=== PATIENT | female | born 1940 | race Caucasian/White ===

== ENCOUNTER 2022-12-21 09:15 | Outpatient (OUT) | payer MEDICARE, BC, SELFPAY | END 2022-12-21 09:16 | disposition home or self-care (01) | LOC: LAB 09:16 | PROVIDERS: PCP Family Medicine; Visit Provider Family Medicine | DX: E53.8 Deficiency of other specified B group vitamins (principal); E55.9 Vitamin D deficiency, unspecified; E78.5 Hyperlipidemia, unspecified | CPT/HCPCS: 36415; 82306; 82607 ==

== ENCOUNTER 2023-05-17 06:49 | Outpatient (OUT) | payer MEDICARE, BC, SELFPAY ==
--- NOTE | 2023-05-17 06:15 | NM_ITS ---
Patient Name: KAREN GARSIA MR#: [id number] : 1940 Exam Date: 05/17/2023 Ordering Doctor: DR Tiffanie Mcintosh M.D. RADIOLOGY REPORT PROCEDURE: NM IVETTE PERF SPECT REST STR COMPARISON: None. INDICATIONS: DYSPNEA TECHNIQUE: Exam Description: Stress/Rest one day protocol gated SPECT Rest Imagin.2 mCi Tc-99m Cardiolite IV on 05/17/2023 Stress Imaging 30.3 mCi Tc-99m Cardiolite IV on 05/17/2023 Exercise Protocol: Jayjay Heart Rate (bpm): Rest: 101 Max: 150 PMHR: 110 Blood Pressure: Rest: 184/100 Max: 184/100 Exercise Time: Minutes: 3 Seconds: 58 Stage Reached: Stage: 2 Mets 5.7 Symptoms: Rest and peak stress ECG findings were normal and the exercise portion of the study was normal per attending physician Dr. Brandon . For more details please see separate cardiac stress test report. FINDINGS: QUALITY OF STUDY: Excellent. PERFUSION DEFECT: None. LOCATION: N/A SIZE: N/A. SEVERITY: N/A. TYPE: N/A. WALL MOTION: Normal. LV SIZE: Normal. 57 mL. TID / TCD: None; 0.7 LVEF: Normal. Calculated EF 82%. SUMMARY: Myocardial perfusion imaging study is NORMAL. CONCLUSION: 1. Normal nuclear medicine myocardial perfusion scan. Dictated by: Lamberto Alejandro M.D. on 05/17/2023 at 15:54 Approved by: Lamberto Alejandro M.D. on 05/17/2023 at 15:56
--- NOTE | 2023-05-17 09:09 | P.STRESS_ITS ---
Stress Test Stress Test Requesting physician: Tiffanie Mcintosh Procedure: Exercise Cardiolite stress test General Information: Reason for Stress Test: Dyspnea Cardiac History and Risk Factors: Denies any personal or family history of cardiovascular disease. Resting 12 - Lead Electrocardiogram: Rate & rhythm: Normal sinus at a rate of 88. [place]: Left axis deviation T-waves: Flattened in III ST-segments: Normal orientation Similar appearance to EKG from 10/03/2019 for reference Stress Test: Protocol: Jayjay protocol was followed, with injection of Cardiolite once target heart rate was achieved. Exercise capacity: [] exercise capacity. Total exercise time of 3 minutes 59seconds reached Jayjay stage 2 at 2.5MPH, 12% grade, & 5.5 METs. Blood pressure: Initial and Maximum: 184/100, Recovery: 174/98 Rate & rhythm: Patient remained in sinus rhythm during the exercise and recovery portions of the study.? The maximum heart rate was 150, which was 110% of the maximum predicted heart rate 136. Rare PACs and PVCs. ST-segments & T-waves: There were no T-wave changes and no ST-segment changes when compared to the baseline EKG. Patient response/symptoms: Reported dyspnea was increased than normal complaint. Interpretation: Normal exercise test without electrocardiographical evidence of ischemia. Patient voiced increased dyspnea than her chief complaint, but no chest pain. Cardiolite imaging interpretation will be reported separately. Clinical correlation required.?
== END 2023-05-17 06:50 | disposition home or self-care (01) ==
LOC: NM 06:50
PROVIDERS: PCP Family Medicine; Visit Provider Family Medicine
DX: R06.09 Other forms of dyspnea (principal)
CPT/HCPCS: 78452; A9500

== ENCOUNTER 2023-12-10 08:28 | Emergency (ER) | payer MEDICARE, BC, SELFPAY ==
[2023-12-10] VITALS (18 sets, daily range): BP systolic 178–220; BP diastolic 84–98; PULSE 58–109; TEMP 36.7; O2SAT 95–99; BMI 27.3
--- OUTSIDE RECORDS SUMMARY | 2023-12-10 08:37 | XMS_ITS | CCD ---
Author Organization [facility] [employer] Care Team Providers Care Head Athletic Trainer Name Role Phone REQUEST, NONE LISTED Attending Unavailable DOM DALTON Consulting Unavailable REQUEST, NONE LISTED Admitting Unavailable REQUEST, NONE LISTED Attending Unavailable REQUEST, NONE LISTED Admitting Unavailable REQUEST, NONE LISTED Consulting Unavailable Tiffanie Doan Primary Care Provider [phone] MARIA ELENA, DR LAMBERTO Breaux Consulting Unavailable DOAN, DR TIFFANIE Valdivia Admitting Unavailable DOAN, DR TIFFANIE Valdivia Attending Unavailable DOAN, DR TIFFANIE Valdivia Primary Care Unavailable DOAN, DR TIFFANIE Valdivia Consulting Unavailable DOAN, DR TIFFNAIE Valdivia Primary Care Unavailable DOAN, DR TIFFANIE Valdivia Admitting Unavailable DOAN, DR TIFFANIE Valdivia Attending Unavailable DOAN, DR TIFFANIE Valdivia Consulting Unavailable HOY, DR OLIVERA Attending Unavailable HOY, DR OLIVERA Consulting Unavailable HOY, DR OLIVERA Admitting Unavailable DOAN, DR TIFFANIE Valdivia Primary Care Unavailable DOAN, DR TIFFANIE Valdivia Primary Care Unavailable REQUEST, DR GREENWOOD LISTED Attending Unavaila ble REQUEST, DR GREENWOOD LISTED Consulting Unavaila ble REQUEST, DR GREENWOOD LISTED Admitting Unavaila ble ZIEBSUBHA, DR LAMBERTO Breaux Consulting Unavailable DOAN, DR TIFFANIE Valdivia Primary Care Unavailable DOAN, DR TIFFANIE Valdivia Admitting Unavailable DOAN, DR TIFFANIE Valdivia Attending Unavailable DOAN, DR TIFFANIE Valdivia Consulting Unavailable ZIEBER, DR LAMBERTO Breaux Consulting Unavailable DOAN, DR TIFFANIE Valdivia Primary Care Unavailable DOAN, DR TIFFANIE Valdivia Admitting Unavailable DOAN, DR TIFFANIE Valdivia Attending Unavailable DOAN, DR TIFFANIE Valdivia Consulting Unavailable Doan, Tiffanie Unavailable Allergies Allergy Classification Reported Allergen(s) Allergy Type Date of Onset Reaction(s) Facility Alendronate (1 source) Alendronate Drug Allergy 10-25-19 [facility] Cephalosporins (antibiotic) (3 sources) Cephalexin Drug Allergy 11-26-19 14 Diarrhea [facility] Clavulanate (1 source) Clavulanate Drug Allergy 10-25-19 [facility] Corticosteroids (1 source) Triamcinolone Drug Allergy 10-25-19 24 [facility] Penicillins (antibiotic) (2 sources) Amoxicillin Drug Allergy 11-26-19 14 Diarrhea [facility] Serotonin Reuptake Inhibitors (SSRIs) (1 source) Citalopram Drug Allergy 10-25-19 24 Comment:not effective - felt more anxious [facility] (15 sources) Cephalexin Drug Allergy 07-27-19 21 Unknown [facility] Rep[facility] (2 sources) Amoxicillin Drug Allergy 07-27-19 21 [facility] (13 sources) Amoxicillin Drug Allergy Unknown [facility] (9 sources) Alendronate Drug Allergy Unknown [facility] (9 sources) Amoxicillin / Clavulanate Drug Allergy Unknown [facility] (10 sources) Citalopram Drug Allergy 10-23-19 Comment:not effective - felt more anxious [facility] (9 sources) Triamcinolone Drug Allergy Unknown [facility] (9 sources) Keflex *CEPHALOSPORINS* Propensity to adverse reactions Unknown [facility] Other (1 source) Allergies Reconciled Propensity to adverse reactions Unknown [facility] Other (1 source) patient allergy list reviewed by nurse or physicia Propensity to adverse reactions 10-08-19 Comment:Done [facility] Other (1 source) Alendronate Drug Allergy 05-23-20 [facility] (1 source) Cephalexin Drug Allergy 05-23-20 [facility] (1 source) Cephalosporins (Antibiotic) Allergy to substance 05-23-20 [facility] (1 source) Clavulanate Drug Allergy 05-23-20 23 [facility] (1 source) Triamcinolone Drug Allergy 05-23-20 23 [facility] Medications Current Medications Medication Drug Class(es) Dates Sig (Normalized) Sig (Original) Aspir-81 (13 sources) Aspir-81 Active aspirin 81 mg delayed release oral tablet (2 sources) Platelet Aggregation Inhibitor, Nonsteroidal Anti-inflammatory Drug Start: 10-20-2023 take 81 mg by mouth once daily Aspirin Active 81 MG PO Daily October 20, 2023 12:00am Start: 11-12-2013 take 1 tablet by anna th once daily aspirin, enteric coated (ECOTRIN LOW STRENGTH) 81 mg EC tablet Take 1 tablet by mouth once daily. 0 11/12/2013 Active Comment on above: Take 1 tablet by anna once daily. Calcium (13 sources) Phosphate Binder, Calcium Calcium Active cholecalciferol 0.025 mg oral capsule (2 sources) Vitamin D Start: 10-20-19 take 25 ug by mouth once daily Cholecalciferol (Vitamin D3) Active 25 MCG PO Daily October 20, 2023 12:00am Start: 11-12-2013 take 1 capsule by [facility] once daily cholecalciferol, vitamin D3, (VITAMIN D-3) 400 unit cap Take 1 capsule by mouth once daily. 0 11/12/2013 Active Comment on above: Take 1 capsule by [facility] once daily. clopidogrel 75 mg oral tablet (17 sources) P2Y12 Platelet Inhibitor Start: 07-27-2023 End: 07-27-2023 take 1 tablet by mouth once daily Clopidogrel Active 75 MG PO Daily July 27, 2023 10:14am [employer] tablet Orally once a day; Note: Source Status: Taking; Refills: 3; Provider: Dayna Valdivia take 1 tablet by anna every twenty-four hours Clopidogrel Bisulfate 75 MG 1 tablet Orally once a day for 90 days Active diazePAM 2 mg oral tablet (15 sources) Benzodiazepine Start: 10-20-2023 take 0.5 tablet by mouth once daily as needed Diazepam Active MG PO October 20, 2023 12:00am [employer]/2 tab Orally Once a day, prn; Note: Source Status: Refill; Refills: 0; Provider: Dayna Valdivia Start: 05-23-2023 take 0.5 tablet by m outh once daily as needed diazePAM 2 MG 1/2 tab Orally Once a day, prn for 90 days May, Active Start: 03-15-2023 take 0.5 tablet by m outh once daily as needed diazePAM 2 MG 1/2 tab Orally Once a day, prn for 30 days Mar, Active Start: 11-12-2013 take 1 tablet by anna th twice daily diazepam (VALIUM) 5 mg tablet Take 1 tablet by mouth twice daily. 0 11/12/2013 Active diazePAM 2 MG 1/ 2 tab prn Active Comment on above: Take 1 tablet by anna twice daily. fluticasone furoate 0.0275 mg/actuat metered dose nasal spray (2 sources) Corticosteroid Start: take 2 spray(s) nasal route once daily, then take 1 spray(s) nasal route once daily Fluticasone Furoate Active 2 SPRAY INTRANASAL Daily October 20, 2023 12:00am [employer] sprays (1 spray in each nostril) Nasally Once a day; Note: Source Status: Taking; Provider: Dayna Moreno ( ) Start: 11-12-2013 fluticasone (F LONASE) 50 mcg/actuation nasal spray 2 Sprays once daily as needed. 0 11/12/2013 Active Comment on above: 2 Sprays once daily as needed. Fluticasone Furoate 27.5 MCG/SPRAY (13 sources) Fluticasone Furo ate 27.5 MCG/SPRAY 2 sprays (1 spray in each nostril) Nasally Once a day Active Foltanx 3-35-2 MG (13 sources) take 1 tablet by mouth once daily Foltanx 3-35-2 MG 1 tablet Orally once a day for 90 days Active Foltanx 3-35-2 M G 1 tablet once a day for 90 days Active Magnesium (13 sources) Magnesium Active Mecobal-Levomefolat Ca-B6 Phos (Foltanx) 3-35-2 mg tablet (1 source) Start: 10-20-2023 take 1 tablet by mouth twice daily Mecobal-Levomefolat Ca-B6 Phos (Foltanx) 3-35-2 mg tablet Active 1 TAB PO Twice daily October 20, 2023 12:00am 24 hr metoprolol succinate 50 mg extended release oral tablet (7 sources) beta-Adrenergic Rashel Start: 10-20-2023 take 1 tablet by mouth once daily Metoprolol Succinate Active 1 TAB PO Daily October 20, 2023 12:00am [employer] tablet Orally Once a day; Note: Source Status: Refill; Provider: Dayna Valdivia Start: 05-23-2023 take 1 tablet by anna th every twenty-four hours Toprol XL 25 MG 1 tablet Orally Once a day for 30 day(s) May, Active take 1 tablet by anna th every twenty-four hours Metoprolol Succinate ER 50 MG 1 tablet Orally Once a day for 90 days Active olmesartan medoxomil 40 mg oral tablet (20 sources) Angiotensin 2 Receptor Rashel Start: 10-16-2023 Olmesartan Active 0 .ROUTE .COMPLEX October 16, 2023 12:38pm TAKE 1 TABLET DAILY Start: 07-26-2023 End: 10-25-2023 take 40 mg by mouth once daily Olmesartan Discontinued 40 MG PO Daily August 02, 2023 2:42pm October 16, 2023 12:39pm take 1 tablet by anna th once daily Olmesartan Medoxomil 40 MG 1 tab Orally daily for 30 days Active take 1 tablet by anna th once daily Olmesartan Medoxomil 20 MG 1 tab Orally daily Active Psyllium (6 sources) Metamucil Active rosuvastatin calcium 20 mg oral tablet (18 sources) HMG-CoA Reductase Inhibitor Start: take 40 mg by mouth once daily Rosuvastatin Active 40 MG PO Daily October 25, 2023 10:33am Start: 07-27-2023 End: 10-25-2023 take 20 mg by mouth once daily Rosuvastatin Discontinu ed 20 MG PO Daily July 27, 2023 10:14am October 25, 2023 10:33am take 1 tablet by anna th every other day Rosuvastatin Calcium 20 MG 1 tablet Orally every other day for 90 days Active tiZANidine 4 mg oral tablet (14 sources) Central alpha-2 Adrenergic Agonist Start: 10-20-2023 take 1 tablet by mouth three times daily as needed Tizanidine Active 4 MG PO Three times daily October 20, 2023 12:00am FreeTextSi tablet as needed Orally Three times a day; Note: Source Status: Taking; Provider: Dayna Moreno ( ) take 1 tablet by mouth every eig ht hours tiZANidine HCl 4 MG 1 tablet as needed Orally Three times a day Active Vitamin D3 (13 sources) Vitamin D3 Activ e Completed/Discontinued Medications Medication Drug Class(es) Dates Sig (Normalized) Sig (Original) ascorbic acid 500 mg oral tablet (14 sources) Vitamin C Start: 11-12-2013 take 0.5 tablet by mouth once daily ascorbic acid (VITAMIN C) 500 mg tablet Take 0.5 tablets by mouth once daily. 0 11/12/2013 Active Vitamin C Active Comment on above: Take 0.5 tablets by mouth once daily. calcium carbonate 1500 mg oral tablet (1 source) Start: 2013 take 0.25 tablet by mouth once daily calcium carbonate 600 mg (1,500 mg) tab Take 0.25 tablets by mouth once daily. 0 11/12/2013 Active Comment on above: Take 0.25 tablets by mouth once daily. hydroCHLOROthiazide 12.5 mg / lisinopril 10 mg oral tablet (1 source) Thiazide Diuretic, Angiotensin Converting Enzyme Inhibitor Start: 2013 take 1 tablet by mouth once daily lisinopril-hydroch lorothiazide 10-12.5 mg per tablet Take 1 tablet by mouth once daily. 0 11/12/2013 Active Comment on above: Take 1 tablet by anna th once daily. C-Oumftka-T2 Zejd-Boajxg-G53 (FOLTANX) 3-35-2 mg tab or Capsule (2 sources) Start: 2013 take 1 tablet by mouth once daily D-Awupzac-O5 Ychu-Bqrddh-B83 (FOLTANX) 3-35-2 mg tab or Capsule Take 1 tablet by mouth once daily. 30 capsule 11 11/12/2013 Active Comment on above: Take 1 tablet by anna th once daily. meclizine hydrochloride 25 mg oral tablet (1 source) Antiemetic Start: 2013 take 0.5 tablet by mouth once daily as needed for dizziness meclizine 25 mg tab Take 0.5 tablets by mouth once daily as needed (for dizziness.). 0 11/12/2013 Active Comment on above: Take 0.5 tablets by mouth once daily as needed (for dizziness.). promethazine hydrochloride 25 mg oral tablet (7 sources) Phenothiazine Start: 2013 take 0.5 tablet by mouth once daily as needed for nausea promethazine 25 mg tablet Take 0.5 tablets by mouth once daily as needed for Nausea/Vomiting. 0 11/12/2013 Active Promethazine HCl 25 MG 1 tablet as needed prn Active Comment on above: Take 0.5 tablets by mouth once daily as needed for Nausea/Vomiting. triamcinolone acetonide 40 mg/ml injectable suspension (13 sources) Corticosteroid Start: 10-19-2022 Kenalog-40 October, 40 mg Problems Active Problems Problem Classification Problem Date Documented Da te Episodic/Chronic Acute cerebrovascular disease (1 source) Cerebral infarction; Translations: [Cerebral infarction, unspecified] Chronic Anxiety disorders (7 sources) Generalized anxiety disorder; Translations: [Generalized anxiety disorder] Chronic Cardiac dysrhythmias (1 source) Cardiac arrhythmia; Translations: [Cardiac arrhythmia, unspecified] Chronic Disorders of lipid metabolism (14 sources) Hyperlipidemia; Translations: [Hyperlipidemia, unspecified] Chronic Essential hypertension (19 sources) Essential hypertension; Translations: [Essential (primary) hypertension] Chronic Headache; including migraine (1 source) Episodic tension-type headache; Translations: [Episodic tension type headache] Onset: 6 Chronic Immunizations and screening for infectious disease (1 source) Vaccination given; Translations: [Encounter for immunization] Episodic Nausea and vomiting (1 source) Nausea; Translations: [Nausea] Episodic Nutritional deficiencies (14 sources) Vitamin D deficiency; Translations: [Vitamin D deficiency, unspecified] Chronic Nutritional deficiencies (3 sources) Deficiency of other specified B group vitamins Episodic Osteoarthritis (1 source) Osteoarthritis; Translations: [Unspecified osteoarthritis, unspecified site] Chronic Osteoporosis (1 source) Primary osteoporosis; Translations: [Age-related osteoporosis without current pathological fracture] Onset: 4 Chronic Other and unspecified benign neoplasm (3 sources) Benign neoplasm of cranial nerve; Translations: [Benign neoplasm of cranial nerves] Onset: 4 01-17-2014 Chronic Other and unspecified benign neoplasm (3 sources) Benign neoplasm of cranial nerves; Translations: [BENIGN NEOPLASM OF CRANIAL NERVES] Onset: 2 Chronic Other circulatory disease (1 source) Elevated blood-pressure reading without diagnosis of hypertension; Translations: [Elevated blood-pressure reading, without diagnosis of hypertension] Episodic Other circulatory disease (1 source) Personal history of transient ischemic attack (TIA), and cerebral infarction without residual deficits Episodic Other connective tissue disease (2 sources) Spasm; Translations: [Spasm of muscle] Onset: 6 Episodic Other gastrointestinal disorders (12 sources) Abnormal feces; Translations: [Other fecal abnormalities] Episodic Other gastrointestinal disorders (1 source) Other fecal abnormalities; Translations: [Positive colorectal cancer screening using Cologuard test] Episodic Other lower respiratory disease (1 source) Other forms of dyspnea Episodic Other non-traumatic joint disorders (1 source) Pain in right hip joint; Translations: [Pain in right hip] Episodic Other upper respiratory disease (14 sources) Seasonal allergic rhinitis; Translations: [Other seasonal allergic rhinitis] Chronic Peripheral and visceral atherosclerosis (5 sources) Peripheral vascular disease, unspecified; Translations: [Peripheral vascular disease] Onset: 8 Chronic Residual codes; unclassified (1 source) Family history of malignant neoplasm of gastrointestinal tract; Translations: [Family history of malignant neoplasm of digestive organs] Episodic Residual codes; unclassified (1 source) Family history of breast cancer; Translations: [Family history of malignant neoplasm of breast] Episodic Residual codes; unclassified (1 source) Requires influenza virus vaccination; Translations: [Need for prophylactic vaccination and inoculation, Influenza] Episodic Spondylosis; intervertebral disc disorders; other back problems (1 source) Lumbosacral spondylosis without myelopathy; Translations: [Lumbosacral spondylosis without myelopathy] Onset: 5 Chronic Transient cerebral ischemia (1 source) Transient cerebral ischemia; Translations: [Transient cerebral ischemic attack, unspecified] Chronic Past or Other Problems Problem Classification Problem Date Documented Da te Episodic/Chronic Allergic reactions (1 source) Contact dermatitis; Translations: [Contact dermatitis and other eczema, due to unspecified cause] Onset: 09-10-2014 Episodic Cancer of ovary (1 source) History of malignant neoplasm of ovary; Translations: [Personal history of malignant neoplasm of ovary] Onset: 02-27-2013 Episodic Conditions associated with dizziness or vertigo (2 sources) Benign paroxysmal positional vertigo; Translations: [Benign paroxysmal positional vertigo] Onset: 04-30-2013 Episodic Other connective tissue disease (1 source) Pain in left lower limb; Translations: [Pain in left leg] Onset: 04-19-2018 Episodic Other non-traumatic joint disorders (4 sources) Pain in right hip; Translations: [PAIN IN RIGHT HIP] Onset: 07-14-2021 Episodic Other non-traumatic joint disorders (1 source) Shoulder joint pain; Translations: [Pain in left shoulder] Onset: 10-27-2016 Episodic Other non-traumatic joint disorders (1 source) Arthralgia of the lower leg; Translations: [Pain in joint, lower leg] Onset: 10-27-2016 Episodic Other screening for suspected conditions (not mental disorders or infectious disease) (4 sources) Encounter for screening mammogram for malignant neoplasm of breast; Translations: [ENC SCR MAMMO MALIG NEOPLASM BREAST] Onset: 11-19-2021 Episodic Other upper respiratory infections (1 source) Acute maxillary sinusitis; Translations: [Acute recurrent maxillary sinusitis] Onset: 10-27-2016 Episodic Phlebitis; thrombophlebitis and thromboembolism (1 source) Embolism from thrombosis of vein of distal lower extremity; Translations: [Acute venous embolism and thrombosis of unspecified deep vessels of lower extremity] Onset: 04-30-2013 Episodic Residual codes; unclassified (1 source) Family history of malignant neoplasm of breast; Translations: [FAMILY HX MALIG NEOPLASM OF BREAST] Onset: 11-23-2021 Episodic Residual codes; unclassified (1 source) Family history of malignant neoplasm of digestive organs; Translations: [FAM HX MALIG NEOPLASM DIGESTIV ORGN] Onset: 11-23-2021 Episodic Screening and history of mental health and substance abuse codes (1 source) History of tobacco use; Translations: [Personal history of tobacco use, presenting hazards to health] Onset: 03-14-2017 Episodic Skin and subcutaneous tissue infections (1 source) Cellulitis and abscess of lower leg; Translations: [Cellulitis and abscess of leg, except foot] Onset: 04-30-2013 Episodic Unclassified (1 source) Need for prophylactic vaccination with tetanus toxoid alone; Translations: [Need for prophylactic vaccination with tetanus toxoid alone] Onset: 05-01-2013 Results Test Name Value Interpretation Reference Range Facil ity CBC AUTO DIFFon 11-19-2021 BASO # 0.0 103/ul Normal 0.0-0.1 [facility] Comment on above: Performed By: #### D ATCBC #### [facility] [address] [address] [address] Kin Acuna Basophils/100 WBC (Bld) 0.7 % Normal 0.2-2.0 [facility] Comment on above: Performed By: #### D ATCBC #### [facility] [address] [place] [address] Dr. Kin Acuna EO # 0.1 103/ul Normal 0.0-0.7 [facility] Comment on above: Performed By: #### D ATCBC #### [facility] [address] [place] [address] Dr. Kin Acuna Eosinophils/100 WBC (Bld) 1.6 % Normal 0.9-7.0 [facility] Comment on above: Performed By: #### D ATCBC #### [facility] [address] [place] [address] Dr. Kin Acuna Erythrocyte distribution width (RBC) [Ratio] 13.3 % Normal 11.0-15.0 [facility] Comment on above: Performed By: #### D ATCBC #### [facility] [address] [place] [address] Dr. Kin Acuna Hematocrit (Bld) [Volume fraction] 41.4 % Normal 36.0-48.0 [facility] Comment on above: Performed By: #### D ATCBC #### [facility] [address] [place] [address] Dr. Kin Acuna Hemoglobin (Bld) [Mass/Vol] 13.0 g/dL Normal 12.0-16.0 [facility] Comment on above: Performed By: #### D ATCBC #### [facility] [address] [place] [address] Dr. Kin Acuna IG # 0.01 10e3/ul Normal 0.00-0.03 [facility] Comment on above: Performed By: #### D ATCBC #### [facility] [address] [place] [address] Dr. Kin Acuna IG % 0.2 % Normal 0.0-0.5 [facility] Comment on above: Performed By: #### D ATCBC #### [facility] [address] [place] [address] Dr. Kin Acuna LYMPH # 1.8 103/ul Normal 1.2-3.8 [facility] Comment on above: Performed By: #### D ATCBC #### [facility] [address] [place] [address] Dr. Kin Acuna Lymphocytes/100 WBC (Bld) 32.8 % Normal 20.5-60.0 [facility] Comment on above: Performed By: #### D ATCBC #### [facility] [address] [place] [address] Dr. Kin Acuna MCH (RBC) [Entitic mass] 31.4 pg Normal 26.7-34.0 [facility] Comment on above: Performed By: #### D ATCBC #### [facility] [address] [place] [address] Dr. Kin Acuna MCHC (RBC) [Mass/Vol] 31.4 g/dL Normal 29.9-35.2 [facility] Comment on above: Performed By: #### D ATCBC #### [facility] [address] [place] [address] Dr. Kin Acuna MCV (RBC) [Entitic vol] 100.0 fL Critically high 81.0-99.0 [facility] Comment on above: Performed By: #### D ATCBC #### [facility] [address] [place] [address] Dr. Kin Acuna MONO # 0.5 103/ul Normal 0.3-0.8 [facility] Comment on above: Performed By: #### D ATCBC #### [facility] [address] [place] [address] Dr. Kin Acuna Monocytes/100 WBC (Bld) 8.3 % Normal 1.7-12.0 [facility] Comment on above: Performed By: #### D ATCBC #### [facility] [address] [place] [address] Dr. Kin Acuna NEUT # 3.1 103/ul Normal 1.4-6.5 [facility] Comment on above: Performed By: #### D ATCBC #### [facility] [address] [place] [address] Dr. Kin Acuna Neutrophils/100 WBC (Bld) 56.4 % Normal 43.0-75.0 [facility] Comment on above: Performed By: #### D ATCBC #### [facility] [address] [address] [address] Kin Acuna Platelet mean volume (Bld) [Entitic vol] 10.7 fL Normal 9.5-13.5 [facility] Comment on above: Performed By: #### D ATCBC #### [facility] [address] [place] [address] Dr. Kin Acuna PLT 171 103/ul Normal 150-450 [facility] Comment on above: Performed By: #### D ATCBC #### [facility] [address] [address] [address] Kin Acuna RBC 4.14 106/ul Critically low 4.20-5.40 [facility] Comment on above: Performed By: #### D ATCBC #### [facility] [address] [place] [address] Dr. Kin Acuna WBC 5.6 103/ul Normal 4.0-11.0 [facility] Comment on above: Performed By: #### D ATCBC #### [facility] [address] [place] [address] Dr. Kin Acuna ROSEMARY- BMP WITH LIPIDon 2021 Anion gap [Moles/Vol] 9.2 mmol/L Normal [facility] Comment on above: Performed By: #### D ATBMP #### [facility] [address] [place] [address] Dr. Kin Acuna Calcium [Mass/Vol] 8.8 mg/dL Normal 8.5-10.1 [facility] Comment on above: Performed By: #### D ATBMP #### [facility] [address] [place] [address] Dr. Kin Acuna Chloride [Moles/Vol] 106 mmol/L Normal 98-107 [facility] [facility] Comment on above: Performed By: #### D ATBMP #### [facility] [address] [address] [address] Kin Acuna Cholesterol [Mass/Vol] 152 mg/dL Normal <=200 [facility] Comment on above: Performed By: #### D ATBMP #### [facility] [address] [address] [address] Kin Acuna Cholesterol in HDL [Mass/Vol] 90 mg/dL Critically high 40-60 [facility] Comment on above: Performed By: #### D ATBMP #### [facility] [address] [address] [address] Kin Acuna Cholesterol in LDL [Mass/Vol] 57.8 mg/dL Normal [facility] Comment on above: Performed By: #### D ATBMP #### [facility] [address] [address] [address] Kin Acuna CO2 [Moles/Vol] 29.0 mmol/L Normal 21.0-32.0 [facility] Comment on above: Performed By: #### D ATBMP #### [facility] [address] [address] [address] iKn Acuna Creatinine [Mass/Vol] 1.04 mg/dL Critically high 0.55-1.02 [facility] Comment on above: Performed By: #### D ATBMP #### [facility] [address] [address] [address] Kin Acuna EGFR-AF LIBERIAN >60 Normal >=60 [facility] Comment on above: Performed By: #### D ATBMP #### [facility] [address] [address] [address] Kin Acuna EGFR-NON AF LIBERIAN 51 mL/min/1.73m2 Critically low >=60 [facility] Comment on above: Performed By: #### D ATBMP #### [facility] [address] [address] [address] Kin Acuna Glucose [Mass/Vol] 97 mg/dL Normal 74-106 [facility] Comment on above: Performed By: #### D ATBMP #### [facility] [address] [address] [address] Kin Acuna HDL NORMAL > or = 60 mg/dl - LO W CARDIOVASCULAR RISK <40 mg/dl - HIGH CARDIOVASCULAR RISK Normal [facility] Comment on above: Performed By: #### D ATBMP #### [facility] [address] [address] [address] Kin Acuna LDL CALC NORMAL SEE BELOW Normal [facility] Comment on above: Result Comment: <100 mg/dl OPTIMAL 100 - 129 mg/dl NEAR OR ABOVE OPTIMAL 130 - 159 mg/dl BORDERLINE HIGH 160 - 189 mg/dl HIGH >190 mg/dl VERY HIGH Performed By: #### D ATBMP #### [facility] [address] [address] [address] Kin Acuna Potassium [Moles/Vol] 4.2 mmol/L Normal 3.5-5.1 [facility] Comment on above: Performed By: #### D ATBMP #### [facility] [address] [address] [address] Kin Acuna Sodium [Moles/Vol] 140 mmol/L Normal 136-145 [facility] Comment on above: Performed By: #### D ATBMP #### [facility] [address] [address] [address] Kin Acuna Triglyceride [Mass/Vol] 21 mg/dL Normal <=150 [facility] Comment on above: Performed By: #### D ATBMP #### [facility] [address] [address] [address] Kin Acuna Urea nitrogen [Mass/Vol] 16.0 mg/dL Normal 7.0-18.0 [facility] Comment on above: Performed By: #### D ATBMP #### [facility] [address] [address] [address] Kin Acuna Urea nitrogen/Creatinine [Mass ratio] 15.4 mg/mg Normal [facility] Comment on above: Performed By: #### D ATBMP #### [facility] [address] [address] [address] Kin Acuna VLDL CALC 4.2 mg/dL Normal [facility] Comment on above: Performed By: #### D ATBMP #### [facility] [address] [address] [address] Kin Acuna MG MAMM SCREEN 3D BRANDON CADon 11-19-2021 MG MAMM SCREEN 3D BRANDON CAD Patient: SHABNAM GASRIA Exam Date: 11/19/2021 : 1940 Gender:F Ordering : DR TIFFANIE DOAN M.D. Admission #: [id number] Family : Order #: [id number] CLICK HERE TO VIEW EXAM RADIOLOGY REPORT PROCEDURE: MAMMOGRAM SCREENING 3D BILATERAL CAD COMPARISON: MG MAMM SCREEN 3D BRANDON CAD, 10/15/2020. MG MAMM SCREEN BRANDON W CAD, 10/09/2018. INDICATIONS: Screening mammography Calculator Name NCI Breast Cancer Risk Assessment Tool 5 Year Breast Cancer Risk 1.20% Lifetime Breast Cancer Risk 1.50% Personal Breast Cancer No Personal Ovarian Cancer Yes, Age 56. Hysterectomy, Treatments None Family Cancers Aunt-paternal with breast cancer at age 70; Mother with colon cancer at age 80. LOCATION: [facility] BREAST COMPOSITION: Heterogeneously dense,which may obscure small masses. FINDINGS: DIAGNOSTIC CATEGORY 2--BENIGN FINDING: RIGHT BREAST: No significant suspicious finding. Scattered benign-appearing calcifications are present. No significant change has occurred. LEFT BREAST: No significant suspicious finding. No significant change has occurred. RECOMMENDATIONS: ROUTINE MAMMOGRAM AND CLINICAL EVALUATION IN 12 MONTHS. PLEASE NOTE: A NORMAL MAMMOGRAM DOES NOT EXCLUDE THE POSSIBILITY OF BREAST CANCER. A CLINICALLY SUSPICIOUS PALPABLE LUMP SHOULD BE BIOPSIED. Dictated by: Lamberto Alejandro M.D. on 11/19/2021 at 14:53 Approved by: Lamberto Alejandro M.D. on 11/19/2021 at 14:56 Normal [facility] Vital Signs Date Time Vital Sign Value Performing Clinician Facility 10-25-2023 10:20-0400 Body height 152.4 cm [facility] 10-25-2023 10:20-0400 Body mass index (BMI) [Ratio] 28.3 kg/m2 [facility] 10-25-2023 10:20-040 Body weight 65.77 kg [facility] 10-25-2023 10:20-0400 Diastolic blood pressure 81 mm[Hg] [facility] 10-25-2023 10:20-0400 Heart rate 67 /min [facility] 10-25-2023 10:20-0400 Systolic blood pressure 176 mm[Hg] [facility] 05-23-2023 09:00-0500 Body height 152.4 cm Tiffanie Doan Other [facility] 05-23-2023 09:00-0500 Body mass index (BMI) [Ratio] 28.55 kg/m2 Tiffanie Doan Other [facility] 05-23-2023 09:00-0500 Body weight 66.32 kg Tiffanie Doan Other [facility] 05-23-2023 09:00-0500 Diastolic blood pressure 109 mm[Hg] Tiffanie Doan Other [facility] Other 05-23-2023 09:00-0500 Systolic blood pressure 176 mm[Hg] Tiffanie Doan Other [facility] 04-26-2023 10:00-0500 Body height 152.4 cm Tiffanie Doan Other [facility] 04-26-2023 10:00-0500 Body mass index (BMI) [Ratio] 27.92 kg/m2 Tiffanie Doan Other [facility] 04-26-2023 10:00-0500 Body weight 64.86 kg Tiffanie Doan Other [facility] Other 04-26-2023 10:00-0500 Diastolic blood pressure 88 mm[Hg] Tiffanie Doan Other [facility] Other 04-26-2023 10:00-0500 Systolic blood pressure 132 mm[Hg] Tiffanie Doan Other [facility] Other 10-26-2022 10:00-0400 Body height 152.4 cm Tiffanie Doan Other [facility] Other 10-26-2022 10:00-0400 Body mass index (BMI) [Ratio] 28.71 kg/m2 Tiffanie Doan Other [facility] Other 10-26-2022 10:00-0400 Body weight 66.68 kg Tiffanie Doan Other [facility] Other 10-26-2022 10:00-0400 Diastolic blood pressure 89 mm[Hg] Tiffanie Doan Other [facility] Other 10-26-2022 10:00-0400 Systolic blood pressure 172 mm[Hg] Tiffanie Doan Other [facility] Other Encounters Encounter Date Encounter Type Care Provider Facility Start: 10-25-2023 End: 10-25-2023 ambulatory [facility] Work Phone: Start: 10-25-2023 End: 10-25-2023 Patient encounter procedure [facility] Physician [facility] Work Phone: Start: 09-29-2023 End: 09-29-2023 ambulatory [facility] Work Phone: Start: 09-29-2023 End: 09-29-2023 Patient encounter procedure [facility] Physician [facility] Work Phone: Start: 08-02-2023 Non-patient / Non-visit [facility] Physician [facility] Work Phone: Start: 07-27-2023 Non-patient / Non-visit [facility] Physician [facility] [facility] Work Phone: Start: 07-14-2023 End: 07-14-2023 ambulatory Tiffanie Doan Other [facility] Other Start: 07-14-2023 Telephone encounter Tiffanie Doan [facility] Start: 06-27-2023 End: 06-27-2023 ambulatory Tiffanie Doan Other [facility] Other Start: 06-27-2023 Telephone encounter Tiffanie Doan [facility] Start: 06-09-2023 End: 06-09-2023 ambulatory Tiffanie Doan Other [facility] Other Start: 06-09-2023 Telephone encounter Tiffanie Doan [facility] Start: 05-23-2023 End: 05-23-2023 ambulatory Tiffanie Doan Other [facility] Other Start: 05-23-2023 Office outpatient vi sit 15 minutes Tiffanie Doan [facility] Start: 05-23-2023 Telephone encounter Tiffanie Doan [facility] Start: 04-26-2023 End: 04-26-2023 ambulatory Tiffanie Doan Other [facility] Other Start: 04-26-2023 Office outpatient vi sit 15 minutes Tiffanie Doan [facility] Start: 04-25-2023 End: 04-25-2023 ambulatory Tiffanie Doan Other [facility] Other Start: 04-25-2023 Telephone encounter Tiffanie Doan [facility] Start: 03-15-2023 End: 03-15-2023 ambulatory Tiffanie Doan Other [facility] Other Start: 03-15-2023 Telephone encounter Tiffanie Doan [facility] Start: 12-19-2022 End: 12-19-2022 ambulatory Tiffanie Doan Other [facility] Other Start: 12-19-2022 Telephone encounter Tiffanie Doan [facility] Start: 11-25-2022 End: 11-25-2022 ambulatory Tiffanie Doan Other [facility] Other Start: 11-25-2022 Telephone encounter Tiffanie Dayna [facility] Start: 11-01-2022 End: 11-01-2022 ambulatory Tiffanie Dayna Other [facility] Other Start: 11-01-2022 Telephone encounter Tiffanie Doan [facility] Start: 10-26-2022 End: 10-26-2022 ambulatory Tiffanie Doan Other [facility] Other Start: 10-26-2022 Office outpatient vi sit 15 minutes Tiffanieisabela Doan [facility] Start: 05-13-2022 End: 05-14-[address] TIFFANIE DOAN Facility:[facility] Start: 05-10-2022 Adult health examination Tiffanie Dayna Other [facility] Other Start: 05-04-2022 End: 05-05-[address] JAROD LONGORIA Facility:[facility] Start: 01-05-2022 End: 01-06-[address] LAMBERTO ALEJANDRO Facility:[facility] Start: 11-19-2021 End: 11-20-[address] LAMBERTO ALEJANDRO Facility:[facility] Start: 07-14-2021 End: 07-15-[address] LAMBERTO ALEJANDRO Facility:[facility] Start: 07-23-2020 End: 07-24-2020 Patient encounter procedure NONE LISTED REQUEST Facility:[facility] Start: 06-22-2020 End: 06-23-2020 Patient encounter procedure NONE LISTED REQUEST Facility:[facility] Start: 11-15-2013 End: 11-15-2013 Telephone encounter Eusebia Jimenes Work Phone: Neurology Procedures Date Procedure Procedure Detail Performing Clinician Start: 09-05-2017 General examination of patient Tiffanie Doan Other Start: 03-20-2015 Screening mammography M pk Doan Other Screening for malign ant neoplasm of breast Tiffanie Dayna Other Screening for malign ant neoplasm of colon Tiffanie Doan Other Plan of Treatment Date Care Activity Detail Author Start: 02-03-2021 Influenza vaccination INFLUENZA (Sea son Ended) [facility] Start: 08-20-2003 ADVANCE DIRECTIVE DISCUSSION ADVANCE DIRECTIVE DISCUSSION [facility] Start: 08-20-2003 BONE DENSITY BONE DENSITY [facility] Start: 08-20-2003 PNEUMOVAX AGE 65 AND OVER WITH 5YR LOOKBACK (#1) PNEUMOVAX AGE 65 AND OVER WITH 5YR LOOKBACK (#1) [facility] Start: 1988 SHINGRIX VACCINE (1 of 2) CANTRELL GRIX VACCINE (1 of 2) [facility] Start: 08-20-1983 DIABETES SCREEN DIABETES SCREEN [facility] Start: 1957 Urine microalbumin profile DTAP,TDAP ,TD (1 - Tdap) [facility] Immunizations Immunization Date Immunization Notes Care Provider Av rose 03-02-2022 influenza virus vaccine, split virus (incl. purified surface antigen) Tiffanie Doan Other [facility] Other 03-02-2022 influenza virus vaccine, unspecified formulation [facility] 02-24-2021 influenza virus vaccine, split virus (incl. purified surface antigen) Tiffanie Doan Other [facility] Other 02-24-2021 influenza virus vaccine, unspecified formulation [facility] 02-11-2020 influenza virus vaccine, split virus (incl. purified surface antigen) Tiffanie Doan Other [facility] Other 02-11-2020 influenza virus vaccine, unspecified formulation [facility] 09-05-2017 pneumococcal conjuga te vaccine, 13 valent Tiffanie Doan Other [facility] 09-05-2017 pneumococcal Conjuga te, unspecified formulation; Translations: [Need for prophylactic vaccination against Streptococcus pneumoniae (pneumococcus)] Tiffanie Doan Other [facility] Other 03-14-2017 influenza virus vaccine, split virus (incl. purified surface antigen) Tiffanie Doan Other [facility] Other 03-14-2017 influenza virus vaccine, unspecified formulation [facility] 04-10-2014 influenza virus vaccine, split virus (incl. purified surface antigen) Tiffanie Doan Other [facility] Other 04-10-2014 influenza virus vaccine, unspecified formulation [facility] 05-01-2013 diphtheria, tetanus toxoids and acellular pertussis vaccine, unspecified formulation Tiffanie Doan Other [facility] 04-11-2013 tetanus and diphther ia toxoids, adsorbed, preservative free, for adult use (5 Lf of tetanus toxoid and 2 Lf of diphtheria toxoid) Tiffanie Doan Other [facility] Payers Date Payer Category Payer Medicare MEDICARE MEDICAR E B [id number] 2003-Present [place] [id number] 1996 Unknown RG REHMAN BC BS FEP PPO [id number] 1996-Present PPO [id number] 1959 Medicare [id number] 1959 Self-pay 1959 Unknown [id number] 1940 Unknown [id number] 3 1940 Unknown [id number] 3 1940 Unknown [id number] 3 1940 Unknown [id number] 3 Medicare Medicare Outpatient [id number] Unknown [id number] 3 Unknown [id number] 3 Unknown [id number] 3 Unknown [id number] 3 Unknown Rg BC/BS [id number] Social History Date Type Detail Facility Start: 11-14-2013 Tobacco smoking status NHIS Former smoker [facility] End: 11-14-1996 History of tobacco use Current smoker [facility] Start: 11-14-2013 Alcohol intake 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 Other Start: 1940 Sex Assigned At Female F [facility] Clinical Notes 04-18-2005 to 07-14-2023 Note Date & Type Note Facility 07-14-2023 Evaluation note Encounter Date Diagnosis Assessment Notes Jul, Vitamin B12 deficiency (ICD-10 - E53.8) [facility] Other 01-23-2024 Evaluation note* Encounter Date Diagnosis Assessment Notes Treatment Notes Treatment Clinical Notes Jun, Essential (primary) hypertension (ICD-10 - I10) [facility] Other 01-05-2024 Evaluation note* Encounter Date Diagnosis Assessment Notes Treatment Notes Treatment Clinical Notes Jun, Essential (primary) hypertension (ICD-10 - I10) [facility] Other 12-19-2023 Evaluation note* Encounter Date Diagnosis Assessment Notes Treatment Notes Treatment Clinical Notes May, Essential (primary) hypertension (ICD-10 - I10) added toprol, continue olmesartan. 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 May, Anxiety, generalized (ICD-10 - F41.1) Pt takes med spariningly, reviewed OARRS report. [facility] Other 11-22-2023 Evaluation note* Encounter Date Diagnosis Assessment Notes Treatment Notes Treatment Clinical Notes Apr, Dyspnea on exertion (ICD-10 - R06.09) Pt agrees to Stress test Feels able to do the treadmill portion Apr, Essential (primary) hypertension (ICD-10 - I10) Blood pressure remains well controlled at this time. Denies cardiac symptoms. Shows no signs or symptoms or poor control. Patient to continue with above medication and we will continue to monitor. Advised to pay attention to body and symptoms. Any developing patterns. Stay well hydrated. Apr, History of CVA (cerebrovascular accident) (ICD-10 - Z86.73) Pt requests refill for chronic issue. [facility] Other 11-21-2023 Evaluation note* Encounter Date Diagnosis Assessment Notes Treatment Notes Treatment Clinical Notes Apr, Vitamin B12 deficiency (ICD-10 - E53.8) [facility] Other 05-24-2023 Evaluation note* Encounter Date Diagnosis Assessment Notes Treatment Notes Treatment Clinical Notes October, Vitamin B12 deficiency (ICD-10 - E53.8) due for lab - requests refill - chronic problem October, Vitamin D deficiency (ICD-10 - E55.9) as above October, Hyperlipidemia, unspecified hyperlipidemia type (ICD-10 - E78.5) check labs - continue present meds October, Essential (primary) hypertension (ICD-10 - I10) attributes high reading to white coat - will recheck at home. [facility] Other 08-03-2022 NotePROCEDURE: MRI BRAIN WO CON COMPARISON: MRI brain 04/01/2020, MRI brain 12/16/2015 HISTORY: Benign neoplasm of cranial nerve , acoustic neuroma TECHNIQUE: A variety of imaging planes and parameters were utilized for visualization of suspected pathology. Images were performed without intravenous Dotarem contrast. FINDINGS: IACS: 3 mm rounded soft tissue structure deep within right inner ear canal. INNER EARS: No abnormal signal intensity. MIDDLE EARS: No fluid or abnormal soft tissue. MASTOIDS: No fluid or abnormal soft tissue. SKULL BASE: Negative. Cavernous sinus and Meckel's caves are normal. CEREBRUM: Prominent chronic small vessel ischemic changes, stable. No edema, hemorrhage, mass, acute infarction, or inappropriate atrophy. CEREBELLUM: No edema, hemorrhage, mass, acute infarction, or inappropriate atrophy. BRAINSTEM: No edema, hemorrhage, mass, acute infarction, or inappropriate atrophy. CSF SPACES: Ventricles, cisterns, and sulci are appropriate for age. No hydrocephalus, subarachnoid hemorrhage, or mass. SINUSES: Limited views demonstrate no significant mucosal thickening or fluid. ORBITS: Limited views are unremarkable. IMPRESSION: 1. No evidence of acute ischemia. 2. Age consistent atrophy and chronic small vessel ischemic changes. 3. Possible acoustic neuroma within the right inner ear canal; not appreciably changed compared to 2016. Contrast was not given to evaluate enhancement. Electronically authenticated by: LAMBERTO ALEJANDRO Date: 2022-01-05 15:55[facility]02-09-2022 NotePROCEDURE: XR HIP RT 2 3V W PELVIS HISTORY: Pain in right hip joint COMPARISON: None. FINDINGS: BONES:Moderate narrowing of the right hip joint space. Degenerative ossified along the superior rim of the femoral heads bilaterally. L5-S1 degenerative disc disease. SOFT TISSUES:No visible soft tissue swelling. EFFUSION:None visible. OTHER: Negative. IMPRESSION: 1. Moderate degenerative changes of the right hip joint likely accounting for patient's symptoms. 2. No acute bone abnormality. 3. Suspect moderate or greater degenerative disc disease at L5-S1. Electronically authenticated by: LAMBERTO ALEJANDRO Date: 2021-07-14 14:31[facility]06-13-2014 Miscellaneous Notes* Telephone Encounter - Lakesha Rutherford - 11/15/2013 1:14 PM EDT Pt would like to know Dr. Jimenes's opinion on an ENT Dr. Juarez whom she was referred to by anotherphysician. Pt would also like to know if her lab and xray results are in. Please call pt at number listed with information - pt requesting to speak with Dr. Jimenes. [facility] of Past illness Narrative* Problem Noted Date Resolved Date CENTRAL ORIGIN VERTIGO 04/18/2005 4 Peripheral vertigo, unspecified 04/18/2005 01/17/2014 documented as of this encounter (statuses as of 09/30/2020) [facility] Other Evaluation noteNo assessment information available [facility] Work Phone: History general Narrative - Reported* Type Description Date Medical History OVARIAN CANCER Surgical History hysterectomy Surgical History appendectomy Hospitalization History SEE ABOVE [place] Other Summary Purpose Family History Relationship Condition Age at Onset Recorded Date/T mitzi brother Unknown father Unknown Not Specified Unknown Malignant neoplasm Unknown Advance Directives Advance Directive Response Recorded Date/ Time Advance Directives No June 29, 2023 12:01pm Chief Complaint and Reason for Visit Chief Complaint Amb Documentation Amb Documentation allergy shot Chief Complaint Amb Documentation allergy shot 6 month follow Additional Source Comments INFORMATION SOURCE (unrecogn ized section and content) DATE CREATED AUTHOR 07/28/2020 [facility] DATE CREATED AUTHOR AUTHOR'S ORGANIZ ATION 05/26/2022 [facility] Source Comments (unrecognize d section and content) In the event this informatio n is protected by the Federal Confidentiality of Alcohol and Drug Abuse Patient Records regulations: The Federal rules restrict any use of the information to criminally investigate or prosecute any alcohol or drug abuse patient.[facility] REASON FOR VISIT (unrecogniz ed section and content) refill6 MONTH FOLLOW UP ACre filllabsrefillrefill6 month Follow upstress testblood pressure issuesNew RXBPsmessagerefills Care Teams (unrecognized sec tion and content) Team Status: Active Member Role Status Dates Tiffanie Doan MD Primary Care Provider Active Team Status: Active Member Role Status Dates Tiffanie Doan MD Primary Care Provider Active Start: July 27, 2023 ALISSON Canales Attending Provider Active Start : July 27, 2023 Team Status: Active Member Role Status Dates Tiffanie Doan MD Primary Care Provider Active Start: August 02, 2023 ALISSON Canales Attending Provider Active Start : August 02, 2023 Team Status: Inactive Member Role Status Suzan Doan MD Primary Care Provide r, Attending Provider Active Start: September 29, 2023 End: September 29, 2023 Team Status: Inactive Member Role Status Suzan Doan MD Primary Care Provide r, Attending Provider Active Start: October 25, 2023 End: October 25, 2023 Goals (unrecognized section and content) Goals may be documented in a n alternate section FOR RECORDS PERTAINING TO PATIENTS WHO ARE OR HAVE BEEN ENROLLED IN A CHEMICAL DEPENDENCY/SUBSTANCEABUSE PROGRAM, SOME INFORMATION MAY BE OMITTED. This clinical summary was aggregated from multiple sources. Caution should be exercised in using it in the provision of clinical care. This summary normalizes information from multiple sources, and as a consequence, information in this document may materially change the coding, format and clinical context of patient data. In addition, data may be omitted in some cases. CLINICAL DECISIONS SHOULD BE BASED ON THE PRIMARY CLINICAL RECORDS. [employer] provides no warranty or guarantee of the accuracy or completeness of information in this document.
--- NOTE | 2023-12-10 08:48 | ECG_ITS ---
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
[2023-12-10 09:12] LABS: Basophils Percent Auto 0.5 % (0.2-2.0); Eosinophils Absolute Auto 0.1 10^3/uL (0.0-0.7); Eosinophils Percent Auto 1.9 % (0.9-7.0); Hematocrit 40.7 % (36.0-48.0); Immature Granulocytes Abs Auto 0.02 10^3/uL (0.00-0.03); Immature Granulocytes Pct Auto 0.3 % (0.0-0.5); Lymphocytes Absolute Auto 1.4 10^3/uL (1.2-3.8); Lymphocytes Percent Auto 22.4 % (20.5-60.0); Mean Corpuscular HGB Conc 31.9 g/dL (29.9-35.2); Mean Corpuscular Hemoglobin 32.3 pg (26.7-34.0); Mean Platelet Volume 10.7 fL (9.5-13.5); Monocytes Absolute Auto 0.5 10^3/uL (0.3-0.8); Monocytes Percent Auto 7.4 % (1.7-12.0); Neutrophils Absolute Auto 4.2 10^3/uL (1.4-6.5); Neutrophils Percent Auto 67.5 % (43.0-75.0); Platelet Count 172 10^3/uL (150-450); Red Blood Count 4.03 10^6/uL (4.20-5.40); Red Cell Distribution Width 13.8 % (11.0-15.0); White Blood Count 6.2 10^3/uL (4.0-11.0)
--- NOTE | 2023-12-10 09:23 | ED.GENADUL1 ---
HPI HPI - General Adult General Chief complaint: Chest Pain Stated complaint: HIGH BLOOD PRESSURE Time Seen by Provider: 12/10/23 08:45 Source: patient Mode of arrival: walk-in Limitations: no limitations History of Present Illness HPI narrative: The patient is coming to the ER with concern of elevated blood pressure, he mentioned that she has been measuring her blood pressure daily and she noted that her blood pressure was elevated few times she is denying any headache nausea vomiting or any other complaints She also denies any chest pain at any time The patient did mention that she did lose her son almost a month ago for suicide and she thinks about him so much, she denies herself being depressed but she admits being sad Patient denies being suicidal, Related Data Home Medications ?Medication ?Instructions ?Recorded ?Confirmed aspirin 81 mg tablet,delayed 243 mg PO DAILY 12/10/23 12/10/23 release clopidogrel 75 mg tablet 75 mg PO DAILY 12/10/23 12/10/23 metoprolol succinate 50 mg 50 mg PO DAILY 12/10/23 12/10/23 tablet,extended release 24 hr olmesartan 40 mg tablet 40 mg PO DAILY 12/10/23 12/10/23 rosuvastatin 20 mg tablet 20 mg PO .every other day 12/10/23 12/10/23 Previous Rx's ?Medication ?Instructions ?Recorded amlodipine 5 mg tablet 5 mg PO DAILY #10 tabs 12/10/23 Allergies Allergy/AdvReac Type Severity Reaction Status Date / Time No Known Drug Allergies Allergy Verified 12/10/23 08:38 Opioid HPI Opioid Management Most Recent Opioid Data: No Data to Display Review of Systems ROS Status of ROS 10 or more systems reviewed and unremarkable except as noted in history and below Exam Narrative Exam Narrative: Nurses notes and vital signs reviewed and patient is not hypoxic. General: Well-appearing and in no apparent distress. Skin: Warm, dry, no pallor noted. No rash. Head: Normocephalic, atraumatic. Neck: Supple, non-tender. Eye: Pupils are equal, round and EOMI. No scleral icterus. Ears, Nose, Mouth, and Throat: TM are clear, no nasal mucosal hypertrophy. Oral mucosa is moist, no posterior oropharynx erythema, uvula is mid-line Cardiovascular: Regular Rate and Rhythm without murmur, gallop or rub. Respiratory: No accessory muscle use or respiratory distress. Lungs are clear to auscultation, no wheezing, rales or rhonchi Chest Wall: no tenderness Back: No midline thoracic or lumbar vertebral tenderness. No CVA tenderness Musculoskeletal: normal ROM, no calf or popliteal tenderness, no lower extremity edema/swelling GI: Abdomen is soft, non-distended. Normal bowel sounds. No masses appreciated. No tenderness to palpation. No rebound, guarding, or rigidity noted. Neurological: A&O x4. No cranial nerve dysfunction observed. No truncal ataxia. Moves all extremities. Sensation intact. Psychiatric: Cooperative and interactive. Normal mood and affect. Constitutional Vital Signs, click to edit/add: Last Vital Signs Temp 98.1 F 12/10/23 08:34 Pulse 69 12/10/23 10:20 Resp 24 H 12/10/23 10:20 BP 178/84 H 12/10/23 10:08 Pulse Ox 98 12/10/23 10:08 O2 Del Method Room Air 12/10/23 08:54 Course Vital Signs Vital signs: Vital Signs Temperature 98.1 F 12/10/23 08:34 Respiratory Rate 18 12/10/23 08:34 Pulse Oximetry 97 12/10/23 08:34 Oxygen Delivery Method Room Air 12/10/23 08:34 Temperature 98.1 F 12/10/23 08:34 Pulse Rate 69 12/10/23 10:20 Respiratory Rate 24 H 12/10/23 10:20 Blood Pressure 178/84 H 12/10/23 10:08 Pulse Oximetry 98 12/10/23 10:08 Oxygen Delivery Method Room Air 12/10/23 08:54 Medical Decision Making [facility] Narrative Medical decision making narrative: Patient EKG showing sinus rhythm with a heart rate of [address] elevation or depression The patient blood workup here shows no acute significant pathology Blood pressure on multiple occasion was elevated above 200 even on manual blood pressure monitoring With the patient recent grieving her blood pressure could be elevated due to that to right now she was given clonidine after which her blood pressure responded but she will be started on amlodipine 5 mg tomorrow with keeping her blood pressure log to take to her primary care Patient was instructed in case of any dizziness or any other complaint to stop the medication come back to the ER also to follow-up with her doctor within few days The patient is to follow up with primary care physician in next 2-3 days or to return to the emergency department should any of the signs or symptoms worsen or new symptoms develop. The patient agrees with the following Diagnosis and Treatment plan and the patient will be discharged home. Lab Data Labs: Lab Results 12/10/23 Range/Units 08:46 WBC 6.2 (4.0-11.0) 10^3/uL RBC 4.03 L (4.20-5.40) 10^6/uL Hgb 13.0 (12.0-16.0) g/dL Hct 40.7 (36.0-48.0) % MCV 101.0 H (81.0-99.0) fL MCH 32.3 (26.7-34.0) pg MCHC 31.9 (29.9-35.2) g/dL RDW 13.8 (11.0-15.0) % Plt Count 172 (150-450) 10^3/uL MPV 10.7 (9.5-13.5) fL Neut % (Auto) 67.5 (43.0-75.0) % Lymph % (Auto) 22.4 (20.5-60.0) % Wirt % (Auto) 7.4 (1.7-12.0) % Eos % (Auto) 1.9 (0.9-7.0) % Baso % (Auto) 0.5 (0.2-2.0) % Neut # (Auto) 4.2 (1.4-6.5) 10^3/uL Lymph # (Auto) 1.4 (1.2-3.8) 10^3/uL Wirt # (Auto) 0.5 (0.3-0.8) 10^3/uL Eos # (Auto) 0.1 (0.0-0.7) 10^3/uL Baso # (Auto) 0.0 (0.0-0.1) 10^3/uL Abs Immat Gran (auto) 0.02 (0.00-0.03) 10^3/uL Imm/Tot Granulo (auto) 0.3 (0.0-0.5) % Sodium 140 (136-145) mmol/L Potassium 3.8 (3.5-5.1) mmol/L Chloride 104 (98-107) mmol/L Carbon Dioxide 28.4 (21.0-32.0) mmol/L Anion Gap 11.4 BUN 17.0 (7.0-18.0) mg/dL Creatinine 1.05 H (0.55-1.02) mg/dL Est GFR ( Amer) >60 (>=60) Est GFR (Non-Af Amer) 50 L (>=60) BUN/Creatinine Ratio 16.2 Glucose 104 (74-106) mg/dL Calcium 8.4 L (8.5-10.1) mg/dL Total Bilirubin 1.2 H (0.2-1.0) mg/dL AST 19 (15-37) U/L ALT 20 (14-59) U/L Alkaline Phosphatase 63 (46-116) U/L Troponin I High Sens 7.0 (4.0-51.3) pg/mL Total Protein 6.7 (6.4-8.2) g/dL Albumin 3.3 L (3.4-5.0) g/dL Globulin 3.4 g/dL Albumin/Globulin Ratio 1.0 Discharge Plan Discharge Stand Alone Forms: Portal Instructions Chief Complaint: Chest Pain Clinical Impression: Hypertension, uncontrolled Patient Disposition: Home, Self-Care Time of Disposition Decision: 10:17 Condition: Good Prescriptions / Home Meds: New amlodipine 5 mg tablet 5 mg PO DAILY Qty: 10 0RF Rx Instructions: please start tomorrow on 12/11/2023 No Action clopidogrel 75 mg tablet 75 mg PO DAILY metoprolol succinate 50 mg tablet extended release 24 hr 50 mg PO DAILY olmesartan 40 mg tablet 40 mg PO DAILY rosuvastatin 20 mg tablet 20 mg PO .every other day aspirin 81 mg tablet,delayed release (DR/EC) 243 mg PO DAILY Print Language: Spanish Instructions: Hypertension (ED) Referrals: Tiffanie Mcintosh MD [Primary Care Provider] - 1 week
[2023-12-10 09:29] LABS: Alanine Aminotransferase 20 U/L (14-59); Albumin Level 3.3 g/dL (3.4-5.0); Alkaline Phosphatase 63 U/L (46-116); Anion Gap 11.4; Aspartate Amino Transferase 19 U/L (15-37); BUN Creatinine Ratio 16.2; Bilirubin Total 1.2 mg/dL (0.2-1.0); Calcium 8.4 mg/dL (8.5-10.1); Carbon Dioxide 28.4 mmol/L (21.0-32.0); Chloride 104 mmol/L (98-107); Estimated GFR (African America >60 (>=60); Estimated GFR (Non-African Ame 50 (>=60); Globulin 3.4 g/dL; Glucose 104 mg/dL (74-106); Potassium 3.8 mmol/L (3.5-5.1); Sodium 140 mmol/L (136-145); Total Protein 6.7 g/dL (6.4-8.2)
[2023-12-10] MEDS: CLONIDINE HCL 0.1 MG TABLET 0.100000000000000006 MG PO (09:35)
== END 2023-12-10 10:34 | disposition home or self-care (01) ==
PROVIDERS: Emergency Provider Emergency Medicine; PCP Family Medicine
DX: I10 Essential (primary) hypertension (principal)
CPT/HCPCS: 36415; 80053; 84484; 85025; 93005; 99284

== ENCOUNTER 2024-01-22 12:18 | Outpatient (OUT) | payer MEDICARE, BC, SELFPAY ==
[2024-01-22 14:30] LABS: Thyroid Stimulating Hormone 2.528 uIU/mL (0.358-3.740)
[2024-01-22 16:02] LABS: Free T4 0.95 ng/dL (0.76-1.46)
== END 2024-01-22 12:19 | disposition home or self-care (01) ==
LOC: LAB 12:21
PROVIDERS: PCP Family Medicine; Visit Provider Family Medicine
DX: R45.1 Restlessness and agitation (principal)
CPT/HCPCS: 36415; 84439; 84443

== ENCOUNTER 2024-09-05 10:36 | Emergency (ER) | payer MEDICARE, BC, SELFPAY ==
[2024-09-05 10:46] VITALS: BP 185/89; PULSE 84; TEMP 36.6; O2SAT 98; BMI 27.3
--- NOTE | 2024-09-05 14:41 | ED.GENADUL1 ---
HPI HPI - General Adult General Chief complaint: Extremity Injury, Lower Stated complaint: FALL, HIP PAIN Time Seen by Provider: 09/05/24 11:05 Source: patient Mode of arrival: walk-in Limitations: no limitations History of Present Illness HPI narrative: The patient walked into the ER complaining of left hip and left knee pain This pain started yesterday after she tripped while walking she is able to walk with no difficulty but she still have some pain and she get better whenever she take Tylenol She came here because her daughter told her to come and get checked Related Data Home Medications ?Medication ?Instructions ?Recorded ?Confirmed aspirin 81 mg tablet,delayed 243 mg PO DAILY 12/10/23 09/05/24 release clopidogrel 75 mg tablet 75 mg PO DAILY 12/10/23 09/05/24 metoprolol succinate 50 mg 50 mg PO DAILY 12/10/23 09/05/24 tablet,extended release 24 hr rosuvastatin 20 mg tablet 20 mg PO .every other day 12/10/23 09/05/24 hydroxyzine HCl 10 mg tablet 10 mg PO Q8H PRN anxiety 09/05/24 09/05/24 mecobalamin-levomefolate 1 tab PO DAILY 09/05/24 09/05/24 calcium-pyridoxal phos 2 mg-3 mg-35 mg tablet (Foltanx) Previous Rx's ?Medication ?Instructions ?Recorded amlodipine 5 mg tablet 5 mg PO DAILY #10 tabs 12/10/23 Allergies Allergy/AdvReac Type Severity Reaction Status Date / Time No Known Drug Allergies Allergy Verified 12/10/23 08:38 Opioid HPI Opioid Management Most Recent Opioid Data: No Data to Display Review of Systems ROS Status of ROS 10 or more systems reviewed and unremarkable except as noted in history and below PFSH PFSH Social History Little interest or pleasure in doing things: not at all Feeling down, depressed, or hopeless: not at all Exam Narrative Exam Narrative: Nurses notes and vital signs reviewed and patient is not hypoxic. General: Well-appearing and in no apparent distress. Skin: Warm, dry, no pallor noted. No rash. Head: Normocephalic, atraumatic. Neck: Supple, non-tender. Cardiovascular: Regular Rate and Rhythm without murmur, gallop or rub. Respiratory: No accessory muscle use or respiratory distress. Lungs are clear to auscultation, no wheezing, rales or rhonchi Chest Wall: no tenderness Back: No midline thoracic or lumbar vertebral tenderness. No CVA tenderness Musculoskeletal: normal ROM, no calf or popliteal tenderness, mild tenderness upon palpation of the anterior of the left knee with mild edema, no ecchymosis and there is a full range of movement of the left knee as well as left hip Neurological: A&O x4. No cranial nerve dysfunction observed. Constitutional Vital Signs, click to edit/add: Last Vital Signs Temp 98 F 09/05/24 10:46 Pulse 84 09/05/24 10:46 Resp 16 09/05/24 10:46 BP 185/89 H 09/05/24 10:46 Pulse Ox 98 09/05/24 10:46 O2 Del Method Room Air 09/05/24 10:46 Course Vital Signs Vital signs: Vital Signs Temperature 98 F 09/05/24 10:46 Pulse Rate 84 09/05/24 10:46 Respiratory Rate 16 09/05/24 10:46 Blood Pressure 185/89 H 09/05/24 10:46 Pulse Oximetry 98 09/05/24 10:46 Oxygen Delivery Method Room Air 09/05/24 10:46 Temperature 98 F 09/05/24 10:46 Pulse Rate 84 09/05/24 10:46 Respiratory Rate 16 09/05/24 10:46 Blood Pressure 185/89 H 09/05/24 10:46 Pulse Oximetry 98 09/05/24 10:46 Oxygen Delivery Method Room Air 09/05/24 10:46 Medical Decision Making [facility] Narrative Medical decision making narrative: X-ray of the patient's left knee as well as CT of the pelvis showed no acute pathology The patient does not need any pain medication she mentioned that the Tylenol works She will just continue supportive care at home The patient is to follow up with primary care physician in next 2-3 days or to return to the emergency department should any of the signs or symptoms worsen or new symptoms develop. The patient agrees with the following Diagnosis and Treatment plan and the patient will be discharged home. Discharge Plan Discharge Chief Complaint: Extremity Injury, Lower Clinical Impression: Fall, Contusion of knee, Acute hip pain Patient Disposition: Home, Self-Care Time of Disposition Decision: 12:42 Condition: Good Prescriptions / Home Meds: No Action clopidogrel 75 mg tablet 75 mg PO DAILY metoprolol succinate 50 mg tablet extended release 24 hr 50 mg PO DAILY rosuvastatin 20 mg tablet 20 mg PO .every other day aspirin 81 mg tablet,delayed release (DR/EC) 243 mg PO DAILY amlodipine 5 mg tablet 5 mg PO DAILY Qty: 10 0RF Rx Instructions: please start tomorrow on 12/11/2023 hydroxyzine HCl 10 mg tablet 10 mg PO Q8H PRN (Reason: anxiety) mecobal-levomefolat Ca-B6 phos [Foltanx] 2-3-35 mg tablet 1 tab PO DAILY Print Language: Lebanese Instructions: Contusion in Adults (ED), Fall Prevention (ED) Referrals: Tiffanie Mcintosh MD [Primary Care Provider] - 1 week Discharge Date/Time: 09/05/24 12:49
== END 2024-09-05 12:49 | disposition home or self-care (01) ==
PROVIDERS: Emergency Provider Emergency Medicine; PCP Family Medicine
DX: S80.02XA Contusion of left knee, initial encounter (principal); M25.552 Pain in left hip; W01.0XXA Fall on same level from slipping, tripping and stumbling without subsequent striking against object, initial encounter
CPT/HCPCS: 72192; 73562; 99284

== ENCOUNTER 2025-02-18 14:17 | Outpatient (OUT) | payer MEDICARE, BC, SELFPAY ==
--- OUTSIDE RECORDS SUMMARY | 2013-12-04 07:12 | XMS_ITS | Continuity of Care Document ---
Author Organization [facility] Address [address] [place] [address] Phone Care Team Providers Care Deputy Sheriff Chief Name Role Phone Unavailable Unavailable Unavailable Medications Medication Instructions Dosage Effective Dates (start - stop) Status Comments potassium chloride ER 20 mEq tablet,extended release(part/cryst) take 1 tablet by oral route every day with food 20 MEQ - Active Lasix 20 mg tablet take 1 tablet by oral route every day 20 MG - Active miscellaneous medical supply [facility] hospital bed - Active dx; lymphom a, COPD albuterol sulfate 0.63 mg/3 mL solution for nebulization inhale 1 unit by inhalation route 4 times every day as needed for shortness of breath 1 unit - Active Roxicet 5 mg-325 mg/5 mL oral solution take 10 milliliter by oral route every 6 hours as needed - Active miscellaneous medical supply [facility] lift chair - Active dx: osteoarthritis , lymphoma, COPD Miralax 17 gram/dose oral powder take (17G) by oral route every day mixed with 8 oz. water, juice, soda, coffee or tea - Active levothyroxine 112 mcg Cap take 1 capsule (112MCG) by oral route every day 112 MCG - Active Foradil Aerolizer 12 mcg inhalation Caps inhale 1 puffs by inhalation route 2 times every day the contents of one capsule (12 mcg) - Active Feosol 325 mg (65 mg iron) Tab take 1 tablet (325MG) by oral route every day 325 MG - Active metoprolol succinate ER 50 mg 24 hr Tab take 1 tablet (50MG) by oral route every day 50 MG - Active Spiriva with HandiHaler 18 mcg & inhalation Caps inhale 1 capsule (18MCG) by inhalation route every day - Active Imdur 60 mg 24 hr Tab take 1 tablet (60MG) by oral route every day in the morning - Active Crestor 10 mg Tab take 1 tablet (10MG) by oral route every day 10 MG - Active Cockup Splint use as directed - Active 1 for each hand dx: carpal tunnel syndrome aspirin 325 mg Tab take 1 tablet (325MG) by oral route every day 325 MG - Active Flonase 50 mcg/actuation Nasal [place] spray 1 spray by intranasal route every day in each nostril 1 spray - Active biotin 5 mg Cap one by mouth daily - A ctive theophylline ER 300 mg 24 hr Cap take 1 capsule (300MG) by oral route every day 300 MG - Active Miralax 17 gram/dose Oral Powder take (17G) by oral route every day mixed with 8 oz. water, juice, soda, coffee or tea as needed for constipation 17 G - Active ProAir HFA 90 mcg/actuation Aerosol Inhaler inhale 1 - 2 puff by inhalation route every 4 - 6 hours as needed 1-2 puff - Active nitroglycerin 0.[address] 1 tablet (0.4MG) by sublingual route at the 1st sign of attack; may repeat every 5 min until relief; if pain persists after 3 tablets in 15 min, prompt medical attention is recommended 0.4 MG - Active Duragesic 50 mcg/hr transdermal patch apply 1 patch by transdermal route every 3 days 50 MCG/H - Active Flovent Diskus 250 mcg/actuation for Inhalation inhale 1 puff by inhalation route 2 times every day - Active lisinopril 40 mg tablet take 1 tablet by oral route every day 40 MG - Active Abilify 5 mg Tab take 1 tablet (5MG) by oral route every bedtime 5 MG - Active Advance Directives Directive Yes / No Effective Date File Name No Information Encounters Encounter Description Practice Location Reason(s) For Visit Diagnoses Date Provider [facility] 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 [address], [address], [place] tel:[phone] [facility] No Information 4 No Information [facility] 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 [address], [address], [place] tel:[phone] [facility] poss fluid on lungs (chief complaint) Other malignant lymphomas, unspecified sitePulmonary Edema 4 No Information [facility] 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 [address], [address], [place] tel:[phone] [facility] No Information 4 No Information [facility] 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 [address], [address], [place] tel:[phone] [facility] No Information 4 No Information [facility] 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 [address], [address], [place] tel:[phone] [facility] to discuss mri results (chief complaint) Other malignant lymphomas, unspecified siteConstipation, unspecifiedBackache 4 No Information [facility] 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 [address], [address], [place] tel:[phone] [facility] No Information 4 No Information [facility] 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 [address], [address], [place] tel:[phone] [facility] PAIN (chief complaint)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) Low Back PainCHRONIC OBSTRUCTIVE ASTHMA, WITH (ACUTE) EXACERBATIONAnemia 4 No Information [facility] 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 [address], [address], [place] tel:[phone] Low Back Pain 4 No Information [facility] 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 [address], [address], [place] tel:[phone] [facility] left side body pain (chief complaint)B/L shoulder pain (chief complaint) Low Back PainAnemia 4 No Information [facility] 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 [address], [address], [place] tel:[phone] [facility] abdominal pain (chief complaint) Acute pyelonephritis without lesion of renal medullary necrosisCOPDLocalized superficial swelling, mass, or lumpDysuria 4 No Information [facility] 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 [address], [address], [place] tel:[phone] [facility] cough (chief complaint)sobia ght loss (chief complaint) CHRONIC OBSTRUCTIVE ASTHMA, WITH (ACUTE) EXACERBATIONAcute pyelonephritis without lesion of renal medullary necrosis 4 No Information [facility] 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 [address], [address], [place] tel:[phone] [facility] No Information 4 No Information [facility] 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 [address], [address], [place] tel:[phone] [facility] No Information 4 No Information 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, [address] [place] [address], [address], [place] tel:[phone] [facility] No Information 4 No Information [facility] 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 [address], [address], [place] tel:[phone] [facility] No Information 4 No Information [facility] 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 [address], [address], [place] tel:[phone] [facility] No Information 4 No Information [facility] 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 [address], [address], [place] tel:[phone] [facility] wheezing (chief complaint) COPDCough 3 No Information [facility] 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 [address], [address], [place] tel:[phone] [facility] cold symptoms (chief complaint) CoughCHRONIC OBSTRUCTIVE ASTHMA, WITH (ACUTE) EXACERBATION 3 No Information [facility] 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 [address], [address], [place] tel:[phone] [facility] ER f/u--Noseblee d (chief complaint) Influenza VaccineEpistaxis 3 No Information [facility] 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 [address], [address], [place] tel:[phone] [facility] problems w/ urination (chief complaint)lef t hip pain (chief complaint)dwain n in hand (chief complaint) URINARY HESITANCYOther bursitis disordersPain in joint involving hand 3 No Information [facility] 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 [address], [address], tel:[phone] [facility] hypertension (follow up) (chief complaint)uri nary symptoms (chronic) (chief complaint) Carpal Tunnel SyndromeCOPDCORONARY ATHEROSCLEROSIS OF [place] CORONARY ARTERY OF TRANSPLANTED HEARTHypertension, BenignUrinary Tract InfectionAnemia 3 No Information [facility] 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 [address], [address], tel:[phone] [facility] COPD (chief complaint) COPD 3 No Information [facility] 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 [address], [address], [place] tel:[phone] [facility] UTI (chief complaint) Urinary Tract Infection 2 No Information [facility] 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 [address], [address], [place] tel:[phone] [facility] cough (chief complaint) COPD 2 No Information [facility] 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 [address], [address], [place] tel:[phone] [facility] shortness of breath (chief complaint) COPD 2 No Information [facility] 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 [address], [address], tel:[phone] [facility] UTI (chief complaint)isela lgia (chief complaint) Acute cystitisMyalgia and myositis, unspecified 2 No Information [facility] 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 [address], [facility], tel:[phone] [facility] Anemia 2 No Information [facility] 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 [address], [facility], tel:[phone] [facility] Medication Questions (chief complaint)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) COPDAnemia 2 No Information [facility] 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 [address], [facility], tel:[phone] [facility] No Information 2 No Information [facility] 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 [address], [facility], tel:[phone] [facility] hospital f/u (chief complaint)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)hea rt disease (chief complaint) COPDCORONARY ATHEROSCLEROSIS OF [place] CORONARY ARTERY OF TRANSPLANTED HEARTHypertension, Benign 2 No Information [facility] 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 [address], [address], tel:[phone] [facility] nose bleeds (chief complaint) Epistaxis 2 No Information [facility] 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 [address], [facility], tel:[phone] [facility] No Information 2 No Information [facility] 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 [address], [address], tel:[phone] [facility] No Information 2 No Information [facility] 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 [address], [address], tel:[phone] [facility] labs (chief complaint) DysuriaGROSS HEMATURIA 2 No Information [facility] 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 [address], [address], tel:[phone] [facility] dysuria (chief complaint)hem aturia (chief complaint) DysuriaGROSS HEMATURIAConstipation, unspecified 2 No Information [facility] 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 [address], [address], tel:[phone] [place] [address] No Information 2 No Information [facility] 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 [address], [address], tel:[phone] [place] [address] No Information 1 No Information [facility] 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 [address], [address], tel:[phone] [facility] No Information 1 No Information [facility] 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 [address], [address], tel:[phone] [place] [address] No Information 1 No Information Family History Family Member Type Diagnosis Age At Onset Mother Problem (finding) hypertension Mother Problem (finding) Diabetes mellitus Son Problem (finding) seizure disorder children Problem (finding) Diabetes mellitus Immunizations Vaccine Date Status Comments Fluarix quad administered Source: New Imm unization Record flu (split) (3 yrs or older) administered Source: New Immunization Record Payers Payer name Insurance type Covered democrat ID Authoriza tion(s) Medicare [facility] [id number] Medicaid [facility] [id number] Social History Type Description Quantity Date Captured Comments Sex Female Smoking Status No Information Chief Complaint And Reason For Visit No Information Plan Of Treatment Date Type Action Status Goal PAP. Due on due Goal Pneumococcal vaccine. Due on due Goal Colonoscopy. Due on 012 due Goal Diabetes Screening. Due on due Goal DEXA Scan. Due on 2 due Goal Td vaccine. Due on 14 due Goal FOBT. Due on due Goal Influenza vaccine. Due on due Goal Mammogram. Due on 0 due Referral Ordered: Referral: Hematology/Oncology. Evaluate and treat. ordered Referral Ordered: MRI LUMBAR SPINE W/O DYE ordered Referral Ordered: X-RAY EXAM OF Lumbar SPINE, 2 Or 3 Views ordered Referral Ordered: X-RAY EXAM OF THORACIC SPINE ordered Referral Ordered: Ultrasound Exam (specify Location) Right facial bones ordered Referral Ordered: CHEST X-RAY 2 VIEWS FRONTAL & LATERAL Appointment date/timeframe: 05/21/2013 ordered Referral Ordered: X-RAY EXAM OF HAND Left hand ordered Referral Ordered: Post Void Residual Appointment date/timeframe: 02/20/2013 ordered Referral Ordered: Referral: Gastroenterology. Evaluate and treat. ordered History Of Present Illness Encounter Date Complaint History Of Prese nt Illness No Information Instructions Date Instruction Additional Infor mation No Information Assessments Type Assessment Date No Information
--- OUTSIDE RECORDS SUMMARY | 2025-02-18 14:22 | XMS_ITS | Clinical Summary ---
Author Organization [facility] Address [address] [place] [address] Care Team Providers Care Distribution Tech Name Role Phone Unavailable Primary Care Provider Unavailabl e Social History Tobacco Use Types Packs/Day Years Used Date Smoking Tobacco: Never Assessed Comments Unknown Sex and Gender Information Value Date Recorded Sex Assigned at Not on file Legal Sex Female 11:08 PM EDT Gender Identity Not on file Sexual Orientation Not on file Plan of Treatment Not on file
--- OUTSIDE RECORDS SUMMARY | 2025-02-18 14:22 | XMS_ITS | Clinical Summary ---
Author Organization [facility] Address [address] [place], [place] [id number] Care Team Providers Care Livestock Nutritionist Name Role Phone Tiffanie Mcintosh MD Primary Care Provider [phone] Allergies Active Allergy Reactions Criticality Noted Date Comments Amoxicillin Diarrhea 11/25/2013 Cephalexin Diarrhea 11/25/2013 Medications fluticasone (FLONASE) 50 mcg/actuation nasal spray 2 Sprays once daily as needed. 11/12/2013 Active diazepam (VALIUM) 5 mg tablet Take 1 tablet by mouth twice daily. 0 11/12/2013 Active meclizine 25 mg tab Take 0.5 tablets by mouth once daily as needed (for dizziness.). 11/12/2013 Active promethazine 25 mg tablet Take 0.5 tablets by mouth once daily as needed for Nausea/Vomit ing. 0 11/12/2013 Active lisinopril-hydr ochlorothiazide 10-12.5 mg per tablet Take 1 tablet by mouth once daily. 0 11/12/2013 Active aspirin, enteric coated (ECOTRIN LOW STRENGTH) 81 mg EC tablet Take 1 tablet by mouth once daily. 0 11/12/2013 Active cholecalciferol , vitamin D3, (VITAMIN D-3) 400 unit cap Take 1 capsule by mouth once daily. 0 11/12/2013 Active ascorbic acid (VITAMIN C) 500 mg tablet Take 0.5 tablets by mouth once daily. 0 11/12/2013 Active calcium carbonate 600 mg (1,500 mg) tab Take 0.25 tablets by mouth once daily. 0 11/12/2013 Active Z-Cvqheqv-H4 Yxln-Qtcefq-L75 (FOLTANX) 3-35-2 mg tab or Capsule Take 1 tablet by mouth once daily. 30 capsule 11 11/12/2013 Active H-Padvsmo-C6 Ssrw-Rsevcq-I42 (FOLTANX) 3-35-2 mg tab or Capsule Take 1 tablet by mouth once daily. 30 capsule 11 11/12/2013 Active ubidecarenone Q-10 (CO Q-10) 10 mg cap Take 10 mg by mouth twice daily. Active Zinc 50 mg tab Take 50 mg by mouth. Active diazepam (VALIUM) 2 mg tablet Take 1 tablet by mouth every 6 hours as needed (vertigo). 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 Resolved Problems Problem Noted Date Diagnosed Date Resolved Date CENTRAL ORIGIN VERTIGO 04/18/200501/17 Peripheral vertigo, unspecified 04/18/2005 01/17/2014 Social History Tobacco Use Types Packs/Day Years Used Date Smoking Tobacco: Former Cigarettes Q uit: 11/14/1996 Alcohol Use Standard Drinks/Week Comments No 0 (1 standard drink = 0.6 oz pur e alcohol) Comments No Sex and Gender Information Value Date Recorded Sex Assigned at Not on file Legal Sex Female 9:59 AM EST Gender Identity Not on file Sexual Orientation Not on file Last Filed Vital Signs Vital Sign Reading Time Taken Comments Blood Pressure 140/75 01/17/2014 3:21 PM EDT Pulse 97 01/17/2014 3:21 PM EDT Temperature - - Respiratory Rate 18 01/01/2014 2:13 PM EDT Oxygen Saturation 99% 01/17/2014 3:21 PM EDT Inhaled Oxygen Concentration - - Weight 61.2 kg (135 lb) 11/12/2013 12:56 PM EDT Height - - Body Mass Index - - Plan of Treatment Health Maintenance Due Date Last Done Comments Anxiety Screening 1958 Depression Screening 1958 DTaP,Tdap,Td Vaccine (1 - Tdap) 1957 Diabetes Screening 08/20/1983 Pneumococcal Vaccine: 50+ (1 of 1 - PCV) 1988 Shingrix Vaccine (1 of 2) 1988 Bone Density Screening 08/20/2003 RSV Vaccine (1 - 1-dose 75+ series) 2013 Advance Directive Discussion 06/05/2024 Influenza Vaccine (#1) 2025 Insurance [facility] PPO MEDICARE Care Teams Livestock Nutritionist Relationship Specialty Start Date End Date Tiffanie Mcintosh MD [address] [place] [id number] PCP - General Family Medicine 10/29/13
--- OUTSIDE RECORDS SUMMARY | 2025-02-18 14:22 | XMS_ITS | Clinical Summary ---
Author Organization [facility] Address [address] [place] [address] Care Team Providers Care Trainman Name Role Phone Unavailable Primary Care Provider Unavailabl e Social History Tobacco Use Types Packs/Day Years Used Date Smoking Tobacco: Never Assessed Comments Unknown Sex and Gender Information Value Date Recorded Sex Assigned at Not on file Legal Sex Female 7:19 PM EDT Gender Identity Not on file Sexual Orientation Not on file Last Filed Vital Signs Vital Sign Reading Time Taken Comments Blood Pressure - - Pulse - - Temperature - - Respiratory Rate - - Oxygen Saturation - - Inhaled Oxygen Concentration - - Weight 63.5 kg (140 lb) 09/15/2021 12:00 PM EDT Height 152.4 cm (5') 09/15/2021 12:00 PM EDT Body Mass Index 27.34 09/15/2021 12:00 PM EDT Plan of Treatment Not on file Insurance MEDICARE
--- OUTSIDE RECORDS SUMMARY | 2025-02-18 14:22 | XMS_ITS | Clinical Summary ---
Author Organization [facility] Address [id number] [address] [place] [address] Care Team Providers Care Cmm Inspector Name Role Phone Unavailable Primary Care Provider Unavailabl e Social History Tobacco Use Types Packs/Day Years Used Date Smoking Tobacco: Never Assessed Childcare Answer Date Recorded Childcare Unknown 11/12/2018 Employment Answer Date Recorded Employment Unknown 11/12/2018 Purpose - Life Answer Date Recorded Purpose and direction in life Unknown Comments Unknown Sex and Gender Information Value Date Recorded Sex Assigned at Not on file Legal Sex Female 12:41 PM EDT Gender Identity Not on file Sexual Orientation Not on file Last Filed Vital Signs Vital Sign Reading Time Taken Comments Blood Pressure 134/80 04/10/2013 1:22 PM EST Pulse - - Temperature - - Respiratory Rate - - Oxygen Saturation - - Inhaled Oxygen Concentration - - Weight 59.9 kg (132 lb) 04/10/2013 1:19 PM EST Height 154.9 cm (5' 1 ) 04/10/2013 1:19 PM EST Body Mass Index 24.94 04/10/2013 1:19 PM EST Plan of Treatment Health Maintenance Due Date Last Done Comments Depression Screening 1952 Tobacco Screening 1952 DTaP,Tdap and Td Vaccines (1 - Tdap) 1957 Zoster (Shingles) Vaccine (1 of 2) 1988 Fall Risk Screening 08/20/2003 Influenza Vaccine 02/03/2025 Medical Devices Not on file Insurance MEDICARE PENDING SALE TO [facility]
--- OUTSIDE RECORDS SUMMARY | 2025-02-18 14:22 | XMS_ITS | Clinical Summary ---
Author Organization [facility] Address [address] [place] [address] Care Team Providers Care Zinc Furnace Charger Name Role Phone Unavailable Primary Care Provider Unavailabl e Social History Tobacco Use Types Packs/Day Years Used Date Smoking Tobacco: Never Assessed Comments Unknown Sex and Gender Information Value Date Recorded Sex Assigned at Not on file Legal Sex Female 7:27 AM EST Gender Identity Not on file Sexual Orientation Not on file Plan of Treatment Health Maintenance Due Date Last Done Comments DEXA SCAN DISCUSSION 1940 TETANUS 1940 TDAP (ADULT) 1957 CERVICAL CANCER SCREENING DISCUSSION 08/20/1959 MAMMOGRAM SCREENING DISCUSSION 1978 COLORECTAL CANCER SCREENING DISCUSSION 08/20/1983 PNEUMOCOCCAL VACCINE SERIES (1 of 1 - PCV) 1988 ZOSTER (SHINGLES) VACCINE (1 of 2) 1988 RSV VACCINE (1 - 1-dose 75+ series) 2013 COVID-19 VACCINE ( - 2023-2 5 season) 2025 INFLUENZA VACCINE (#1) 2025 HEP B VACCINE Aged Out No longer elig ible based on patient's age to complete this topic
--- OUTSIDE RECORDS SUMMARY | 2025-02-18 15:07 | XMS_ITS | CCD ---
Author Organization [facility] Care Team Providers Care Resort Housekeeper Name Role Phone REQUEST, NONE LISTED Attending Unavailable DOM DALTON Consulting Unavailable REQUEST, NONE LISTED Admitting Unavailable REQUEST, NONE LISTED Attending Unavailable REQUEST, NONE LISTED Admitting Unavailable REQUEST, NONE LISTED Consulting Unavailable Tiffanie Doan Primary Care Provider MARIA ELENA, DR LAMBERTO Breaux Consulting Unavailable DOAN, DR TIFFANIE Valdivia Admitting Unavailable DOAN, DR TIFFANIE Valdivia Attending Unavailable DOAN, DR TIFFANIE Valdivia Primary Care Unavailable DOAN, DR TIFFANIE Valdivia Consulting Unavailable DOAN, DR TIFFANIE Valdivia Primary [...] REQUEST, DR GREENWOOD LISTED Admitting Unavaila ble ZIEBER, DR LAMBERTO Breaux Consulting Unavailable DOAN, DR TIFFANIE Valdivia Primary Care Unavailable DOAN, DR TIFFANIE Valdivia Admitting Unavailable DOAN, DR TIFFANIE Valdivia Attending Unavailable DOAN, DR TIFFANIE Valdivia Consulting Unavailable ZIEBER, DR LAMBERTO Breaux Consulting Unavailable DOAN, DR TIFFANIE Valdivia Primary Care Unavailable DOAN, DR TIFFANIE Valdivia Admitting Unavailable DOAN, DR TIFFANIE Valdivia Attending Unavailable DOAN, DR TIFFANIE Valdivia Consulting Unavailable Tiffanie Doan Unavailable Tiffanie Doan MD Primary Care Provider Tiffanie Doan MD Attending Provider Dioni Tineo DO Attending Provider Allergies Allergy Classification Reported Allergen(s) Allergy Type Date of Onset Reaction(s) Facility Alendronate (1 source) Alendronate Drug Allergy 10-25-19 [facility] Cephalosporins (antibiotic) (3 sources) Cephalexin Drug Allergy 11-26-19 14 Diarrhea [facility] Clavulanate (1 source) Clavulanate Drug Allergy 10-25-19 24 [facility] Corticosteroids (1 source) Triamcinolone Drug Allergy 10-25-19 24 [facility] Penicillins (antibiotic) (2 sources) Amoxicillin Drug Allergy 11-26-19 14 Diarrhea [facility] Serotonin Reuptake Inhibitors (SSRIs) (1 source) Citalopram Drug Allergy 10-25-19 24 Comment:not effective - felt more anxious [facility] (15 sources) Cephalexin Drug Allergy 07-27-19 21 Unknown [facility] (8 sources) Amoxicillin Drug Allergy 07-27-19 [facility] (13 sources) Amoxicillin Drug Allergy Unknown [facility] (9 sources) Alendronate Drug Allergy Unknown [facility] (9 sources) Amoxicillin / Clavulanate Drug Allergy Unknown [facility] (16 sources) Citalopram Drug Allergy 10-23-19 Comment:not effective - felt more anxious [facility] Comment on above: Onset Date: 10/23/19 (9 sources) Triamcinolone Drug Allergy Unknown [facility] (9 sources) Keflex *CEPHALOSPORINS* Propensity to adverse reactions Unknown [facility] (1 source) Allergies Reconciled Propensity to adverse reactions Unknown [facility] (1 source) patient allergy list reviewed by nurse or physicia Propensity to adverse reactions 10-08-19 Comment:Done [facility] (7 sources) Alendronate Drug Allergy 05-23-20 [facility] (7 sources) Cephalexin Drug Allergy 05-23-20 23 [facility] (7 sources) Cephalosporins (Antibiotic) Allergy to substance 05-23-20 [facility] (7 sources) Clavulanate Drug Allergy 05-23-20 23 [facility] (7 sources) Triamcinolone Drug Allergy 05-23-[address] [facility] (2 sources) busPIRone Drug Allergy 10-17-[address] [facility] Comment on above: headache and felt mo re nervous Medications Current Medications Medication Drug Class(es) Dates Sig (Normalized) Sig (Original) amLODIPine 5 mg oral tablet (20 sources) Dihydropyridine Calcium Channel Rashel Start: 05-01-2024 Start: 12-19-2023 End: 01-22-2024 take 1 tablet by mouth once daily Amlodipine 5 mg tablet Discontinued 5 MG PO Daily December 19, 2023 11:36am January 22, 2024 11:24am Aspir-81 (13 sources) Aspir-81 Active aspirin 81 mg delayed release oral tablet (11 sources) Platelet Aggregation Inhibitor, Nonsteroidal Anti-inflammatory Drug Start: 05-01-2024 take 1 tablet by mouth three times daily Start: 10-20-2023 End: 05-01-2024 take 1 tablet by mouth once daily Aspirin 81 mg tablet,delayed release (DR/EC) Discontinued 81 MG PO Daily October 20, 2023 12:00am May 01, 2024 10:46am Start: 11-12-2013 take 1 tablet by anna th once daily aspirin, enteric coated (ECOTRIN LOW STRENGTH) 81 mg EC tablet Take 1 tablet by mouth once daily. 0 11/12/2013 Active Comment on above: Take 1 tablet by anna th once daily. Calcium (13 sources) Phosphate Binder, Calcium Calcium Active calcium carbonate 1500 mg oral tablet (3 sources) Start: 10-16-2024 take 1 tablet by mouth once daily Start: 11-12-2013 take 0.25 tablet by mouth once daily calcium carbonate 600 mg (1,500 mg) tab Take 0.25 tablets by mouth once daily. 0 11/12/2013 Active Comment on above: Take 0.25 tablets by mouth once daily. clopidogrel 75 mg oral table t (20 sources) P2Y12 Platelet Inhibitor Start: 07-01-2024 Start: 07-27-2023 End: 07-01-2024 take 1 tablet by mouth once daily Clopidogrel 75 mg tablet Discontinued 75 MG PO Daily July 27, 2023 10:14am July 01, 2024 5:15pm FreeTextSi tablet Orally once a day; Note: Source Status: Taking; Refills: 3; Provider: Dayna Valdivia take 1 tablet by anna th every twenty-four hours Clopidogrel Bisulfate 75 MG 1 tablet Orally once a day for 90 days Active Fluticasone Furoate 27.5 MCG/SPRAY (13 sources) Fluticasone Furo ate 27.5 MCG/SPRAY 2 sprays (1 spray in each nostril) Nasally Once a day Active Foltanx 3-35-2 MG (13 sources) take 1 tablet by anna th once daily Foltanx 3-35-2 MG 1 tablet Orally once a day for 90 days Active Foltanx 3-35-2 M G 1 tablet once a day for 90 days Active Magnesium (15 sources) Start: 10-16-2024 take 1 tablet by mouth once da mariann Start: 10-16-2024 take 1 tablet by anna th once daily Magnesium 250 mg tablet Active 250 MG PO Daily October 16, 2024 12:00am Magnesium Active Mecobal-Levomefolat Ca-B6 Ph os (Foltanx) 2-3-35 mg tablet (2 sources) Start: 07-01-2024 Start: 07-01-2024 Mecobal-Levome folat Ca-B6 Phos (Foltanx) 2-3-35 mg tablet Active 0 .ROUTE .COMPLEX 90 July 01, 2024 5:15pm TAKE 1 TABLET ONCE DAILY 24 hr metoprolol succinate 5 0 mg extended release oral tablet (15 sources) beta-Adrenergic Rashel Start: 07-29-2024 Start: 10-20-2023 End: 07-29-2024 take 1 tablet by mouth once daily Metoprolol Succinate 50 mg tablet extended release 24 hr Discontinued 1 TAB PO Daily October 20, 2023 12:00am July 29, 2024 1:45pm FreeTextSi tablet Orally Once a day; Note: Source Status: Refill; Provider: Dayna Valdivia Start: 05-23-2023 take 1 tablet by anna th every twenty-four hours Toprol XL 25 MG 1 tablet Orally Once a day for 30 day(s) May, Active take 1 tablet by anna th every twenty-four hours Metoprolol Succinate ER 50 MG 1 tablet Orally Once a day for 90 days Active Psyllium (6 sources) Metamucil Active rosuvastatin calcium 20 mg oral tablet (20 sources) HMG-CoA Reductase Inhibitor Start: 10-16-2024 take 1 tablet by mouth every other day Start: 07-29-2024 End: 10-16-2024 Rosuvastatin 20 mg tablet Discontinued 0 .ROUTE .COMPLEX July 29, 2024 1:44pm October 16, 2024 9:31am TAKE 1 TABLET DAILY Start: 05-01-2024 End: 07-29-2024 take 2 tablets by mouth every other day Rosuvastatin 20 mg tablet Discontinued 40 MG PO .qod May 01, 2024 10:43am July 29, 2024 1:45pm Start: 10-25-2023 End: 05-01-2024 take 2 tablets by mouth once daily Rosuvastatin 20 mg tablet Discontinued 40 MG PO Daily October 25, 2023 10:33am May 01, 2024 10:46am Start: 10-25-2023 take 40 mg by mouth once daily Rosuvastatin Active 40 MG PO Daily October 25, 2023 9:33am Start: 07-27-2023 End: 10-25-2023 take 1 tablet by mouth once daily Rosuvastatin 20 mg tablet Discontinued 20 MG PO Daily July 27, 2023 10:14am October 25, 2023 10:33am take 1 tablet by anna th every other day Rosuvastatin Calcium 20 MG 1 tablet Orally every other day for 90 days Active Vitamin D3 (13 sources) Vitamin D3 [...] Take 0.5 tablets by mouth once daily. busPIRone hydrochloride 15 mg oral tablet (5 sources) Start: 06-13-19 End: 10-17-19 take 1 tablet by mouth twice daily Buspirone 15 mg tablet Discontinued 15 MG PO Twice daily 60 July 10, 2024 9:17am October 16, 2024 9:28am cholecalciferol 0.025 mg oral capsule (8 sources) Vitamin D Start: 10-20-19 End: 10-17-19 25 take 1 capsule by mouth once daily Cholecalciferol (Vitamin D3) 25 mcg (1,000 unit) capsule Discontinued 25 MCG PO Daily October 20, 2023 12:00am October 16, 2024 9:28am Start: 11-12-2013 take 1 capsule by [facility] once daily cholecalciferol, vitamin D3, (VITAMIN D-3) 400 unit cap Take 1 capsule by mouth once daily. 0 11/12/2013 Active Comment on above: Take 1 capsule by [facility] once daily. diazePAM 2 mg oral tablet (20 sources) Benzodiazepine Start: 4 End: 4 take 0.5 tablet by mouth once daily as needed Diazepam 2 mg tablet Discontinued MG PO October 20, 2023 12:00am May 01, 2024 1:34pm FreeTextSi/2 tab Orally Once a day, prn; [...] Active Start: 11-12-2013 take 1 tablet by [facility] twice daily diazepam (VALIUM) 5 mg tablet Take 1 tablet by mouth twice daily. 0 11/12/2013 Active diazePAM 2 MG 1/ 2 tab prn Active Comment on above: Take 1 tablet by anna twice daily. fluticasone furoate 0.0275 mg/actuat metered dose nasal spray (8 sources) Corticosteroid Start: 4 End: 4 take 2 spray(s) nasal route once daily, then take 1 spray(s) nasal route once daily Fluticasone Furoate 27.5 mcg/actuation spray,suspension Discontinued 2 SPRAY INTRANASAL Daily October 20, 2023 12:00am January 22, 2024 11:16am FreeTextSi sprays (1 spray in each nostril) Nasally Once a day; Note: Source Status: Taking; Provider: Dayna Moreno ( ) Start: 11-12-2013 fluticasone (F LONASE) 50 mcg/actuation nasal spray 2 Sprays once daily as needed. 0 11/12/2013 Active Comment on above: 2 Sprays once daily as needed. hydroCHLOROthiazide 12.5 mg / lisinopril 10 mg oral tablet (1 source) Thiazide Diuretic, Angiotensin Converting Enzyme Inhibitor Start: 2013 take 1 tablet by mouth once daily lisinopril-hydroch lorothiazide 10-12.5 mg per tablet Take 1 tablet by mouth once daily. 0 11/12/2013 Active Comment on above: Take 1 tablet by anna th once daily. hydrOXYzine hydrochloride 10 mg oral tablet (20 sources) Antihistamine Start: 2023 End: 2024 take 1 tablet by mouth three times daily as needed for anxiety Hydroxyzine Hcl 10 mg tablet Discontinued 10 MG PO Three times daily as needed for anxiety May 01, 2024 1:35pm May 14, 2024 4:13pm [id number] Eiyl-[id number]-B15 (FOLTANX) 3-35-2 mg tab or Capsule (2 sources) Start: 2013 take 1 tablet by mouth once daily [id number] Aymp-[id number]-[id number] (FOLTANX) 3-35-2 mg tab or Capsule Take [...] mouth once daily as needed (for dizziness.). Mecobal-Levomefolat Ca-B6 Phos (Foltanx) 3-35-2 mg tablet (7 sources) Start: 2023 End: 2024 take 1 tablet by mouth twice daily Mecobal-Levomefola t Ca-B6 Phos (Foltanx) 3-35-2 mg tablet Discontinued 1 TAB PO Twice daily October 20, 2023 12:00am July 01, 2024 5:15pm Start: 10-20-2023 take 1 tablet by anna twice daily Mecobal-Levomefolat Ca-B6 Phos (Foltanx) 3-35-2 mg tablet Active 1 TAB PO Twice daily October 19, 2023 11:00pm Start: 10-20-2023 take 1 tablet by anna th twice daily Mecobal-Levomefolat Ca-B6 Phos (Foltanx) 3-35-2 mg tablet Active 1 TAB PO Twice daily October 20, 2023 12:00am olmesartan medoxomil 40 mg oral tablet (20 sources) Angiotensin 2 Receptor Rashel Start: 10-16-2023 End: 05-01-2024 Olmesartan 40 mg tablet Discontinued 0 .ROUTE .COMPLEX October 16, 2023 12:38pm May 01, 2024 10:43am TAKE 1 TABLET DAILY Start: 07-26-2023 End: 10-25-2023 take 1 tablet by mouth once daily Olmesartan 40 mg tablet Discontinued 40 MG PO Daily August 02, 2023 2:42pm October 16, 2023 12:39pm take 1 tablet by anna once daily Olmesartan Medoxomil 40 MG 1 tab Orally daily for 30 days Active take 1 tablet by anna th once daily Olmesartan Medoxomil 20 MG 1 tab Orally daily Active promethazine hydrochloride 25 mg oral tablet (7 sources) Phenothiazine Start: 11-12-2013 take 0.5 tablet by mouth once daily as needed for nausea promethazine 25 mg tablet Take 0.5 tablets by mouth once daily as needed for Nausea/Vomiting. 0 11/12/2013 Active Promethazine HCl 25 MG 1 tablet as needed prn Active Comment on above: Take 0.5 tablets by mouth once daily as needed for Nausea/Vomiting. tiZANidine 4 mg oral tablet (20 sources) Central alpha-2 Adrenergic Agonist Start: 10-20-19 End: 05-01-20 take 1 tablet by mouth three times daily as needed Tizanidine 4 mg tablet Discontinued 4 MG PO Three times daily October 20, 2023 12:00am May 01, 2024 10:44am FreeTextSi tablet as needed Orally Three times a day; Note: Source Status: Taking; Provider: Dayna Moreno ( ) take 1 tablet by mouth every eig ht hours tiZANidine HCl 4 MG 1 tablet as needed Orally Three times a day Active triamcinolone acetonide 40 mg/ml injectable suspension (13 sources) Corticosteroid Start: 10-19-2022 Kenalog-40 October, 40 mg Problems Active Problems Problem Classification Problem Date Documented Da te Episodic/Chronic Acute cerebrovascular disease (1 source) Cerebral infarction; Translations: [Cerebral infarction, unspecified] Chronic Adjustment disorders (11 sources) Stress; Translations: [Reaction to severe stress, unspecified] 10-25-2023 Chronic Anxiety disorders (12 sources) Generalized anxiety disorder; Translations: [Generalized anxiety disorder] Chronic Cardiac dysrhythmias (1 source) Cardiac arrhythmia; Translations: [Cardiac arrhythmia, unspecified] Chronic Disorders of lipid metabolism (20 sources) Hyperlipidemia; Translations: [Hyperlipidemia, unspecified] Chronic Essential hypertension (20 sources) Essential hypertension; Translations: [Essential (primary) hypertension] Chronic Headache; including migraine (1 source) Episodic tension-type headache; Translations: [Episodic tension type headache] Onset: 6 Chronic Immunizations and screening for infectious disease (5 sources) Vaccination given; Translations: [Encounter for immunization] 04-10-2024 Episodic Nausea and vomiting (1 source) Nausea; [...] right hip] Episodic Other upper respiratory disease (20 sources) Seasonal allergic rhinitis; Translations: [Other seasonal allergic rhinitis] 12-19-2023 Chronic Peripheral and visceral atherosclerosis (5 sources) Peripheral vascular disease, unspecified; Translations: [Peripheral vascular disease] Onset: 8 Chronic Residual codes; unclassified (5 sources) Restlessness and agitation; Translations: [Restlessness and agitation] 01-22-2024 Chronic Residual codes; unclassified (2 sources) Restlessness and agitation; Translations: [Other and unspecified special symptoms or syndromes, not elsewhere classified] 01-22-2024 Chronic Residual codes; unclassified (1 source) Family [...] Results Test Name Value Interpretation Reference Range Facility Laboratory - Chemistry and C hemistry - challengeon 01-22-2024 Free T4 [Mass/Vol] 0.95 ng/dL 0.76-1.46 [facility] TSH Qn 2.528 m[IU]/L 0.358-3.740 [facility] Basophils Auto (Bld) [#/Vol] on 12-10-2023 Basophils (Bld) [#/Vol] 0.0 10 3/uL 0.0-0.1 [facility] Basophils/100 WBC Auto (Bld) on 12-10-2023 Basophils/100 WBC (Bld) 0.5 % 0.2-2.0 [facility] Eosinophils/100 WBC Auto (Bl d)on 12-10-2023 Eosinophils/100 WBC (Bld) 1.9 % 0.9-7.0 [facility] Erythrocyte distribution wid th Auto (RBC) [Ratio]on 12-10-2023 Erythrocyte distribution width (RBC) [Ratio] 13.8 % 11.0-15.0 [facility] Estimated glomerular filtrat ion rate (GFR) non- Americanon 12-10-2023 GFR/1.73 sq M.predicted among non-blacks MDRD (S/P/Bld) [Vol rate/Area] 50 mL/min/{1.73_m2} Low >=60 [facility] Globulin Calc (S) [Mass/Vol] on 12-10-2023 Globulin (S) [Mass/Vol] 3.4 g/dL [facility] Hematocrit Auto (Bld) [Volum e fraction]on 12-10-2023 Hematocrit (Bld) [Volume fraction] 40.7 % 36.0-48.0 [facility] Hemoglobin [Mass/volume] in Bloodon 12-10-2023 Hemoglobin (Bld) [Mass/Vol] 13.0 g/dL 12.0-16.0 [facility] Laboratory - Chemistry and C hemistry - challengeon 12-10-2023 Albumin [Mass/Vol] 3.3 g/dL Low 3.4-5.0 [facility] ALP [Catalytic activity/Vol] 63 U/L 46-116 [facility] ALT [Catalytic activity/Vol] 20 U/L 14-59 [facility] AST [Catalytic activity/Vol] 19 U/L 15-37 [facility] Bilirubin [Mass/Vol] 1.2 mg/dL High 0.2-1.0 [facility] Calcium [Mass/Vol] 8.4 mg/dL Low 8.5-10.1 [facility] Chloride [Moles/Vol] 104 mmol/L 98-107 [facility] CO2 [Moles/Vol] 28.4 mmol/L 21.0-32.0 [facility] Creatinine [Mass/Vol] 1.05 mg/dL High 0.55-1.02 [facility] GFR/1.73 sq M.predicted MDRD (S/P/Bld) [Vol rate/Area] mL/min/{1.73_m2} >=60 [facility] Glucose [Mass/Vol] 104 mg/dL 74-106 [facility] Potassium [Moles/Vol] 3.8 mmol/L 3.5-5.1 [facility] Protein [Mass/Vol] 6.7 g/dL 6.4-8.2 [facility] Sodium [Moles/Vol] 140 mmol/L 136-145 [facility] Urea nitrogen [Mass/Vol] 17.0 mg/dL 7.0-18.0 [facility] Urea nitrogen/Creatinine [Mass ratio] 16.2 mg/mg [facility] Laboratory - Hematology and Cell countson 12-10-2023 Immature granulocytes/100 WBC (Bld) 0.3 % 0.0-0.5 [facility] Leukocytes [#/volume] correc jordy for nucleated erythrocytes in Blood by Automated counon 12-10-2023 WBC corrected for nucl RBC Auto (Bld) [#/Vol] 6.2 10 3/uL 4.0-11.0 [facility] Lymphocytes Auto (Bld) [#/Vo l]on 12-10-2023 Lymphocytes (Bld) [#/Vol] 1.4 10 3/uL 1.2-3.8 [facility] Lymphocytes/100 WBC Auto (Bl d)on 12-10-2023 Lymphocytes/100 WBC (Bld) 22.4 % 20.5-60.0 [facility] MCH Auto (RBC) [Entitic mass ]on 12-10-2023 MCH (RBC) [Entitic mass] 32.3 pg 26.7-34.0 [facility] MCHC Auto (RBC) [Mass/Vol]on 12-10-2023 MCHC (RBC) [Mass/Vol] 31.9 g/dL 29.9-35.2 [facility] MCV Auto (RBC) [Entitic vol] on 12-10-2023 MCV (RBC) [Entitic vol] 101.0 fL High 81.0-99.0 [facility] Monocytes Auto (Bld) [#/Vol] on 12-10-2023 Monocytes (Bld) [#/Vol] 0.5 10 3/uL 0.3-0.8 [facility] Monocytes/100 WBC Auto (Bld) on 12-10-2023 Monocytes/100 WBC (Bld) 7.4 % 1.7-12.0 [facility] Neutrophils Auto (Bld) [#/Vo l]on 12-10-2023 Neutrophils (Bld) [#/Vol] 4.2 10 3/uL 1.4-6.5 [facility] Neutrophils/100 WBC Auto (Bl d)on 12-10-2023 Neutrophils/100 WBC (Bld) 67.5 % 43.0-75.0 [facility] No Panel Informationon 12-09 Eosinophils # (Auto) 0.1 10 3/uL 0.0-0.7 [facility] Immature Granulocyte # (Auto) 0.02 10 3/uL 0.00-0.03 [facility] Troponin I High Sensitivity 7.0 pg/mL 4.0-51.3 [facility] Comment on above: CUT-OFF POINTS HAVE BEEN ESTABLISHED BASED ON THE FOURTHUNIVERSAL DEFINITION OF MYOCARDIAL INFARCTION. THE UPPERREFERENCE LIMIT (URL) OF TROPONIN, DEFINED THE 99THPERCENTILE OF cTnI DISTRIBUTION IN A REFERENCE POPULATION,HAS BEEN CONFIRMED THE DECISION THRESHOLD FOR MIDIAGNOSIS.99TH PERCENTILE = 51.4 PG/MLNOTE: HIGH-SENSITIVITY TROPONIN ASSAY IS NOT INTENDED TO BEUSED IN ISOLATION BUT SHOULD BE INTERPRETED IN CONJUNCTIONWITH OTHER DIAGNOSTIC AND CLINICAL INFORMATION. Platelet mean volume Auto (B ld) [Entitic vol]on 12-10-2023 Platelet mean volume (Bld) [Entitic vol] 10.7 fL 9.5-13.5 [facility] Platelets Auto (Bld) [#/Vol] on 12-10-2023 Platelets (Bld) [#/Vol] 172 10 3/uL 150-450 [facility] RBC Auto (Bld) [#/Vol]on RBC (Bld) [#/Vol] 4.03 10 6/uL Low 4.20-5.40 [facility] Serum or plasma albumin/glob ulin mass ratioon 12-10-2023 Albumin/Globulin [Mass ratio] 1.0 {ratio} [facility] Serum or plasma anion gap de terminationon 12-10-2023 Anion gap [Moles/Vol] 11.4 mmol/L [facility] CBC AUTO DIFFon 11-19-2021 BASO # 0.0 103/ul Normal 0.0-0.1 [facility] Comment on above: Performed By: #### D ATCBC #### [facility] [address] [place] [address] Dr. Kin Acuna Basophils/100 WBC (Bld) 0.7 % Normal 0.2-2.0 [facility] Comment on above: Performed By: #### D ATCBC #### [facility] [address] [address] [address] Kin Acuna EO # 0.1 103/ul Normal 0.0-0.7 [facility] Comment on above: Performed By: #### D ATCBC #### [facility] [address] [address] [address] Kin Acuna Eosinophils/100 WBC (Bld) 1.6 % Normal 0.9-7.0 [facility] Comment on above: Performed By: #### D ATCBC #### [facility] [address] [place] [address] Dr. Kin Acuna Erythrocyte distribution width (RBC) [Ratio] 13.3 % Normal 11.0-15.0 [facility] Comment on above: Performed By: #### D ATCBC #### [facility] [address] [place] [address] Dr. Kin Acuna Hematocrit (Bld) [Volume fraction] 41.4 % Normal 36.0-48.0 [facility] Comment on above: Performed By: #### D ATCBC #### [facility] [address] [place] [address] Dr. Kin Acuna Hemoglobin (Bld) [Mass/Vol] 13.0 g/dL Normal 12.0-16.0 [facility] Comment on above: Performed By: #### D ATCBC #### [facility] [address] [place] [address] Dr. Kin Acuna IG # 0.01 10e3/ul Normal 0.00-0.03 [facility] Comment on above: Performed By: #### D ATCBC #### [facility] [address] [place] [address] Dr. Kin Acuna IG % 0.2 % Normal 0.0-0.5 [facility] Comment on above: Performed By: #### D ATCBC #### [facility] [address] [place] [address] Dr. Kin Acuna LYMPH # 1.8 103/ul Normal 1.2-3.8 [facility] Comment on above: Performed By: #### D ATCBC #### [facility] [address] [place] [address] Dr. Kin Acuna Lymphocytes/100 WBC (Bld) 32.8 % Normal 20.5-60.0 [facility] Comment on above: Performed By: #### D ATCBC #### [facility] [address] [place] [address] Dr. iKn Acuna MCH (RBC) [Entitic mass] 31.4 pg Normal 26.7-34.0 [facility] Comment on above: Performed By: #### D ATCBC #### [facility] [address] [address] [address] Kin Acuna MCHC (RBC) [Mass/Vol] 31.4 g/dL Normal 29.9-35.2 [facility] Comment on above: Performed By: #### D ATCBC #### [facility] [address] [address] [address] Kin Acuna MCV (RBC) [Entitic vol] 100.0 fL Critically high 81.0-99.0 [facility] Comment on above: Performed By: #### D ATCBC #### [facility] [address] [address] [address] Kin Acuna MONO # 0.5 103/ul Normal 0.3-0.8 [facility] Comment on above: Performed By: #### D ATCBC #### [facility] [address] [place] [address] Dr. Kin Acuna Monocytes/100 WBC (Bld) 8.3 % Normal 1.7-12.0 [facility] Comment on above: Performed By: #### D ATCBC #### [facility] [address] [place] [address] Dr. Kin Acuna NEUT # 3.1 103/ul Normal 1.4-6.5 [facility] Comment on above: Performed By: #### D ATCBC #### [facility] [address] [place] [address] Dr. Kin Acuna Neutrophils/100 WBC (Bld) 56.4 % Normal 43.0-75.0 [facility] Comment on above: Performed By: #### D ATCBC #### [facility] [address] [place] [address] Dr. Kin Acuna Platelet mean volume (Bld) [Entitic vol] 10.7 fL Normal 9.5-13.5 [facility] Comment on above: Performed By: #### D ATCBC #### [facility] [address] [place] [address] Dr. Kin Acuna PLT 171 103/ul Normal 150-450 [facility] Comment on above: Performed By: #### D ATCBC #### [facility] [address] [address] [address] Kin Acuna RBC 4.14 106/ul Critically low 4.20-5.40 [facility] Comment on above: Performed By: #### D ATCBC #### [facility] [address] [address] [address] Kin Acuna WBC 5.6 103/ul Normal 4.0-11.0 [facility] Comment on above: Performed By: #### D ATCBC #### [facility] [address] [address] [address] Kin Acuna ROSEMARY- BMP WITH LIPIDon 2021 Anion gap [Moles/Vol] 9.2 mmol/L Normal [facility] Comment on above: Performed By: #### D ATBMP #### [facility] [address] [address] [address] Kin Acuna Calcium [Mass/Vol] 8.8 mg/dL Normal 8.5-10.1 [facility] Comment on above: Performed By: #### D ATBMP #### [facility] [address] [address] [address] Kin Acuna Chloride [Moles/Vol] 106 mmol/L Normal 98-107 [facility] Comment on above: Performed By: #### D ATBMP #### [facility] [address] [address] [address] Kin Acuna Cholesterol [Mass/Vol] 152 mg/dL Normal <=200 [facility] Comment on above: Performed By: #### D ATBMP #### [facility] [address] [address] [address] Kin Acuna Cholesterol in HDL [Mass/Vol] 90 mg/dL Critically high 40-60 [facility] Comment on above: Performed By: #### D ATBMP #### [facility] [address] [address] [address] Kin Acuna Cholesterol in LDL [Mass/Vol] 57.8 mg/dL Normal [facility] Comment on above: Performed By: #### D ATBMP #### [facility] [address] [address] [address] Kin Acuna CO2 [Moles/Vol] 29.0 mmol/L Normal 21.0-32.0 [facility] Comment on above: Performed By: #### D ATBMP #### [facility] [address] [address] [address] Kin Acuna Creatinine [Mass/Vol] 1.04 mg/dL Critically high 0.55-1.02 [facility] Comment on above: Performed By: #### D ATBMP #### [facility] [address] [address] [address] Kin Acuna EGFR-AF BRAZILIAN >60 Normal >=60 [facility] Comment on above: Performed By: #### D ATBMP #### [facility] [address] [address] [address] Kin Acuna EGFR-NON AF BRAZILIAN 51 mL/min/1.73m2 Critically low >=60 [facility] Comment on above: Performed By: #### D ATBMP #### [facility] [address] [address] [address] Kin Acuna Glucose [Mass/Vol] 97 mg/dL Normal 74-106 [facility] Comment on above: Performed By: #### D ATBMP #### [facility] [address] [address] [address] Kin Acuna HDL NORMAL > or = 60 mg/dl - LOW CARDIOVASCULAR RISK <40 mg/dl - HIGH CARDIOVASCULAR RISK Normal [facility] Comment on above: Performed By: #### D ATBMP #### [facility] [address] [address] [address] Kin Acuna LDL CALC NORMAL SEE BELOW Normal [facility] Comment on above: Result Comment: <100 mg/dl OPTIMAL 100 - 129 mg/dl NEAR OR ABOVE OPTIMAL 130 - 159 mg/dl BORDERLINE HIGH 160 - 189 mg/dl HIGH >190 mg/dl VERY HIGH Performed By: #### D ATBMP #### [facility] [address] [address] [address] Kin Acuna Potassium [Moles/Vol] 4.2 mmol/L Normal 3.5-5.1 [facility] Comment on above: Performed By: #### D ATBMP #### [facility] [address] [address] [address] Kin Acuna Sodium [Moles/Vol] 140 mmol/L Normal 136-145 [facility] Comment on above: Performed By: #### D ATBMP #### [facility] [address] [address] [address] Kin Acuna Triglyceride [Mass/Vol] 21 mg/dL Normal <=150 [facility] Comment on above: Performed By: #### D ATBMP #### [facility] [address] [address] [address] Kin Acuna Urea nitrogen [Mass/Vol] 16.0 mg/dL Normal 7.0-18.0 [facility] Comment on above: Performed By: #### D ATBMP #### [facility] [address] [address] [address] Kin Acuna Urea nitrogen/Creatinine [Mass ratio] 15.4 mg/mg Normal [facility] Comment on above: Performed By: #### D ATBMP #### [facility] [address] [address] [address] Kin Acuna VLDL CALC 4.2 mg/dL Normal [facility] Comment on above: Performed By: #### D ATBMP #### [facility] [address] [place] [address] Dr. Kin Acuna MG MAMM SCREEN 3D BRANDON CADon 11-19-2021 MG MAMM SCREEN 3D BRANDON CAD Patient: SHABNAM GARSIA Exam Date: 11/19/2021 : 1940 Gender:F Ordering : DR TIFFANIE DOAN M.D. Admission #: [id number] Family : Order #: [id number] CLICK HERE TO VIEW EXAM RADIOLOGY REPORT [...] colon cancer at age 78. LOCATION: [facility] BREAST COMPOSITION: Heterogeneously dense,which may obscure small [...] M.D. on 11/19/2021 at 14:56 Normal [facility] Vital Signs Date Time Vital Sign Value Performing Clinician Facility 10-16-2024 09:23-0400 Body height 152.4 cm [facility] 10-16-2024 09:23-0400 Body mass index (BMI) [Ratio] 28.1 kg/m2 [facility] 10-16-2024 09:23-0400 Body weight 65.31 kg [facility] 10-16-2024 09:23-0400 Diastolic blood pressure 74 mm[Hg] [facility] 10-16-2024 09:23-0400 Heart rate 62 /min [facility] 10-16-2024 09:23-0400 Systolic blood pressure 162 mm[Hg] [facility] 06-13-2024 13:35-0500 Body height 152.4 cm [facility] 06-13-2024 13:35-0500 Body mass index (BMI) [Ratio] 28.2 kg/m2 [facility] 06-13-2024 13:35-0500 Body weight 65.54 kg [facility] 06-13-2024 13:35-0500 Diastolic blood pressure 82 mm[Hg] [facility] 06-13-2024 13:35-0500 Heart rate 77 /min [facility] 06-13-2024 13:35-0500 Systolic blood pressure 185 mm[Hg] [facility] 05-01-2024 09:35-0500 Body height 152.4 cm [facility] 05-01-2024 09:35-0500 Body mass index (BMI) [Ratio] 28.1 kg/m2 [facility] 05-01-2024 09:35-0500 Body weight 65.31 kg [facility] 05-01-2024 09:35-0500 Diastolic blood pressure 77 mm[Hg] [facility] 05-01-2024 09:35-0500 Heart rate 63 /min [facility] 05-01-2024 09:35-0500 Systolic blood pressure 164 mm[Hg] [facility] 01-22-2024 11:12-0400 Body height 152.4 cm [facility] 01-22-2024 11:12-0400 Body mass index (BMI) [Ratio] 27.3 kg/m2 [facility] 01-22-2024 11:12-0400 Body weight 63.67 kg [facility] 01-22-2024 11:12-0400 Diastolic blood pressure 78 mm[Hg] [facility] 01-22-2024 11:12-0400 Heart rate 91 /min [facility] 01-22-2024 11:12-0400 Systolic blood pressure 109 mm[Hg] [facility] 12-19-2023 11:12-0400 Body height 152.4 cm [facility] 12-19-2023 11:12-0400 Body mass index (BMI) [Ratio] 28.1 kg/m2 [facility] 12-19-2023 11:12-0400 Body weight 65.31 kg [facility] 12-19-2023 11:12-0400 Diastolic blood pressure 84 mm[Hg] [facility] 12-19-2023 11:12-0400 Heart rate 80 /min [facility] 12-19-2023 11:12-0400 Systolic blood pressure 146 mm[Hg] [facility] 10-25-2023 10:20-0400 Body height 152.4 cm [facility] 10-25-2023 10:20-0400 Body mass index (BMI) [Ratio] 28.3 kg/m2 [facility] 10-25-2023 10:20-0400 Body weight 65.77 kg [facility] 10-25-2023 10:20-0400 Diastolic blood pressure 81 mm[Hg] [facility] 10-25-2023 10:20-0400 Heart rate 67 /min [facility] 10-25-2023 10:20-0400 Systolic blood pressure 176 mm[Hg] [facility] 05-23-2023 09:00-0500 Body height 152.4 cm Tiffanie Doan Other [facility] Other 05-23-2023 09:00-0500 Body mass index (BMI) [Ratio] 28.55 kg/m2 Tiffanie Doan Other [facility] Other 05-23-2023 09:00-0500 Body weight 66.32 kg Tiffanie Doan Other [facility] Other 05-23-2023 09:00-0500 Diastolic blood pressure 109 mm[Hg] Tiffanie Doan Other [facility] Other 05-23-2023 09:00-0500 Systolic blood pressure 176 mm[Hg] Tiffanie Doan Other [facility] Other 04-26-2023 10:00-0500 Body height 152.4 cm Tiffanie Doan Other [facility] Other 04-26-2023 10:00-0500 Body mass index (BMI) [Ratio] 27.92 kg/m2 Tiffanie Doan Other [facility] Other 04-26-2023 10:00-0500 Body weight 64.86 kg Tiffanie Doan Other [facility] Other 04-26-2023 10:00-0500 Diastolic blood pressure 88 mm[Hg] Tiffanie Doan Other [facility] Other 04-26-2023 10:00-0500 Systolic blood pressure 132 mm[Hg] Tiffanie Doan Other [facility] Other 10-26-2022 10:00-0400 Body height 152.4 cm Tiffanie Doan Other [facility] Other 10-26-2022 10:00-0400 Body mass index (BMI) [Ratio] 28.71 kg/m2 Tiffanie Doan Other [facility] Other 10-26-2022 10:00-0400 Body weight 66.68 kg Tiffanie Doan Other [facility] Other 10-26-2022 10:00-0400 Diastolic blood pressure 89 mm[Hg] Tiffanie Doan Other [facility] Other 10-26-2022 10:00-0400 Systolic blood pressure 172 mm[Hg] Tiffanie Doan Other [facility] Other Encounters Encounter Date Encounter Type Care Provider Facility Start: 01-09-2025 End: 01-09-2025 ambulatory Tiffanie Doan MD Work Phone: [facility] Work Phone: Start: 01-09-2025 End: 01-09-2025 Patient encounter procedure [facility] Work Phone: Start: 10-16-2024 End: 10-16-2024 ambulatory [facility] Work Phone: Start: 10-16-2024 End: 10-16-2024 Patient encounter procedure [facility] Work Phone: Start: 09-10-2024 Non-patient / Non-visit [facility] Work Phone: Start: 06-13-2024 End: 06-13-2024 ambulatory [facility] Work Phone: Start: 06-13-2024 End: 06-13-2024 Patient encounter procedure [facility] Work Phone: Start: 05-01-2024 End: 05-01-2024 Patient encounter procedure [facility] Work Phone: Start: 04-23-2024 Non-patient / Non-visit [facility] Work Phone: Start: 04-09-2024 End: 04-09-2024 ambulatory [facility] Work Phone: Start: 04-09-2024 End: 04-09-2024 Patient encounter procedure [facility] Work Phone: Start: 01-22-2024 End: 01-22-2024 ambulatory [facility] Work Phone: Start: 01-22-2024 End: 01-22-2024 Patient encounter procedure [facility] Work Phone: Start: 12-19-2023 End: 12-19-2023 ambulatory [facility] Work Phone: Start: 12-19-2023 End: 12-19-2023 Patient encounter procedure [facility] Work Phone: Start: 12-10-2023 Non-patient / Non-visit [facility] Work Phone: Start: 10-25-2023 End: 10-25-2023 ambulatory [facility] Work Phone: Start: 10-25-2023 End: 10-25-2023 Patient encounter procedure [facility] Work Phone: Start: 09-29-2023 End: 09-29-2023 ambulatory [facility] Work Phone: Start: 09-29-2023 End: 09-29-2023 Patient encounter procedure [facility] Work Phone: Start: 08-02-2023 Non-patient / Non-visit [facility] Work Phone: Start: 07-27-2023 Non-patient / Non-visit [facility] Work Phone: Start: 07-14-2023 End: 07-14-2023 ambulatory Tiffanie Doan Other [facility] Other Start: 07-14-2023 Telephone encounter Tiffanie Doan [facility] Start: 06-27-2023 End: 06-27-2023 ambulatory Tiffanie Doan Other [facility] Other Start: 06-27-2023 Telephone encounter Tiffanie Dayna [facility] Start: 06-09-2023 End: 06-09-2023 ambulatory Tiffanie Doan Other [facility] Other Start: 06-09-2023 Telephone encounter Tiffanie Doan [facility] Start: 05-23-2023 End: 05-23-2023 ambulatory Tiffanie Doan Other [facility] Other Start: 05-23-2023 Office outpatient vi sit 15 minutes Tiffanie Doan [facility] Start: 05-23-2023 Telephone encounter Tiffanie Dayna [facility] Start: 04-26-2023 End: 04-26-2023 ambulatory Tiffanie Doan Other [facility] Other Start: 04-26-2023 Office outpatient vi sit 15 minutes Tiffanie Doan [facility] Start: 04-25-2023 End: 04-25-2023 ambulatory Tiffanie Doan Other [facility] Other Start: 04-25-2023 Telephone encounter Tiffanie Dayna [facility] Start: 03-15-2023 End: 03-15-2023 ambulatory Tiffanie Doan Other [facility] Other Start: 03-15-2023 Telephone encounter Tiffanie Dayna [facility] Start: 12-19-2022 End: 12-19-2022 ambulatory Tiffanie Doan Other [facility] Other Start: 12-19-2022 Telephone encounter Tiffanie Dayna [facility] Start: 11-25-2022 End: 11-25-2022 ambulatory Tiffanie Doan Other [facility] Other Start: 11-25-2022 Telephone encounter Tiffanie Dayna [facility] Start: 11-01-2022 End: 11-01-2022 ambulatory Tiffanie Doan Other [facility] Other Start: 11-01-2022 Telephone encounter Tiffanie Dayna [facility] Start: 10-26-2022 End: 10-26-2022 ambulatory Tiffanie Doan Other [facility] Other Start: 10-26-2022 Office outpatient vi sit 15 minutes Tiffanie Doan [facility] Start: 05-13-2022 End: 05-14-[address] TIFFANIE DOAN Facility:[facility] Start: 05-10-2022 Adult health examination Tiffanie Doan Other [facility] Other Start: 05-04-2022 End: 05-05-[address] JAROD LONGORIA Facility:[facility] Start: 01-05-2022 End: 01-06-[address] LAMBERTO ALEJANDRO Facility:[facility] Start: 11-19-2021 End: 11-20-[address] LAMBERTO ALEJANDRO Facility:[facility] Start: 07-14-2021 End: 07-15-[address] LAMBERTO ALEJANDRO Facility:[facility] Start: 07-23-2020 End: 07-24-2020 Patient encounter procedure NONE LISTED REQUEST Facility:[facility] Start: 06-22-2020 End: 06-23-2020 Patient encounter procedure NONE LISTED REQUEST Facility: Start: 11-15-2013 End: 11-15-2013 Telephone encounter Eusebia Jimenes Work Phone: Neurology Procedures Date Procedure Procedure Detail Performing Clinician Start: 09-05-2017 General examination of patient Tiffanie Dayna Other Start: 03-20-2015 Screening mammography M pk Doan Other Screening for malign ant neoplasm of breast Tiffanie Dayna Other Screening for malign ant neoplasm of colon Tiffanie Dayna Other Plan of Treatment Date Care Activity Detail Author Start: 02-03-2021 Influenza vaccination INFLUENZ A (Season Ended) [facility] Start: 08-20-2003 ADVANCE DIRECTIVE DISCUSSION ADVANCE DIRECTIVE DISCUSSION [facility] Start: 08-20-2003 BONE DENSITY BONE DENSITY [facility] Start: 08-20-2003 PNEUMOVAX AGE 65 AND OVER WITH 5YR LOOKBACK (#1) PNEUMOVAX AGE 65 AND OVER WITH 5YR LOOKBACK (#1) [facility] Start: 1988 SHINGRIX VACCINE (1 of 2) CANTRELL GRIX VACCINE (1 of 2) [facility] Start: 08-20-1983 DIABETES SCREEN DIABETES SCREEN [facility] Start: 1957 Urine microalbumin profile DTAP,TDAP,TD (1 - Tdap) [facility] Immunizations Immunization Date Immunization Notes Care Provider Av rose 04-09-2024 influenza, high dose seasonal, preservative-free [facility] 03-02-2022 influenza virus vaccine, split virus (incl. purified surface antigen) Tiffanie Dayna Other [facility] Other 03-02-2022 influenza virus vaccine, unspecified formulation [facility] 02-24-2021 influenza virus vaccine, split virus (incl. purified surface antigen) Tiffanie Doan Other [facility] Other 02-24-2021 influenza virus vaccine, unspecified formulation [facility] 02-11-2020 influenza virus vaccine, split virus (incl. purified surface antigen) Tiffanie Doan Other [facility] Other 02-11-2020 influenza virus vaccine, unspecified formulation [facility] 09-05-2017 pneumococcal conjuga te vaccine, 13 valent Tiffanie Dona Other [facility] 09-05-2017 pneumococcal Conjuga te, unspecified formulation; Translations: [Need for prophylactic vaccination against Streptococcus pneumoniae (pneumococcus)] Tiffanie Doan Other [facility] Other 03-14-2017 influenza virus vaccine, split virus (incl. purified surface antigen) Tiffanie Doan Other [facility] Other 03-14-2017 influenza virus vaccine, unspecified formulation [facility] 04-10-2014 influenza virus vaccine, split virus (incl. purified surface antigen) Tiffanie Doan Other [facility] Other 04-10-2014 influenza virus vaccine, unspecified formulation [facility] 05-01-2013 diphtheria, tetanus toxoids and acellular pertussis vaccine, unspecified formulation Tiffanie Doan Other [facility] 04-11-2013 tetanus and diphther ia toxoids, adsorbed, preservative free, for adult use (5 Lf of tetanus toxoid and 2 Lf of diphtheria toxoid) Tiffanie Doan Other [facility] Payers Date Payer Category Payer Medicare MEDICARE MEDICAR E B [id number] 2003-Present [place] Medicare [id number] 1996 Unknown RG BURGER BS FEP PPO [id number] 1996-Present PPO [id number] 1959 Medicare [id number] 1959 Self-pay 1959 Unknown [id number] 1940 Unknown [id number] 3 1940 Unknown [id number] 3 1940 Unknown [id number] 3 1940 Unknown [id number] 3 Medicare Medicare Outpatient [id number] Unknown [id number] 3 Unknown [id number] 3 Unknown [id number] 3 Unknown [id number] 3 Unknown Rg BC/BS [id number] Social History Date Type Detail Facility Start: 11-14-2013 Tobacco smoking status KSIS Former smoker [facility] End: 11-14-1996 History of tobacco use Current smoker [facility] Start: 11-14-2013 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 Clinical Notes 04-18-2005 to 10-16-2024 Note Date & Type Note Facility 10-16-2024 Evaluation note Diagnosis Onset Date Resolution Anxiety acute October 16, 2024 9:22am Essential (primary) hypertension acute October 16, 2024 9 :22am Situational stress acute October 162024 9:22am [facility] Work Phone: 1(945) 478-210611-05-2024 Evaluation note* Diagnosis Onset Date Resolution Status Admit Date Encounter for immunization acute April 09, 2024 10:50am Anxiety acute May 01, 2024 9:24am Essential (primary) hypertension acute May 01, 024 9:24am Situational stress acute Novemb er 2023 9:24am [facility] Work Phone: 1(190) 691-488502-09-2024 Evaluation note* Encounter Date Diagnosis Assessment Notes Treatment Notes Treatment Clinical Notes Jul, Vitamin B12 deficiency (ICD-10 - E53.8) [facility] Other 01-23-2024 Evaluation note* Encounter Date Diagnosis Assessment Notes Treatment Notes Treatment Clinical Notes Jun, Essential (primary) hypertension (ICD-10 - I10) [facility] Other 01-05-2024 Evaluation note* Encounter Date Diagnosis Assessment Notes Treatment Notes Treatment Clinical Notes Jun, Essential (primary) hypertension (ICD-10 - I10) [facility] Other 12-19-2023 Evaluation note* Encounter Date Diagnosis Assessment Notes Treatment Notes Treatment Clinical Notes May, Essential (primary) hypertension (ICD-10 - I10) added toprol, continue olmesartan. 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 May, Anxiety, generalized (ICD-10 - F41.1) Pt takes med spariningly, reviewed OARRS report. [facility] Other 11-22-2023 Evaluation note* Encounter Date Diagnosis [...] Z86.73) Pt requests refill for chronic issue. [facility] Other 11-21-2023 Evaluation note* Encounter Date Diagnosis Assessment Notes Treatment Notes Treatment Clinical Notes Apr, Vitamin B12 deficiency (ICD-10 - E53.8) [facility] Other 05-24-2023 Evaluation note* Encounter Date Diagnosis [...] white coat - will recheck at home. [facility] Other 08-03-2022 NotePROCEDURE: MRI BRAIN WO CON [...] Electronically authenticated by: LAMBERTO ALEJANDRO Date: 2022-01-05 15:55[facility]02-09-2022 NotePROCEDURE: XR HIP RT 2 3V W [...] Electronically authenticated by: LAMBERTO ALEJANDRO Date: 2021-07-14 14:31[facility]06-13-2014 Miscellaneous Notes* Telephone Encounter - Lakesha Rutherford [...] speak [facility]. Jimenes. [facility] of Past illness Narrative* Problem Noted Date Resolved Date CENTRAL ORIGIN VERTIGO 04/18/2005 4 Peripheral vertigo, unspecified 04/18/2005 01/17/2014 documented as of this encounter (statuses as of 09/30/2020) [facility] Other Evaluation noteNo assessment information available [facility] Work Phone: Evaluation note* Diagnosis Onset Date Resolution Status Essential (primary) hypertension acute Hyperlipidemia acute Situational stress acute [facility] Work Phone: Evaluation note* Diagnosis Onset Date Resolution Status Essential (primary) hypertension acute Hyperlipidemia acute Situational stress acute Essential (primary) hypertension acute Situational stress acute Agitation acute [facility] Work Phone: Evaluation note* Diagnosis Onset Date Resolution Status Agitation acute [facility] Work Phone: History general Narrative - Reported* Type Description Date Medical History OVARIAN CANCER Surgical History hysterectomy Surgical History appendectomy Hospitalization History SEE ABOVE [facility] Other Reason for referral (narrative)No reason for referral information [facility] Work Phone: Summary Purpose Family History Relationship Condition Age at Onset Recorded Date/T mitzi brother Unknown father Unknown Not Specified Unknown Malignant neoplasm Unknown Relationship Condition Age at Onset Recorded Date/T mitzi brother Unknown father Unknown mother Unknown Malignant neoplasm Unknown Advance Directives Advance Directive Response Recorded Date/ Time Advance Directives No June 29, 2023 12:01pm Advance Directive Response Recorded Date/ Time Advance Directives No June 29, 2023 11:01am Chief Complaint and Reason for Visit Chief Complaint Amb Documentation Amb Documentation allergy shot Chief Complaint Amb Documentation allergy shot 6 month follow Chief Complaint allergy shot 6 month follow [facility] follow up Reason for Visit Essential (primary) hypertension Hyperlipidemia Situational stress Chief Complaint 6 month follow [facility] follow up bp issues , anxiety Reason for Visit Essential (primary) hypertension Hyperlipidemia Situational stress Essential (primary) hypertension Situational stress Agitation Chief Complaint bp issues , anxiety flu shot Reason for Visit Agitation Chief Complaint Admit Date flu shot April 09, 2024 1 0:50am CC Adult Risk Stratification April 232023 3:03pm 6 month follow up May 01, 2024 9:24am Depression June 13, 2024 1: 34pm Reason for Visit Admit Date Encounter for immunization April 09, 2024 10:50am Anxiety May 01, 2024 9:24am Essential (primary) hypertension Novembe r 2023 9:24am Situational stress May 01, 2024 9:24am Chief Complaint Admit Date Amb Documentation September 10, 2024 1:50 pm 6 month f/u October 16, 2024 9:22a m Chief Complaint Admit Date 6 month f/u October 16, 2024 9:22a m Kenalog Shot January 09, 2025 9:3 6am Reason for Visit Admit Date Anxiety October 16, 2024 9:22a m Essential (primary) hypertension October 9:22am Situational stress October 16, 2024 9:22a m Additional Source Comments INFORMATION SOURCE (unrecogn ized section and content) DATE CREATED AUTHOR 07/28/2020 [facility] DATE CREATED AUTHOR AUTHOR'S ORGANIZ ATION 05/26/2022 [facility] Source Comments (unrecognize d section and content) In the event this informatio n is protected by the Federal Confidentiality of Alcohol and Drug Abuse Patient Records regulations: The Federal rules restrict any use of the information to criminally investigate or prosecute any alcohol or drug abuse patient.[facility] REASON FOR VISIT (unrecogniz ed section and content) refill6 MONTH FOLLOW UP ACre filllabsrefillrefill6 month Follow upstress testblood pressure issuesNew RXBPsmessagerefills Care Teams (unrecognized sec tion and content) Team Status: Active Member Role Status Dates Tiffanie Doan MD Primary Care Provider Active Team Status: Inactive Member Role Status Dates Tiffanie Doan MD Primary Care Provider Active Start: October 16, 2024 End: October 16, 2024 Tiffanie Doan MD Attending Provider Active St art: October 16, 2024 End: October 16, 2024 Team Status: Inactive Member Role Status Suzan Doan MD Primary Care Provider Active Start: January 09, 2025 End: January 09, 2025 Dioni Tineo DO Attending Provider Active Sta rt: January 09, 2025 End: January 09, 2025 Team Status: Active Member Role Status Dates Tiffanie Doan MD Primary Care Provider Active Team Status: Active Member Role Status Dates Tiffanie Doan MD Primary Care Provider Active Start: September 10, 2024 Orquidea Wood CMA Attending Provider Active Start: September 10, 2024 Team Status: Inactive Member Role Status Dates Tiffanie Doan MD Primary Care Provide r, Attending Provider Active Start: October 16, 2024 End: October 16, 2024 Team Status: Inactive Member Role Status Suzan Doan MD Primary Care Provide r, Attending Provider Active Start: September 29, 2023 End: September 29, 2023 Team Status: Inactive Member Role Status Suzan Doan MD Primary Care Provide r, Attending Provider Active Start: October 25, 2023 End: October 25, 2023 Team Status: Active Member Role Status Suzan Doan MD Primary Care Provider Active Start: December 10, 2023 Sarah Elizondo MD Attending Provider Active Sta rt: December 10, 2023 Team Status: Inactive Member Role Status Suzan Doan MD Primary Care Provide r, Attending Provider Active Start: December 19, 2023 End: December 19, 2023 Team Status: Active Member Role Status Suzan Doan MD Primary Care Provider Active Start: July 27, 2023 ALISSON Canales Attending Provider Active Start : July 27, 2023 Team Status: Active Member Role Status Suzan Doan MD Primary Care Provider Active Start: August 02, 2023 ALISSON Canales Attending Provider Active Start : August 02, 2023 Team Status: Inactive Member Role Status Suzan Doan MD Primary Care Provide r, Attending Provider Active Start: January 22, 2024 End: January 22, 2024 Team Status: Inactive Member Role Status Suzan Doan MD Primary Care Provide r, Attending Provider Active Start: April 09, 2024 End: April 09, 2024 Team Status: Active Member Role Status Dates Tiffanie Doan MD Primary Care Provide r, Attending Provider Active Start: April 23, 2024 Team Status: Inactive Member Role Status Dates Tiffanie Doan MD Primary Care Provide r, Attending Provider Active Start: May 01, 2024 End: May 01, 2024 Team Status: Inactive Member Role Status Dates Tiffanie Doan MD Primary Care Provide r, Attending Provider Active Start: June 13, 2024 End: June 13, 2024 Team Status: Inactive Member Role Status Dates Tiffanie Doan MD Primary Care Provider Active Start: October 16, 2024 End: October 16, 2024 Tiffanie Doan MD Attending Provider Active St art: October 16, 2024 End: October 16, 2024 Team Status: Inactive Member Role Status Dates Tiffanie Doan MD Primary Care Provider Active Start: January 09, 2025 End: January 09, 2025 Dioni Tineo DO Attending Provider Active Sta rt: January 09, 2025 End: January 09, 2025 Goals (unrecognized section and content) Goals may [...] BE BASED ON THE PRIMARY CLINICAL RECORDS. [employer] provides no warranty or guarantee of the accuracy or completeness of information in this document.
[2025-02-18 15:13] LABS: Thyroid Stimulating Hormone 2.002 uIU/mL (0.358-3.740)
== END 2025-02-18 14:18 | disposition home or self-care (01) ==
LOC: LAB 14:20
PROVIDERS: PCP Family Medicine; Visit Provider Family Medicine
DX: R94.31 Abnormal electrocardiogram [ECG] [EKG] (principal); R00.2 Palpitations; R53.82 Chronic fatigue, unspecified
CPT/HCPCS: 36415; 84439; 84443; 86850; 86900; 86901

== ENCOUNTER 2025-02-20 08:45 | Outpatient (RCR) | payer MEDICARE, BC, SELFPAY | END 2025-03-08 13:00 | disposition home or self-care (01) | LOC: PT 08:45 | PROVIDERS: PCP Family Medicine; Visit Provider Family Medicine | DX: M54.2 Cervicalgia (principal); M79.621 Pain in right upper arm | CPT/HCPCS: 97110; 97112; 97162 ==

== ENCOUNTER 2025-03-26 10:31 | Outpatient (OUT) | payer MEDICARE, BC, SELFPAY ==
--- OUTSIDE RECORDS SUMMARY | 2025-03-26 09:40 | XMS_ITS | Encounter Summary ---
Author Organization [facility] Address [address] [place] [address] Care Team Providers Care Manager Retail Store Name Role Phone Tiffanie Mcintosh MD Primary Care Provider [phone] Reason for Visit * ReasonCommentsNew PatientPatient is here today to establish care with cardiology. Patient recently had and abnormal EKG.Patient denies chest pain, racing heart/palpitations, leg swelling, dizziness/lightheaded.Fatigue Increased fatigueShortness of BreathSOB/VEGA occasional with getting out of chair and walkingHypertensionHyperlipidemiaAbnormal ECG Encounter Details DateTypeDepartmentCare Team (Latest Contact Info)Qkckhxrymhc30/22/2025 9:40 AM EDTOffice Visit [facility] at [place] [address] [place] [address] Luke Ashraf MD [address] [place] [phone] Abnormal EKG (Primary Dx); Essential (primary) hypertension; Shortness of breath Social History Tobacco UseTypesPacks/DayYears UsedDateSmoking Tobacco: FormerCigarettes Smokeless Tobacco: Never Tobacco Cessation:Counseling Given: Not Answered Alcohol UseStandard Drinks/WeekCommentsYes0 (1 standard drink = 0.6 oz pure alcohol)couple glasses of wine with dinner 3 to 4 times per weekComments UnknownSex and Gender InformationValueDate RecordedSex Assigned at BirthFemale 03/21/2025 4:08 PM EDTLegal DujMdguvt90/29/2022 11:08 PM EDTGender Identity Buojrp3303/21/2025 4:08 PM EDTSexual OrientationHeterosexual or Gvsryhys74/17/2025 4:08 PM EDTdocumented as of this encounter Last Filed Vital Signs Vital SignReadingTime TakenCommentsBlood Vsithxwm714/8603/26/2025 9:33 AM EDT Klidw002103/26/2025 9:33 AM EDTTemperature--Respiratory Rate--Oxygen Yhwrgsuptz24% 03/26/2025 9:33 AM EDTInhaled Oxygen Concentration--Tularn42 kg (139 lb) 03/26/2025 9:33 AM XQLMuikom651.4 cm (5')03/26/2025 9:33 AM EDTBody Mass Index 27.151 9:33 AM EDTdocumented in this encounter Functional Status * BPAnswerDate of GkhophjjhlVdanwx552/8603/26/2025 9:33 AM Althea Menendez MA * PulseAnswerDate of RgdwqtmbjuLugmws1387/22/2025 9:33 AM Althea Menendez MA * Patient PositionAnswerDate of LyugsmfvvtLomvlfMqjcjvs34/22/2025 9:33 AM EDT Althea James MA * BPAnswerDate of QlzsbbmyqtIminte393/8603/26/2025 9:33 AM Althea Menendez MA * PulseAnswerDate of HjrxgimwsrIjvpnm9428/22/2025 9:33 AM Althea Menendez MA * SeL4IqpgajEjrp of OkirmnjfbbDsviaz7334/22/2025 9:33 AM Althea Menendez MA * BP LocationAnswerDate of AssessmentAuthorRight arm03/26/2025 9:33 AM EDT Althea James MA * Patient PositionAnswerDate of XuzciuixjdEnvmcrGimartu08/22/2025 9:33 AM EDT Althea James MA documented [...] review of EKG shows possible previous inferoposterior UT with Q waves in II, III and [...] EKG with evidence for an old inferoposterior UT and voltage consistent with left ventricular hypertrophy. She also has shortness of breath at modest levels of activity and her exam shows increased JVP all consistent with NYHA Class II heart failure. I have ordered an echo to assess for LVH and to check for LV function and prior UT. Will also get stress to assess residual ischemia, and check BNP. Diagnosis Plan 1. Abnormal EKG 2. Essential (primary) hypertension 3. Shortness of breath Follow up in about 4 weeks (around 04/23/2025). documented in this encounter Plan of Treatment DateTypeDepartmentCare Team (Latest Contact Info)Mdtsyjjgxcz12/24/2025 11:00 AM ESTOffice Visit [facility] Heart at [facility] [address] [place] [address] Luke Ashraf MD [address] [place] [phone] NameTypePriorityAssociated DiagnosesOrder ScheduleB-type natriuretic peptideLab Routine Abnormal [...] Team MemberRelationshipSpecialtyStart [place] [address] [place] [address] #A [facility] - Ilyjlcc32/20/25documented as of this encounter
--- OUTSIDE RECORDS SUMMARY | 2025-03-26 10:40 | XMS_ITS | Clinical Summary ---
Author Organization [employer] Address [id number] [address] [place] [address] Care Team Providers Care Street Sweeper Name Role Phone Unavailable Primary Care Provider Unavailabl e Social History Tobacco UseTypesPacks/DayYears UsedDateSmoking Tobacco: Never AssessedChildcare AnswerDate EvzzqgfuNoyvtovkoPwfqplj04/10/2019EmploymentAnswerDate Recorded PxzuvadruwOnnifbz84/10/2019Purpose - LifeAnswerDate RecordedPurpose and direction in bowmPadxsbb85/10/2021CommentsUnknownSex and Gender InformationValueDate RecordedSex Assigned at BirthNot on fileLegal SexFemale 01/06/2015 12:41 PM EDTGender IdentityNot on fileSexual OrientationNot on file Last Filed Vital Signs Vital SignReadingTime TakenCommentsBlood Totcnamk375/80106/10/2012 1:22 PM EST Pulse--Temperature--Respiratory Rate--Oxygen Saturation--Inhaled Oxygen Concentration--Wqdthk58.9 kg (132 lb)04/10/2013 1:19 PM SJQFolyhi907.9 cm (5' 1 )04/10/2013 1:19 PM ESTBody Mass Index24.9404/10/2013 1:19 PM EST Plan of Treatment Health MaintenanceDue DateLast DoneCommentsDepression Qjnyinbxx30/17/1951Tobacco Rcycdzzgv56/17/1951TaP,Tdap and Td Vaccines (1 - Tdap)1957Zoster (Shingles) Vaccine (1 of 2)1988Fall Risk Icqicuwgn15/17/2004Influenza Ojnwklt7602/03/2025 Medical Devices Not on file Insurance
--- OUTSIDE RECORDS SUMMARY | 2025-03-26 10:40 | XMS_ITS | Clinical Summary ---
Author Organization [facility] Address [address] [place], [place] [address] Care Team Providers Care Frame Straightener Name Role Phone Tiffanie Mcintosh MD Primary Care Provider [phone] Allergies Active AllergyReactionsCriticalityNoted DateCommentsAmoxicillinDiarrhea 11/25/20138450IpgreckhuqJynholtw44/23/2014 Medications MedicationSigDispense QuantityRefillsLast FilledStart DateEnd DateStatus fluticasone (FLONASE) 50 mcg/actuation nasal spray 2 Sprays once daily as needed.11/12/2013ctive diazepam (VALIUM) 5 mg tablet Take 1 tablet by mouth twice daily.ctive meclizine 25 mg tab Take 0.5 tablets by mouth once daily as needed (for dizziness.).11/12/2013ctive promethazine 25 mg tablet Take 0.5 tablets by mouth once daily as needed for Nausea/Vomiting. Active lisinopril-hydrochlorothiazide 10-12.5 mg per tablet Take 1 tablet by mouth once daily.ctive aspirin, enteric coated (ECOTRIN LOW STRENGTH) 81 mg EC tablet Take 1 tablet by mouth once daily.ctive cholecalciferol, vitamin D3, (VITAMIN D-3) 400 unit cap Take 1 capsule by mouth once daily.ctive ascorbic acid (VITAMIN C) 500 mg tablet Take 0.5 tablets by mouth once daily.ctive calcium carbonate 600 mg (1,500 mg) tab Take 0.25 tablets by mouth once daily.ctive E-Jaqsgor-A1 Ciob-Fpyrkz-V24 (FOLTANX) 3-35-2 mg tab or Capsule Take 1 tablet by mouth once daily. 30 capsule 11011/12/2013ctive L-Bnqqrgk-A0 Kjkh-Maicvs-M86 (FOLTANX) 3-35-2 mg tab or Capsule Take 1 tablet by mouth once daily. 30 capsule 11011/12/2013ctive ubidecarenone Q-10 (CO Q-10) 10 mg cap Take 10 mg by mouth twice daily.Active Zinc 50 mg tab Take 50 mg by mouth.Active diazepam (VALIUM) 2 mg tablet Take 1 tablet by mouth every 6 hours as needed (vertigo). 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 Resolved Problems ProblemNoted DateDiagnosed DateResolved DateCENTRAL ORIGIN YXSRGPP2404/18/2005 01/17/2014Peripheral vertigo, capdaguytyp65 Social History Tobacco UseTypesPacks/DayYears UsedDateSmoking Tobacco: FormerCigarettesQuit: 11/14/1996Alcohol UseStandard Drinks/WeekCommentsNo0 (1 standard drink = 0.6 oz pure alcohol)CommentsNoSex and Gender InformationValueDate RecordedSex Assigned at BirthNot on fileLegal WuaFlldgu46/02/2012 9:59 AM ESTGender Identity Not on fileSexual OrientationNot on file Last Filed Vital Signs Vital SignReadingTime TakenCommentsBlood Kjpvzblv537/7508 3:21 PM EDT Zhupd655101/17/2014 3:21 PM EDTTemperature--Respiratory Asqb009401/01/2014 2:13 PM EDTOxygen Nepvzyblal91%01/17/2014 3:21 PM EDTInhaled Oxygen Concentration-- Dfmfdj71.2 kg (135 lb)11/12/2013 12:56 PM EDTHeight--Body Mass Index-- Plan of Treatment Health MaintenanceDue DateLast DoneCommentsAnxiety Hduaxxanh85/17/1957Depression Xpyjtevdv97/17/1957DTaP,Tdap,Td Vaccine (1 - Tdap)1957Diabetes Screening 08/20/1983Pneumococcal Vaccine: 50+ (1 of 1 - PCV)1988Shingrix Vaccine (1 of 2)1988Bone Density Zbgkmrxnc92/17/2004RSV Vaccine (1 - 1-dose 75+ series)2013dvance Directive Erizqgwkbb37/01/2025ovid-19 Vaccine (2024-26 season)2025Influenza Vaccine (#1)2025 Insurance Care Teams Team MemberRelationshipSpecialtyStart DateEnd Date Tiffanie Mcintosh MD [address] [place] [address] PCP - GeneralFamily Medicine10/29/13
--- OUTSIDE RECORDS SUMMARY | 2025-03-26 10:40 | XMS_ITS | Encounter Summary ---
Author Organization [facility] Address [address] [place] [address] Care Team Providers Care Grinder Set Up Operator Centerless Name Role Phone Tiffanie Mcintosh MD Primary Care Provider [phone] Encounter Details DateTypeDepartmentCare Team (Latest Contact Info)Qusscetqmfz65/20/2025Orders Only [facility] at [place] [address] [place] [address] Provider, MD Car [address] [place] [address] Social History Tobacco UseTypesPacks/DayYears UsedDateSmoking Tobacco: Never Assessed CommentsUnknownSex and Gender InformationValueDate RecordedSex Assigned at Mkaqeo5203/21/2025 4:08 PM EDTLegal PfrLdfryi56/29/2022 11:08 PM EDTGender OubgjatyEmhgpt20/17/2025 4:08 PM EDTSexual OrientationHeterosexual or Straight 03/21/2025 4:08 PM EDTdocumented as of this encounter Functional Status * BPAnswerDate of RsczzgospxNiqerd762/8603/26/2025 9:33 AM Althea Menendez MA * PulseAnswerDate of UagnqqqtafVvtedc7996/22/2025 9:33 AM Althea Menendez MA * Patient PositionAnswerDate of TqwbqtndvjQmhvavEztbake44/22/2025 9:33 AM EDT Althea James MA * BPAnswerDate of FreakxwvnkJseaka408/8603/26/2025 9:33 AM Althea Menendez MA * PulseAnswerDate of NcnpajxdbsHtyjef3651/22/2025 9:33 AM Althea Menendez MA * LcH1BaxdmvTwfh of HatzlyhkfyBgexcv0153/22/2025 9:33 AM Althea Menendez MA * BP LocationAnswerDate of AssessmentAuthorRight arm03/26/2025 9:33 AM EDT Althea James MA * Patient PositionAnswerDate of LyffvlmfslFqpwlmYrucbts19/22/2025 9:33 AM EDT Althea James MA documented as of this encounter Plan of Treatment DateTypeDepartmentCare Team (Latest Contact Info)Tuiifmbhqao26/24/2025 11:00 AM ESTOffice Visit [facility] [address] [place] [address] Luke Ashraf MD [address] [place] [phone] documented as of this encounter Procedures Procedure NamePriorityDate/TimeAssociated DiagnosisCommentsTREADMILL STRESS MYOCARDIAL PERFUSION TLZQFFXEaysoqi21/13/2023 4:27 PM ESTdocumented in this encounter Results * Treadmill Stress Myocardial Perfusion Imaging (05/17/2023 4:27 PM EST) Anatomical RegionLateralityModalityOther Narrative Authorizing ProviderResult TypeResult StatusHistorical Provider MDCV STRESS PROCEDURESFinal Result documented in this encounter Visit Diagnoses Not on filedocumented in this encounter Care Teams Team MemberRelationshipSpecialtyStart DateEnd Date Tiffanie Mcintosh MD [address] PCP - Pigkfcz51/20/25documented as of this encounter
--- OUTSIDE RECORDS SUMMARY | 2025-03-26 10:40 | XMS_ITS | Clinical Summary ---
Author Organization [facility] Address [address] [place] [address] Care Team Providers Care Take Out Waiter/Waitress Name Role Phone Tiffanie Mcintosh MD Primary Care Provider [phone] Allergies Active AllergyReactionsCriticalityNoted DateCommentsAlendronate SodiumHives 5AmoxicillinDiarrhea,Hives11/25/20132595QkxgtraxuTvqwrmbv45/07/2025 headache and felt more nervous CephalosporinsDiarrhea,Hives11/25/20137444IgnlgrkirkXeerqmq86/07/2025 Onset Date: 10/23/2019 Clavulanic ZolzSjydm82/07/3409KjjdfpkmsbpwzZtuvx17/07/2025 Medications MedicationSigDispense QuantityRefillsLast FilledStart DateEnd DateStatus rosuvastatin (Crestor) 20 mg tablet Take 20 mg by mouth at bedtime.5Active metoprolol succinate XL (Toprol-XL) 50 mg 24 hr tablet Take 50 mg by mouth in the morning.5Active hydrOXYzine HCL (Atarax) 10 mg tablet Take 10 mg by mouth three times daily.5Active clopidogrel (Plavix) 75 mg tablet Take 75 mg by mouth in the morning.5Active cholecalciferol, vitamin D3, 10 mcg (400 unit) capsule Take 400 Units by mouth in the morning.11/12/2013ctive aspirin 81 mg EC tablet Take 81 mg by mouth in the morning.11/12/2013ctive losartan (Cozaar) 50 mg tablet Take 50 mg by mouth in the morning.5Active Foltanx 2-3-35 mg tablet Take 1 tablet by mouth in the morning.Active chlorthalidone (Hygroton) 25 mg tablet Indications:Abnormal EKG,Essential (primary) hypertension,Shortness of breath Take 1 tablet (25 mg) by mouth in the morning. 90 tablet ctive Active Problems ProblemNoted DateDiagnosed DateAbnormal EKG18028Owmiacpgc28/21/2025nxiety 03/25/2025Encounter for xlgliwpkkkmi10/21/2025Essential (primary) hypertension 03/25/20259440Qdojihk07/21/6772Punvzkjyizklts03/21/9871Uhqigrjbnlsk38/21/2025 Seasonal allergic aktvqvva64/21/2025Situational dwamkh5903/25/2025enign neoplasm of cranial bricpd4901/17/2014 Encounters DateTypeDepartmentCare ApqcWlaanvblbri16/22/2025 9:40 AM EDTOffice Visit [facility] [address] [place] [facility] [address] Luke Ashraf MD Abnormal EKG (Primary Dx); Essential (primary) hypertension; Shortness of hedzdi1303/26/2025Orders Only [facility] [address] [place] [address] Liyah Davis MA Abnormal EKG (Primary Dx)03/24/2025Orders Only [facility] [address] [place] [address] Provider, MD Car from Last 3 Months Family History Medical HistoryRelationNameCommentsCOPDBrother 1Heart diseaseBrother 1Heart failureBrother 2Deep vein thrombosisFatherHeart failureFatherAccidental MotherSuicidalitySon 1RelationNameStatusCommentsBrother 1DeceasedBrother 2 DeceasedFatherDeceasedMotherDeceasedSisterAliveSon 1DeceasedSon 2Alive Social History Tobacco UseTypesPacks/DayYears UsedDateSmoking Tobacco: FormerCigarettes Smokeless Tobacco: Never Tobacco Cessation:Counseling Given: Not Answered Alcohol UseStandard Drinks/WeekCommentsYes0 (1 standard drink = 0.6 oz pure alcohol)couple glasses of wine with dinner 3 to 4 times per weekComments UnknownSex and Gender InformationValueDate RecordedSex Assigned at BirthFemale 03/21/2025 4:08 PM EDTLegal QykNvvcvn11/29/2022 11:08 PM EDTGender Identity Xgvmmu3103/21/2025 4:08 PM EDTSexual OrientationHeterosexual or Dzagjsbs67/17/2025 4:08 PM EDT Last Filed Vital Signs Vital SignReadingTime TakenCommentsBlood Sxsmibov503/8603/26/2025 9:33 AM EDT Zofjb631003/26/2025 9:33 AM EDTTemperature--Respiratory Rate--Oxygen Hlloceentr77% 03/26/2025 9:33 AM EDTInhaled Oxygen Concentration--Isdldb58 kg (139 lb) 03/26/2025 9:33 AM FVSYeqltj857.4 cm (5')03/26/2025 9:33 AM EDTBody Mass Index 27.151 9:33 AM EDT Plan of Treatment DateTypeDepartmentCare Team (Latest Contact Info)Yljgsxdlflg30/24/2025 11:00 AM ESTOffice Visit [facility] [place] [address] [place] [address] Luke Ashraf MD [address] [place] [address] Health MaintenanceDue DateLast DoneCommentsMedicare Annual Wellness (AWV) 1940Depression Vfugvvfxn44/17/1951Fall Risk Iuxlacyku21/17/2004 Pneumococcal Vaccine: 50+ Years (2 of 2 - PCV20 or PCV21) Adult Adonkdg71COVID-19 Vaccine ( season)2025 05/10/2022, 12/23/2021, 03/31/2021Zoster ZqkttpzwRqbfbyyvc82/12/2020, 03/26/2019 Influenza QsfesrhQqooffnwo67/07/2025, 04/09/2024, 03/02/2022, Additional history existsHIB VaccinesAged OutNo longer eligible based on patient's age to complete this topicHPV VaccinesAged OutNo longer eligible based on patient's age to complete this topicIPV VaccinesAged OutNo longer eligible based on patient's age to complete this topicMeningococcal B VaccineAged OutNo longer eligible based on patient's age to complete this topicMeningococcal VaccineAged OutNo longer eligible based on patient's age to complete this topicRotavirus VaccinesAged Out No longer eligible based on patient's age to complete this topic Insurance Care Teams Team MemberRelationshipSpecialtyStart DateEnd Date Tiffanie Mcintosh MD [address] [facility] [address] PCP - Aacnork13/20/25
--- OUTSIDE RECORDS SUMMARY | 2025-03-26 10:40 | XMS_ITS | Clinical Summary ---
Author Organization [facility] Address [address] [place] [address] Care Team Providers Care Rn Call Center Name Role Phone Unavailable Primary Care Provider Unavailabl e Social History Tobacco UseTypesPacks/DayYears UsedDateSmoking Tobacco: Never Assessed CommentsUnknownSex and Gender InformationValueDate RecordedSex Assigned at Not on fileLegal HfyXbmsmo66/03/2013 7:27 AM ESTGender IdentityNot on fileSexual OrientationNot on file Plan of Treatment Health MaintenanceDue DateLast DoneCommentsDEXA SCAN JNLJKQJLRU37/17/1939TETANUS 1938TDAP (ADULT)1957CERVICAL CANCER SCREENING DUCFADOTGZ40/17/1960 MAMMOGRAM SCREENING FVUFSDZZWG06/17/1979COLORECTAL CANCER SCREENING DISCUSSION 08/20/1983PNEUMOCOCCAL VACCINE SERIES (1 of 1 - PCV)1988ZOSTER (SHINGLES) VACCINE (1 of 2)1988RSV VACCINE (1 - 1-dose 75+ series)2013COVID-19 VACCINE (1 - 2024- season)2025INFLUENZA VACCINE (#1)2025HEP B VACCINEAged OutNo longer eligible based on patient's age to complete this topic
--- OUTSIDE RECORDS SUMMARY | 2025-03-26 10:40 | XMS_ITS | Encounter Summary ---
Author Organization [facility] Address [address] [place] [address] Care Team Providers Care Preparation Center Coordinator Name Role Phone Tiffanie Mcintosh MD Primary Care Provider [phone] Reason for Referral * Imaging (Routine) - Pending ReviewSpecialtyDiagnoses / ProceduresReferred By ContactReferred To ContactCardiology Diagnoses Abnormal EKG Procedures Transthoracic echo (TTE) complete Luke Ashraf MD [address] [place] [address] Phone: tel: fax: Referral IDStatusReasonStart DateExpiration DateVisits RequestedVisits [id number] Review Perform Procedure 51 Encounter Details DateTypeDepartmentCare Team (Latest Contact Info)Vjlmlqrpuif54/22/2025Orders Only [facility] at [facility] [address] [place] [address] Ryan, ANGIE Pelletier Abnormal EKG (Primary Dx) Social History Tobacco UseTypesPacks/DayYears UsedDateSmoking Tobacco: FormerCigarettes Smokeless Tobacco: NeverAlcohol UseStandard Drinks/WeekCommentsYes0 (1 standard drink = 0.6 oz pure alcohol)couple glasses of wine with dinner 3 to 4 times per weekCommentsUnknownSex and Gender InformationValueDate RecordedSex Assigned at OjawlLgwgzw40/ 4:08 PM EDTLegal IsvWoulnj20/29/2022 11:08 PM EDTGender ZermozylLjrusg30/17/2025 4:08 PM EDTSexual OrientationHeterosexual or Mecgmagg00/17/2025 4:08 PM EDTdocumented as of this encounter Functional Status * BPAnswerDate of FkgygczsfaZjrmtb991/86/ 9:33 AM Althea Menendez MA * PulseAnswerDate of XiqxjxgnjaFojoyn2129/22/2025 9:33 AM Althea Menendez MA * Patient PositionAnswerDate of XiirqwadqoUbmwyeWfucmnq06/22/2025 9:33 AM EDT Althea James MA * BPAnswerDate of FwextyvbrjQtnpyh495/8603/26/2025 9:33 AM Althea Menendez MA * PulseAnswerDate of OqfcumolgpJewjcw4263/22/2025 9:33 AM Althea Menendez MA * KnN2FtsyhtPflc of HvgwozkyetCuhypn6562/22/2025 9:33 AM Althea Menendez MA * BP LocationAnswerDate of AssessmentAuthorRight arm03/26/2025 9:33 AM EDT Althea James MA * Patient PositionAnswerDate of BdbzfcpbnxKmuottJaxgwfc82/22/2025 9:33 AM EDT Althea James MA documented as of this encounter Plan of Treatment DateTypeDepartmentCare Team (Latest Contact Info)Vkgjzoxmulh10/24/2025 11:00 AM ESTOffice Visit [facility] at [facility] [address] [place] [address] Luke Ashraf MD [address] [place] [phone] NameTypePriorityAssociated DiagnosesOrder ScheduleBasic metabolic panelLab Routine Abnormal EKG Expected: 03/26/2025 (Approximate), Expires: 03/26/2026Transthoracic echo (TTE) completeEchocardiographyRoutine Abnormal EKG Expected: 03/26/2025 (Approximate), Expires: 03/26/2027Lexiscan Stress Myocardial Perfusion ImagingCardiac ServicesRoutine Abnormal EKG Expected: 03/26/2025 (Approximate), Expires: 03/26/2027documented as of this encounter Visit Diagnoses Diagnosis Abnormal EKG- Primary Nonspecific abnormal electrocardiogram (ECG) (EKG) documented in this encounter Care Teams Team MemberRelationshipSpecialtyStart DateEnd Date Tiffanie Mcintosh MD [address] [facility] [address] PCP - Hmxvtkh70/20/25documented as of this encounter
--- OUTSIDE RECORDS SUMMARY | 2025-03-26 10:40 | XMS_ITS | Clinical Summary ---
Author Organization [facility] Address [address] [place] [address] Care Team Providers Care Client Hr Manager Name Role Phone Unavailable Primary Care Provider Unavailabl e Social History Tobacco UseTypesPacks/DayYears UsedDateSmoking Tobacco: Never Assessed CommentsUnknownSex and Gender InformationValueDate RecordedSex Assigned at Not on fileLegal SnaEzxgcc29/15/2023 7:19 PM EDTGender IdentityNot on fileSexual OrientationNot on file Last Filed Vital Signs Vital SignReadingTime TakenCommentsBlood Pressure--Pulse--Temperature-- Respiratory Rate--Oxygen Saturation--Inhaled Oxygen Concentration--Blnzpw23.5 kg (140 lb)09/15/2021 12:00 PM ACCRhswqe609.4 cm (5')09/15/2021 12:00 PM EDTBody Mass Index27.34009/15/2021 12:00 PM EDT Plan of Treatment Not on file Insurance
--- OUTSIDE RECORDS SUMMARY | 2025-03-26 10:48 | XMS_ITS | CCD ---
Author Organization [facility] CliniSyct Care Team Providers Care Global Supply Chain Director Name Role Phone REQUEST, NONE LISTED Attending Unavailable DOM DALTON Consulting Unavailable REQUEST, NONE LISTED Admitting Unavailable REQUEST, NONE LISTED Attending Unavailable REQUEST, NONE LISTED Admitting Unavailable REQUEST, NONE LISTED Consulting Unavailable Tiffanie Doan Primary Care Provider [phone] MARIA ELENA, DR LAMBERTO Breaux Consulting Unavailable DOAN, DR TIFFANIE Valdivia Admitting Unavailable DOAN, DR TIFFANIE Valdivia Attending Unavailable DOAN, DR TIFFANIE Valdivia Primary Care Unavailable DOAN, DR TIFFANIE Valdivia Consulting Unavailable DOAN, DR TIFFANIE Valdivia Primary Care Unavailable DOAN, DR TIFFANIE Valdivia Admitting Unavailable DAON, DR TIFFANIE Valdivia Attending Unavailable DOAN, DR TIFFANIE Valdivia Consulting Unavailable HOY, DR OLIVERA Attending Unavailable HOY, DR OLIVERA Consulting Unavailable HOY, DR OLIVERA Admitting Unavailable DOAN, DR TIFFANIE Valdivia Primary Care Unavailable DOAN, DR TIFFANIE Valdivia Primary Care Unavailable REQUEST, DR GREENWOOD LISTED Attending Unavaila ble REQUEST, DR GREENWOOD LISTED Consulting Unavaila ble REQUEST, DR GREENWOOD LISTED Admitting Unavaila ble NAIEBSUBHA, DR LAMBERTO Breaux Consulting Unavailable DOAN, DR [...] Attending Provider Dioni Tineo DO Attending Provider Tiffanie Doan MD Primary Care Provider Tiffanie Doan MD Attending Provider [phone] Tiffanie Doan MD Other Provider [phone] Edyta Guzman MD Attending Provider [phone] Tiffanie Doan Attending Unavailable Tiffanie Doan Primary Care Unavailable Tiffanie Doan Admitting Unavailable Allergies Allergy ClassificationReported Allergen(s)Allergy TypeDate of OnsetReaction(s) FacilityAlendronate (1 source)AlendronateDrug Nuqnhbu46-80-3333OgvsoWxxkwudwdSouthview Medical CenterCephalosporins (antibiotic) (3 sources)CephalexinDrug Yagclpe47-93-4557AswldyajNpvjgzcak ClinicClavulanate (1 source)ClavulanateDrug Pafrupv26-94-8175PcgfrLommwyksaSouthview Medical CenterCorticosteroids (1 source)TriamcinoloneDrug Slgqdut00-84-7902EufluEszgevipwSouthview Medical CenterPenicillins (antibiotic) (2 sources)AmoxicillinDrug Vetpptv16-60-0320CcphhwsfCpsillfkv ClinicSerotonin Reuptake Inhibitors (SSRIs) (1 source)CitalopramDrug Cuswmsi48-78-0289Zavmqwa:not effective - felt more [facility] (15 sources)CephalexinDrug Xckdldr79-39-5604OdxvwsdZffKettering Health Preble Repository (11 sources)AmoxicillinDrug Nadbukn49-16-3757RqcdoFttSouthern Ohio Medical Center Repository (13 sources)AmoxicillinDrug AllergyUnkXplornetnorth kansas city hospital [employer] Other (9 sources)AlendronateDrug AllergyUnkRapamycin Holdings Other (9 sources)Amoxicillin / ClavulanateDrug AllergyUnkSt. Rose Dominican Hospital – San Martín CampusVimty Other (19 sources)CitalopramDrug Kkasfqy70-43-9430Iggmfzt:not effective - felt more [facility] SystemComment on above:Onset Date: 10/23/2019 (9 sources)TriamcinoloneDrug AllergyUnkVendorShop Other (9 sources)Keflex *CEPHALOSPORINS*Propensity to adverse reactionsUnkXplornetnorth kansas city hospital [employer] Other (1 source)Allergies ReconciledPropensity to adverse reactionsUnkRapamycin Holdings Other (1 source)patient allergy list reviewed by nurse or physiciaPropensity to adverse kgkbocrvs86-38-2340Pirapvv:[employer] Other (11 sources)Alendronate; Translations: [alendronate sodium]Drug Allergy 47-96-5867FbxvhCtqogfyjqSouthview Medical Center (11 sources)Cephalexin; Translations: [cephalexin]Drug Xnxxnwl57-77-2110UmuhpHarrison Community Hospital (11 sources)Cephalosporins (Antibiotic); Translations: [Cephalosporins]Allergy to -86-4142TvdhjCongtrvpzSouthview Medical Center (11 sources)Clavulanate; Translations: [clavulanic acid]Drug Bovokrs32-20-9980 [facility] (11 sources)Triamcinolone; Translations: [triamcinolone]Drug Ryvfkly89-12-0321 [facility] (6 sources)busPIRone; Translations: [buspirone]Drug Nhxlwhj99-89-8033ZjkprostMercy Health Allen HospitalComment on above:headache and felt more nervous (1 source)AmoxicillinDrug Vezhmtu67-69-8524IgwcpbwcdOhiohealth [facility]heastern [facility] Repository (1 source)CitalopramDrug Gnuxzab84-71-4998RhxtdjhekOhiohealth Southeastern Medical Center Repository Medications Current Medications MedicationDrug Class(es)DatesSig (Normalized)Sig (Original)ascorbic acid 500 mg oral tablet (17 sources)Vitamin CStart: 21-69-4279hryu 1 tablet by mouth once dailyAscorbic Acid (Vitamin C) 500 mg tablet Active 500 MG PO Daily February 18, 2025 12:00am Complies with drug therapyStart: 09-35-5068bffi 0.5 tablet by mouth once dailyascorbic acid (VITAMIN C) 500 mg tablet Take 0.5 tablets by mouth once daily. 0 11/12/2013 ActiveVitamin C ActiveComment on above:Take 0.5 tablets by mouth once daily.Aspir-81 (13 sources)Aspir-81 Activeaspirin 81 mg delayed release oral tablet (18 sources)Platelet Aggregation Inhibitor, Nonsteroidal Anti-inflammatory Drug Start: 52-34-7243nmcu 1 tablet by mouth once dailyAspirin 81 mg tablet,delayed release (DR/EC) Active 81 MG PO Daily March 11, 2025 1:30pm Complies with drug therapyStart: 05-01-2024 End: 51-17-9184sddy 1 tablet by mouth three times dailyAspirin 81 mg tablet,delayed release (DR/EC) Discontinued 81 MG PO Three times daily April 10:44am March 11, 2025 1:30pmStart: 10-20-2023 End: 01-20-2410alxr 1 tablet by mouth once dailyAspirin 81 mg tablet,delayed release (DR/EC) Discontinued 81 MG PO Daily October 20, 2023 12:00am May 01, 2024 10:46amStart: 41-10-1411ppod 1 tablet by mouth once dailyaspirin, enteric coated (ECOTRIN LOW STRENGTH) 81 mg EC tablet Take 1 tablet by mouth once daily. ActiveComment on above:Take 1 tablet by mouth once daily.Calcium (13 sources)Phosphate Binder, CalciumCalcium Activecalcium carbonate 1500 mg oral tablet (6 sources)Start: 78-14-9243ckxo 1 tablet by mouth once dailyCalcium Carbonate 600 mg calcium (1,500 mg) tablet Active 600 MG PO Daily October 16, 2024 12:00am Complies with drug therapyStart: 80-35-0176iycq 0.25 tablet by mouth once daily calcium carbonate 600 mg (1,500 mg) tab Take 0.25 tablets by mouth once daily. 0 11/12/2013 ActiveComment on above:Take 0.25 tablets by mouth once daily. clopidogrel 75 mg oral tablet (20 sources)P2Y12 Platelet InhibitorStart: 72-56-4231Apfffzwjusq 75 mg tablet Active 0 .ROUTE .COMPLEX July 01, 2024 5:15pm TAKE 1 TABLET ONCE DAILY Complies with drug therapyStart: 07-27-2023 End: 87-98-8655umja 1 tablet by mouth once dailyClopidogrel 75 mg tablet Discontinued 75 MG PO Daily July 27, 2023 10:14am July 01, 2024 5:15pm FreeTextSi tablet Orally once a day; Note: Source Status: Taking; Refills: 3; Provider: Olimpia Longoria 1 tablet by mouth every twenty-four hoursClopidogrel Bisulfate 75 MG 1 tablet Orally once a day for 90 days Active Fluticasone Furoate 27.5 MCG/SPRAY (13 sources)Fluticasone Furoate 27.5 MCG/SPRAY 2 sprays (1 spray in each nostril) Nasally Once a day ActiveFoltanx 3-35-2 MG (13 sources)take 1 tablet by mouth once dailyFoltanx 3-35-2 MG 1 tablet Orally once a day for 90 days ActiveFoltanx 3-35-2 MG 1 tablet once a day for 90 days Activelosartan potassium 50 mg oral tablet (3 sources)Angiotensin 2 Receptor BlockerStart: 57-04-1874cihq 1 tablet by mouth once dailyLosartan 50 mg tablet Active 50 MG PO daily February 18, 2025 12:00am Complies with drug therapyMagnesium (18 sources)Start: 01-57-9458ygcf 1 tablet by mouth once dailyMagnesium 250 mg tablet Active 250 MG PO Daily October 16, 2024 12:00am Complies with drug therapy Start: 21-74-6288zlcx 1 tablet by mouth once dailyStart: 13-44-2797vlhw 1 tablet by mouth once dailyMagnesium 250 mg tablet Active 250 MG PO Daily October 16, 2024 12:00amMagnesium ActiveMecobal-Levomefolat Ca-B6 Phos (Foltanx) 2-3-35 mg tablet (5 sources)Start: 30-43-9327Tyssspv-Levomefolat Ca-B6 Phos (Foltanx) 2-3-35 mg tablet Active 0 .ROUTE .COMPLEX June 5:15pm TAKE 1 TABLET ONCE DAILY Complies with drug therapyStart: 71-18-0993Rmkkh: 52-91-3586Wqqfkzp- Levomefolat Ca-B6 Phos (Foltanx) 2-3-35 mg tablet Active 0 .ROUTE .COMPLEX June 5:15pm TAKE 1 TABLET ONCE DAILY24 hr metoprolol succinate 50 mg extended release oral tablet (20 sources)beta-Adrenergic BlockerStart: 61-52-2812Jzrevufykn Succinate 50 mg tablet extended release 24 hr Active 0 .ROUTE .COMPLEX July 1:44pm TAKE 1 TABLET ONCE DAILY Complies with drug therapyStart: 10-20-2023 End: 41-76-2497evgt 1 tablet by mouth once dailyMetoprolol Succinate 50 mg tablet extended release 24 hr Discontinued 1 TAB PO Daily October 192:00am July 29, 2024 1:45pm FreeTextSi tablet Orally Once a day; Note: Source Status: Refill; Provider: Olimpia Moreno EStart: 42-01-7494tqec 1 tablet by mouth every twenty-four hoursToprol XL 25 MG 1 tablet Orally Once a day for 30 day(s) May, Activetake 1 tablet by mouth every twenty-four hoursMetoprolol Succinate ER 50 MG 1 tablet Orally Once a day for 90 days ActivePsyllium (6 sources)Metamucil Activerosuvastatin calcium 20 mg oral tablet (20 sources)HMG-CoA Reductase InhibitorStart: 95-05-2188sneq 1 tablet by mouth every other dayRosuvastatin 20 mg tablet Active 20 MG PO .QOD October 16, 2024 9:29am Complies with drug therapyStart: 07-29-2024 End: 46-01-0144Rnfvcglxfkdy 20 mg tablet Discontinued 0 .ROUTE .COMPLEX July 29, 2024 1:44pm October 16, 2024 9:31am TAKE 1 TABLET DAILYStart: 05-01-2024 End: 85-36-2539nfku 2 tablets by mouth every other dayRosuvastatin 20 mg tablet Discontinued 40 MG PO .qod May 01, 2024 10:43am July 29, 2024 1:45pmStart: 10-25-2023 End: 44-38-8586nwzh 2 tablets by mouth once dailyRosuvastatin 20 mg tablet Discontinued 40 MG PO Daily October 25, 2023 10:33am May 01, 2024 10:46am Start: 44-72-1640ciru 40 mg by mouth once dailyRosuvastatin Active 40 MG PO Daily October 25, 2023 9:33amStart: 07-27-2023 End: 11-74-3855opqg 1 tablet by mouth once dailyRosuvastatin 20 mg tablet Discontinued 20 MG PO Daily July 27, 2023 10:14am October 240:33am take 1 tablet by mouth every other dayRosuvastatin Calcium 20 MG 1 tablet Orally every other day for 90 days ActiveVitamin D3 (13 sources)Vitamin D3 Active Completed/Discontinued Medications MedicationDrug Class(es)DatesSig (Normalized)Sig (Original)amLODIPine 5 mg oral tablet (20 sources)Dihydropyridine Calcium Channel BlockerStart: 05-01-2024 End: 26-55-5282Eqmmbbktag 5 mg tablet Discontinued 5 MG PO .prn May 01, 2024 1:00am February 18, 2025 2:04pmStart: 12-19-2023 End: 57-28-3881nkfi 1 tablet by mouth once dailyAmlodipine 5 mg tablet Discontinued 5 MG PO Daily December 19, 2023 11:36am January 22, 2024 11:24am busPIRone hydrochloride 15 mg oral tablet (11 sources)Start: 06-13-2024 End: 54-93-6701xaou 1 tablet by mouth twice dailyBuspirone 15 mg tablet Discontinued 15 MG PO Twice daily July 10, 2024 9:17am October 16, 2024 9:28amcholecalciferol 0.025 mg oral capsule (11 sources)Vitamin DStart: 10-20-2023 End: 24-49-5144yexs 1 capsule by mouth once dailyCholecalciferol (Vitamin D3) 25 mcg (1,000 unit) capsule Discontinued 25 MCG PO Daily October 20, 2023 12:00am October 16, 2024 9:28amStart: 99-85-8808cycu 1 capsule by mouth once daily cholecalciferol, vitamin D3, (VITAMIN D-3) 400 unit cap Take 1 capsule by mouth once daily. 0 11/12/2013 ActiveComment on above:Take 1 capsule by mouth once daily.diazePAM 2 mg oral tablet (20 sources)BenzodiazepineStart: 10-20-2023 End: 22-61-7410haoh 0.5 tablet by mouth once daily as neededDiazepam 2 mg tablet Discontinued MG PO October 20, 2023 12:00am May 01, 2024 1:34pm FreeTextSi /2 tab Orally Once a day, prn; Note: Source Status: Refill; Refills: 0; Provider: Olimpia Moreno EStart: 92-00-8612gdwn 0.5 tablet by mouth once daily as neededdiazePAM 2 MG 1/2 tab Orally Once a day, prn for 90 days May, ActiveStart: 86-85-4353galy 0.5 tablet by mouth once daily as neededdiazePAM 2 MG 1/2 tab Orally Once a day, prn for 30 days Mar, ActiveStart: 76-48-4165odiw 1 tablet by mouth twice dailydiazepam (VALIUM) 5 mg tablet Take 1 tablet by mouth twice daily. 0 11/12/2013 ActivediazePAM 2 MG 1/2 tab prn ActiveComment on above:Take 1 tablet by mouth twice daily.fluticasone furoate 0.0275 mg/actuat metered dose nasal spray (11 sources)CorticosteroidStart: 10-20-2023 End: 85-46-1615vhpt 2 spray(s) nasal route once daily, then take 1 spray(s) nasal route once dailyFluticasone Furoate 27.5 mcg/actuation spray,suspension Discontinued 2 SPRAY INTRANASAL Daily October 20, 2023 12:00am January 22, 2024 11:16am FreeTextSi sprays (1 spray in each nostril) Nasally Once a day; Note: Source Status: Taking; Provider: Olimpia Moreno ( )Start: 15-52-5338jixkorvfsra (FLONASE) 50 mcg/actuation nasal spray 2 Sprays once daily as needed. 0 11/12/2013 ActiveComment on above:2 Sprays once daily as needed. hydroCHLOROthiazide 12.5 mg / lisinopril 10 mg oral tablet (1 source)Thiazide Diuretic, Angiotensin Converting Enzyme InhibitorStart: 51-08-2949auql 1 tablet by mouth once dailylisinopril-hydrochlorothiazide 10- 12.5 mg per tablet Take 1 tablet by mouth once daily. 0 11/12/2013 ActiveComment on above:Take 1 tablet by mouth once daily.hydrOXYzine hydrochloride 10 mg oral tablet (20 sources)AntihistamineStart: 01-23-2024 End: 17-26-5506xkgx 1 tablet by mouth three times daily as needed for anxiety Hydroxyzine Hcl 10 mg tablet Discontinued 10 MG PO Three times daily as needed for anxiety May 01, 2024 1:35pm May 14, 2024 4:13pm R-Itgpmhu-P1 Okqr-Dysqkb-I96 (FOLTANX) 3-35-2 mg tab or Capsule (2 sources)Start: 78-78-5691kwot 1 tablet by mouth once tykliV-Yxbaxah-H9 Ckzb-Dyeftg-Z33 (FOLTANX) 3-35-2 mg tab or Capsule Take 1 tablet by mouth once daily. 30 capsule 11 11/12/2013 ActiveComment on above:Take 1 tablet by mouth once daily.meclizine hydrochloride 25 mg oral tablet (1 source)AntiemeticStart: 32-39-1962ddsp 0.5 tablet by mouth once daily as needed for dizzinessmeclizine 25 mg tab Take 0.5 tablets by mouth once daily as needed (for dizziness.). 0 11/12/2013 ActiveComment on above:Take 0.5 tablets by mouth once daily as needed (for dizziness.).Mecobal-Levomefolat Ca-B6 Phos (Foltanx) 3-35-2 mg tablet (10 sources)Start: 10-20-2023 End: 64-72-5271mqcl 1 tablet by mouth twice dailyMecobal-Levomefolat Ca-B6 Phos (Foltanx) 3-35-2 mg tablet Discontinued 1 TAB PO Twice daily October 20, 2023 12:00am July 01, 2024 5:15pmStart: 38-18-8948jbtb 1 tablet by mouth twice dailyMecobal-Levomefolat Ca-B6 Phos (Foltanx) 3-35-2 mg tablet Active 1 TAB PO Twice daily October 19, 2023 11:00pmStart: 04-64-8094bwlw 1 tablet by mouth twice dailyMecobal-Levomefolat Ca-B6 Phos (Foltanx) 3-35-2 mg tablet Active 1 TAB PO Twice daily October 20, 2023 12:00amolmesartan medoxomil 40 mg oral tablet (20 sources)Angiotensin 2 Receptor BlockerStart: 10-16-2023 End: 82-59-2519Qjvxpqpvay 40 mg tablet Discontinued 0 .ROUTE .COMPLEX 90 October 16, 2023 12:38pm May 01, 2024 10:43am TAKE 1 TABLET DAILYStart: 07-26-2023 End: 53-05-0575whbs 1 tablet by mouth once dailyOlmesartan 40 mg tablet Discontinued 40 MG PO Daily 90 August 02, 2023 2:42pm October 16, 2023 12:39pm take 1 tablet by mouth once dailyOlmesartan Medoxomil 40 MG 1 tab Orally daily for 30 days Activetake 1 tablet by mouth once dailyOlmesartan Medoxomil 20 MG 1 tab Orally daily Activepromethazine hydrochloride 25 mg oral tablet (7 sources)PhenothiazineStart: 54-61-4646exbx 0.5 tablet by mouth once daily as needed for nauseapromethazine 25 mg tablet Take 0.5 tablets by mouth once daily as needed for Nausea/Vomiting. 0 11/12/2013 ActivePromethazine HCl 25 MG 1 tablet as needed prn ActiveComment on above:Take 0.5 tablets by mouth once daily as needed for Nausea/Vomiting.tiZANidine 4 mg oral tablet (20 sources)Central alpha-2 Adrenergic AgonistStart: 10-20-2023 End: 35-27-5351tfef 1 tablet by mouth three times daily as neededTizanidine 4 mg tablet Discontinued 4 MG PO Three times daily October 20, 2023 12:00am April 10:44am FreeTextSi tablet as needed Orally Three times a day; Note: Source Status: Taking;Provider: Olimpia Moreno ( )take 1 tablet by mouth every eight hourstiZANidine HCl 4 MG 1 tablet as needed Orally Three times a day Activetriamcinolone acetonide 40 mg/ml injectable suspension (13 sources)CorticosteroidStart: 40-39-3451Jeznjkp-40 October, 40 mg Problems Active Problems Problem ClassificationProblemDateDocumented DateEpisodic/ChronicAcute cerebrovascular disease (1 source)Cerebral infarction; Translations: [Cerebral infarction, unspecified] ChronicAdjustment disorders (14 sources)Stress; Translations: [Reaction to severe stress, unspecified] 52-25-5278EaedefpEztefon disorders (15 sources)Generalized anxiety disorder; Translations: [Generalized anxiety disorder]ChronicCardiac dysrhythmias (1 source)Cardiac arrhythmia; Translations: [Cardiac arrhythmia, unspecified] ChronicCardiac dysrhythmias (1 source)Palpitations; Translations: [Palpitations]12-95-7392GwiizoanLrhgxstma of lipid metabolism (20 sources)Hyperlipidemia; Translations: [Hyperlipidemia, unspecified]Chronic Essential hypertension (20 sources)Essential hypertension; Translations: [Essential (primary) hypertension]ChronicHeadache; including migraine (1 source)Episodic tension-type headache; Translations: [Episodic tension type headache]Onset: 20-83-6838MinammeZbruwooxydout and screening for infectious disease (8 sources)Vaccination given; Translations: [Encounter for immunization] 16-79-0925FkzfcuhcTofzaoi and fatigue (7 sources)Fatigue; Translations: [Other fatigue]52-03-8097QbapzyryPvnsgu and vomiting (1 source)Nausea; Translations: [Nausea]EpisodicNonspecific chest pain (1 source)Chest pain, unspecified; Translations: [Chest pain, unspecified]Onset: 79-76-9746GrwspnpwWufcqtplfdb deficiencies (14 sources)Vitamin D deficiency; Translations: [Vitamin D deficiency, unspecified]ChronicNutritional deficiencies (3 sources)Deficiency of other specified B group vitaminsEpisodicOsteoarthritis (1 source)Osteoarthritis; Translations: [Unspecified osteoarthritis, unspecified site]ChronicOsteoporosis (1 source)Primary osteoporosis; Translations: [Age-related osteoporosis without current pathological fracture]Onset: 82-17-8515DsfnvlgRtguf and unspecified benign neoplasm (3 sources)Benign neoplasm of cranial nerve; Translations: [Benign neoplasm of cranial nerves]Onset: 734589-41-0248FdbofukSjmiv and unspecified benign neoplasm (3 sources)Benign neoplasm of cranial nerves; Translations: [BENIGN NEOPLASM OF CRANIAL NERVES]Onset: 37-65-6999GcgdngtZnemm circulatory disease (1 source)Elevated blood-pressure reading without diagnosis of hypertension; Translations: [Elevated blood-pressure reading, without diagnosis of hypertension]EpisodicOther circulatory disease (1 source)Personal history of transient ischemic attack (TIA), and cerebral infarction without residual deficitsEpisodicOther connective tissue disease (2 sources)Spasm; Translations: [Spasm of muscle]Onset: 83-65-5463HovwmuidKuasy gastrointestinal disorders (12 sources)Abnormal feces; Translations: [Other fecal abnormalities]Episodic Other gastrointestinal disorders (1 source)Other fecal abnormalities; Translations: [Positive colorectal cancer screening using Cologuard test]EpisodicOther lower respiratory disease (1 source)Other forms of dyspneaEpisodicOther non-traumatic joint disorders (1 source)Pain in right hip joint; Translations: [Pain in right hip]Episodic Other screening for suspected conditions (not mental disorders or infectious disease) (7 sources)Encounter for screening mammogram for malignant neoplasm of breast; Translations: [Electrocardiogram abnormal]Onset: 94-87-6889DxtuddbcJbuoh upper respiratory disease (20 sources)Seasonal allergic rhinitis; Translations: [Other seasonal allergic rhinitis]03-08-8643ZbmrnluRrztkhnapm and visceral atherosclerosis (5 sources)Peripheral vascular disease, unspecified; Translations: [Peripheral vascular disease]Onset: 17-22-8370YrlfbhwLotzhfuu codes; unclassified (8 sources)Restlessness and agitation; Translations: [Restlessness and agitation]37-25-4989YfqabymJeiitrqz codes; unclassified (2 sources)Restlessness and agitation; Translations: [Other and unspecified special symptoms or syndromes, notelsewhere classified]79-24-9644EzxdeggVllyruxg codes; unclassified (1 source)Family history of malignant neoplasm of gastrointestinal tract; Translations: [Family history of malignant neoplasm of digestive organs]Episodic Residual codes; unclassified (1 source)Family history of breast cancer; Translations: [Family history of malignant neoplasm of breast]EpisodicResidual codes; unclassified (1 source)Requires influenza virus vaccination; Translations: [Need for prophylactic vaccination and inoculation, Influenza]EpisodicSpondylosis; intervertebral disc disorders; other back problems (1 source)Lumbosacral spondylosis without myelopathy; Translations: [Lumbosacral spondylosis without myelopathy]Onset: 56-43-5749JqfgccgDvekmnhuk cerebral ischemia (1 source)Transient cerebral ischemia; Translations: [Transient cerebral ischemic attack, unspecified]ChronicUnclassified (1 source)R94.31 - Abnormal electrocardiogram [ECG] [EKG],R53.83 - Other fatigue Past or Other Problems Problem ClassificationProblemDateDocumented DateEpisodic/ChronicAllergic reactions (1 source)Contact dermatitis; Translations: [Contact dermatitis and other eczema, due to unspecified cause]Onset: 80-10-1685EjccskbjVxmgpl of ovary (1 source)History of malignant neoplasm of ovary; Translations: [Personal history of malignant neoplasm of ovary]Onset: 45-39-0084NstjetjsMdvqtlfaiw associated with dizziness or vertigo (2 sources)Benign paroxysmal positional vertigo; Translations: [Benign paroxysmal positional vertigo]Onset: 47-11-4075BxnvhyuxUzbqk connective tissue disease (1 source)Pain in left lower limb; Translations: [Pain in left leg]Onset: 47-18-0360XlwdgtotCqhfb non-traumatic joint disorders (4 sources)Pain in right hip; Translations: [PAIN IN RIGHT HIP]Onset: 07-14-2021 EpisodicOther non-traumatic joint disorders (1 source)Shoulder joint pain; Translations: [Pain in left shoulder]Onset: 39-34-8228MrcqmglkChgqe non-traumatic joint disorders (1 source)Arthralgia of the lower leg; Translations: [Pain in joint, lower leg] Onset: 73-44-1063ZoiaomtpFovzr upper respiratory infections (1 source)Acute maxillary sinusitis; Translations: [Acute recurrent maxillary sinusitis]Onset: 31-05-6760DlpxtlynZcgczeagf; thrombophlebitis and thromboembolism (1 source)Embolism from thrombosis of vein of distal lower extremity; Translations: [Acute venous embolism and thrombosis of unspecified deep vessels of lower extremity]Onset: 80-14-8928KcmvpohgMilzxjwf codes; unclassified (1 source)Family history of malignant neoplasm of breast; Translations: [FAMILY HX MALIG NEOPLASM OF BREAST]Onset: 24-30-6988YtsqtgauSawujmug codes; unclassified (1 source)Family history of malignant neoplasm of digestive organs; Translations: [FAM HX MALIG NEOPLASM DIGESTIV ORGN]Onset: 28-08-3310Ubzjxfzy Screening and history of mental health and substance abuse codes (1 source)History of tobacco use; Translations: [Personal history of tobacco use, presenting hazards to health]Onset: 65-88-6455ZkkaeuaxAakc and subcutaneous tissue infections (1 source)Cellulitis and abscess of lower leg; Translations: [Cellulitis and abscess of leg, except foot]Onset: 81-80-4273ZjfimtacCztetpcgathd (1 source)Need for prophylactic vaccination with tetanus toxoid alone; Translations: [Need for prophylactic vaccination with tetanus toxoid alone] Onset: 05-01-2013 Results Test NameValueInterpretationReference RangeFacilityFPG ECG *PCP OFFICE ONLY*on 04-12-6931QYK ECG *PCP OFFICE ONLY*[facility] [place] [address] [place] [id number] Electrocardiograph Report Signed Patient: Shabnam Garsia MR#: [id number] [birth year] : 1940 Acct:[id number] Age/Sex: 84 / F ADM Date: 02/18/25 [facility]: Type: [facility] Attending Dr: Tiffanie Doan MD Ordering Provider: Tiffanie Doan MD Date of Service: 02/18/25 ECG/FPG ECG *PCP OFFICE ONLY*: R07.9 - Chest pain, unspecified Copies to: Test Reason : Blood Pressure : */* mmHG Vent. Rate : 71 BPM Atrial Rate : 71 BPM P-R Int : 202 ms QRS Dur : 72 ms QT Int : 388 ms P-R-T Axes : 66 -43 -1 degrees QTcB Int : 421 ms Normal sinus rhythm Possible Left atrial enlargement Left axis deviation Minimal voltage criteria for LVH, may be normal variant ( R in aVL ) Inferior infarct , age undetermined Abnormal ECG Confirmed by Edyta Guzman ([id number]) on 02/18/2025 4:11:45 PM Referred By: Electronically Signed By: Edyta Guzman Transcribed By: MUS Signed By Edyta Guzman MD [address] [place] [address] Physician GroupLaboratory - Chemistry and Chemistry - challengeOrdered By: Tiffanie Doan on 36-77-6195Fdwj T4 [Mass/Vol]0.97 ng/dL 0.76-1.46[facility] Qn2.002 m[IU]/L0.358-3.740 [facility]Labor[facility] - [facility] and Chemistry - challengeon 06-40-8576Xnde T4 [Mass/Vol]0.95 ng/dL0.76-1.46[facility] Qn2.528 m[IU]/L0.358-3.740[facility] Basophils Auto (Bld) [#/Vol]on 59-89-2272Wbbokyzqx (Bld) [#/Vol]0.0 10 3/uL 0.0-0.1FWayne HealthCare Main CampusBasophils/100 WBC Auto (Bld)on 53-42-1653Zaqnguwnr/100 WBC (Bld)0.5 %0.2-2.0[facility] Eosinophils/100 WBC Auto (Bld)on 81-62-8980Aflyjegxdww/100 WBC (Bld)1.9 %0.9-7.0 [facility] CenterErythrocyte distribution width Auto (RBC) [Ratio]on 72-63-2364Idpaojznxni distribution width (RBC) [Ratio]13.8 %11.0-15.0 [facility] CenterEstimated glomerular filtration rate (GFR) non- Americanon 25-01-1222MJU/1.73 sq M.predicted among non-blacks MDRD (S/P/Bld) [Vol rate/Area]50 mL/min/{1.73_m2}Low>=60[facility] CenterGlobulin Calc (S) [Mass/Vol]on 78-12-0204Kluyqgqv (S) [Mass/Vol]3.4 g/dL [facility] CenterHematocrit Auto (Bld) [Volume fraction]on 05-24-9029Tbzjdvjmba (Bld) [Volume fraction]40.7 %36.0-48.0[facility] CenterHemoglobin [Mass/volume] in Bloodon 92-51-1980Zhtmywgjft (Bld) [Mass/Vol]13.0 g/dL12.0-16.0[facility] CenterLaboratory - Chemistry and Chemistry - challengeon 33-36-6546Dzbikqr [Mass/Vol]3.3 g/dLLow 3.4-5.0[facility] CenterALP [Catalytic activity/Vol]63 U/L46-116 [facility] CenterALT [Catalytic activity/Vol]20 U/L14-59 [facility] CenterAST [Catalytic activity/Vol]19 U/L15-37 [facility] CenterBilirubin [Mass/Vol]1.2 mg/dLHigh0.2-1.0 [facility] CenterCalcium [Mass/Vol]8.4 mg/dLLow8.5-10.1FWayne HealthCare Main CampusChloride [Moles/Vol]104 mmol/W99-669HyyznibraOhiohealth Southeastern Medical CenterCO2 [Moles/Vol]28.4 mmol/L21.0-32.0[facility] CenterCreatinine [Mass/Vol]1.05 mg/dLHigh0.55-1.02[facility] CenterGFR/1.73 sq M.predicted MDRD (S/P/Bld) [Vol rate/Area]mL/min/{1.73_m2}>=60 [facility] CenterGlucose [Mass/Vol]104 mg/dU29-658QncszgyaaOhiohealth Southeastern Medical CenterPotassium [Moles/Vol]3.8 mmol/L3.5-5.1FWayne HealthCare Main CampusProtein [Mass/Vol]6.7 g/dL6.4-8.2FWayne [facility] Sodium [Moles/Vol]140 mmol/G837-760NqaztgqnzOhiohealth Southeastern Medical CenterUrea nitrogen [Mass/Vol]17.0 mg/dL7.0-18.0[facility] CenterUrea nitrogen/Creatinine [Mass ratio]16.2 mg/mgOhiohealth Southeastern [facility] Center Laboratory - Hematology and Cell countson 79-49-4327Gcyhzucp granulocytes/100 WBC (Bld)0.3 %0.0-0.5FWayne HealthCare Main CampusLeukocytes [#/volume] corrected for nucleated erythrocytes in Blood by Automated counon 12-22-8897NZC corrected for nucl RBC Auto (Bld) [#/Vol]6.2 10 3/uL4.0-11.0[facility] CenterLymphocytes Auto (Bld) [#/Vol]on 57-04-3748Kkiamjmrugd (Bld) [#/Vol]1.4 10 3/uL1.2-3.8[facility] CenterLymphocytes/100 WBC Auto (Bld)on 13-22-7847Dsjxelxdmig/100 WBC (Bld)22.4 %20.5-60.0[facility] CenterMCH Auto (RBC) [Entitic mass]on 48-98-9642TAB (RBC) [Entitic mass]32.3 pg26.7-34.0[facility] CenterMCHC Auto (RBC) [Mass/Vol]on 65-68-8094GWKP (RBC) [Mass/Vol]31.9 g/dL29.9-35.2FWayne HealthCare Main CampusMCV Auto (RBC) [Entitic vol]on 44-30-4428USI (RBC) [Entitic vol] 101.0 hYFksl36.0-99.0[facility] CenterMonocytes Auto (Bld) [#/Vol]on 23-83-7992Ungkxvlmf (Bld) [#/Vol]0.5 10 3/uL0.3-0.8[facility] CenterMonocytes/100 WBC Auto (Bld)on 83-26-0489Oiddxbtxv/100 WBC (Bld) 7.4 %1.7-12.0[facility] CenterNeutrophils Auto (Bld) [#/Vol]on 20-02-0986Wvgtemwonzk (Bld) [#/Vol]4.2 10 3/uL1.4-6.5FWayne HealthCare Main CampusNeutrophils/100 WBC Auto (Bld)on 08-17-0761Viteimqatuk/100 WBC (Bld)67.5 % 43.0-75.0[facility] CenterNo Panel Informationon 12-10-2023 Eosinophils # (Auto)0.1 10 3/uL0.0-0.7FWayne HealthCare Main CampusImmature Granulocyte # (Auto)0.02 10 3/uL0.00-0.03[facility] Troponin I High Sensitivity7.0 pg/mL4.0-51.3FWayne HealthCare [facility] Campus Comment on above:CUT-OFF POINTS HAVE BEEN ESTABLISHED BASED ON THE FOURTHUNIVERSAL DEFINITION OF MYOCARDIAL INFARCTION. THE UPPERREFERENCE LIMIT (URL) OF TROPONIN, DEFINED THE 99THPERCENTILE OF cTnI DISTRIBUTION IN A REFERENCE POPULATION,HAS BEEN CONFIRMED THE DECISION THRESHOLD FOR MIDIAGNOSIS.99TH PERCENTILE = 51.4 PG/MLNOTE: HIGH-SENSITIVITY TROPONIN ASSAY IS NOT INTENDED TO BEUSED IN ISOLATION BUT SHOULD BE INTERPRETED IN CONJUNCTIONWITH OTHER DIAGNOSTIC AND CLINICAL INFORMATION.Platelet mean volume Auto (Bld) [Entitic vol]on 92-08-5071Phymtskf mean volume (Bld) [Entitic vol] 10.7 fL9.5-13.5FWayne HealthCare Main CampusPlatelets Auto (Bld) [#/Vol]on 39-69-3657Avcimqxak (Bld) [#/Vol]172 10 3/lZ682-617KisjsgbfgOhiohealth Southeastern Medical CenterRBC Auto (Bld) [#/Vol]on 14-88-6390KDQ (Bld) [#/Vol]4.03 10 6/uLLow 4.20-5.40[facility] Centererum or plasma albumin/globulin mass ratioon 60-34-9735Puzmutt/Globulin [Mass ratio]1.0 {ratio}[facility] Centererum or plasma anion gap determinationon 14-99-1990Hztoy gap [Moles/Vol]11.4 mmol/LFWayne HealthCare Main CampusCBC AUTO DIFFon 73-12-6816XJOB #0.0 103/ulNormal0.0-0.1The [facility] HospitalComment on above: Performed By: #### DATCBC #### [facility] [address] [address] [address] Kin AcunaBasophils/100 WBC (Bld)0.7 %Normal0.2-2.0[facility] Comment on above:Performed By: #### DATCBC #### [facility] [address] [address] [address] Kin Yeh #0.1 103/ulNormal0.0-0.7The [facility] HospitalComment on above: Performed By: #### DATCBC #### [facility] [address] [address] [address] Kin Tanosinophils/100 WBC (Bld)1.6 %Normal0.9-7.0[facility] Comment on above:Performed By: #### DATCBC #### [facility] [address] [address] [address] Kin Tanrythrocyte distribution width (RBC) [Ratio]13.3 %Rsgtwc44.0-15.0 [facility] HospitalComment on above:Performed By: #### DATCBC #### [facility] [address] [place] [address] Dr. Kin AcunaHematocrit (Bld) [Volume fraction]41.4 %Sjlucd33.0-48.0The [facility] HospitalComment on above:Performed By: #### DATCBC #### [facility] [address] [place] [address] Dr. Kin AcunaHemoglobin (Bld) [Mass/Vol]13.0 g/lHUrlyfu30.0-16.0The [facility] HospitalComment on above:Performed By: #### DATCBC #### [facility] [address] [place] [address] Dr. Kin Grady #0.01 10e3/ulNormal0.00-0.03The [facility] HospitalComment on above:Performed By: #### DATCBC #### [facility] [address] [place] [address] Dr. Kin Grady %0.2 %Normal0.0-0.5The [facility] HospitalComment on above: Performed By: #### DATCBC #### [facility] [address] [place] [address] Dr. Kin Bhat #1.8 103/ulNormal1.2-3.8The [facility] HospitalComva medical center on above:Performed By: #### DATCBC #### [facility] [address] [place] [address] Dr. Kin Morenomphocytes/100 WBC (Bld)32.8 %Frrkrw85.5-60.0The [facility] HospitalComment on above:Performed By: #### DATCBC #### [facility] [address] [place] [address] Dr. Kin Damon (RBC) [Entitic mass]31.4 yvXxwsss34.7-34.0The [facility] HospitalComment on above:Performed By: #### DATCBC #### [facility] [address] [address] [address] Kin GillisHC (RBC) [Mass/Vol]31.4 g/pJPjlukj31.9-35.2The [facility] HospitalComment on above:Performed By: #### DATCBC #### [facility] [address] [place] [address] Dr. Kin GillisV (RBC) [Entitic vol]100.0 fLCritically high81.0-99.0The [facility] HospitalComment on above:Performed By: #### DATCBC #### [facility] [address] [place] [address] Dr. Kin Yin #0.5 103/ulNormal0.3-0.8The [facility] HospitalComment on above:Performed By: #### DATCBC #### [facility] [address] [place] [address] Dr. Kin Villavicencioocytes/100 WBC (Bld)8.3 %Normal1.7-12.0[facility] Comment on above:Performed By: #### DATCBC #### [facility] [address] [place] [address] Dr. Kin Kan #3.1 103/ulNormal1.4-6.5The [facility] HospitalComment on above:Performed By: #### DATCBC #### [facility] [address] [place] [address] Dr. Kin Cobbutrophils/100 WBC (Bld)56.4 %Zctieg83.0-75.0The [facility] HospitalComment on above:Performed By: #### DATCBC #### [facility] [address] [place] [address] Dr. Kin Newbylet mean volume (Bld) [Entitic vol]10.7 fLNormal9.5-13.5The [facility] HospitalComment on above:Performed By: #### DATCBC #### [facility] [address] [place] [address] Dr. Kin AcunaPLT171 103/ezOdtpad020-478Mna [facility] HospitalComment on above: Performed By: #### DATCBC #### [facility] [address] [address] [address] Kin AcunaRBC4.14 106/ulCritically low4.20-5.40The [facility] HospitalComment on above:Performed By: #### DATCBC #### [facility] [address] [address] [address] Kin AcunaWBC5.6 103/ulNormal4.0-11.0The [facility] HospitalComment on above: Performed By: #### DATCBC #### [facility] [address] [place] [address] Dr. Kin Becerra- SAHRA WITH LIPIDon 71-31-1165Rtseb gap [Moles/Vol]9.2 mmol/L NormalThe [facility] HospitalComment on above:Performed By: #### DATBMP #### [facility] [address] [place] [address] Dr. Kin AcunaCalcium [Mass/Vol]8.8 mg/dLNormal8.5-10.1[facility] Comment on above:Performed By: #### DATBMP #### [facility] [address] [place] [address] Dr. Kin AcunaChloride [Moles/Vol]106 mmol/BQplbss76-742Ilg [facility] Comment on above:Performed By: #### DATBMP #### [facility] [address] [place] [address] Dr. Kin Bertrandesterol [Mass/Vol]152 mg/dLNormal<=200[facility] Comment on above:Performed By: #### DATBMP #### [facility] [address] [place] [address] Dr. Kin AcunaCholesterol in HDL [Mass/Vol]90 mg/dLCritically jkiv91-64Unr [facility] HospitalComment on above:Performed By: #### DATBMP #### [facility] [address] [place] [address] Dr. Yilan ChangCholesterol in LDL [Mass/Vol]57.8 mg/dLNoAvita Health System Bucyrus HospitalComment on above:Performed By: #### DATBMP #### [facility] [address] [address] [address] Kin AcunaCO2 [Moles/Vol]29.0 mmol/YJeqotm61.0-32.0[facility] Comment on above:Performed By: #### DATBMP #### [facility] [address] [address] [address] Kin AcunaCreatinine [Mass/Vol]1.04 mg/dLCritically high0.55-1.02[facility] HospitalComment on above:Performed By: #### DATBMP #### [facility] [address] [place] [address] Dr. Kin TanGFR-AF TONGAN>60Normal>=60The [facility] HospitalComment on above:Performed By: #### DATBMP #### [facility] [address] [address] [address] Kin TanGFR-NON AF CEQEGVCV79 mL/min/1.65a7Iwaoukiduz low>=60[facility] HospitalComment on above:Performed By: #### DATBMP #### [facility] [address] [place] [address] Dr. Kin AcunaGlucose [Mass/Vol]97 mg/cCDlomay35-992LnxGuernsey Memorial Hospital Comment on above:Performed By: #### DATBMP #### [facility] [address] [address] [address] Kin AcunaHDL NORMAL> or = 60 mg/dl - LOW CARDIOVASCULAR RISK <40 mg/dl - HIGH CARDIOVASCULAR RISKEast Liverpool City HospitalComment on above:Performed By: #### DATBMP #### [facility] [address] [place] [address] Dr. Kin AcunaLDL CALC NORMALSEE BELOWEast Liverpool City HospitalComment on above:Result Comment: <100 mg/dl OPTIMAL 100 - 129 mg/dl NEAR OR ABOVE OPTIMAL 130 - 159 mg/dl BORDERLINE HIGH 160 - 189 mg/dl HIGH >190 mg/dl VERY HIGH Performed By: #### DATBMP #### [facility] [address] [address] [address] Kin AcunaPotassium [Moles/Vol]4.2 mmol/LNormal3.5-5.1[facility] Comment on above:Performed By: #### DATBMP #### [facility] [address] [address] [address] Kin AcunaSodium [Moles/Vol]140 mmol/SMczmrb392-764Rxe [facility] Comment on above:Performed By: #### DATBMP #### [facility] [address] [place] [address] Dr. Kin AcunaTriglyceride [Mass/Vol]21 mg/dLNormal<=150[facility] Comment on above:Performed By: #### DATBMP #### [facility] [address] [place] [address] Dr. Kin AcunaUrea nitrogen [Mass/Vol]16.0 mg/dLNormal7.0-18.0[facility] HospitalComment on above:Performed By: #### DATBMP #### [facility] [address] [place] [address] Dr. Kin Austin nitrogen/Creatinine [Mass ratio]15.4 mg/mgNoAvita Health System Bucyrus HospitalComment on above:Performed By: #### DATBMP #### [facility] [address] [place] [address] Dr. Kin AcunaVLDL CALC4.2 mg/dLNoAvita Health System Bucyrus HospitalComment on above: Performed By: #### DATBMP #### [facility] [address] [place] [address] Dr. Kin AcunaMG MAMM SCREEN 3D BRANDON CADon 87-20-5060VH MAMM SCREEN 3D BRANDON CAD Patient: SHABNAM GARSIA Exam Date: 11/19/2021 : 1940 Gender:F Ordering : DR TIFFANIE DOAN M.D. Admission #: [id number] Family : Order #: [id number] CLICK HERE TO VIEW EXAM RADIOLOGY REPORT [...] colon cancer at age 78. LOCATION: [facility] BREAST COMPOSITION: Heterogeneously dense,which may obscure small [...] by: Lamberto Alejandro M.D. on 11/19/2021 at 14:56[facility] Vital Signs Date TimeVital SignValuePerforming MwfikevamKtfhydvi05-54-6201 13:17-0400 Diastolic blood yxipaxjx42 mm[Hg]Tiffanie Doan MD Work Phone: [phone]10-07-2025 13:17-0400 Heart rate72 /minTiffanie Doan MD Work Phone: [facility]10-07-2025 13:17-0400 Systolic blood mm[Hg]Tiffanie Doan MD Work Phone: [phone]10-07-2025 13:02-0400 Body oxkhzv580.4 cmTiffanie Doan MD Work Phone: [phone]10-07-2025 13:02-0400 Body mass index (BMI) [Ratio]27.3 kg/w2NqkzmxTiffanie Doan MD Work Phone: [phone] [place], [place] [address]10-07-2025 13:02-0400 Body jnmkyg58.5 kgTiffanie Doan MD Work Phone: [phone] [place], [place] [address]690709-16-2025 13:36-0400 Diastolic blood mm[Hg]Tiffanie Doan MD Work Phone: [phone]09-16-2025 13:36-0400 Systolic blood apopjazb257 mm[Hg]Tiffanie Doan MD Work Phone: [phone]09-16-2025 13:25-0400 Body iamtog422.4 cmTiffanie Doan MD Work Phone: [phone]09-16-2025 13:25-0400 Body mass index (BMI) [Ratio]27 kg/w3GvgjnyTiffanie Doan MD Work Phone: [phone]09-16-2025 13:25-0400 Body jytyzn86.82 kgTiffanie Doan MD Work Phone: [phone]09-16-2025 13:25-0400 Heart rate79 /Korey Doan MD Work Phone: [phone] [place], [place] [address]05-14-2025 09:23-0400 Body ykznbo022.4 cmOhio[facility] Center05-14-2025 09:23-0400Body mass index (BMI) [Ratio]28.1 kg/x6YuxalkofgOhiohealth Southeastern Medical Center05-14-2025 09:23-0400Body elccls43.31 kgOhiohealth Southeastern Medical Center05-14-2025 09:23-0400Diastolic blood blsoedse61 mm[Hg][facility] 10-16-2024 09:23-0400Heart rate62 /minOhiohealth Southeastern Medical Center 10-16-2024 09:23-0400Systolic blood szpimwkd343 mm[Hg][facility]01-09-2025 13:35-0500Body wdytco062.4 cmOhiohealth [facility]heastern Medical Center 06-13-2024 13:35-0500Body mass index (BMI) [Ratio]28.2 kg/d0BeokhtgfbOhiohealth Southeastern Medical Center01-09-2025 13:35-0500Body .54 [facility]01-09-2025 13:35-0500Diastolic blood qqhavoqq96 mm[Hg][facility]01-09-2025 13:35-0500Heart rate77 /[facility]01-09-2025 13:35-0500Systolic blood mm[Hg][facility]11-27-2024 09:35-0500Body .4 cmOhiohealth [facility]heastern Medical Center11-27-2024 09:35-0500Body mass index (BMI) [Ratio]28.1 kg/a1UiosyevnmOhiohealth Southeastern Medical Center11-27-2024 09:35-0500Body nfsyun82.31 [facility]11-27-2024 09:35-0500Diastolic blood ixjloxjq10 mm[Hg] [facility]11-27-2024 09:35-0500Heart rate63 /[facility]11-27-2024 09:35-0500Systolic blood mm[Hg] [facility]2024 11:12-0400Body golqfb103.4 cm [facility]2024 11:12-0400Body mass index (BMI) [Ratio]27.3 kg/q4YzvoyveruOhiohealth Southeastern Medical Center2024 11:12-0400Body heebfd74.67 kgOhiohealth Southeastern Medical Center2024 11:12-0400Diastolic blood mm[Hg][facility]2024 11:12-0400 Heart rate91 /[facility]2024 11:12-0400Systolic blood orxuppkq562 mm[Hg][facility]07-16-2024 11:12-0400 Body yqewkf472.4 cmOhiohealth [facility]heastern Medical Center07-16-2024 11:12-0400Body mass index (BMI) [Ratio]28.1 kg/e2PpgrbffmaOhiohealth Southeastern Medical Center07-16-2024 11:12-0400Body yajqmo36.31 [facility]07-16-2024 11:12-0400Diastolic blood rcrsynlu48 mm[Hg][facility] 12-19-2023 11:12-0400Heart rate80 /[facility] 12-19-2023 11:12-0400Systolic blood kyofvori245 mm[Hg][facility]05-22-2024 10:20-0400Body .4 cmOhiohealth [facility] Medical Center 10-25-2023 10:20-0400Body mass index (BMI) [Ratio]28.3 kg/c1GqshowboxOhiohealth Southeastern Medical Center05-22-2024 10:20-0400Body .77 [facility]05-22-2024 10:20-0400Diastolic blood vcpnuemj20 mm[Hg][facility]05-22-2024 10:20-0400Heart rate67 /[facility]05-22-2024 10:20-0400Systolic blood npxdicig418 mm[Hg][facility]12-19-2023 09:00-0500Body tvthka182.4 cmTiffanie Doan Other [employer] Other [id number] 09:00-0500Body mass index (BMI) [Ratio] 28.55 kg/i8CnwbhyTiffanie Doan Other [employer] Other 12-19-2023 09:00-0500Body vfnqno01.32 kgTiffanie Doan Other [employer] Other 12-19-2023 09:00-0500Diastolic blood anmrpvgp389 mm[Hg]Tiffanie Doan Other [employer] Other 12-19-2023 09:00-0500Systolic blood zpcocamf455 mm[Hg] Tiffanie Doan Other [employer] Other 11-22-2023 10:00-0500Body jdiytz212.4 cmTiffanie Olimpia Other [employer] Other 11-22-2023 10:00-0500Body mass index (BMI) [Ratio] 27.92 kg/r2Ewrgtm Olimpia Other [employer] Other 11-22-2023 10:00-0500Body xnxqac87.86 kgTiffanie Olimpia Other [employer] Other 11-22-2023 10:00-0500Diastolic blood atufixev70 mm[Hg] Tiffanie Doan Other [employer] Other 11-22-2023 10:00-0500Systolic blood gulvomjj337 mm[Hg] Tiffanie Doan Other [employer] Other 05-24-2023 10:00-0400Body zrdrih476.4 cmTiffanie Olimpia Other [employer] Other 05-24-2023 10:00-0400Body mass index (BMI) [Ratio] 28.71 kg/n9Cipymw Braun Other [employer] Other 05-24-2023 10:00-0400Body cijszw89.68 kgCherryranolga lidia Doan Other [employer] Other 05-24-2023 10:00-0400Diastolic blood eztpzvhs76 mm[Hg] Tiffanie Doan Other [employer] Other 05-24-2023 10:00-0400Systolic blood tsodxuwb111 mm[Hg] Tiffanie Doan Other [employer] Other Encounters Encounter DateEncounter TypeCare ProviderFacilityStart: 03-11-2025 End: 31-30-1574dvgfyvvfoyTjwmpm E Braun MD Work Phone: [facility] Work Phone: Start: 03-11-2025 End: 67-91-4123Jabgogx encounter procedureTiffanie Doan MD-[facility] Work Phone: Start: 70-13-8492Xgf-patient / Non-visitLinda Megan [facility] Work Phone: Start: 02-18-2025 End: 27-21-2723gwbpoajhypAgotue E Braun MD Work Phone: [facility] Work Phone: Start: 02-18-2025 End: 38-44-9348Nsepicb encounter procedureTiffanie Doan MD-[facility] Work Phone: Start: 01-09-2025 End: 43-37-4721cvjyqugwupIwljhx E Braun MD Work Phone: [facility] Work Phone: Start: 01-09-2025 End: 57-93-4028Yrckrcn encounter procedureDioni Tineo DO-[facility] Work Phone: Start: 10-16-2024 End: 93-40-3894zwvelnmuufIaojblvriThe [facility] Hospital Work Phone: Start: 10-16-2024 End: 96-35-8156Rksvuin encounter procedureFirelands Physician Group-[facility] Work Phone: Start: 66-04-3196Uff-patient / Non-visitFirelands Physician Group-[facility] Work Phone: Start: 06-13-2024 End: 43-92-5193igeohhwzcbTvodpdwgtThe [facility] Hospital Work Phone: Start: 06-13-2024 End: 40-98-5889Qweeztk encounter procedureFirelands Physician Group-[facility] Work Phone: Start: 05-01-2024 End: 49-36-3629Nvxbeix encounter procedureFirelands Physician Group-[facility] Work Phone: Start: 63-00-0756Unn-patient / Non-visitFirelands Physician Group-[facility] Work Phone: Start: 04-09-2024 End: 58-62-0846nhlgennotwCvdcsdhxvThe Christ Hospital Work Phone: Start: 04-09-2024 End: 23-17-3817Rdbjnho encounter procedureFirelands Physician Group-[facility] Work Phone: Start: 01-22-2024 End: 76-03-0656utxbyduhibFemfsqkfkThe [facility] Hospital Work Phone: Start: 01-22-2024 End: 79-62-0910Jmrixrq encounter procedureFirelands Physician Group-[facility] Work Phone: Start: 12-19-2023 End: 40-13-1858ybmgqdfkcmHogpfdldsThe Christ Hospital Work Phone: Start: 12-19-2023 End: 77-44-4314Ibbcfst encounter procedureFirelands Physician Group-[facility] Work Phone: Start: 18-68-6832Bsb-patient / Non-visitFirelands Physician Group-[facility] Work Phone: Start: 10-25-2023 End: 34-72-0767mhphytgjctVgzoajkiqThe [facility] Hospital Work Phone: start: 10-25-2023 End: 92-43-5490Pakbpcn encounter procedureFirelands Physician Group-[facility] Work Phone: start: 09-29-2023 End: 20-58-3134bseewcwlvkWkqsvyptxThe Christ [facility] Work Phone: Start: 09-29-2023 End: 57-03-0703Kvmozjb encounter procedureFireland Physician Group-[facility] Work Phone: Start: 74-69-2879Zkw-patient / Non-visitFirjohn [facility] Work Phone: Start: 40-99-8348Xot-patient / Non-visitFirjohn [facility] Work Phone: Start: 07-14-2023 End: 06-59-5669dgmmdprmoxYafadx Doan Other [employer]Office Max Other Start: 14-45-9373Tmrbspuky encounterMarcia [facility]limpiaAccess [facility] ClinicStart: 06-27-2023 End: 42-18-4830yrbzmqwmzeAreqga Doan Other [employer] Other Start: 98-05-5050Fsklghsqm encounterMarcia [facility] ClinicStart: 06-09-2023 End: 66-86-8534mesvfgiigpDrxwwb Doan Other [employer] Other Start: 97-83-6794Zgzqsgyhk encounterMarcia [facility] ClinicStart: 05-23-2023 End: 14-22-4782biempmmtwjVlnftt Doan Other [facility] Other Start: 79-99-7704Liycau outpatient visit 15 minutes Tiffanieisabela DoanAccess Hospital [facility] ClinicStart: 55-16-1855Jxheiwgjq encounterMarcia [facility] ClinicStart: 04-26-2023 End: 75-34-7124qswpwpvoaaFtyrlp Doan Other [facility] Other Start: 72-19-4043Jtvdtt outpatient visit 15 minutes Tiffanie [facility] ClinicStart: 04-25-2023 End: 38-25-7221wcrrjnmcmfBackwq Doan Other [employer] Other Start: 05-08-4855Wblvbwbys encounterMarcia [facility] ClinicStart: 03-15-2023 End: 02-20-9683fpekewijscLwhdkv Doan Other [employer] Max Other Start: 88-68-1774Ucwerciwt encounterMarcia [facility] ClinicStart: 12-19-2022 End: 54-45-2140sdatedcnpcLgcmsm Doan Other [employer] Other Start: 86-25-7158Gehwsrixj encounterMarcia [facility] ClinicStart: 11-25-2022 End: 07-98-4229oomvhdmognAnyjhm Doan Other [employer] Other Start: 64-04-5367Dkugtroxt encounterMarcia [facility] ClinicStart: 11-01-2022 End: 64-83-2315zcephikehxOqxfjb Doan Other [employer] Other Start: 87-73-0790Tbizznoiz encounterMarcia [facility] ClinicStart: 10-26-2022 End: 56-57-6279yeppqaowzjCxnohs Doan Other [employer] Max Other Start: 32-02-0782Qcpvjj outpatient visit 15 minutes [facility]iffanie [facility] ClinicStart: 05-13-2022 End: 80-41-0849lqgxeyjfxhLC TIFFANIE E OLIMPIAFacility:L0Gtuhb: 78-17-5822Wsyyq health examinationMarcia Doan Other [employer] Other Start: 05-04-2022 End: 33-14-2581wwxfosrjtiQA JAROD NIKITAYFacility:O9Plczs: 01-05-2022 End: 23-21-2962oaojsmtijgDO LAMBERTO TRIMBLEEBERFacility:J4Mvxgo: 11-19-2021 End: 97-72-4982vlzqukbzmcZC LAMBERTO Breaux ZIEBERFacility:C9Wppzm: 07-14-2021 End: 08-29-4994xvnibhfyfzBU LAMBERTO Breaux ZIEBERFacility:N2Wjjgr: 07-23-2020 End: 48-95-1266Fepcyla encounter procedureNONE LISTED REQUESTFacility:M1Lwezy: 06-22-2020 End: 47-39-5496Rkwmfdt encounter procedureNONE LISTED REQUESTFacility:D0Bgpoc: 11-15-2013 End: 86-05-1962Qawokitrt encounterEusebia Jimenes Work Phone: Neurology Procedures DateProcedureProcedure DetailPerforming ClinicianStart: 33-86-5659Qpbyvab examination of patientMarcia Olimpia Other Start: 99-29-2057Bmqowblwg mammographyMarcia Doan Other Screening for malignant neoplasm of breastMarcia Doan Other Screening for malignant neoplasm of colonMarcia Doan Other Plan of Treatment DateCare ActivityDetailAuthorStart: 54-48-6206Apfscxp referralFairfield Medical Center Work Phone: Start: 61-29-1523VxbsfkdcfOhio[facility] Start: 98-80-6083Mxyrkhmjg vaccinationINFLUENZA (Season Ended)[facility] Start: 81-54-9532GGUDWCS DIRECTIVE DISCUSSIONADVANCE DIRECTIVE DISCUSSION [facility]: 80-50-8847FOCH DENSITYBONE DENSITYHolzer Medical Center – Jacksontart: 30-55-5158GHNSRAJDE AGE 65 AND OVER WITH 5YR LOOKBACK (#1)PNEUMOVAX AGE 65 AND OVER WITH 5YR LOOKBACK (#1)[facility]: 11-44-8669XFAAXZWQ VACCINE (1 of 2)SHINGRIX VACCINE (1 of 2)[facility]: 20-36-0203CKQPGGGZ SCREEN DIABETES SCREENHolzer Medical Center – Jacksontart: 11-08-1181Lppkm microalbumin profile DTAP,TDAP,TD (1 - Tdap)[facility] referralFairfield Medical Center Work Phone: [facility] Immunizations Immunization DateImmunizationNotesCare DwdimhdaJjkpvctq83-37-2610gduzmefzu, high dose seasonal, preservative-freeTiffanie Doan MD Work Phone: [facility]11-05-2024influenza, high dose seasonal, preservative-freeOhiohealth Southeastern Medical Center09-28-2022 influenza virus vaccine, split virus (incl. purified surface antigen)Tiffanie Doan Other [employer] Other [id number] virus vaccine, unspecified formulationOhiohealth [facility]heastern Medical Center09-22-2021influenza virus vaccine, split virus (incl. purified surface antigen)Tiffanie Doan Other [facility] Other 09-433200-59-4918xvirtjgso virus vaccine, unspecified formulationOhiohealth Southeastern Medical Center09-08-2020influenza virus vaccine, split virus (incl. purified surface antigen)Tiffanie Doan Other [facility] Other 09-854460-52-8006sthzgjbqy virus vaccine, unspecified formulationOhiohealth [facility]heastern Medical Center04-03-2018pneumococcal conjugate vaccine, 13 valentTiffanie Doan Other [facility]04-03-2018 pneumococcal Conjugate, unspecified formulation; Translations: [Need for prophylactic vaccination against Streptococcus pneumoniae (pneumococcus)]Tiffanie Doan Other [facility] Other [id number] virus vaccine, split virus (incl. purified surface antigen)Tiffanie Olimpia Other [employer] Other 10-351103-27-3987lsagybaxk virus vaccine, unspecified formulationOhiohealth [facility]heastern Medical Center11-06-2014influenza virus vaccine, split virus (incl. purified surface antigen)Tiffanie Olimpia Other [employer] Other [id number] virus vaccine, unspecified formulationOhiohealth [facility]heastern Medical Center11-27-2013diphtheria, tetanus toxoids and acellular pertussis vaccine, unspecified formulationMarrana Olimpia Other [facility]11-07-2013tetanus and diphtheria toxoids, adsorbed, preservative free, for adult use (5 Lf of tetanus toxoid and 2 Lf of diphtheria toxoid)Tiffanie Doan Other [facility] Payers DatePayer CategoryPayerPolicy ID2004MedicareMEDICARE MEDICARE B [id number] 2003-Present [place] [id number] ANTHEM BCBS [facility] PPO [id number] 1996-Present [id number] [id number] 1962 [id number] [id number] 2.16.840.1.693627.3.579.2.593MedicareMedicare Outpatient [id number] [id number] 2.16.840.1.6[id number] 2.16.840.1.3[id number] 2.16.840.1.105162.3.579.2.593Unknown Rg /[id number] 2.0.1.249313.3.579.2.531 Social History DateTypeDetailFacilityStart: 40-93-1770Ieduaqt smoking status NHISFormer smoker [facility] End: 01-22-5138Upylpjl of tobacco useCurrent smokerHolzer Medical Center – Jacksontart: 29-58-8383Dhfxdhg intakeCurrent non-drinker of alcohol (finding)[facility] Start: 70-73-8641Grh Assigned At BirthNot on fileHolzer Medical Center – Jacksonex Assigned At [facility] Assigned At [facility] [employer] Other Start: 29-70-8309Eso Assigned At [facility] CenterTobacco smoking status NHISUnknown if ever smoked [facility] Work Phone: Start: 06-13-2024 End: 96-93-0585PfcErnedk (finding)[facility] Clinical Notes 04-18-2005 to 02-18-2025 Note Date & VbxfDyqaZagajfbd34-24-0726 Evaluation note* Diagnosis Onset Date Resolution Status Admit Date Fatigue acuteSeptember 2024 1:24pm [facility] Work Phone: 1(221) 908-437009-16-2025 Evaluation note* Diagnosis Onset Date Resolution Status Admit Date Abnormal EKG acuteSeptember 2024 1:24pmFatigueacuteSeptember 2024 1:24pm [facility] Work Phone: 1(340) 401-131605-14-2025 Evaluation note* Diagnosis Onset Date Resolution Status Admit Date Anxiety acuteMay 2024 9:22amEssential (primary) hypertensionacuteMay 2024 9:22amSituational stressacuteMay 2024 9:22am [facility] Work Phone: 1(510) 325-305411-05-2024 Evaluation note* Diagnosis Onset Date Resolution Status Admit Date Encounter for immunization acuteNov2023 10:50amAnxietyacuteNovember 2023 9:24amEssential (primary) hypertensionacuteNovember 2023 9:24amSituational stressacute November 2023 9:24am [facility] Work Phone: 1(317) 954-890702-09-2024 Evaluation note* Encounter Date Diagnosis Assessment Notes Treatment Notes Treatment Clinical Notes Jul, Vitamin B12 deficiency (ICD-10 - E53.8) [facility] Other 01-23-2024 Evaluation note* Encounter Date Diagnosis Assessment Notes Treatment Notes Treatment Clinical Notes Jun, Essential (primary) hypertension (ICD-10 - I10) [facility] Other 01-05-2024 Evaluation note* Encounter Date Diagnosis Assessment Notes Treatment Notes Treatment Clinical Notes Jun, Essential (primary) hypertension (ICD-10 - I10) [facility] Other 12-19-2023 Evaluation note* Encounter Date Diagnosis Assessment Notes Treatment Notes Treatment Clinical Notes May, Essential (primary) hypertension (ICD-10 - I10) added toprol, continue olmesartan. 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 May,nxiety, generalized (ICD-10 - F41.1)Pt takes med spariningly, reviewed OARRS report. [facility] Other 11-22-2023 Evaluation note* Encounter Date Diagnosis Assessment Notes Treatment Notes Treatment Clinical Notes Apr, Dyspnea on exertion (ICD-10 - R0 6.09) Pt agrees to Stress test Feels able to do the treadmill portion Apr,Essential (primary) hypertension (ICD-10 - I10)Blood pressure remains well controlled at this time. Denies cardiac symptoms. Shows no signs or symptoms or poor control. Patient to continue with above medication and we will continue to monitor. Advised to pay attention to body and symptoms. Any developing patterns. Stay well hydrated. Apr,History of CVA (cerebrovascular accident) (ICD-10 - Z86.73)Pt requests refill for chronic issue. [facility] Other 11-21-2023 Evaluation note* Encounter Date Diagnosis Assessment Notes Treatment Notes Treatment Clinical Notes Apr, Vitamin B12 deficiency (ICD-10 - E53.8) [facility] Other 05-24-2023 Evaluation note* Encounter Date Diagnosis Assessment Notes Treatment Notes Treatment Clinical Notes October, Vitamin B12 deficiency (ICD-10 - E53.8) due for lab - requests refill - chronic problem October,Vitamin D deficiency (ICD-10 - E55.9)as above October,Hyperlipidemia, unspecified hyperlipidemia type (ICD-10 - E78.5) check labs - continue present meds October,Essential (primary) hypertension (ICD-10 - I10)attributes high reading to white coat - will recheck at home. [facility] Other 08-03-2022 NotePROCEDURE: MRI BRAIN WO CON [...] Electronically authenticated by: LAMBERTO ALEJANDRO Date: 2022-01-05 15:55[facility]02-09-2022 NotePROCEDURE: XR HIP RT 2 3V [...] Electronically authenticated by: LAMBERTO ALEJANDRO Date: 2021-07-14 14:31[facility]06-13-2014 Miscellaneous Notes* Telephone Encounter - Lakesha [...] speak with Dr. Jimenes. documented in this encounterF[facility]11-14-2005 History of Past illness Narrative* ProblemNoted DateResolved DateCENTRAL ORIGIN NYIZWJD8104/18/2005 01/17/2014Peripheral vertigo, zdltenwlyep90documented as of this encounter (statuses as of 09/30/2020) [facility] HospitalEvaluation noteNo InformationNortWayne Memorial Hospital [employer] Other Evaluation noteNo assessment information available [facility] Work Phone: Evaluation note* Diagnosis Onset Date Resolution Status Essential (primary) hypertension acuteHyperlipidemiaacuteSituational stressacute [facility] Work Phone: Evaluation note* Diagnosis Onset Date Resolution Status Essential (primary) hypertension acuteHyperlipidemiaacuteSituational stressacuteEssential (primary) hypertension acuteSituational stressacuteAgitationacute [facility] Work Phone: Evaluation note* Diagnosis Onset Date Resolution Status Agitation acute [facility] Work Phone: Evaluation note* Diagnosis Onset Date Resolution Status Admit Date Fatigue acuteSeptember 2024 1:24pm [facility] Work Phone: History general Narrative - Reported* Type Description Date Medical History OVARIAN CANCER Surgical HistoryhysterectomySurgical HistoryappendectomyHospitalization History SEE ABOVE [facility] [employer] Other Reason for referral (narrative)No reason for referral information availableFairfield Medical Center Work Phone: Summary Purpose Family History No Family History Records Found Relationship Condition Age at Onset Recorded Date/T mitzi brother Unknown fatherDeceasedUnknownNot SpecifiedDeceasedUnknownMalignant neoplasmUnknown Relationship Condition Age at Onset Recorded Date/T mitzi brother Unknown fatherDeceasedUnknownmotherDeceasedUnknownMalignant neoplasmUnknown Advance Directives No Advanced Directives Records Found Advance Directive Response Recorded Date/ Time Advance Directives No June 29, 2023 12:01pm Advance Directive Response Recorded Date/ Time Advance Directives No June 29, 2023 11:01am Chief Complaint and Reason for Visit Chief Complaint Amb Documentation Amb Documentation allergy shot Chief Complaint Amb Documentation allergy shot 6 month follow Chief Complaint allergy shot 6 month follow [facility] follow upReason for VisitEssential (primary) hypertension Hyperlipidemia Situational stress Chief Complaint 6 month follow [facility] ER follow up bp issues , anxietyReason for VisitEssential (primary) hypertension Hyperlipidemia Situational stress Essential (primary) hypertension Situational stress Agitation Chief Complaint bp issues , anxiety flu shotReason for VisitAgitation Chief Complaint Admit Date flu shot April [...] Situational stress October 16, 2024 9:22a m Chief Complaint Admit Date Kenalog Shot January 09, 2025 9:3 6am Right arm/Difficulty lifting February 032024 1:24pm Reason for Visit Admit Date Fatigue February 18, 2025 1:24pm Chief Complaint Admit Date Kenalog Shot January 09, 2025 9:3 6am Right arm/Difficulty lifting February 032024 1:24pm 3 week f/u March 11, 2025 1: 01pm Reason for Visit Admit Date Abnormal EKG February 18, 2025 1:24pm Fatigue February 18, 2025 1:24pm Additional Source Comments INFORMATION SOURCE (unrecogn ized section and content) DATE CREATED AUTHOR 07/28/2020 [facility] DATE CREATED AUTHOR AUTHOR'S ESEIZ ATION 05/26/2022 [facility] DATE CREATED AUTHOR AUTHOR'S ORGANIZ ATION 03/15/2025 [facility] Source Comments (unrecognize d section and content) In the event this informatio n is protected by the Federal Confidentiality of Alcohol and Drug Abuse Patient Records regulations: The Federal rules restrict any use of the information to criminally investigate or prosecute any alcohol or drug abuse patient.[facility] REASON FOR VISIT (unrecogniz ed section and content) refill6 MONTH FOLLOW UP ACre filllabsrefillrefill6 month Follow upstress testblood pressure issuesNew RXBPsmessagerefills Care Teams (unrecognized sec tion and content) Team Status: Active Member Role Status Suzan Doan MD Primary Care Provider Active Team Status: Inactive Member Role Status Dates Tiffanie Doan MD Primary Care Provider Active Start: October 16, 2024 End: October 16, 2024Tiffanie Doan MDAttphan ProviderActiveStart: October 16, 2024 End: October 16, 2024 Team Status: Inactive Member Role Status Suzan Doan MD Primary Care Provider Active Start: January 09, 2025 End: January 09franklin Tineo DOAttphan ProviderActiveStart: January 09, 2025 End: January 09, 2025 Team Status: Active Member Role Status Suzan Doan MD Primary Care Provider Active Start: September 10, 2024 Orquidea Wood CMAAttphan ProviderActiveStart: September 10, 2024 Team Status: Inactive Member [...] Care Provider Active Start: December 10, 2023 Pito Johansen ProviderActiveStart: December 10, 2023 Team Status: Inactive Member Role Status Suzan Doan MD Primary Care Provide r, Attending Provider Active Start: December 19, 2023 End: December 19, 2023 Team Status: Active Member Role Status Suzan Doan MD Primary Care Provider Active Start: July 27, 2023 Jimy Canales ProviderActiveStart: July 27, 2023 Team Status: Active Member Role Status Suzan Doan MD Primary Care Provider Active Start: August 02, 2023 Jimy Canales ProviderActiveStart: August 02, 2023 Team Status: Inactive Member Role Status Suzan Doan MD Primary Care Provide r, Attending Provider Active Start: January 22, 2024 End: January 22, 2024 Team Status: Inactive Member Role Status Suzan Doan MD Primary Care Provide r, Attending Provider Active Start: April 09, 2024 End: April 09, 2024 Team Status: Active Member Role Status Suzan [...] Doan MD Primary Care Provider Active Start: February 18, 2025 End: February 18, 2025Pito Avelar ProviderActiveStart: February 18, 2025 End: February 18, 2025 Team Status: Active Member Role Status Suzan Doan MD Primary Care Provider Active Start: February 18, 2025 Pito Avelar ProviderActiveStart: February 18, 2025 Team Status: Active Member Role Status Suzan Doan MD Primary Care Provider Active Start: February 18, 2025 Tiffanie Doan MDOther ProviderActiveStart: February 18, 2025 Pito Guzmán ProviderActiveStart: February 18, 2025 Team Status: Inactive Member Role Status Dates Tiffanie Doan MD Primary Care Provider Active Start: March 11, 2025 End: March 11, 2025Pito Avelar ProviderActiveStart: March 11, 2025 End: March 11, 2025 Goals (unrecognized section and content) Goals [...] BE BASED ON THE PRIMARY CLINICAL RECORDS. [employer] provides no warranty or guarantee of the accuracy or completeness of information in this document.
[2025-03-26 11:41] LABS: Anion Gap 10.8; Blood Urea Nitrogen 21.0 mg/dL (7.0-18.0); Calcium 8.8 mg/dL (8.5-10.1); Carbon Dioxide 27.3 mmol/L (21.0-32.0); Chloride 104 mmol/L (98-107); Estimated GFR (African America >60 (>=60 mL/min/1.73m^2); Estimated GFR (Non-African Ame 54 (>=60 mL/min/1.73m^2); Glucose 94 mg/dL (74-106); NT Pro B Type Natriuretic Pept 622.0 pg/mL (<=1800.0); Potassium 4.1 mmol/L (3.5-5.1); Sodium 138 mmol/L (136-145)
== END 2025-03-26 10:32 | disposition home or self-care (01) ==
LOC: LAB 10:34
PROVIDERS: PCP Family Medicine; Visit Provider Family Medicine
DX: R94.31 Abnormal electrocardiogram [ECG] [EKG] (principal); I10 Essential (primary) hypertension; R06.02 Shortness of breath
CPT/HCPCS: 36415; 80048; 83880

== ENCOUNTER 2025-04-03 07:20 | Outpatient (OUT) | payer MEDICARE, BC, SELFPAY ==
--- OUTSIDE RECORDS SUMMARY | 2025-03-26 09:40 | XMS_ITS | Encounter Summary ---
Author Organization [facility] Address [address] [place] [address] Care Team Providers Care Or Nurse Manager Name Role Phone Tiffanie Mcintosh MD Primary Care Provider [phone] Reason for Visit * ReasonCommentsNew PatientPatient is here today to establish care with cardiology. Patient recently had and abnormal EKG.Patient denies chest pain, racing heart/palpitations, leg swelling, dizziness/lightheaded.Fatigue Increased fatigueShortness of BreathSOB/VEGA occasional with getting out of chair and walkingHypertensionHyperlipidemiaAbnormal ECG Encounter Details DateTypeDepartmentCare Team (Latest Contact Info)Tvykeunrmgv39/22/2025 9:40 AM EDTOffice Visit [facility] at [place] [address] [place] [address] Luke Ashraf MD [address] [place] [phone] Abnormal EKG (Primary Dx); Essential (primary) hypertension; Shortness of breath Social History Tobacco UseTypesPacks/DayYears UsedDateSmoking Tobacco: FormerCigarettes Smokeless Tobacco: Never Tobacco Cessation:Counseling Given: Not Answered Alcohol UseStandard Drinks/WeekCommentsYes0 (1 standard drink = 0.6 oz pure alcohol)couple glasses of wine with dinner 3 to 4 times per weekComments UnknownSex and Gender InformationValueDate RecordedSex Assigned at BirthFemale 03/21/2025 4:08 PM EDTLegal PadEfngmt13/29/2022 11:08 PM EDTGender Identity Bfwknp3603/21/2025 4:08 PM EDTSexual OrientationHeterosexual or Ewvvtigq11/17/2025 4:08 PM EDTdocumented as of this encounter Last Filed Vital Signs Vital SignReadingTime TakenCommentsBlood Gciglrbd721/8603/26/2025 9:33 AM EDT Guifb187703/26/2025 9:33 AM EDTTemperature--Respiratory Rate--Oxygen Mczpilolga63% 03/26/2025 9:33 AM EDTInhaled Oxygen Concentration--Jzqabd86 kg (139 lb) 03/26/2025 9:33 AM WSLJcxnpi466.4 cm (5')03/26/2025 9:33 AM EDTBody Mass Index 27.151 9:33 AM EDTdocumented in this encounter Functional Status * BPAnswerDate of RpagnaitulNzttmi291/8603/26/2025 9:33 AM Althea Menendez MA * PulseAnswerDate of MtuoseyiykAdymqq9351/22/2025 9:33 AM Althea Menendez MA * Patient PositionAnswerDate of KtxaajpsnhAictfrWtyffyc47/22/2025 9:33 AM EDT Althea James MA * BPAnswerDate of OnkxveizukVmcqbd191/8603/26/2025 9:33 AM Althea Menendez MA * PulseAnswerDate of BxdlfxssdbSfzjdc3369/22/2025 9:33 AM Althea Menendez MA * RgI3VoxockIche of CagmjbfsgsCwysxh0359/22/2025 9:33 AM Althea Menendez MA * BP LocationAnswerDate of AssessmentAuthorRight arm03/26/2025 9:33 AM EDT Althea James MA * Patient PositionAnswerDate of LcuuibhnijJjyrqlBmjlwpm82/22/2025 9:33 AM EDT Althea James MA documented as of this encounter Progress Notes * Luke Ashraf MD - 03/26/2025 9:40 AM EDT Subjective Patient ID: Shabnam Cleveland is a 84 y.o. female who presents for New Patient (Patient is here today to establish care with cardiology. Patient recently had and abnormal EKG.Patient denies chest pain, racing heart/palpitations, leg swelling, dizziness/lightheaded.), Fatigue (Increased fatigue), Shortness of Breath (SOB/VEGA occasional with getting out of chair and walking/), Hypertension, Hyperlipidemia, and Abnormal ECG. Here for an abnormal EKG I think pretty well NO history of heart disease. No chest pain. Can get short of breath with walking a little bit Has been occurring for the past a period of years. Can wax and wane. No tightnessin the chest. My review of EKG shows possible previous inferoposterior LA with Q waves in II, III and aVF and Large R wave in V2 with voltage criteria for LVH LDL 62 HDL 78 Bps range from 182 systolic to 137 systolic with majority over 150 in the past 9 days (handwritten records reviewed) Fatigue Associated symptoms include fatigue. Shortness of Breath Pertinent negatives include no leg swelling. Hypertension Associated symptoms include shortness of breath. Pertinent negatives include no palpitations. Hyperlipidemia Associated symptoms include shortness of breath. Review of Systems Constitutional: Positive for fatigue. Respiratory: Positive for shortness of breath. Cardiovascular: Negative for palpitations and leg swelling. Gastrointestinal: Negative for blood in stool. Genitourinary: Negative for hematuria. Neurological: Negative for seizures and syncope. Objective Visit Vitals BP (!) 193/86 (BP Location: Right arm, Patient Position: Sitting) Pulse 70 Physical Exam Vitals reviewed. Constitutional: Appearance: Normal appearance. She is normal weight. HENT: Head: Normocephalic and atraumatic. Cardiovascular: Rate and Rhythm: Normal rate and regular rhythm. Pulses: Carotid pulses are 2+ on the right side and 2+ on the left side. Radial pulses are 2+ on the right side and 2+ on the left side. Dorsalis pedis pulses are 2+ on the right side and 2+ on the left side. Posterior tibial pulses are 1+ on the right side and 1+ on the left side. Heart sounds: Heart sounds not distant. No murmur heard. No friction rub. No gallop. Comments: Jvp 8 CM Pulmonary: Effort: Pulmonary effort is normal. Breath sounds: Normal breath sounds. Abdominal: Comments: Large ecchymosis L posterior flank (hit by door) Musculoskeletal: Right lower leg: No edema. Left lower leg: No edema. Neurological: General: No focal deficit present. Mental Status: She is alert and oriented to person, place, and time. Mental status is at baseline. Psychiatric: Mood and Affect: Mood normal. Behavior: Behavior normal. Thought Content: Thought content normal. Assessment/Plan Mrs. Cleveland has an abnormal EKG with evidence for an old inferoposterior LA and voltage consistent with left ventricular hypertrophy. She also has shortness of breath at modest levels of activity and her exam shows increased JVP all consistent with NYHA Class II heart failure. I have ordered an echo to assess for LVH and to check for LV function and prior LA. Will also get stress to assess residual ischemia, and check BNP. Diagnosis Plan 1. Abnormal EKG 2. Essential (primary) hypertension 3. Shortness of breath Follow up in about 4 weeks (around 04/23/2025). documented in this encounter Plan of Treatment DateTypeDepartmentCare Team (Latest Contact Info)Ewtchdcaing76/24/2025 11:00 AM ESTOffice Visit [facility] at [facility] [address] [place] [address] Luke Ashrfa MD [address] [place] [phone] NameTypePriorityAssociated DiagnosesOrder ScheduleB-type natriuretic peptideLab Routine Abnormal EKG Essential (primary) hypertension Shortness of breath Expected: 03/26/2025 (Approximate), Expires: 03/26/2026asic metabolic panelLab Routine Abnormal EKG Essential (primary) hypertension Shortness of breath Expected: 03/26/2025 (Approximate), Expires: 03/26/2026documented as of this encounter Visit Diagnoses Diagnosis Abnormal EKG- Primary Nonspecific abnormal electrocardiogram (ECG) (EKG) Essential (primary) hypertension Unspecified essential hypertension Shortness of breath documented in this encounter Care Teams Team MemberRelationshipSpecialtyStart [place] [address] [place] [address] #A [facility] - Uuwmlav23/20/25documented as of this encounter
--- OUTSIDE RECORDS SUMMARY | 2025-04-03 07:23 | XMS_ITS | Clinical Summary ---
Author Organization [facility] Address [address] [place], [place] [address] Care Team Providers Care Pump Technician Name Role Phone Tiffanie Mcintosh MD Primary Care Provider [phone] Allergies Active AllergyReactionsCriticalityNoted DateCommentsAmoxicillinDiarrhea 11/25/20131247MbskvbsnnhAcgwvxsn97/23/2014 Medications MedicationSigDispense QuantityRefillsLast FilledStart DateEnd DateStatus fluticasone [...] Take 0.25 tablets by mouth once daily.ctive P-Vuvcynw-W7 Pyct-Ukkbdn-Y15 (FOLTANX) 3-35-2 mg tab or Capsule Take 1 tablet by mouth once daily. 30 capsule 11011/12/2013ctive V-Gnydget-E1 Fomy-Capdsw-N40 (FOLTANX) 3-35-2 mg tab or Capsule Take [...] Problems ProblemNoted DateDiagnosed DateBenign neoplasm of cranial vdfmgf0301/17/2014 Resolved Problems ProblemNoted DateDiagnosed DateResolved DateCENTRAL ORIGIN QWIYKVH0904/18/2005 01/17/2014Peripheral vertigo, sobinlzcjew19 Social History Tobacco UseTypesPacks/DayYears UsedDateSmoking Tobacco: FormerCigarettesQuit: 11/14/1996Alcohol UseStandard Drinks/WeekCommentsNo0 (1 standard drink = 0.6 oz pure alcohol)CommentsNoSex and Gender InformationValueDate RecordedSex Assigned at BirthNot on fileLegal HqnDzcjjq91/02/2012 9:59 AM ESTGender Identity Not on fileSexual OrientationNot on file Last Filed Vital Signs Vital SignReadingTime TakenCommentsBlood Qkndncse948/7508 3:21 PM EDT Kamrq718001/17/2014 3:21 PM EDTTemperature--Respiratory Khht970401/01/2014 2:13 PM EDTOxygen Stouhjltft20%01/17/2014 3:21 PM EDTInhaled Oxygen Concentration-- Ekjwkl92.2 kg (135 lb)11/12/2013 12:56 PM EDTHeight--Body Mass Index-- Plan of Treatment Health MaintenanceDue DateLast DoneCommentsAnxiety Scnfaoswu60/17/1957Depression Ezpimktyr56/17/1957DTaP,Tdap,Td Vaccine (1 - Tdap)1957Diabetes Screening 08/20/1983Pneumococcal Vaccine: 50+ (1 of 1 - PCV)1988Shingrix Vaccine (1 of 2)1988Bone Density Vdigdkemi91/17/2004RSV Vaccine (1 - 1-dose 75+ series)2013dvance Directive Ifqgufulws43/01/2025ovid-19 Vaccine (2024-26 season)2025Influenza Vaccine (#1)2025 Insurance [facility] Address: [facility] [address] [place] [address] Care Teams Team MemberRelationshipSpecialtyStart DateEnd Date Tiffanie Mcintosh MD [address] [place] [address] PCP - GeneralFamily Medicine10/29/13
--- OUTSIDE RECORDS SUMMARY | 2025-04-03 07:23 | XMS_ITS | Clinical Summary ---
Author Organization [employer] Address [id number] [place] [address] Care Team Providers Care Auto Design Detailer Name Role Phone Unavailable Primary Care Provider Unavailabl e Social History Tobacco UseTypesPacks/DayYears UsedDateSmoking Tobacco: Never AssessedChildcare AnswerDate KphnnotuDfkmqoqjkPnygpev86/10/2019EmploymentAnswerDate Recorded NhhdcssxejMpqlxza22/10/2019Purpose - LifeAnswerDate RecordedPurpose and direction in csyvJqssubl20/10/2021CommentsUnknownSex and Gender InformationValueDate RecordedSex Assigned at BirthNot on fileLegal SexFemale 01/06/2015 12:41 PM EDTGender IdentityNot on fileSexual OrientationNot on file Last Filed Vital Signs Vital SignReadingTime TakenCommentsBlood Lowgkspx585/80106/10/2012 1:22 PM EST Pulse--Temperature--Respiratory Rate--Oxygen Saturation--Inhaled Oxygen Concentration--Faazww21.9 kg (132 lb)04/10/2013 1:19 PM HBEJnjoul278.9 cm (5' 1 )04/10/2013 1:19 PM ESTBody Mass Index24.9404/10/2013 1:19 PM EST Plan of Treatment Health MaintenanceDue DateLast DoneCommentsDepression Ndiivrbtf21/17/1951Tobacco Klppvtlml66/17/1951TaP,Tdap and Td Vaccines (1 - Tdap)1957Zoster (Shingles) Vaccine (1 of 2)1988Fall Risk Grjxvgzkd49/17/2004Influenza Dhhenzv3702/03/2025 Medical Devices Not on file Insurance
--- OUTSIDE RECORDS SUMMARY | 2025-04-03 07:23 | XMS_ITS | Clinical Summary ---
Author Organization [facility] Address [address] [place] [address] Care Team Providers Care Aquatic Biologist Name Role Phone Unavailable Primary Care Provider Unavailabl e Social History Tobacco UseTypesPacks/DayYears UsedDateSmoking Tobacco: Never Assessed CommentsUnknownSex and Gender InformationValueDate RecordedSex Assigned at Not on fileLegal OirIpyvib17/03/2013 7:27 AM ESTGender IdentityNot on fileSexual OrientationNot on file Plan of Treatment Health MaintenanceDue DateLast DoneCommentsDEXA SCAN YTZGVRSIHT23/17/1939TETANUS 1938TDAP (ADULT)1957CERVICAL CANCER SCREENING SWHACEOBAG91/17/1960 MAMMOGRAM SCREENING BUIAAXHQAN70/17/1979COLORECTAL CANCER SCREENING DISCUSSION 08/20/1983PNEUMOCOCCAL VACCINE SERIES (1 of 1 - PCV)1988ZOSTER (SHINGLES) VACCINE (1 of 2)1988RSV VACCINE (1 - 1-dose 75+ series)2013COVID-19 VACCINE (1 - 2024- season)2025INFLUENZA VACCINE (#1)2025HEP B VACCINEAged OutNo longer eligible based on patient's age to complete this topic
--- OUTSIDE RECORDS SUMMARY | 2025-04-03 07:23 | XMS_ITS | CCD ---
Author Organization [facility] Care Team Providers Care Facilities Painter Name Role Phone REQUEST, NONE LISTED Attending [...] Unavailable DOAN, DR TIFFANIE Valdivia Consulting Unavailable ZIEBSUBHA, DR LAMBERTO Breaux Consulting Unavailable DOAN, DR TIFFANIE Valdivia Primary Care Unavailable DOAN, DR TIFFANIE Valdivia Admitting Unavailable DOAN, DR TIFFANIE Valdivia Attending Unavailable DOAN, DR TIFFANIE Valdivia Consulting Unavailable Tiffanie Doan Unavailable Tiffanie Doan MD Primary Care Provider [phone] Tiffanie Doan MD Attending Provider Dioni Tineo DO Attending Provider Tiffanie Doan MD Primary Care Provider Tiffanie Doan MD Attending Provider Tiffanie Doan MD Other Provider Edyta Guzman MD Attending Provider Tiffanie Doan Attending Unavailable Tiffanie Doan Primary Care Unavailable Tiffanie Doan Admitting Unavailable DRE ARIAS Attending Unavailable Allergies Allergy ClassificationReported Allergen(s)Allergy TypeDate of OnsetReaction(s) FacilityAlendronate (1 source)AlendronateDrug Hbcwqwc59-88-4871CplloMzksbngbzParkwood HospitalCephalosporins (antibiotic) (3 sources)CephalexinDrug Dgptpqt39-96-9917ItrojxnrHshoskkqa ClinicClavulanate (1 source)ClavulanateDrug Bvaibln47-58-3432LnmxxMrcibyxgaParkwood HospitalCorticosteroids (1 source)TriamcinoloneDrug Enddtcc55-36-4853TmolyVoxfryxvuParkwood HospitalPenicillins (antibiotic) (2 sources)AmoxicillinDrug Aboguqs81-19-0616ZaopdmtnAwuvootrn ClinicSerotonin Reuptake Inhibitors (SSRIs) (1 source)CitalopramDrug Aupslbr67-35-6133Wahbdqn:not effective - felt more anxiousSelect Medical [facility]ty [facility] (15 sources)CephalexinDrug Qmgympo23-14-6527QglqkydPinSt. Anthony's Hospital Repository (12 sources)Amoxicillin; Translations: [AMOXICILLIN]Drug Zytruqo26-98-3864IzudqSCCI Hospital [facility] Repository (13 sources)AmoxicillinDrug AllergyUnkGoInformaticsscotland county memorial hospital [employer] Other (9 sources)AlendronateDrug AllergyUnkRSB SPINEProtoGeoscotland county memorial hospital [employer] Other (9 sources)Amoxicillin / ClavulanateDrug AllergyUnkNevada Regional Medical Center [employer] Other (20 sources)Citalopram; Translations: [CITALOPRAM]Drug Fqnkeeo05-03-2072 Comment:not effective - felt more anxiousSelect Medical Specialty [facility] Comment on above:Onset Date: 10/23/2019 (9 sources)TriamcinoloneDrug AllergyHudson HospitalGoInformaticsscotland county memorial hospital [employer] Other (9 sources)Keflex *CEPHALOSPORINS*Propensity to adverse reactionsSaint Luke's Health System [employer] Other (1 source)Allergies ReconciledPropensity to adverse reactionsUnkwScotland County Memorial Hospital [employer] Other (1 source)patient allergy list reviewed by nurse or physiciaPropensity to adverse dsosehsku65-97-8351Wxwwprj:[facility] [employer] Other (12 sources)Alendronate; Translations: [alendronate sodium]Drug Allergy 70-87-2282ImqnlMefjvuwdxParkwood Hospital (11 sources)Cephalexin; Translations: [cephalexin]Drug Uhjlpxf79-80-0572FwhuuPromedica Memorial Hospital (12 sources)Cephalosporins (Antibiotic); Translations: [Cephalosporins]Allergy to -03-5287HkjyqEcoaukebpParkwood Hospital (12 sources)Clavulanate; Translations: [clavulanic acid]Drug Zxglwpf35-85-5839 [facility] (12 sources)Triamcinolone; Translations: [triamcinolone]Drug Otqyajq90-44-4479 [facility] (7 sources)busPIRone; Translations: [buspirone]Drug Fybicmr18-21-2170UqcytnowJ.W. Ruby Memorial HospitalComment on above:headache and felt more nervous (1 source)AmoxicillinDrug Shzzdtg21-97-9394NihtadscsSelect Medical Specialty Hospital [facility] Repository (1 source)CitalopramDrug Zljlefd35-06-6720KgwqjwcpkSelect Medical Specialty Hospital [facility] Repository Medications Current Medications MedicationDrug Class(es)DatesSig (Normalized)Sig (Original)ascorbic acid 500 mg oral tablet (17 sources)Vitamin CStart: 47-51-7177lssi 1 tablet by mouth once dailyAscorbic Acid (Vitamin C) 500 mg tablet Active 500 MG PO Daily February 18, 2025 12:00am Complies with drug therapyStart: 56-87-1930pdon 0.5 tablet by mouth once dailyascorbic acid (VITAMIN C) 500 mg tablet Take 0.5 tablets by mouth once daily. 0 11/12/2013 ActiveVitamin C ActiveComment on above:Take 0.5 tablets by mouth once daily.Aspir-81 (13 sources)Aspir-81 Activeaspirin 81 mg delayed release oral tablet (18 sources)Platelet Aggregation Inhibitor, Nonsteroidal Anti-inflammatory Drug Start: 36-17-0521wsaf 1 tablet by mouth once dailyAspirin 81 mg tablet,delayed release (DR/EC) Active 81 MG PO Daily March 11, 2025 1:30pm Complies with drug therapyStart: 05-01-2024 End: 36-94-2473uoyx 1 tablet by mouth three times dailyAspirin 81 mg tablet,delayed release (DR/EC) Discontinued 81 MG PO Three times daily April 10:44am March 11, 2025 1:30pmStart: 10-20-2023 End: 33-67-1400lsdd 1 tablet by mouth once dailyAspirin 81 mg tablet,delayed release (DR/EC) Discontinued 81 MG PO Daily October 20, 2023 12:00am May 01, 2024 10:46amStart: 80-06-9545bkcu 1 tablet by mouth once dailyaspirin, enteric coated (ECOTRIN LOW STRENGTH) 81 mg EC tablet Take 1 tablet by mouth once daily. ActiveComment on above:Take 1 tablet by mouth once daily.Calcium (13 sources)Phosphate Binder, CalciumCalcium Activecalcium carbonate 1500 mg oral tablet (6 sources)Start: 08-70-6822oetw 1 tablet by mouth once dailyCalcium Carbonate 600 mg calcium (1,500 mg) tablet Active 600 MG PO Daily October 16, 2024 12:00am Complies with drug therapyStart: 84-71-5738oxlm 0.25 tablet by mouth once daily calcium carbonate 600 mg (1,500 mg) tab Take 0.25 tablets by mouth once daily. 0 11/12/2013 ActiveComment on above:Take 0.25 tablets by mouth once daily. clopidogrel 75 mg oral tablet (20 sources)P2Y12 Platelet InhibitorStart: 16-09-9968Etsarolepdr 75 mg tablet Active 0 .ROUTE .COMPLEX July 01, 2024 5:15pm TAKE 1 TABLET ONCE DAILY Complies with drug therapyStart: 07-27-2023 End: 70-85-2363qbvf 1 tablet by mouth once dailyClopidogrel 75 mg tablet Discontinued 75 MG PO Daily July 27, 2023 10:14am July 01, 2024 5:15pm FreeTextSi tablet Orally once a day; Note: Source Status: Taking; Refills: 3; Provider: Dayna Longoria 1 tablet by mouth every twenty-four [...] oral tablet (3 sources)Angiotensin 2 Receptor BlockerStart: 85-47-7643exgz 1 tablet by mouth once dailyLosartan 50 mg tablet Active 50 MG PO daily February 18, 2025 12:00am Complies with drug therapyMagnesium (18 sources)Start: 75-82-0463inco 1 tablet by mouth once dailyMagnesium 250 mg tablet Active 250 MG PO Daily October 16, 2024 12:00am Complies with drug therapy Start: 57-71-4254oock 1 tablet by mouth once dailyStart: 76-28-7119chqq 1 tablet by mouth once dailyMagnesium 250 mg tablet Active 250 MG PO Daily October 16, 2024 12:00amMagnesium ActiveMecobal-Levomefolat Ca-B6 Phos (Foltanx) 2-3-35 mg tablet (5 sources)Start: 14-80-5534Eisggck-Levomefolat Ca-B6 Phos (Foltanx) 2-3-35 mg tablet Active 0 .ROUTE .COMPLEX June 5:15pm TAKE 1 TABLET ONCE DAILY Complies with drug therapyStart: 58-19-4528Guckf: 12-00-6000Dibeidi- Levomefolat Ca-B6 Phos (Foltanx) 2-3-35 mg tablet Active 0 .ROUTE .COMPLEX June 5:15pm TAKE 1 TABLET ONCE DAILY24 hr metoprolol succinate 50 mg extended release oral tablet (20 sources)beta-Adrenergic BlockerStart: 41-73-0239Waucycofds Succinate 50 mg tablet extended release 24 hr Active 0 .ROUTE .COMPLEX July 1:44pm TAKE 1 TABLET ONCE DAILY Complies with drug therapyStart: 10-20-2023 End: 21-27-9215vmas 1 tablet by mouth once dailyMetoprolol Succinate 50 mg tablet extended release 24 hr Discontinued 1 TAB PO Daily October 192:00am July 29, 2024 1:45pm FreeTextSi tablet Orally Once a day; Note: Source Status: Refill; Provider: Dayna Moreno EStart: 83-01-8654qxql 1 tablet by mouth every twenty-four hoursToprol XL 25 MG 1 tablet Orally Once a day for 30 day(s) May, Activetake 1 tablet by mouth every twenty-four hoursMetoprolol Succinate ER 50 MG 1 tablet Orally Once a day for 90 days ActivePsyllium (6 sources)Metamucil Activerosuvastatin calcium 20 mg oral tablet (20 sources)HMG-CoA Reductase InhibitorStart: 04-43-4940ssuq 1 tablet by mouth every other dayRosuvastatin 20 mg tablet Active 20 MG PO .QOD October 16, 2024 9:29am Complies with drug therapyStart: 07-29-2024 End: 21-71-9610Fywfebqivtxq 20 mg tablet Discontinued 0 .ROUTE .COMPLEX July 29, 2024 1:44pm October 16, 2024 9:31am TAKE 1 TABLET DAILYStart: 05-01-2024 End: 45-20-6014hsji 2 tablets by mouth every other dayRosuvastatin 20 mg tablet Discontinued 40 MG PO .qod May 01, 2024 10:43am July 29, 2024 1:45pmStart: 10-25-2023 End: 42-89-0263lejd 2 tablets by mouth once dailyRosuvastatin 20 mg tablet Discontinued 40 MG PO Daily October 25, 2023 10:33am May 01, 2024 10:46am Start: 41-76-5629tstp 40 mg by mouth once dailyRosuvastatin Active 40 MG PO Daily October 25, 2023 9:33amStart: 07-27-2023 End: 69-05-6821azom 1 tablet by mouth once dailyRosuvastatin 20 mg tablet Discontinued 20 MG PO Daily July 27, 2023 10:14am October 240:33am take 1 tablet by mouth every other dayRosuvastatin Calcium 20 MG 1 tablet Orally every other day for 90 days ActiveVitamin D3 (13 sources)Vitamin D3 Active Completed/Discontinued Medications MedicationDrug Class(es)DatesSig (Normalized)Sig (Original)amLODIPine 5 mg oral tablet (20 sources)Dihydropyridine Calcium Channel BlockerStart: 05-01-2024 End: 78-17-0123Enviyutjgj 5 mg tablet Discontinued 5 MG PO .prn May 01, 2024 1:00am February 18, 2025 2:04pmStart: 12-19-2023 End: 24-46-1775wcef 1 tablet by mouth once dailyAmlodipine 5 mg tablet Discontinued 5 MG PO Daily December 19, 2023 11:36am January 22, 2024 11:24am busPIRone hydrochloride 15 mg oral tablet (11 sources)Start: 06-13-2024 End: 02-91-9636mxqj 1 tablet by mouth twice dailyBuspirone 15 mg tablet Discontinued 15 MG PO Twice daily 60 July 10, 2024 9:17am October 16, 2024 9:28amcholecalciferol 0.025 mg oral capsule (11 sources)Vitamin DStart: 10-20-2023 End: 89-29-6743zwvp 1 capsule by mouth once dailyCholecalciferol (Vitamin D3) 25 mcg (1,000 unit) capsule Discontinued 25 MCG PO Daily October 20, 2023 12:00am October 16, 2024 9:28amStart: 38-86-7399gzhx 1 capsule by mouth once daily cholecalciferol, vitamin D3, (VITAMIN D-3) 400 unit cap Take 1 capsule by mouth once daily. 0 11/12/2013 ActiveComment on above:Take 1 capsule by mouth once daily.diazePAM 2 mg oral tablet (20 sources)BenzodiazepineStart: 10-20-2023 End: 04-20-2121atqg 0.5 tablet by mouth once daily as neededDiazepam 2 mg tablet Discontinued MG PO October 20, 2023 12:00am May 01, 2024 1:34pm FreeTextSi /2 tab Orally Once a day, prn; Note: Source Status: Refill; Refills: 0; Provider: Dayna Moreno EStart: 07-34-1389nmpj 0.5 tablet by mouth once daily as neededdiazePAM 2 MG 1/2 tab Orally Once a day, prn for 90 days May, ActiveStart: 33-99-0846ugze 0.5 tablet by mouth once daily as neededdiazePAM 2 MG 1/2 tab Orally Once a day, prn for 30 days Mar, ActiveStart: 91-38-3123feip 1 tablet by mouth twice dailydiazepam (VALIUM) 5 mg tablet Take 1 tablet by mouth twice daily. 0 11/12/2013 ActivediazePAM 2 MG 1/2 tab prn ActiveComment on above:Take 1 tablet by mouth twice daily.fluticasone furoate 0.0275 mg/actuat metered dose nasal spray (11 sources)CorticosteroidStart: 10-20-2023 End: 47-14-7014ulid 2 spray(s) nasal route once daily, then take 1 spray(s) nasal route once dailyFluticasone Furoate 27.5 mcg/actuation spray,suspension Discontinued 2 SPRAY INTRANASAL Daily October 20, 2023 12:00am January 22, 2024 11:16am FreeTextSi sprays (1 spray in each nostril) Nasally Once a day; Note: Source Status: Taking; Provider: Dayan Moreno ( )Start: 75-57-2708wsdwlitgeva (FLONASE) 50 mcg/actuation nasal spray 2 Sprays once daily as needed. 0 11/12/2013 ActiveComment on above:2 Sprays once daily as needed. hydroCHLOROthiazide 12.5 mg / lisinopril 10 mg oral tablet (1 source)Thiazide Diuretic, Angiotensin Converting Enzyme InhibitorStart: 12-44-3069yapr 1 tablet by mouth once dailylisinopril-hydrochlorothiazide 10- 12.5 mg per tablet Take 1 tablet by mouth once daily. 0 11/12/2013 ActiveComment on above:Take 1 tablet by mouth once daily.hydrOXYzine hydrochloride 10 mg oral tablet (20 sources)AntihistamineStart: 01-23-2024 End: 35-65-4473wslw 1 tablet by mouth three times daily as needed for anxiety Hydroxyzine Hcl 10 mg tablet Discontinued 10 MG PO Three times daily as needed for anxiety 30 May 01, 2024 1:35pm May 14, 2024 4:13pm D-Ylproua-N5 Uinu-Jruorc-Y47 (FOLTANX) 3-35-2 mg tab or Capsule (2 sources)Start: 34-99-5800peum 1 tablet by mouth once ifvaxM-Wrsjhqn-V6 Rtzu-Mhbeqf-Z65 (FOLTANX) 3-35-2 mg tab or Capsule Take 1 tablet by mouth once daily. 30 capsule 11 11/12/2013 ActiveComment on above:Take 1 tablet by mouth once daily.meclizine hydrochloride 25 mg oral tablet (1 source)AntiemeticStart: 16-67-1073jgku 0.5 tablet by mouth once daily as needed for dizzinessmeclizine 25 mg tab Take 0.5 tablets by mouth once daily as needed (for dizziness.). 0 11/12/2013 ActiveComment on above:Take 0.5 tablets by mouth once daily as needed (for dizziness.).Mecobal-Levomefolat Ca-B6 Phos (Foltanx) 3-35-2 mg tablet (10 sources)Start: 10-20-2023 End: 86-26-1187gdkx 1 tablet by mouth twice dailyMecobal-Levomefolat Ca-B6 Phos (Foltanx) 3-35-2 mg tablet Discontinued 1 TAB PO Twice daily October 20, 2023 12:00am July 01, 2024 5:15pmStart: 83-31-5308lenr 1 tablet by mouth twice dailyMecobal-Levomefolat Ca-B6 Phos (Foltanx) 3-35-2 mg tablet Active 1 TAB PO Twice daily October 19, 2023 11:00pmStart: 99-14-4708uzfl 1 tablet by mouth twice dailyMecobal-Levomefolat Ca-B6 Phos (Foltanx) 3-35-2 mg tablet Active 1 TAB PO Twice daily October 20, 2023 12:00amolmesartan medoxomil 40 mg oral tablet (20 sources)Angiotensin 2 Receptor BlockerStart: 10-16-2023 End: 27-54-9943Adyebnxgvj 40 mg tablet Discontinued 0 .ROUTE .COMPLEX 90 October 16, 2023 12:38pm May 01, 2024 10:43am TAKE 1 TABLET DAILYStart: 07-26-2023 End: 75-29-8578bdfg 1 tablet by mouth once dailyOlmesartan 40 mg tablet Discontinued 40 MG PO Daily August 02, 2023 2:42pm October 16, 2023 12:39pm take 1 tablet by mouth once dailyOlmesartan Medoxomil 40 MG 1 tab Orally daily for 30 days Activetake 1 tablet by mouth once dailyOlmesartan Medoxomil 20 MG 1 tab Orally daily Activepromethazine hydrochloride 25 mg oral tablet (7 sources)PhenothiazineStart: 44-04-2804ezny 0.5 tablet by mouth once daily as needed for nauseapromethazine 25 mg tablet Take 0.5 tablets by mouth once daily as needed for Nausea/Vomiting. 0 11/12/2013 ActivePromethazine HCl 25 MG 1 tablet as needed prn ActiveComment on above:Take 0.5 tablets by mouth once daily as needed for Nausea/Vomiting.tiZANidine 4 mg oral tablet (20 sources)Central alpha-2 Adrenergic AgonistStart: 10-20-2023 End: 28-23-3570swwu 1 tablet by mouth three times daily as neededTizanidine 4 mg tablet Discontinued 4 MG PO Three times daily October 20, 2023 12:00am April 10:44am FreeTextSi tablet as needed Orally Three times a day; Note: Source Status: Taking;Provider: Dayna Moreno ( )take 1 tablet by mouth every eight hourstiZANidine HCl 4 MG 1 tablet as needed Orally Three times a day Activetriamcinolone acetonide 40 mg/ml injectable suspension (13 sources)CorticosteroidStart: 23-32-6036Zdqwghv-40 October, 40 mg Problems Active Problems Problem ClassificationProblemDateDocumented DateEpisodic/ChronicAcute cerebrovascular disease (1 source)Cerebral infarction; Translations: [Cerebral infarction, unspecified] ChronicAdjustment disorders (14 sources)Stress; Translations: [Reaction to severe stress, unspecified] 01-06-9956BlxzbwoZjprkar disorders (15 sources)Generalized anxiety disorder; Translations: [Generalized anxiety disorder]ChronicCardiac dysrhythmias (1 source)Cardiac arrhythmia; Translations: [Cardiac arrhythmia, unspecified] ChronicCardiac dysrhythmias (1 source)Palpitations; Translations: [Palpitations]12-02-9644XvlalygtMujzfdbum of lipid metabolism (20 sources)Hyperlipidemia; Translations: [Hyperlipidemia, unspecified]Chronic Essential hypertension (20 sources)Essential hypertension; Translations: [Essential (primary) hypertension]Onset: 22-47-7748YtbpkpgHdotuufm; including migraine (1 source)Episodic tension-type headache; Translations: [Episodic tension type headache]Onset: 60-67-7414QopckruZlwmjvhpsufxt and screening for infectious disease (8 sources)Vaccination given; Translations: [Encounter for immunization] 10-03-5358YdlfhqwjAlzdwgi and fatigue (7 sources)Fatigue; Translations: [Other fatigue]64-63-8067HeukluufOjupou and vomiting (1 source)Nausea; Translations: [Nausea]EpisodicNonspecific chest pain (1 source)Chest pain, unspecified; Translations: [Chest pain, unspecified]Onset: 53-58-7540MbjqhtucWkaicywkplr deficiencies (14 sources)Vitamin D deficiency; Translations: [Vitamin D deficiency, unspecified]ChronicNutritional deficiencies (3 sources)Deficiency of other specified B group vitaminsEpisodicOsteoarthritis (1 source)Osteoarthritis; Translations: [Unspecified osteoarthritis, unspecified site]ChronicOsteoporosis (1 source)Primary osteoporosis; Translations: [Age-related osteoporosis without current pathological fracture]Onset: 33-75-8845ZwjrxriInvsj and unspecified benign neoplasm (3 sources)Benign neoplasm of cranial nerve; Translations: [Benign neoplasm of cranial nerves]Onset: 205882-15-8349FasuomuVhngf and unspecified benign neoplasm (3 sources)Benign neoplasm of cranial nerves; Translations: [BENIGN NEOPLASM OF CRANIAL NERVES]Onset: 32-05-7751WcksnhuSyhfe circulatory disease (1 source)Elevated blood-pressure reading without diagnosis of hypertension; Translations: [Elevated blood-pressure reading, without diagnosis of hypertension]EpisodicOther circulatory disease (1 source)Personal history of transient ischemic attack (TIA), and cerebral infarction without residual deficitsEpisodicOther connective tissue disease (2 sources)Spasm; Translations: [Spasm of muscle]Onset: 09-99-5588CdbuyfgyZggiy gastrointestinal disorders (12 sources)Abnormal feces; Translations: [Other fecal abnormalities]Episodic Other gastrointestinal disorders (1 source)Other fecal abnormalities; Translations: [Positive colorectal cancer screening using Cologuard test]EpisodicOther lower respiratory disease (1 source)Other forms of dyspneaEpisodicOther lower respiratory disease (2 sources)Shortness of breath; Translations: [Shortness of breath]Onset: 89-51-1413XfomeuhvTgwni non-traumatic joint disorders (1 source)Pain in right hip joint; Translations: [Pain in right hip]Episodic Other screening for suspected conditions (not mental disorders or infectious disease) (9 sources)Encounter for screening mammogram for malignant neoplasm of breast; Translations: [Electrocardiogram abnormal]Onset: 19-14-5645SmozvficRaoql upper respiratory disease (20 sources)Seasonal allergic rhinitis; Translations: [Other seasonal allergic rhinitis]88-63-0389UfedtzwLmgxcdopqv and visceral atherosclerosis (5 sources)Peripheral vascular disease, unspecified; Translations: [Peripheral vascular disease]Onset: 96-43-3544EymyecmJiyrzpbm codes; unclassified (8 sources)Restlessness and agitation; Translations: [Restlessness and agitation]40-19-2540LtxpgetJtdhdopl codes; unclassified (2 sources)Restlessness and agitation; Translations: [Other and unspecified special symptoms or syndromes, notelsewhere classified]08-12-0236NosqdduWxakcmdg codes; unclassified (1 source)Family history of malignant [...] without myelopathy; Translations: [Lumbosacral spondylosis without myelopathy]Onset: 02-49-7437GbxibklTlzclmkpd cerebral ischemia (1 source)Transient cerebral ischemia; Translations: [Transient cerebral ischemic attack, unspecified]ChronicUnclassified (1 source)R94.31 - Abnormal electrocardiogram [ECG] [EKG],R53.83 - Other fatigue Past or Other Problems Problem ClassificationProblemDateDocumented DateEpisodic/ChronicAllergic reactions (1 source)Contact dermatitis; Translations: [Contact dermatitis and other eczema, due to unspecified cause]Onset: 06-23-9650DssnjuzqXghumf of ovary (1 source)History of malignant neoplasm of ovary; Translations: [Personal history of malignant neoplasm of ovary]Onset: 85-12-5665RnigejjeOxwaxvpsuc associated with dizziness or vertigo (2 sources)Benign paroxysmal positional vertigo; Translations: [Benign paroxysmal positional vertigo]Onset: 87-36-2172YkzcroluOczkt connective tissue disease (1 source)Pain in left lower limb; Translations: [Pain in left leg]Onset: 06-74-7430MgrjgfdsNlvoh non-traumatic joint disorders (4 sources)Pain in right hip; Translations: [PAIN IN RIGHT HIP]Onset: 07-14-2021 EpisodicOther non-traumatic joint disorders (1 source)Shoulder joint pain; Translations: [Pain in left shoulder]Onset: 02-83-6648RdkbsvzwNudsk non-traumatic joint disorders (1 source)Arthralgia of the lower leg; Translations: [Pain in joint, lower leg] Onset: 13-80-0976BbpenrhyKdhhb upper respiratory infections (1 source)Acute maxillary sinusitis; Translations: [Acute recurrent maxillary sinusitis]Onset: 95-08-8303KuviibssAhyrszchu; thrombophlebitis and thromboembolism (1 source)Embolism from thrombosis of vein of distal lower extremity; Translations: [Acute venous embolism and thrombosis of unspecified deep vessels of lower extremity]Onset: 51-21-8232KmxdjyuaWgruqeun codes; unclassified (1 source)Family history of malignant neoplasm of breast; Translations: [FAMILY HX MALIG NEOPLASM OF BREAST]Onset: 41-02-0220FpigurewIfepqiub codes; unclassified (1 source)Family history of malignant neoplasm of digestive organs; Translations: [FAM HX MALIG NEOPLASM DIGESTIV ORGN]Onset: 37-46-5097Dlnwlaug Screening and history of mental health and substance abuse codes (1 source)History of tobacco use; Translations: [Personal history of tobacco use, presenting hazards to health]Onset: 28-16-7699OwlbaxjbBxkl and subcutaneous tissue infections (1 source)Cellulitis and abscess of lower leg; Translations: [Cellulitis and abscess of leg, except foot]Onset: 23-36-4414AizijulxFknjukaocfmy (1 source)Need for prophylactic vaccination with tetanus toxoid alone; Translations: [Need for prophylactic vaccination with tetanus toxoid alone] Onset: 05-01-2013 Results Test NameValueInterpretationReference RangeFacilityOffice Visiton 03-26-2025 Follow-up [id number] Shabnam Garsia 1940 F Date Provider Department Center 03/26/2025 245-DRE ARIAS CARD [facility] Family History Problem Relation Age of Onset Accidental Mother Heart failure Father Deep vein thrombosis Father COPD Brother Heart disease Brother Heart failure Brother Suicidality Son Family Status - Relation Status Age at Mother Father Sister Alive Brother Brother Son Son Alive Level of Service:[id number] ID OFFICE/OUTPATIENT NEW MODERATE MDM 45 MINUTES Reason for Visit and Comments: New Patient [632] - Patient is here today to establish care with cardiology. Patient recently had and abnormal EKG.Patient denies chest pain, racing heart/palpitations, leg swelling, dizziness/lightheaded. Fatigue [46] - Increased fatigue Shortness of Breath [294376] - SOB/VEGA occasional with getting out of chair and walking Hypertension [501078] Hyperlipidemia [182] Abnormal ECG [293]NormalUnSelect Medical Specialty Hospital - AkronOrders Onlyon 97-27-5628Lwmhdb [id number] Shabnam Garsia 1940 F Date Provider Department Center 03/24/2025 [id number], HISTORICAL CARD [facility] Family History Problem Relation Age of Onset Accidental Mother Heart failure Father Deep vein thrombosis Father COPD Brother Heart disease Brother Heart failure Brother Suicidality Son Family Status - Relation Status Age at Mother Father Sister Alive Brother Brother Son Son AliveNormalUniversJoint Township District Memorial HospitalFPG ECG *PCP OFFICE ONLY*on 40-42-9420XOM ECG *PCP OFFICE ONLY*[facility] [address] [place] [address] [place] [address] Electrocardiograph Report Signed Patient: Shabnam Garsia MR#: [id number] 90 : 1940 Acct:[id number] Age/Sex: 84 / F ADM Date: 02/18/25 Loc: EKGBALL Room: Type: [facility] Attending Dr: Tiffanie Doan MD Ordering Provider: [...] undetermined Abnormal ECG Confirmed by Edyta Guzman ([id number]) on 02/18/2025 4:11:45 PM Referred By: Electronically Signed By: Edyta Guzman Transcribed By: MUS Signed By Edyta Guzman MD [address] [place] [address] Physician GroupLaboratory - Chemistry and Chemistry - challengeOrdered By: Tiffanie Doan on 91-01-1389Gmfk T4 [Mass/Vol]0.97 ng/dL 0.76-1.46[facility] Qn2.002 m[IU]/L0.358-3.740 [facility] - Chemistry and Chemistry - challengeon 52-39-2695Sxwl T4 [Mass/Vol]0.95 ng/dL0.76-1.46[facility] Qn2.528 m[IU]/L0.358-3.740[facility] Basophils Auto (Bld) [#/Vol]on 68-37-1559Lwvpkoypw (Bld) [#/Vol]0.0 10 3/uL 0.0-0.1FBellevue HospitalBasophils/100 WBC Auto (Bld)on 22-27-3315Ksyxwbwre/100 WBC (Bld)0.5 %0.2-2.0[facility] Eosinophils/100 WBC Auto (Bld)on 07-35-4209Cxzfgtfhaii/100 WBC (Bld)1.9 %0.9-7.0 [facility]hillErythrocyte distribution width Auto (RBC) [Ratio]on 65-36-1118Irtfcodrdzd distribution width (RBC) [Ratio]13.8 %11.0-15.0 [facility]-FairhillEstimated glomerular filtration rate (GFR) non- Americanon 04-96-9378WNM/1.73 sq M.predicted among non-blacks MDRD (S/P/Bld) [Vol rate/Area]50 mL/min/{1.73_m2}Low>=60[facility]hillGlobulin Calc (S) [Mass/Vol]on 16-68-0615Xykpwnlb (S) [Mass/Vol]3.4 g/dL [facility]hillHematocrit Auto (Bld) [Volume fraction]on 92-27-0836Qhbolvdijd (Bld) [Volume fraction]40.7 %36.0-48.0[facility]-FairhillHemoglobin [Mass/volume] in Bloodon 45-13-6917Iqhpbohjyr (Bld) [Mass/Vol]13.0 g/dL12.0-16.0[facility]Labor[facility] - Chemistry and Chemistry - challengeon 29-56-7591Bfqidaj [Mass/Vol]3.3 g/dLLow 3.4-5.0[facility]hillALP [Catalytic activity/Vol]63 U/L46-116 [facility]hillALT [Catalytic activity/Vol]20 U/L14-59 [facility]AST [Catalytic activity/Vol]19 U/L15-37 [facility]hillBilirubin [Mass/Vol]1.2 mg/dLHigh0.2-1.0 [facility]hillCalcium [Mass/Vol]8.4 mg/dLLow8.5-10.1FBellevue HospitalChloride [Moles/Vol]104 mmol/I40-585RphuvurkfSelect Medical Specialty Hospital - Cleveland-FairhillCO2 [Moles/Vol]28.4 mmol/L21.0-32.0[facility]hillCreatinine [Mass/Vol]1.05 mg/dLHigh0.55-1.02[facility]hillGFR/1.73 sq M.predicted MDRD (S/P/Bld) [Vol rate/Area]mL/min/{1.73_m2}>=60 [facility]hillGlucose [Mass/Vol]104 mg/hF35-639NavzacktsSelect Medical Specialty Hospital - [facility]-FairhillPotassium [Moles/Vol]3.8 mmol/L3.5-5.1FBellevue HospitalProtein [Mass/Vol]6.7 g/dL6.4-8.2FBellevue Hospital Sodium [Moles/Vol]140 mmol/E976-073FcrwtktrsSelect Medical Specialty Hospital - [facility]-FairhillUrea nitrogen [Mass/Vol]17.0 mg/dL7.0-18.0[facility]-FairhillUrea nitrogen/Creatinine [Mass ratio]16.2 mg/mgSelect Medical Specialty [facility] Laboratory - Hematology and Cell countson 15-27-0531Sqigsvdh granulocytes/100 WBC (Bld)0.3 %0.0-0.5FBellevue HospitalLeukocytes [#/volume] corrected for nucleated erythrocytes in Blood by Automated counon 59-88-1759ZDI corrected for nucl RBC Auto (Bld) [#/Vol]6.2 10 3/uL4.0-11.0[facility]FairhillLymphocytes Auto (Bld) [#/Vol]on 46-90-6682Kxjktpsokuv (Bld) [#/Vol]1.4 10 3/uL1.2-3.8[facility]FairhillLymphocytes/100 WBC Auto (Bld)on 62-32-8490Ndaqexlfrxn/100 WBC (Bld)22.4 %20.5-60.0[facility]-FairhillMCH Auto (RBC) [Entitic mass]on 25-81-9001CWZ (RBC) [Entitic mass]32.3 pg26.7-34.0[facility]-FairhillMCHC Auto (RBC) [Mass/Vol]on 43-85-4341ALHB (RBC) [Mass/Vol]31.9 g/dL29.9-35.2FBellevue HospitalMCV Auto (RBC) [Entitic vol]on 43-92-0610XRU (RBC) [Entitic vol] 101.0 jLFcmp37.0-99.0[facility]hillMonocytes Auto (Bld) [#/Vol]on 97-61-4392Fqwzfqasv (Bld) [#/Vol]0.5 10 3/uL0.3-0.8[facility]FairhillMonocytes/100 WBC Auto (Bld)on 87-42-2699Njnndzjhl/100 WBC (Bld) 7.4 %1.7-12.0[facility]-FairhillNeutrophils Auto (Bld) [#/Vol]on 28-43-7851Okapxoaprhv (Bld) [#/Vol]4.2 10 3/uL1.4-6.5FBellevue HospitalNeutrophils/100 WBC Auto (Bld)on 51-48-8536Xprwshrrkln/100 WBC (Bld)67.5 % 43.0-75.0[facility]hillNo Panel Informationon 12-10-2023 Eosinophils # (Auto)0.1 10 3/uL0.0-0.7FBellevue HospitalImmature Granulocyte # (Auto)0.02 10 3/uL0.00-0.03[facility] Troponin I High Sensitivity7.0 pg/mL4.0-51.3FBellevue Hospital Comment on above:CUT-OFF POINTS HAVE BEEN ESTABLISHED [...] INFORMATION.Platelet mean volume Auto (Bld) [Entitic vol]on 66-19-7574Tosmvcol mean volume (Bld) [Entitic vol] 10.7 fL9.5-13.5FBellevue HospitalPlatelets Auto (Bld) [#/Vol]on 60-96-4560Cbpgjqljp (Bld) [#/Vol]172 10 3/mB743-407LuktupbwqSelect Medical Specialty Hospital [facility]-FairhillRBC Auto (Bld) [#/Vol]on 40-15-5475YTK (Bld) [#/Vol]4.03 10 6/uLLow 4.20-5.40[facility] Medical Centererum or plasma albumin/globulin mass ratioon 54-10-6162Vkpbxre/Globulin [Mass ratio]1.0 {ratio}[facility] Centererum or plasma anion gap determinationon 90-38-9020Emmhv gap [Moles/Vol]11.4 mmol/LFBellevue HospitalCBC AUTO DIFFon 95-64-4841RFQR #0.0 103/ulNormal0.0-0.1The [facility] HospitalComment on above: Performed By: #### DATCBC #### [facility] [address] [place] [address] Dr. Kin AcunaBasophils/100 WBC (Bld)0.7 %Normal0.2-2.0[facility] Comment on above:Performed By: #### DATCBC #### [facility] [address] [address] [address] Kin Yeh #0.1 103/ulNormal0.0-0.7The [facility] HospitalComment on above: Performed By: #### DATCBC #### [facility] [address] [address] [address] Kin Tanosinophils/100 WBC (Bld)1.6 %Normal0.9-7.0[facility] Comment on above:Performed By: #### DATCBC #### [facility] [address] [address] [address] Kin Tanrythrocyte distribution width (RBC) [Ratio]13.3 %Kaftem44.0-15.0 [facility] HealthComment on above:Performed By: #### DATCBC #### [facility] [address] [place] [address] Dr. Kin AcunaHematocrit (Bld) [Volume fraction]41.4 %Iminip08.0-48.0The [facility] HospitalComment on above:Performed By: #### DATCBC #### [facility] [address] [place] [address] Dr. Kin AcunaHemoglobin (Bld) [Mass/Vol]13.0 g/sCXurcla96.0-16.0The [facility] HospitalComment on above:Performed By: #### DATCBC #### [facility] [address] [place] [address] Dr. Kin Grady #0.01 10e3/ulNormal0.00-0.03The [facility]irie[facility] HospitalComment on above:Performed By: #### DATCBC #### [facility] [address] [place] [address] Dr. Kin Grady %0.2 %Normal0.0-0.5The [facility] HospitalComment on above: Performed By: #### DATCBC #### [facility] [address] [place] [address] Dr. Kin Bhat #1.8 103/ulNormal1.2-3.8The [facility] HospitalComment on above:Performed By: #### DATCBC #### [facility] [address] [place] [address] Dr. Kin Hanhocytes/100 WBC (Bld)32.8 %Reqvgk46.5-60.0The [facility] HospitalComment on above:Performed By: #### DATCBC #### [facility] [address] [place] [address] Dr. Kin Gillis (RBC) [Entitic mass]31.4 vwArbpjp96.7-34.0The [facility] HospitalComment on above:Performed By: #### DATCBC #### [facility] [address] [place] [address] Dr. Kin Gillis (RBC) [Mass/Vol]31.4 g/ePOiusnb94.9-35.2The [facility] HospitalComment on above:Performed By: #### DATCBC #### [facility] [address] [place] [address] Dr. Kin GillisV (RBC) [Entitic vol]100.0 fLCritically high81.0-99.0The [facility] HospitalComment on above:Performed By: #### DATCBC #### [facility] [address] [place] [address] Dr. Kin Yin #0.5 103/ulNormal0.3-0.8The [facility] HospitalComment on above:Performed By: #### DATCBC #### [facility] [address] [place] [address] Dr. Kin Villavicencioocytes/100 WBC (Bld)8.3 %Normal1.7-12.0[facility] Comment on above:Performed By: #### DATCBC #### [facility] [address] [place] [address] Dr. Kin Kan #3.1 103/ulNormal1.4-6.5The [facility] HospitalComment on above:Performed By: #### DATCBC #### [facility] [address] [place] [address] Dr. Kin Cobbutrophils/100 WBC (Bld)56.4 %Xmpvlr20.0-75.0The [facility] HospitalComment on above:Performed By: #### DATCBC #### [facility] [address] [place] [address] Dr. Kin Newbylet mean volume (Bld) [Entitic vol]10.7 fLNormal9.5-13.5The [facility] HospitalComment on above:Performed By: #### DATCBC #### [facility] [address] [place] [address] Dr. Kin AcunaPLT171 103/jrWnixsk224-649Ffy [facility] HospitalComment on above: Performed By: #### DATCBC #### [facility] [address] [place] [address] Dr. Kin AcunaRBC4.14 106/ulCritically low4.20-5.40The [facility] HospitalComment on above:Performed By: #### DATCBC #### [facility] [address] [address] [address] Kin AcunaWBC5.6 103/ulNormal4.0-11.0The [facility] HospitalComment on above: Performed By: #### DATCBC #### [facility] [address] [address] [address] Kin Becerra- SAHRA WITH LIPIDon 53-04-9771Cifsb gap [Moles/Vol]9.2 mmol/L NormalThe [facility] Community HospitalComment on above:Performed By: #### DATBMP #### [facility] [address] [address] [address] Kin AcunaCalcium [Mass/Vol]8.8 mg/dLNormal8.5-10.1[facility] Comment on above:Performed By: #### DATBMP #### [facility] [address] [address] [address] Kin AcunaChloride [Moles/Vol]106 mmol/MMlujgb99-647Rcw [facility] Comment on above:Performed By: #### DATBMP #### [facility] [address] [address] [address] Kin AcunaCholesterol [Mass/Vol]152 mg/dLNormal<=200The [facility] Comment on above:Performed By: #### DATBMP #### [facility] [address] [address] [address] Kin AcunaCholesterol in HDL [Mass/Vol]90 mg/dLCritically gzjl32-04Rrj [facility] HospitalComment on above:Performed By: #### DATBMP #### [facility] [address] [address] [address] Kin AcunaCholesterol in LDL [Mass/Vol]57.8 mg/dLNormalThe [facility] HospitalComment on above:Performed By: #### DATBMP #### [facility] [address] [address] [address] Kin AcunaCO2 [Moles/Vol]29.0 mmol/NSjahol56.0-32.0[facility] Comment on above:Performed By: #### DATBMP #### [facility] [address] [address] [address] Kin AcunaCreatinine [Mass/Vol]1.04 mg/dLCritically high0.55-1.02Uc HealthComment on above:Performed By: #### DATBMP #### [facility] [address] [address] [address] Kin TanGFR-AF CZECH>60Normal>=60The [facility] HospitalComment on above:Performed By: #### DATBMP #### [facility] [address] [address] [address] Kin Perrin-NON AF RODPHRIX99 mL/min/1.25x6Nyuwpzbyur low>=60Uc HealthComment on above:Performed By: #### DATBMP #### [facility] [address] [place] [address] Dr. Kin AcunaGlucose [Mass/Vol]97 mg/jSOciyob89-380HhjUc Health Comment on above:Performed By: #### DATBMP #### [facility] [address] [place] [address] Dr. Kin Spear NORMAL> or = 60 mg/dl - LOW CARDIOVASCULAR RISK <40 mg/dl - HIGH CARDIOVASCULAR RISKSouthern Ohio Medical CenterComment on above:Performed By: #### DATBMP #### [facility] [address] [place] [address] Dr. Kin AcunaLDL CALC NORMALSEE BELOWSouthern Ohio Medical CenterComment on above:Result Comment: <100 mg/dl OPTIMAL 100 - 129 mg/dl NEAR OR ABOVE OPTIMAL 130 - 159 mg/dl BORDERLINE HIGH 160 - 189 mg/dl HIGH >190 mg/dl VERY HIGH Performed By: #### DATBMP #### [facility] [address] [place] [address] Dr. Kin AcunaPotassium [Moles/Vol]4.2 mmol/LNormal3.5-5.1[facility] Comment on above:Performed By: #### DATBMP #### [facility] [address] [address] [address] Kin AcunaSodium [Moles/Vol]140 mmol/NJlsine177-052Goo [facility] Comment on above:Performed By: #### DATBMP #### [facility] [address] [address] [address] Kin AcunaTriglyceride [Mass/Vol]21 mg/dLNormal<=150The [facility] Comment on above:Performed By: #### DATBMP #### [facility] [address] [address] [address] Kin AcunaUrea nitrogen [Mass/Vol]16.0 mg/dLNormal7.0-18.0Uc HealthComment on above:Performed By: #### DATBMP #### [facility] [address] [address] [address] Kin AcunaUrea nitrogen/Creatinine [Mass ratio]15.4 mg/mgNoHocking Valley Community HospitalComment on above:Performed By: #### DATBMP #### [facility] [address] [address] [address] Kin AcunaVLDL CALC4.2 mg/dLSouthern Ohio Medical CenterComment on above: Performed By: #### DATBMP #### [facility] [address] [address] [address] Kin AcunaMG MAMM SCREEN 3D BRANDON CADon 85-80-8156AU MAMM SCREEN 3D BRANDON CAD Patient: SHABNAM GARSIA Exam Date: 11/19/2021 : 1940 Gender:F Ordering : DR TIFFANIE DOAN M.D. Admission #: [id number] Family : Order #: [id number] CLICK HERE TO VIEW EXAM RADIOLOGY REPORT [...] colon cancer at age 78. LOCATION: [facility] BREAST COMPOSITION: Heterogeneously dense,which may obscure [...] by: Lamberto Alejandro M.D. on 11/19/2021 at 14:56[facility] Vital Signs Date TimeVital SignValuePerforming CbqqdgmnzMltlryxm64-38-5874 13:17-0400 Diastolic blood nvliccko02 mm[Hg]Tiffanie Doan MD Work Phone: [phone]10-07-2025 13:17-0400 Heart rate72 /minTiffanie Doan MD Work Phone: [phone]10-07-2025 13:17-0400 Systolic blood yrofsicb480 mm[Hg]Tiffanie Doan MD Work Phone: [phone])[address]10-07-2025 13:02-0400 Body kpoueo918.4 cmTiffanie Doan MD Work Phone: [phone]10-07-2025 13:02-0400 Body mass index (BMI) [Ratio]27.3 kg/g4RaeciuTiffanie Doan MD Work Phone: [phone])[address]10-07-2025 13:02-0400 Body .5 kgTiffanie Doan MD Work Phone: [phone])[address]09-16-2025 13:36-0400 Diastolic blood guxiywch69 mm[Hg]Tiffanie Doan MD Work Phone: [phone])[address]09-16-2025 13:36-0400 Systolic blood sjekttbe241 mm[Hg]Tiffanie Doan MD Work Phone: [facility]09-16-2025 13:25-0400 Body zyodaq390.4 cmTiffanie Doan MD Work Phone: [facility]09-16-2025 13:25-0400 Body mass index (BMI) [Ratio]27 kg/y5QjkrdlTiffanie Doan MD Work Phone: [facility]09-16-2025 13:25-0400 Body hmyrmc29.82 Manjinder Doan MD Work Phone: [facility]09-16-2025 13:25-0400 Heart rate79 /Korey Doan MD Work Phone: [facility]05-14-2025 09:23-0400 Body uwojnh505.4 cmSelect [facility]05-14-2025 09:23-0400Body mass index (BMI) [Ratio]28.1 kg/r9PfcbwyvirSelect Medical Specialty [facility]05-14-2025 09:23-0400Body yyvlje38.31 [facility]05-14-2025 09:23-0400Diastolic blood gtseopkw38 mm[Hg][facility] 10-16-2024 09:23-0400Heart rate62 /[facility] 10-16-2024 09:23-0400Systolic blood mm[Hg][facility]01-09-2025 13:35-0500Body itwdur481.4 cmSelect [facility] 06-13-2024 13:35-0500Body mass index (BMI) [Ratio]28.2 kg/a4GbesxllseSelect Medical Specialty Hospital [facility]01-09-2025 13:35-0500Body qqeutb10.54 [facility]01-09-2025 13:35-0500Diastolic blood qpbwaarv63 mm[Hg][facility]01-09-2025 13:35-0500Heart rate77 /[facility]01-09-2025 13:35-0500Systolic blood tpjosokl584 mm[Hg][facility]11-27-2024 09:35-0500Body hefgrf717.4 cmSelect [facility]11-27-2024 09:35-0500Body mass index (BMI) [Ratio]28.1 kg/j0SlgpmjmvlSelect Medical Specialty Hospital [facility]11-27-2024 09:35-0500Body iustnq09.31 kgSelect Medical Specialty Hospital - [facility]11-27-2024 09:35-0500Diastolic blood fdpbpbyx21 mm[Hg] [facility]11-27-2024 09:35-0500Heart rate63 /[facility]11-27-2024 09:35-0500Systolic blood mm[Hg] [facility]2024 11:12-0400Body .4 cm [facility]2024 11:12-0400Body mass index (BMI) [Ratio]27.3 kg/h7JsofaimamSelect Medical Specialty Hospital [facility]2024 11:12-0400Body qvwkur68.67 kgSelect Medical Specialty Hospital [facility]2024 11:12-0400Diastolic blood jyqrkmbm59 mm[Hg][facility]2024 11:12-0400 Heart rate91 /[facility]2024 11:12-0400Systolic blood iqobbjci246 mm[Hg][facility]07-16-2024 11:12-0400 Body .4 cmSelect [facility]07-16-2024 11:12-0400Body mass index (BMI) [Ratio]28.1 kg/u0HbijcxmduSelect Medical Specialty Hospital - [facility]07-16-2024 11:12-0400Body wyrtwc50.31 [facility]07-16-2024 11:12-0400Diastolic blood tgsfczyv89 mm[Hg][facility] 12-19-2023 11:12-0400Heart rate80 /[facility] 12-19-2023 11:12-0400Systolic blood yghdhaso231 mm[Hg][facility]05-22-2024 10:20-0400Body .4 cmSelect [facility] 10-25-2023 10:20-0400Body mass index (BMI) [Ratio]28.3 kg/n6TgqiwlvwzSelect Medical [facility]ty [facility]05-22-2024 10:20-0400Body .77 kgSelect Medical Specialty Hospital - [facility]05-22-2024 10:20-0400Diastolic blood rtntgafx17 mm[Hg][facility]05-22-2024 10:20-0400Heart rate67 /minSelect Medical Specialty Hospital - [facility]hill05-22-2024 10:20-0400Systolic blood uolwadpq213 mm[Hg][facility]12-19-2023 09:00-0500Body xiidxt174.4 cmTiffanie Doan Other [employer] Other [id number] 09:00-0500Body mass index (BMI) [Ratio] 28.55 kg/n8GpqyvdTiffanie Doan Other [employer] Other 12-19-2023 09:00-0500Body mjbozh10.32 kgTiffanie Doan Other [employer] Other 12-19-2023 09:00-0500Diastolic blood muqpcfgw015 mm[Hg]Tiffanie Doan Other [employer] Other 12-19-2023 09:00-0500Systolic blood uitwavfu433 mm[Hg] Tiffanie Doan Other [employer] Other 11-22-2023 10:00-0500Body .4 cmTiffanie Doan Other [employer] Other 11-22-2023 10:00-0500Body mass index (BMI) [Ratio] 27.92 kg/e3DhpmgmTiffanie Doan Other [employer] Other 11-22-2023 10:00-0500Body juhqjo07.86 kgTiffanie Dayna Other [employer] Other 11-22-2023 10:00-0500Diastolic blood huaptjrm90 mm[Hg] [facility]iffanie Doan Other [facility] [employer] Other 11-22-2023 10:00-0500Systolic blood jaqptkra666 mm[Hg] Tiffanie Doan Other [employer] Other 05-24-2023 10:00-0400Body mhuydt049.4 cmAmayaolga ildia Doan Other [facility] [employer] Other 05-24-2023 10:00-0400Body mass index (BMI) [Ratio] 28.71 kg/d8Ahpocv Braun Other [facility] [employer] Other 05-24-2023 10:00-0400Body .68 kgTiffanie Dayna Other [employer] Other 05-24-2023 10:00-0400Diastolic blood qsebnqqu76 mm[Hg] Tiffanie Doan Other [facility] [employer] Other 05-24-2023 10:00-0400Systolic blood mm[Hg] Tiffanie Doan Other [facility] [employer] Other Encounters Encounter DateEncounter TypeCare ProviderFacilityStart: 03-26-2025 End: 16-57-8547uobellaoyuCMIEZCKYCJU [facility] Start: 03-11-2025 End: 29-94-5654bxwohanveqNwgoyr E Braun MD Work Phone: [facility] Work Phone: Start: 03-11-2025 End: 14-40-9234Yvqsgww encounter procedureTiffanie Doan MD-[facility] Work Phone: Start: 89-64-3716Uux-patient / Non-visitEdyta Guzman MD-[facility] Work Phone: Start: 02-18-2025 End: 81-73-5472uguaqsonjzUsgruy E Braun MD Work Phone: [facility] Work Phone: Start: 02-18-2025 End: 28-42-6411Nqujksx encounter procedureTiffanie Doan MD-[facility] Work Phone: Start: 01-09-2025 End: 47-95-7470cpkzqukhbcVjvqva E Braun MD Work Phone: [facility] Work Phone: Start: 01-09-2025 End: 33-75-8705Txpgord encounter procedureBescarlet Noman -[facility] Work Phone: Start: 10-16-2024 End: 61-57-5658vtruolvuspHgwgkrendProMedica [facility] Work Phone: Start: 10-16-2024 End: 61-80-8741Prlxeui encounter procedureFirelands Physician Group-[facility] Work Phone: Start: 01-04-0728Nhn-patient / Non-visitFirelands Physician Group-[facility] Work Phone: start: 06-13-2024 End: 81-30-5699mhernmxxnsYuzxsafhwProMedica Bay Park Hospital Work Phone: Start: 06-13-2024 End: 23-77-3778Rfkglih encounter procedureFirelands Physician Group-[facility] Work Phone: Start: 05-01-2024 End: 15-61-8276Zhijjgu encounter procedureFirelands Physician Group-[facility] Work Phone: Start: 34-41-6810Oab-patient / Non-visitFirelands Physician Group-[facility] Work Phone: Start: 04-09-2024 End: 70-60-3580jgmxsevsepIaprgfsqzProMedica Bay Park Hospital Work Phone: Start: 04-09-2024 End: 75-87-9919Yewakgz encounter procedureFirelands Physician Group-[facility] Work Phone: Start: 01-22-2024 End: 82-67-7904bktjgalpllHkqxzchftProMedica Bay [facility] Hospital Work Phone: Start: 01-22-2024 End: 84-01-1142Intqclb encounter procedureFirelands Physician Group-[facility] Work Phone: Start: 12-19-2023 End: 54-38-5402wcodnzxcivXgcyaapxyProMedica Bay Park Hospital Work Phone: Start: 12-19-2023 End: 04-15-3102Ioqvamf encounter procedureFirelands Physician Group-[facility] Work Phone: Start: 25-33-9918Orr-patient / Non-visitFirelands Physician Group-[facility] Work Phone: Start: 10-25-2023 End: 25-25-6469nhlykzxbceUmnrsdeorProMedica Bay Park Hospital Work Phone: Start: 10-25-2023 End: 46-10-9025Qveiznn encounter procedureFirelands Physician Group-[facility] Work Phone: start: 09-29-2023 End: 54-63-7826izdjmynwgyYeymewvwqProMedica [facility] Work Phone: start: 09-29-2023 End: 53-16-7871Crdzzhf encounter procedureFirelands Physician Group-[facility] Work Phone: Start: 61-59-6935Vad-patient / Non-visitFirelands Physician Group-[facility] Work Phone: Start: 53-28-2432Rkp-patient / Non-visitFirelands Physician Group-[facility] Work Phone: Start: 07-14-2023 End: 54-84-1511vkktehiissOfarri Doan Other noFetch MD Other Start: 57-35-0880Fzbaxdasy encounterMarcia Tanisha [facility] ClinicStart: 06-27-2023 End: 07-38-2552lffgamyuwzLrokzl Doan Other noFetch MD Other Start: 28-56-0439Wsonkbuat encounterMarcia Angi [facility] ClinicStart: 06-09-2023 End: 53-10-1732sgtouoltjbVzbrqm Doan Other noFetch MD Other Start: 93-86-6129Ejzhssgxc encounterMarcia Tanisha [facility] ClinicStart: 05-23-2023 End: 56-87-4562hnkichrftxAjijlc Doan Other noFetch MD Other Start: 31-63-3436Zjqgvu outpatient visit 15 minutes Tiffanie DoanSheryl [facility] ClinicStart: 81-53-5515Ehcmdyzaq encounterMarcia Angi [facility] ClinicStart: 04-26-2023 End: 58-83-5477fsuamfcviuNjpczp Doan Other noFetch MD Other Start: 81-63-7514Otgdce outpatient visit 15 minutes Tiffanie [facility] ClinicStart: 04-25-2023 End: 51-03-6750mpxzozbhbsAzqlwe Doan Other noFetch MD Other Start: 73-31-7587Leylfimdw encounterMarcia Angi [facility] ClinicStart: 03-15-2023 End: 54-65-7995ynxyovogdpXcylcc Doan Other noFetch MD Other Start: 34-53-3020Flkiujdhc encounterMarcia Angi [facility] ClinicStart: 12-19-2022 End: 78-82-4921ibzasipvkpAqcbcp Doan Other noFetch MD Other Start: 66-64-4428Exwwkekgt encounterMarcia Angi [facility] ClinicStart: 11-25-2022 End: 86-98-2651fpclfrtpzjEpdiqb Doan Other [employer]Koko[employer] Other Start: 47-68-7169Kemkeidef encounterMarcia Angi [facility] ClinicStart: 11-01-2022 End: 67-77-7067chwngwdfhdClxvua Doan Other noFetch MD Other Start: 36-07-1024Tyhuqpnoa encounterMarcia Angi [facility] ClinicStart: 10-26-2022 End: 94-68-8889zigwkhndfwRvfbgy Doan Other noFetch MD Other Start: 40-62-8994Fuzruh outpatient visit 15 minutes Tiffanie [facility] ClinicStart: 05-13-2022 End: 89-06-2949tkquqiicigKR TIFFANIE DOANFacility:Z9Fvtzq: 50-07-4119Vylkw health examinationMarcia Doan Other noFetch MD Other Start: 05-04-2022 End: 67-83-4810ojxoqqqguuVG JAROD LONGORIAFacility:Y3Agzjt: 01-05-2022 End: 45-93-0373nqfdziaoguGN LAMBERTO R ZIEBERFacility:B8Egezl: 11-19-2021 End: 71-21-0154vetlfeovxjLM LAMBERTO Breaux ZIEBERFacility:V3Vaipl: 07-14-2021 End: 70-76-7962kvpboxlxjyVH LAMBERTO Breaux ZIEBERFacility:Q0Umuvl: 07-23-2020 End: 28-49-2688Tsvdppu encounter procedureNONE LISTED REQUESTFacility:X4Flexi: 06-22-2020 End: 81-45-4366Nbdvuql encounter procedureNONE LISTED REQUESTFacility:M0Clwqb: 11-15-2013 End: 89-49-6885Mxvpoizqu encounterEusebia Jimenes Work Phone: Neurology Procedures DateProcedureProcedure DetailPerforming ClinicianStart: 95-88-4990Twaehgb examination of patientMarcia Dayna Other Start: 96-09-4158Pgpzretwf mammographyMarcia Doan Other Screening for malignant neoplasm of breastMarcia Doan Other Screening for malignant neoplasm of colonMarcia Doan Other Plan of Treatment DateCare ActivityDetailAuthorStart: 46-38-8955Ytcydvx referralSelect [facility] Work Phone: Start: 92-10-9060MwwmvagjbSelect [facility] Start: 46-47-5511Dzqxjinei vaccinationINFLUENZA (Season Ended)[facility] Start: 37-35-0868QJNDMGM DIRECTIVE DISCUSSIONADVANCE DIRECTIVE DISCUSSION [facility]art: 89-18-1674SECH DENSITYBONE DENSITYRegional Medical Centertart: 79-73-1123XNQGTTBXD AGE 65 AND OVER WITH 5YR LOOKBACK (#1)PNEUMOVAX AGE 65 AND OVER WITH 5YR LOOKBACK (#1)[facility]: 24-18-1997PMPTJJKL VACCINE (1 of 2)SHINGRIX VACCINE (1 of 2)[facility]art: 72-20-9796MBJRQSKX SCREEN DIABETES SCREENRegional Medical Centertart: 31-61-9687Hhctk microalbumin profile DTAP,TDAP,TD (1 - Tdap)[facility] referralSelect [facility]ty [facility] Work Phone: [facility] Immunizations Immunization DateImmunizationNotesCare IjnlkcsaBgkoefbn57-14-6798qalqpwanv, high dose seasonal, preservative-freeTiffanie Doan MD Work Phone: [facility]11-05-2024influenza, high dose seasonal, preservative-freeSelect Medical Specialty Hospital - [facility]09-28-2022 influenza virus vaccine, split virus (incl. purified surface antigen)Tiffanie Doan Other [employer] Other 09-858851-99-1250fjbowkcwe virus vaccine, unspecified formulationSelect [facility]09-22-2021influenza virus vaccine, split virus (incl. purified surface antigen)Tiffanie Doan Other [employer] Other 09-513626-24-4837ymgotqzwd virus vaccine, unspecified formulationSelect [facility]09-08-2020influenza virus vaccine, split virus (incl. purified surface antigen)Tiffanie Doan Other [employer] Other 09-358705-73-7823dkrhscuvk virus vaccine, unspecified formulationSelect [facility]04-03-2018pneumococcal conjugate vaccine, 13 valentTiffanie Doan Other [facility]04-03-2018 pneumococcal Conjugate, unspecified formulation; Translations: [Need for prophylactic vaccination against Streptococcus pneumoniae (pneumococcus)]Tiffanie Doan Other noFetch MD Other 10-476617-10-5881szxmllihy virus vaccine, split virus (incl. purified surface antigen)Tiffanie Doan Other [employer] Other 10-095141-34-0616cojryvefi virus vaccine, unspecified formulationSelect [facility]11-06-2014influenza virus vaccine, split virus (incl. purified surface antigen)Tiffanie Dayna Other [place] [employer] Other 633272-80-2136phcrzsjtm virus vaccine, unspecified formulationSelect [facility]11-27-2013diphtheria, tetanus toxoids and acellular pertussis vaccine, unspecified formulationMarcia Dayna Other [facility]11-07-2013tetanus and diphtheria toxoids, adsorbed, preservative free, for adult use (5 Lf of tetanus toxoid and 2 Lf of diphtheria toxoid)Tiffanie Doan Other [facility] Payers DatePayer CategoryPayerPolicy ID2004MedicareMEDICARE MEDICARE B [id number] 2003-Present [place], [place] [id number] RG BS [facility] PPO [id number] 1996-Present [id number] [id number] 1962 Srob-[id number] 2.840.1.098714.3.57[id number] 2.840.1.480907.3.57[id number] 2.840.1.094677.3.57[id number] 2.840.1.754361.3.579.2.593MedicareMedicare Outpatient [id number] [id number] [id number] 2.16.840.1.0[id number] 2.16.840.1.4[id number] 2.16.840.1.289162.3.579.2.593Unknown Rg /[id number] 2..0.1.170960.3.579.2.531 Social History DateTypeDetailFacilityStart: 89-15-9938Eykedco smoking status NHISFormer smoker [facility] End: 00-56-2683Bigwoxu of tobacco useCurrent smokerRegional Medical Centertart: 41-87-8232Adffinh intakeCurrent non-drinker of alcohol (finding)[facility] Start: 83-24-9801Jxq Assigned At BirthNot on [facility] At [facility] [employer] Other Start: 28-77-3901Mut Assigned At [facility] HospitalTobacco smoking status NHISUnknown if ever smoked [facility] Work Phone: Start: 06-13-2024 End: 26-47-9161XmkQqgvwd (finding)[facility] Clinical Notes 04-18-2005 to 03-26-2025 Note Date & CtslOungJzilgvbs08-29-7437 NoteSubjective Patient ID: Shabnam Garsia is a 84 y.o. female who presents [...] of years. Can wax and wane. No tightness in the chest. My review of EKG shows possible previous inferoposterior VA with Q waves in II, III and [...] Thought Content: Thought content normal. Assessment/Plan Mrs. Garsia has an abnormal EKG with evidence for an old inferoposterior VA and voltage consistent with left ventricular hypertrophy. She also has shortness of breath at modest levels of activity and her exam shows increased JVP all consistent with NYHA Class II heart failure. I have ordered an echo to assess for LVH and to check for LV function and prior VA. Will also get stress to assess residual ischemia, and check BNP. Diagnosis Plan 1. Abnormal EKG 2. Essential (primary) hypertension 3. Shortness of breath Follow up in about 4 weeks (around 04/23/2025).[facility]09-16-2025 Evaluation note* Diagnosis Onset Date Resolution Status Admit Date Fatigue acuteSeptember 2024 1:24pm [facility] Work Phone: 1(100) 191-897209-16-2025 Evaluation note* Diagnosis Onset Date Resolution Status Admit Date Abnormal EKG acuteSept2024 1:24pmFatigueacuteSeptember 2024 1:24pm [facility] Work Phone: 1(568) 658-335205-14-2025 Evaluation note* Diagnosis Onset Date Resolution Status Admit Date Anxiety acuteMay 2024 9:22amEssential (primary) hypertensionacuteMay 2024 9:22amSituational stressacuteMay 2024 9:22am [facility] Work Phone: 1(149) 399-439711-05-2024 Evaluation note* Diagnosis Onset Date Resolution Status Admit Date Encounter for immunization acuteNov2023 10:50amAnxietyacuteNov2023 9:24amEssential (primary) hypertensionacuteNov2023 9:24amSituational stressacute May 01, 2024 9:24am [facility] Work Phone: 1(439) 950-629602-09-2024 Evaluation note* Encounter Date Diagnosis Assessment Notes Treatment Notes Treatment Clinical Notes Jul, Vitamin B12 deficiency (ICD-10 - E53.8) [employer] Other 01-23-2024 Evaluation note* Encounter Date Diagnosis Assessment Notes Treatment Notes Treatment Clinical Notes Jun, Essential (primary) hypertension (ICD-10 - I10) [employer] Other 01-05-2024 Evaluation note* Encounter Date Diagnosis Assessment Notes Treatment Notes Treatment Clinical Notes Jun, Essential (primary) hypertension (ICD-10 - I10) [employer] Other 12-19-2023 Evaluation note* Encounter Date Diagnosis Assessment Notes Treatment Notes Treatment Clinical Notes May, Essential (primary) hypertension (ICD-10 - I10) added toprol, continue olmesartan. 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 May,nxiety, generalized (ICD-10 - F41.1)Pt takes med spariningly, reviewed OARRS report. [employer] Other 11-22-2023 Evaluation note* Encounter Date Diagnosis [...] - Z86.73)Pt requests refill for chronic issue. [employer] Other 11-21-2023 Evaluation note* Encounter Date Diagnosis Assessment Notes Treatment Notes Treatment Clinical Notes Apr, Vitamin B12 deficiency (ICD-10 - E53.8) [employer] Other 05-24-2023 Evaluation note* Encounter Date Diagnosis [...] white coat - will recheck at home. [employer] Other 08-03-2022 NotePROCEDURE: MRI BRAIN WO CON [...] Electronically authenticated by: LAMBERTO ALEJANDRO Date: 2022-01-05 15:55[facility]02-09-2022 NotePROCEDURE: XR HIP RT 2 3V W [...] Electronically authenticated by: LAMBERTO ALEJANDRO Date: 2021-07-14 14:31[facility] HospitalTrcbynoq29-37-6975 Miscellaneous Notes* Telephone Encounter - Derrell Diggs Lakesha - 11/15/2013 1:14 PM EDT Pt would like to know Dr. Jimenes's opinion on an ENT Dr. Juarez whom she was referred to by anotherphysician. Pt would also like to know if her lab and xray results are in. Please call pt at number listed with information - pt requesting to speak with Dr. Jimenes. documented in this encounterF[facility]11-14-2005 History of Past illness Narrative* ProblemNoted DateResolved DateCENTRAL ORIGIN NTEISHW6604/18/2005 01/17/2014Peripheral vertigo, axrlszjenin13documented as of this encounter (statuses as of 09/30/2020) [facility] CenterEvaluation noteNo InformationNort [employer] Other Evaluation noteNo assessment information available [facility] Work Phone: Evaluation note* Diagnosis Onset Date Resolution Status Essential (primary) hypertension acuteHyperlipidemiaacuteSituational stressacute [facility] Work Phone: Evaluation note* Diagnosis Onset Date Resolution Status Essential (primary) hypertension acuteHyperlipidemiaacuteSituational stressacuteEssential (primary) hypertension acuteSituational stressacuteAgitationacute [facility] Work Phone: Evaluation note* Diagnosis Onset Date Resolution Status Agitation acute [facility] Work Phone: Evaluation note* Diagnosis Onset Date Resolution Status Admit Date Fatigue acuteSeptember 2024 1:24pm [facility] Work Phone: History general Narrative - Reported* Type Description Date Medical History OVARIAN CANCER Surgical HistoryhysterectomySurgical HistoryappendectomyHospitalization History SEE ABOVE [employer] Other Reason for referral (narrative)No reason for referral information availableSelect [facility]ty [facility] Work Phone: Summary Purpose Family History No [...] Chief Complaint allergy shot 6 month follow TB ER follow upReason for VisitEssential (primary) hypertension Hyperlipidemia Situational stress Chief Complaint 6 month follow [facility] ER follow up bp issues , [...] and content) DATE CREATED AUTHOR 07/28/2020 [facility] DATE CREATED AUTHOR AUTHOR'S ORGANIZ ATION 05/26/2022 [facility] DATE CREATED AUTHOR AUTHOR'S ORGANIZ ATION 03/15/2025 [facility] DATE CREATED AUTHOR AUTHOR'S ORGANIZ ATION 03/27/2025 [facility] Source Comments (unrecognize d section and content) In the event this informatio n is protected by the Federal Confidentiality of Alcohol and Drug Abuse Patient Records regulations: The Federal rules restrict any use of the information to criminally investigate or prosecute any alcohol or drug abuse patient.[facility] REASON FOR VISIT (unrecogniz ed section [...] 16, 2024 End: October 16, 2024Tiffanie Doan MDAttending ProviderActiveStart: October 16, 2024 End: October 16, 2024 Team Status: Inactive Member Role Status Suzan Doan MD Primary Care Provider Active Start: January 09, 2025 End: January 09isaacdarlene Noman DOAttending ProviderActiveStart: January 09, 2025 End: January 09, 2025 Team Status: Active Member Role Status Suzan Doan MD Primary Care Provider Active Start: September 10, 2024 Orquidea SONYA WoodAttending ProviderActiveStart: September 10, 2024 Team Status: Inactive Member Role Status Suzan Doan MD Primary Care Provide r, Attending Provider Active Start: October 16, 2024 End: October 16, 2024 Team Status: Inactive Member Role Status Suzan Doan MD Primary Care Provide r, Attending Provider Active Start: September 29, 2023 End: September 29, 2023 Team Status: Inactive Member Role Status Szuan Doan MD Primary Care Provide r, Attending Provider Active Start: October 25, 2023 End: October 25, 2023 Team Status: Active Member Role Status Suzan Doan MD Primary Care Provider Active Start: December 10, 2023 Sarah Olga Lidia Elizondo MDAttending ProviderActiveStart: December 10, 2023 Team Status: Inactive [...] 2025 Team Status: Inactive Member Role Status Suzan [...] BE BASED ON THE PRIMARY CLINICAL RECORDS. [employer] provides no warranty or guarantee of the accuracy or completeness of information in this document.
--- OUTSIDE RECORDS SUMMARY | 2025-04-03 07:23 | XMS_ITS | Encounter Summary ---
Author Organization [facility] Address [address] [place] [address] Care Team Providers Care Sports Development Officer Name Role Phone Tiffanie Mcintosh MD Primary Care Provider [phone] Encounter Details DateTypeDepartmentCare Team (Latest Contact Info)Vnlszwrqfyy89/20/2025Orders Only [facility] at [place] [address] [place] [address] Provider, MD Car [address] [place] [address] Social History Tobacco UseTypesPacks/DayYears UsedDateSmoking Tobacco: Never Assessed CommentsUnknownSex and Gender InformationValueDate RecordedSex Assigned at Gzywkh9503/21/2025 4:08 PM EDTLegal WzsDwdugs01/29/2022 11:08 PM EDTGender ZmudeibtKvucrd21/17/2025 4:08 PM EDTSexual OrientationHeterosexual or Straight 03/21/2025 4:08 PM EDTdocumented as of this encounter Functional Status * BPAnswerDate of EdscgpvurqRowqdh940/8603/26/2025 9:33 AM Atlhea Menendez MA * PulseAnswerDate of AujftyvvtgJatfpm4382/22/2025 9:33 AM Althea Menendez MA * Patient PositionAnswerDate of DwtglerovfRyeqroUdgmsgy45/22/2025 9:33 AM EDT Althea James MA * BPAnswerDate of MxrvewykwuUhbgoy333/8603/26/2025 9:33 AM Althea Menendez MA * PulseAnswerDate of RohpaqqrsrVlxxqm4682/22/2025 9:33 AM Althea Menendez MA * LxE3YtubikWzoq of RqwymnmclaOlscxn0209/22/2025 9:33 AM Althea Menendez MA * BP LocationAnswerDate of AssessmentAuthorRight arm03/26/2025 9:33 AM EDT Althea James MA * Patient PositionAnswerDate of NcxenennhvNomojhOgrggec28/22/2025 9:33 AM EDT Althea James MA documented as of this encounter Plan of Treatment DateTypeDepartmentCare Team (Latest Contact Info)Qeumbucmpkj87/24/2025 11:00 AM ESTOffice Visit [facility] [address] [place] [address] Luke Ashraf MD [address] [place] [phone] documented as of this encounter Procedures Procedure NamePriorityDate/TimeAssociated DiagnosisCommentsTREADMILL STRESS MYOCARDIAL PERFUSION MIKXIDUQtsoabb50/13/2023 4:27 PM ESTdocumented in this encounter Results * Treadmill Stress Myocardial Perfusion Imaging (05/17/2023 4:27 PM EST) Anatomical RegionLateralityModalityOther Narrative Authorizing ProviderResult TypeResult StatusHistorical Provider MDCV STRESS PROCEDURESFinal Result documented in this encounter Visit Diagnoses Not on filedocumented in this encounter Care Teams Team MemberRelationshipSpecialtyStart DateEnd Date Tiffanie Mcintosh MD [address] PCP - Upjimtc49/20/25documented as of this encounter
--- OUTSIDE RECORDS SUMMARY | 2025-04-03 07:23 | XMS_ITS | Clinical Summary ---
Author Organization [facility] Address [address] [place] [address] Care Team Providers Care Milling General Superintendent Name Role Phone Tiffanie Mcintosh MD Primary Care Provider [phone] Allergies Active AllergyReactionsCriticalityNoted DateCommentsAlendronate SodiumHives 5AmoxicillinDiarrhea,Hives11/25/20130447QvxqhdnmrQjgzmytg03/07/2025 headache and felt more nervous CephalosporinsDiarrhea,Hives11/25/20135471HzdjqmazqeJttrbme06/07/2025 Onset Date: 10/23/2019 Clavulanic YkxpOtkat00/07/1532SuvzeemupjoclHlzgs81/07/2025 Medications MedicationSigDispense QuantityRefillsLast FilledStart DateEnd DateStatus rosuvastatin [...] tablet ctive Active Problems ProblemNoted DateDiagnosed DateAbnormal EKG10938Xbnqvmydp69/21/2025nxiety 03/25/2025Encounter for pnxxzndgapgf61/21/2025Essential (primary) hypertension 03/25/20256813Yxprinb97/21/8427Apxqzuqhyilrrx83/21/1465Bjfqsvnstopt72/21/2025 Seasonal allergic avfoyuxl22/21/2025Situational zxvkzv2303/25/2025enign neoplasm of cranial taizqk5001/17/2014 Encounters DateTypeDepartmentCare LjpsBidtouhhkom00/22/2025 9:40 AM EDTOffice Visit [facility] [address] [place] [facility] [place] [address] Luke Ashraf MD Abnormal EKG (Primary Dx); Essential (primary) hypertension; Shortness of jopukn9403/26/2025Orders Only [facility] [address] [place] [address] Liyah Davis MA Abnormal EKG (Primary Dx)03/24/2025Orders Only [facility] [address] [place] [address] Provider, MD Car from Last 3 Months [...] Assigned at BirthFemale 03/21/2025 4:08 PM EDTLegal RyxUzqqfn16/29/2022 11:08 PM EDTGender Identity Rxccpm0803/21/2025 4:08 PM EDTSexual OrientationHeterosexual or Falznwrw33/17/2025 4:08 PM EDT Last Filed Vital Signs Vital SignReadingTime TakenCommentsBlood Gfokxhni723/8603/26/2025 9:33 AM EDT Mcjpr111203/26/2025 9:33 AM EDTTemperature--Respiratory Rate--Oxygen Gwxltxfmcl81% 03/26/2025 9:33 AM EDTInhaled Oxygen Concentration--Xahkrs90 kg (139 lb) 03/26/2025 9:33 AM BZIBemcdh805.4 cm (5')03/26/2025 9:33 AM EDTBody Mass Index 27.151 9:33 AM EDT Plan of Treatment DateTypeDepartmentCare Team (Latest Contact Info)Ousyjedgrdm53/24/2025 11:00 AM ESTOffice Visit [facility] [place] [address] [place] [address] Luke Ashraf MD [address] [place] [address] Health MaintenanceDue DateLast DoneCommentsMedicare Annual Wellness (AWV) 1938Depression Uiulejwll53/17/1951Fall Risk Kgmrbosxi46/17/2004 Pneumococcal Vaccine: 50+ Years (2 of 2 - PCV20 or PCV21) Adult Zenqubn69COVID-19 Vaccine ( season)2025 05/10/2022, 12/23/2021, 03/31/2021Zoster WhzgishfPpyaudxqv38/12/2020, 03/26/2019 Influenza JfprmtrOjgecbahr74/07/2025, 04/09/2024, 03/02/2022, Additional history existsHIB VaccinesAged OutNo [...] DateEnd Date Tiffanie Mcintosh MD [address] [facility] [address] PCP - Esyalpv14/20/25
--- OUTSIDE RECORDS SUMMARY | 2025-04-03 07:24 | XMS_ITS | Encounter Summary ---
Author Organization [facility] Address [address] [place] [address] Care Team Providers Care Rn Hemodialysis Charge Name Role Phone Tiffanie Mcintosh MD Primary Care Provider [phone] Reason for Referral * Imaging (Routine) - Pending ReviewSpecialtyDiagnoses / ProceduresReferred By ContactReferred To ContactCardiology Diagnoses Abnormal EKG Procedures Transthoracic echo (TTE) complete Luke Ashraf MD [address] [place] [address] Phone: tel: fax: Referral IDStatusReasonStart DateExpiration DateVisits RequestedVisits [id number] Review Perform Procedure 51 Encounter Details DateTypeDepartmentCare Team (Latest Contact Info)Mzdqyaknfen01/22/2025Orders Only [facility] [address] [place] [address] Ryan, ANGIE Pelletier Abnormal EKG (Primary Dx) Social History Tobacco UseTypesPacks/DayYears UsedDateSmoking Tobacco: FormerCigarettes Smokeless Tobacco: NeverAlcohol UseStandard Drinks/WeekCommentsYes0 (1 standard drink = 0.6 oz pure alcohol)couple glasses of wine with dinner 3 to 4 times per weekCommentsUnknownSex and Gender InformationValueDate RecordedSex Assigned at LykuyMbuoyb41/ 4:08 PM EDTLegal MvrTrkjol86/29/2022 11:08 PM EDTGender QogrtwxzTbojwu38/17/2025 4:08 PM EDTSexual OrientationHeterosexual or Fdlkxvwi78/17/2025 4:08 PM EDTdocumented as of this encounter Functional Status * BPAnswerDate of HezhgringyBfjoze175/86/ 9:33 AM Althea Menendez MA * PulseAnswerDate of BolkzcryhmMjkaxa5631/22/2025 9:33 AM Althea Menendez MA * Patient PositionAnswerDate of MobzgltfqaXhdclhAzajoou76/22/2025 9:33 AM EDT Althea James MA * BPAnswerDate of QjyecrpnedNagbri858/8603/26/2025 9:33 AM Althea Menendez MA * PulseAnswerDate of HddsybqmfxFjwfji2275/22/2025 9:33 AM Althea Menendez MA * FoO4CrycusUjwp of LtjcsnartmUmigeo4614/22/2025 9:33 AM Althea Menendez MA * BP LocationAnswerDate of AssessmentAuthorRight arm03/26/2025 9:33 AM EDT Althea James MA * Patient PositionAnswerDate of UlwbedbecmCemjeiDhdbidr41/22/2025 9:33 AM EDT Althea James MA documented as of this encounter Plan of Treatment DateTypeDepartmentCare Team (Latest Contact Info)Qmcywbtmjhl26/24/2025 11:00 AM ESTOffice Visit [facility] [address] [place] [address] Luke Ashraf MD [address] [place] [phone] NameTypePriorityAssociated DiagnosesOrder ScheduleBasic metabolic panelLab Routine [...] MemberRelationshipSpecialtyStart DateEnd Date Tiffanie Mcintosh MD [address] [facility] #A PCP - Sdjdysj56/20/25documented as of this encounter
--- NOTE | 2025-04-03 07:40 | NM_ITS ---
Patient Name: KAREN GARSIA MR#: [id number] : 1940 Exam Date: 04/03/2025 Ordering Doctor: DRE ARIAS RADIOLOGY REPORT PROCEDURE: NM IVETTE PERF SPECT REST STR COMPARISON: None. INDICATIONS: ABNORMAL EKG, HYPERTENSION, SHORTNESS OF BREATH TECHNIQUE: Exam Description: Stress/Rest one day protocol gated SPECT Rest Imagin.1 mCi Tc-99m Cardiolite IV on 04/03/2025 Stress Imaging 30.8 mCi Tc-99m Cardiolite IV on 04/03/2025 Exercise Protocol: 0.4 mg Lexiscan given IV Heart Rate (bpm): Rest: 54 Max: 91 PMHR: 67 Blood Pressure: Rest: 156/92 Max: 204/96 Symptoms: Rest and peak stress ECG findings were pending, and the exercise portion of the study was pending per attending physician [facility]. For more details, please see separate cardiac stress test report. FINDINGS: QUALITY OF STUDY: Good PERFUSION DEFECT: LOCATION: N/A SIZE: N/A SEVERITY: N/A TYPE: N/A WALL MOTION: Normal wall motion LV SIZE: 50 mL. TID / TCD: 0.7 LVEF: Calculated EF 77%. SUMMARY: Myocardial perfusion imaging study is normal CONCLUSION: 1. Myocardial perfusion is normal with soft tissue attenuation 2. Global left ventricular systolic function is hyperdynamic; ejection fraction 77% 3. No significant transient ischemic dilatation Dictated by: Ame Kahn M.D. on 04/04/2025 at 11:01 Approved by: Ame Kahn M.D. on 04/04/2025 at 11:03
--- NOTE | 2025-04-03 07:45 | CA_ITS ---
Patient Name: KAREN GARSIA MR#: [id number] : 1940 Exam Date: 04/03/2025 Ordering Doctor: DRE ARIAS ECHOCARDIOGRAM REPORT PROCEDURE: CA ECHO DOPPLER COMPLETE INDICATIONS: Abnormal EKG COMPARISON: None. DESCRIPTION: COMPLETE ECHOCARDIOGRAM Real-time transthoracic echocardiography with 2D, M-mode, spectral and color flow Doppler performed. QUALITY: Technical quality was good. LEFT VENTRICLE: Normal chamber size. Moderate concentric left ventricular hypertrophy. Global left ventricular systolic function is normal. LV EF: Estimated left ventricular ejection fraction is 60-65%. DIASTOLIC: Diastolic function is indeterminate. ATRIAL SEPTUM: LEFT ATRIUM: Mild dilatation. RIGHT ATRIUM: Mild dilatation. RIGHT VENTRICLE: Normal chamber size. Normal right ventricular systolic function. TRICUSPID VALVE: Normal mobility and thickness. No stenosis with trivial regurgitation. No evidence of pulmonary hypertension. RVSP 24 mmHg. MITRAL VALVE: Normal mobility and thickness. No evidence of mitral valve stenosis. There is no mitral annular calcification. Mild mitral regurgitation. AORTIC VALVE: Normal trileaflet appearance. No visible sclerosis. Normal leaflet mobility. No evidence of aortic valve stenosis. Mild aortic regurgitation. AORTIC ROOT: Normal diameter and appearance, measuring 3.5 cm. The ascending aorta is normal in size measuring 3.2 cm. PULMONIC VALVE: Normal thickness and mobility. No stenosis. Trivial regurgitation. PERICARDIUM: No pericardial effusion. IVC: Collapses with inspiration. Mild dilatation measuring 2.2 cm. PLEURA: CONCLUSION: 1. Moderate concentric left ventricular hypertrophy with normal systolic function. LVEF is estimated at 60 to 65%. 2. Normal right ventricular size and systolic function. 3. Mild biatrial dilatation. 4. Mild mitral and aortic regurgitation. 5. Normal right-sided pressures. Adult Echocardiography Procedure Report Left Ventricle LVEDD (3.7 - 5.6 cm): 3.43 cm LVESD (2.2 - 4.0 cm): 2.31 cm LVIVS thickness (0.6 - 1.2 cm): 1.59 cm LVPW thickness (0.5 - 1.0 cm): 1.36 cm e': 0.06 m/s E - e': 8.27 LVOT Max Gradient: 2.46 mm[Hg] LVOT Area (cm2): 0.78 m/s Peak Velocity (LVOT): 0.78 m/s Mean Velocity (LVOT): 0.52 m/s LVOT Diameter 1.95 cm Left Ventricular Ejection Fraction: 60-65 % Left Atrium LA Volume Index (2D A2C): 41.22 ml/m2 Left Atrium Systolic Dimension: 3.01 cm Mitral Valve MV E to A Ratio: 0.61 Mitral Valve A-Wave Peak Velocity: 0.83 m/s Mitral Valve E-Wave Peak Velocity: 0.50 m/s Right Ventricle RV Internal Diastolic Dimension: 3.09 cm Aorta AO Root Diam: 3.53 cm Ascending Ao Diam: 3.16 cm Aortic Valve AoV Area (Peak Juan): 2.29 cm2, 2.29 cm2 AoV Area (VTI): 2.44 cm2, 2.44 cm2 Deceleration [place]: 1.08 m/s2 Pressure Half-Time: 943.26 ms Peak Velocity(Antegrade Flow): 1.02 m/s Peak Gradient(Antegrade Flow): 4.14 mm[Hg] Mean Velocity(Antegrade Flow): 0.68 m/s Mean Gradient(Antegrade Flow): 2.04 mm[Hg] Velocity Time Integral: 23.58 cm Tricuspid Valve Peak Velocity (Regurgitant Flow): 1.73 m/s, 1.99 m/s Pulmonic Valve Mean Gradient: 0.84 mm[Hg] Mean Velocity: 0.43 m/s Peak Velocity: 0.69 m/s, 0.61 m/s Peak Gradient: 1.89 mm[Hg], 1.48 mm[Hg] Right Atrium Right Atrium Systolic Pressure: 31.66 ml, 31.66 ml Dictated by: Jean Mosley M.D. on 04/03/2025 at 13:51 Approved by: Jean Mosley M.D. on 04/03/2025 at 13:58
[2025-04-03] MEDS: REGADENOSON 0.4 MG/5 ML SYRINGE IV (09:52)
--- NOTE | 2025-04-03 09:58 | PC.NURSE ---
Nursing Note Cardiac Stress Test Reviewed: Medication, allergies and patient history reviewed. Stress Test: [x ] Patient tolerated stress test well. [ ] Patient unable to tolerate walking on treadmill. Switched to Lexiscan stress test. [x ] No chest pain noted per patient [ ] Chest pain that resolved prior to leaving stress lab. [x ] No dyspnea noted. [ ] Dyspnea that resolved prior to leaving stress lab. [x] Patient left stress lab asymptomatic and hemodynamically stable. [ ] Patient taken to the Emergency Room due to non-resolving symptoms following stress test. [ ] Patient achieved target heart rate. [ ] Patient unable to achieve target heart rate. [ ] Aminophylline administered as reversal agent to Lexiscan (Regadenoson). [ ] Nitro administered. Nursing Comments:
--- NOTE | 2025-04-07 09:02 | PM.STRESS ---
Stress Test Stress Test Allergies Allergy/AdvReac Type Severity Reaction Status Date / Time No Known Drug Allergies Allergy Verified 12/10/23 08:38 Requesting physician: DRE ARIAS Procedure: This was a Lexiscan stress test with myocardial perfusion imaging performed at the [facility] on 04/03/2025. Intravenous line was secured. The patient was attached to electrocardiographic monitoring. Baseline vital signs and ECG were obtained. Lexiscan 0.4 mg was administered intravenously followed by administration of Cardiolite. The patient then went on to obtain myocardial perfusion imaging. Resting heart rate was 54 bpm and peak heart rate was 91 bpm. Resting blood pressure was 156/92 and peak blood pressure was 204/96. General Information: Reason for Stress Test: Abnormal ECG. Cardiac History and Risk Factors: Hypertension, hyperlipidemia, cerebrovascular accident. Resting 12 - Lead Electrocardiogram: Sinus bradycardia with first-degree AV block with premature atrial complexes. Inferior infarct, age undetermined. Possible anterolateral infarct age undetermined. Stress Test: Protocol: Pharmacologic stress with Lexiscan. Exercise Capacity: Not assessed. Blood Pressure Response: Resting hypertension, hypertensive response to Lexiscan. Rhythm: Sinus rhythm. No arrhythmias. ST - Response: No ischemic ST changes seen. Patient Response: No symptoms reported. Interpretation: 1. Negative Lexiscan stress test for ischemic ECG changes. 2. Resting hypertension with hypertensive response to Lexiscan. 3. Myocardial perfusion images will be reported separately.
== END 2025-04-03 07:21 | disposition home or self-care (01) ==
LOC: NM 07:20
PROVIDERS: PCP Family Medicine; Visit Provider Internal Medicine Cardiovascular Disease
DX: R94.31 Abnormal electrocardiogram [ECG] [EKG] (principal)
CPT/HCPCS: 78452; 93017; 93306; 93356; A9500; J2785

== ENCOUNTER 2025-04-30 11:53 | Outpatient (OUT) | payer MEDICARE, BC, SELFPAY ==
--- OUTSIDE RECORDS SUMMARY | 2025-04-30 11:58 | XMS_ITS | Encounter Summary ---
Author Organization [facility] Address [address] [address] Care Team Providers Care Business Unit Director Name Role Phone Tiffanie Mcintosh MD Primary Care Provider [phone] Reason for Visit * ReasonOnset DateCommentsMed Vqbplx0504/24/2025 Encounter Details DateTypeDepartmentCare Team (Latest Contact Info)Ndodpalvluq60/20/2025Refill [address] [address] Estefany Rapp MA Essential hypertension (Primary Dx) Social History Tobacco UseTypesPacks/DayYears UsedDateSmoking Tobacco: FormerCigarettes Smokeless Tobacco: NeverAlcohol UseStandard Drinks/WeekCommentsYes0 (1 standard drink = 0.6 oz pure alcohol)couple glasses of wine with dinner 3 to 4 times per weekCommentsUnknownSex and Gender InformationValueDate RecordedSex Assigned at AodwzHtsizq12/17/2025 4:08 PM EDTLegal QyfOkijea87/29/2022 11:08 PM EDTGender EqevaozhSwjyyf22/17/2025 4:08 PM EDTSexual OrientationHeterosexual or Gjtqzzay80/17/2025 4:08 PM EDTdocumented as of this encounter Plan of Treatment DateTypeDepartmentCare Team (Latest Contact Info)Zlkfyrgedud65/01/2025 1:40 PM ESTOffice Visit [facility] [address] [place] [address] Luke Ashraf MD [address] [place] [address] documented as of this encounter Visit Diagnoses Diagnosis Essential hypertension- Primary Unspecified essential hypertension documented in this encounter Care Teams Team MemberRelationshipSpecialtyStart DateEnd Date Tiffanie Mcintosh MD [address] [facility] #A PCP - Vcigchv76/20/25documented as of this encounter
--- OUTSIDE RECORDS SUMMARY | 2025-04-30 11:58 | XMS_ITS | Clinical Summary ---
Author Organization [employer] Address [id number] [address] [place] [address] Care Team Providers Care Rip Saw Operator Name Role Phone Unavailable Primary Care Provider Unavailabl e Social History Tobacco UseTypesPacks/DayYears UsedDateSmoking Tobacco: Never AssessedChildcare AnswerDate ObrjrnxhEtkslnbcsGibzogy60/10/2019EmploymentAnswerDate Recorded BtfkupdcygBmntkwu21/10/2019Purpose - LifeAnswerDate RecordedPurpose and direction in xvplEfuhfee71/10/2021CommentsUnknownSex and Gender InformationValueDate RecordedSex Assigned at BirthNot on fileLegal SexFemale 01/06/2015 12:41 PM EDTGender IdentityNot on fileSexual OrientationNot on file Last Filed Vital Signs Vital SignReadingTime TakenCommentsBlood Iweqahmh690/80106/10/2012 1:22 PM EST Pulse--Temperature--Respiratory Rate--Oxygen Saturation--Inhaled Oxygen Concentration--Fvdcxu14.9 kg (132 lb)04/10/2013 1:19 PM QBLZfzong333.9 cm (5' 1 )04/10/2013 1:19 PM ESTBody Mass Index24.9404/10/2013 1:19 PM EST Plan of Treatment Health MaintenanceDue DateLast DoneCommentsDepression Fepghuncs58/17/1951Tobacco Rlkozymol69/17/1951TaP,Tdap and Td Vaccines (1 - Tdap)1957Zoster (Shingles) Vaccine (1 of 2)1988Fall Risk Mgyokremu13/17/2004RSV ( or age 60+ yrs) (1 - 1-dose 75+ series)2013Influenza Fgmjwex1802/03/2025 Medical Devices Not on file Insurance
--- OUTSIDE RECORDS SUMMARY | 2025-04-30 11:58 | XMS_ITS | Clinical Summary ---
Author Organization [facility] Address [address] [place], [place] [address] Care Team Providers Care Scraper Tender Name Role Phone Tiffanie Mcintosh MD Primary Care Provider [phone] Allergies Active AllergyReactionsCriticalityNoted DateCommentsAmoxicillinDiarrhea 11/25/20134983XtmrkvttbiGbcjxnnj45/23/2014 Medications MedicationSigDispense QuantityRefillsLast FilledStart DateEnd DateStatus fluticasone [...] Take 0.25 tablets by mouth once daily.ctive T-Ofrejfu-P5 Bmgu-Srxkpq-V89 (FOLTANX) 3-35-2 mg tab or Capsule Take 1 tablet by mouth once daily. 30 capsule 11011/12/2013ctive C-Ympqwju-E5 Fskq-Ngrrxd-T51 (FOLTANX) 3-35-2 mg tab or Capsule Take [...] Problems ProblemNoted DateDiagnosed DateBenign neoplasm of cranial anboxh9201/17/2014 Resolved Problems ProblemNoted DateDiagnosed DateResolved DateCENTRAL ORIGIN IUIZRGI5104/18/2005 01/17/2014Peripheral vertigo, kmdkeksqdjy23 Social History Tobacco UseTypesPacks/DayYears UsedDateSmoking Tobacco: FormerCigarettesQuit: 11/14/1996Alcohol UseStandard Drinks/WeekCommentsNo0 (1 standard drink = 0.6 oz pure alcohol)CommentsNoSex and Gender InformationValueDate RecordedSex Assigned at BirthNot on fileLegal LpwAvyflj09/02/2012 9:59 AM ESTGender Identity Not on fileSexual OrientationNot on file Last Filed Vital Signs Vital SignReadingTime TakenCommentsBlood Mwpblaqy293/7508 3:21 PM EDT Gtxjd046401/17/2014 3:21 PM EDTTemperature--Respiratory Srjb747701/01/2014 2:13 PM EDTOxygen Uohzirosyc36%01/17/2014 3:21 PM EDTInhaled Oxygen Concentration-- Iixlpp46.2 kg (135 lb)11/12/2013 12:56 PM EDTHeight--Body Mass Index-- Plan of Treatment Health MaintenanceDue DateLast DoneCommentsAnxiety Ffxbgjnlx02/17/1957Depression Fgchrifff99/17/1957DTaP,Tdap,Td Vaccine (1 - Tdap)1957Diabetes Screening 08/20/1983Pneumococcal Vaccine: 50+ (1 of 1 - PCV)1988Shingrix Vaccine (1 of 2)1988Bone Density Mlthkbarc48/17/2004RSV Vaccine (1 - 1-dose 75+ series)2013dvance Directive Huxcznoaea49/01/2025ovid-19 Vaccine (2024-26 season)2025Influenza Vaccine (#1)2025 Insurance Care Teams Team MemberRelationshipSpecialtyStart DateEnd Date Tiffanie Mcintosh MD [address] [place] [address] PCP - GeneralFamily Medicine10/29/13
--- OUTSIDE RECORDS SUMMARY | 2025-04-30 11:58 | XMS_ITS | Clinical Summary ---
Author Organization [facility] Address [address] [place] [address] Care Team Providers Care Flue Dust Laborer Name Role Phone Unavailable Primary Care Provider Unavailabl e Social History Tobacco UseTypesPacks/DayYears UsedDateSmoking Tobacco: Never Assessed CommentsUnknownSex and Gender InformationValueDate RecordedSex Assigned at Not on fileLegal SkoKhjtiu16/15/2023 7:19 PM EDTGender IdentityNot on fileSexual OrientationNot on file Last Filed Vital Signs Vital SignReadingTime TakenCommentsBlood Pressure--Pulse--Temperature-- Respiratory Rate--Oxygen Saturation--Inhaled Oxygen Concentration--Dnuedo81.5 kg (140 lb)09/15/2021 12:00 PM ICGCeevmj469.4 cm (5')09/15/2021 12:00 PM EDTBody Mass Index27.34009/15/2021 12:00 PM EDT Plan of Treatment Not on file Insurance
--- OUTSIDE RECORDS SUMMARY | 2025-04-30 11:59 | XMS_ITS | Clinical Summary ---
Author Organization [facility] Address [address] [place] [address] Care Team Providers Care Line Service Supervisor Name Role Phone Unavailable Primary Care Provider Unavailabl e Social History Tobacco UseTypesPacks/DayYears UsedDateSmoking Tobacco: Never Assessed CommentsUnknownSex and Gender InformationValueDate RecordedSex Assigned at Not on fileLegal OdjNrnvrd66/03/2013 7:27 AM ESTGender IdentityNot on fileSexual OrientationNot on file Plan of Treatment Health MaintenanceDue DateLast DoneCommentsDEXA SCAN EXOLPZVIOM57/17/1939TETANUS 1938TDAP (ADULT)1957CERVICAL CANCER SCREENING RQLWHUQCDP40/17/1960 MAMMOGRAM SCREENING GUHXZHNXOE83/17/1979COLORECTAL CANCER SCREENING DISCUSSION 08/20/1983PNEUMOCOCCAL VACCINE SERIES (1 of 1 - PCV)1988ZOSTER (SHINGLES) VACCINE (1 of 2)1988RSV VACCINE (1 - 1-dose 75+ series)2013COVID-19 VACCINE (1 - 2024- season)2025INFLUENZA VACCINE (#1)2025HEP B VACCINEAged OutNo longer eligible based on patient's age to complete this topic
--- OUTSIDE RECORDS SUMMARY | 2025-04-30 11:59 | XMS_ITS | Clinical Summary ---
Author Organization [facility] Address [address] [place] [address] Care Team Providers Care Outsole Handler Name Role Phone Tiffanie Mcintosh MD Primary Care Provider [phone] Allergies Active AllergyReactionsCriticalityNoted DateCommentsAlendronate SodiumHives 5AmoxicillinDiarrhea,Hives11/25/20133674SwlmtahorMipmddng32/07/2025 headache and felt more nervous CephalosporinsDiarrhea,Hives11/25/20131866QzbvdzooahUscdeki96/07/2025 Onset Date: 10/23/2019 Clavulanic ElljJlkgw16/07/2544JfhbaryuruhmjTwucg36/07/2025 Medications MedicationSigDispense QuantityRefillsLast FilledStart DateEnd DateStatus rosuvastatin [...] 81 mg by mouth in the morning.11/12/2013ctive Foltanx 2-3-35 mg tablet Take 1 tablet by mouth in the morning.Active chlorthalidone (Hygroton) 25 mg tablet Indications:Abnormal EKG,Essential (primary) hypertension,Shortness of breath Take 1 tablet (25 mg) by mouth in the morning. 90 tablet /ctive losartan (Cozaar) 50 mg tablet Indications:Essential hypertensionTake 1 tablet (50 mg) by mouth two times daily. 180 tablet /ctive losartan (Cozaar) 50 mg tablet Take 50 mg by mouth in the morning.Discontinued(Reorder) Active Problems ProblemNoted DateDiagnosed DateAbnormal EKG17598Rczxbqthm49/21/2025nxiety 03/25/2025Encounter for efbcwuhlvqpk23/21/2025Essential (primary) hypertension 03/25/20250595Ltlklxb26/21/2676Prcyisifwvypvq21/21/6211Elycmhsrcurb92/21/2025 Seasonal allergic ckyhrcoc87/21/2025Situational ngsfgv8303/25/2025enign neoplasm of cranial fjqobn8501/17/2014 Encounters DateTypeDepartmentCare MtjkHfpfboetlfu61/20/2025Refill [facility] [address] [place] [facility] [place] [address] Estefany Rapp MA Essential hypertension (Primary Dx)04/07/2025Orders Only [facility] [address] [place] [facility] [place] [address] Car Menendez MD 04/03/2025Orders Only [facility] [address] [place] [address] Luke Ashraf MD 04/03/2025Telephone [facility] [address] [place] [facility] [place] [address] Estefany Rapp MA 03/26/2025 9:[address] [address] [place] [facility] [place] [address] Luke Ashraf MD Abnormal EKG (Primary Dx); Essential (primary) hypertension; Shortness of umzjmp9803/26/2025Orders Only [facility] [address] [place] [address] Liyah Davis MA Abnormal EKG (Primary Dx)03/24/2025Orders Only [facility] [address] [place] [address] Provider, MD Car from Last 3 Months [...] Assigned at BirthFemale 03/21/2025 4:08 PM EDTLegal DtjJlnwff16/29/2022 11:08 PM EDTGender Identity Bdqahj9803/21/2025 4:08 PM EDTSexual OrientationHeterosexual or Lygnpsyp34/17/2025 4:08 PM EDT Last Filed Vital Signs Vital SignReadingTime TakenCommentsBlood Pxetibgk943/8603/26/2025 9:33 AM EDT Ugpsp631803/26/2025 9:33 AM EDTTemperature--Respiratory Rate--Oxygen Eatnzmcgkw96% 03/26/2025 9:33 AM EDTInhaled Oxygen Concentration--Tiiuhd38 kg (139 lb) 03/26/2025 9:33 AM TXULjqsvi408.4 cm (5')03/26/2025 9:33 AM EDTBody Mass Index 27.151 9:33 AM EDT Plan of Treatment DateTypeDepartmentCare Team (Latest Contact Info)Zoxaxrnuwgb21/01/2025 1:40 PM ESTOffice Visit [facility] [address] [place] [address] Luke Ashraf MD [address] [place] [address] Health MaintenanceDue DateLast DoneCommentsMedicare Annual Wellness (AWV) 1940Depression Ecpihcnnf24/17/1953Fall Risk Oidbdhsem93/17/2004 Pneumococcal Vaccine: 50+ Years (2 of 2 - PCV20 or PCV21) Adult Tzrdesf11COVID-19 Vaccine ( season)2025 05/10/2022, 12/23/2021, 03/31/2021Zoster XqoqtdqhJvmfdvckv52/12/2020, 03/26/2019 Influenza BasewwqVoajqkivc20/07/2025, 04/09/2024, 03/02/2022, Additional history existsHIB VaccinesAged OutNo [...] on patient's age to complete this topic Procedures Procedure NamePriorityDate/TimeAssociated DiagnosisCommentsCOMPLETE TRANSTHORACIC ECHO (TTE) W/WO IMAGING AGENT, STRAIN, 3D, BUBBLE STUDYRoutine 04/03/2025 2:29 PM EDTLEXISCAN STRESS MYOCARDIAL PERFUSION IMAGINGRoutine 04/03/2025 9:15 AM EDTfrom Last 3 Months Results * Complete Echo (TTE) w/wo Imaging Agent, Strain, 3D, Bubble Study (04/03/2025 2:29 PM EDT)Anatomical RegionLateralityModalityUltrasound Narrative Authorizing ProviderResult TypeResult StatusHistorical Provider MDCV ECHO PROCEDURESFinal Result * Lexiscan Stress Myocardial Perfusion Imaging (04/03/2025 9:15 AM EDT) Anatomical RegionLateralityModalityOther Narrative Authorizing ProviderResult TypeResult StatusHistorical Provider MDCV STRESS PROCEDURESFinal Result from Last 3 Months Insurance Care Teams Team MemberRelationshipSpecialtyStart DateEnd Date Tiffanie Mcintosh MD [address] [facility] #A PCP - Aqyyfar87/20/25
--- OUTSIDE RECORDS SUMMARY | 2025-04-30 11:59 | XMS_ITS | CCD ---
Author Organization [facility] CliniSyny Care Team Providers Care Health And Wellness Coach Name Role Phone REQUEST, NONE LISTED Attending [...] Care Provider Tiffanie Doan MD Attending Provider [phone] Dioni Tineo DO Attending Provider Tiffanie Daon MD Primary Care Provider [phone] Tiffanie Doan MD Attending Provider Tiffanie Doan MD Other Provider Edyta Guzman MD Attending Provider Tiffanie Doan Attending Unavailable Tiffanie Doan Primary Care Unavailable Tiffanie Doan Admitting Unavailable DRE ARIAS Attending Unavailable Allergies Allergy ClassificationReported Allergen(s)Allergy TypeDate of OnsetReaction(s) FacilityAlendronate (1 source)AlendronateDrug Hzmpjye63-28-0299GepfpZqlcngmliAdena Health SystemCephalosporins (antibiotic) (3 sources)CephalexinDrug Izewsyq50-66-7618SkqmwvbzVqljirgea ClinicClavulanate (1 source)ClavulanateDrug Ylfjqxh98-80-4259WswzkXbtqievdvAdena Health SystemCorticosteroids (1 source)TriamcinoloneDrug Esrfdiu10-28-9333AhehnOmkmjqiqyAdena Health SystemPenicillins (antibiotic) (2 sources)AmoxicillinDrug Ilwhngb96-77-9044KhidozdrDycmzqpuh ClinicSerotonin Reuptake Inhibitors (SSRIs) (1 source)CitalopramDrug Ognyfzs23-04-7114Jyzlwje:not effective - felt more anxiousKeenan Private Hospital (15 sources)CephalexinDrug Ielbowo09-57-4176VvuakkkKhzCommunity [facility] Repository (12 sources)Amoxicillin; Translations: [AMOXICILLIN]Drug Qcevrml68-61-3899TkpjuMagruder Memorial Hospital Repository (13 sources)AmoxicillinDrug AllergyUnkNear Pagessm rehab AppointmentCity Other (9 sources)AlendronateDrug AllergyUnkGreenRay SolarAwoXssm rehab AppointmentCity Other (9 sources)Amoxicillin / ClavulanateDrug AllergyUnkRusk Rehabilitation Center AppointmentCity Other (20 sources)Citalopram; Translations: [CITALOPRAM]Drug Wooudah19-47-1901 Comment:not effective - felt more anxiousKeenan Private Hospital Comment on above:Onset Date: 10/23/2019 (9 sources)TriamcinoloneDrug AllergyBurbank HospitalNear Pagessm rehab AppointmentCity Other (9 sources)Keflex *CEPHALOSPORINS*Propensity to adverse reactionsLake Regional Health System AppointmentCity Other (1 source)Allergies ReconciledPropensity to adverse reactionsUnkwSt. Louis VA Medical Center AppointmentCity Other (1 source)patient allergy list reviewed by nurse or physiciaPropensity to adverse fiddwfamp18-13-9856Fopctmd:[facility] AppointmentCity Other (12 sources)Alendronate; Translations: [alendronate sodium]Drug Allergy 98-90-8032YxifbYzlobfcfsAdena Health System (11 sources)Cephalexin; Translations: [cephalexin]Drug Pqilawv01-81-0976KxyvbGenesis Hospital (12 sources)Cephalosporins (Antibiotic); Translations: [Cephalosporins]Allergy to erpodxmgg90-40-0643SbqrfAwkifkrowAdena Health System (12 sources)Clavulanate; Translations: [clavulanic acid]Drug Yhdtlvh04-74-9470 [facility] (12 sources)Triamcinolone; Translations: [triamcinolone]Drug Wizdawd25-14-0801 [facility] (7 sources)busPIRone; Translations: [buspirone]Drug Qhygqey41-62-8270NeqonxqqUniversity Hospitals Geneva Medical CenterComment on above:headache and felt more nervous (1 source)AmoxicillinDrug Kjitqkn64-91-4620HkoverhvvKeenan Private Hospital Repository (1 source)CitalopramDrug Togxmaz52-13-1265FqnzwabllKeenan Private Hospital Repository Medications Current Medications MedicationDrug Class(es)DatesSig (Normalized)Sig (Original)ascorbic acid 500 mg oral tablet (17 sources)Vitamin CStart: 47-26-6053mebk 1 tablet by mouth once dailyAscorbic Acid (Vitamin C) 500 mg tablet Active 500 MG PO Daily February 18, 2025 12:00am Complies with drug therapyStart: 72-16-4649kgjc 0.5 tablet by mouth once dailyascorbic acid (VITAMIN C) 500 mg tablet Take 0.5 tablets by mouth once daily. 0 11/12/2013 ActiveVitamin C ActiveComment on above:Take 0.5 tablets by mouth once daily.Aspir-81 (13 sources)Aspir-81 Activeaspirin 81 mg delayed release oral tablet (18 sources)Platelet Aggregation Inhibitor, Nonsteroidal Anti-inflammatory Drug Start: 72-29-9946cxcf 1 tablet by mouth once dailyAspirin 81 mg tablet,delayed release (DR/EC) Active 81 MG PO Daily March 11, 2025 1:30pm Complies with drug therapyStart: 05-01-2024 End: 11-99-5137bjzv 1 tablet by mouth three times dailyAspirin 81 mg tablet,delayed release (DR/EC) Discontinued 81 MG PO Three times daily April 10:44am March 11, 2025 1:30pmStart: 10-20-2023 End: 93-90-2910dern 1 tablet by mouth once dailyAspirin 81 mg tablet,delayed release (DR/EC) Discontinued 81 MG PO Daily October 20, 2023 12:00am May 01, 2024 10:46amStart: 42-63-8093ydna 1 tablet by mouth once dailyaspirin, enteric coated (ECOTRIN LOW STRENGTH) 81 mg EC tablet Take 1 tablet by mouth once daily. ActiveComment on above:Take 1 tablet by mouth once daily.Calcium (13 sources)Phosphate Binder, CalciumCalcium Activecalcium carbonate 1500 mg oral tablet (6 sources)Start: 21-02-4618bdwt 1 tablet by mouth once dailyCalcium Carbonate 600 mg calcium (1,500 mg) tablet Active 600 MG PO Daily October 16, 2024 12:00am Complies with drug therapyStart: 87-49-0494uxvu 0.25 tablet by mouth once daily calcium carbonate 600 mg (1,500 mg) tab Take 0.25 tablets by mouth once daily. 0 11/12/2013 ActiveComment on above:Take 0.25 tablets by mouth once daily. clopidogrel 75 mg oral tablet (20 sources)P2Y12 Platelet InhibitorStart: 65-78-3813Opcebwbaham 75 mg tablet Active 0 .ROUTE .COMPLEX July 01, 2024 5:15pm TAKE 1 TABLET ONCE DAILY Complies with drug therapyStart: 07-27-2023 End: 05-19-4637gwtb 1 tablet by mouth once dailyClopidogrel 75 [...] oral tablet (3 sources)Angiotensin 2 Receptor BlockerStart: 92-24-8445rgbm 1 tablet by mouth once dailyLosartan 50 mg tablet Active 50 MG PO daily February 18, 2025 12:00am Complies with drug therapyMagnesium (18 sources)Start: 93-46-1063gaia 1 tablet by mouth once dailyMagnesium 250 mg tablet Active 250 MG PO Daily October 16, 2024 12:00am Complies with drug therapy Start: 76-42-8089hnvg 1 tablet by mouth once dailyStart: 31-01-1736lztl 1 tablet by mouth once dailyMagnesium 250 mg tablet Active 250 MG PO Daily October 16, 2024 12:00amMagnesium ActiveMecobal-Levomefolat Ca-B6 Phos (Foltanx) 2-3-35 mg tablet (5 sources)Start: 10-21-6489Pdyuuiu-Levomefolat Ca-B6 Phos (Foltanx) 2-3-35 mg tablet Active 0 .ROUTE .COMPLEX June 5:15pm TAKE 1 TABLET ONCE DAILY Complies with drug therapyStart: 97-07-7120Dbaei: 58-01-1616Uxaoxiw- Levomefolat Ca-B6 Phos (Foltanx) 2-3-35 mg tablet Active 0 .ROUTE .COMPLEX June 5:15pm TAKE 1 TABLET ONCE DAILY24 hr metoprolol succinate 50 mg extended release oral tablet (20 sources)beta-Adrenergic BlockerStart: 17-33-7448Aqotdqzuhv Succinate 50 mg tablet extended release 24 hr Active 0 .ROUTE .COMPLEX July 1:44pm TAKE 1 TABLET ONCE DAILY Complies with drug therapyStart: 10-20-2023 End: 66-87-4166teng 1 tablet by mouth once dailyMetoprolol Succinate 50 mg tablet extended release 24 hr Discontinued 1 TAB PO Daily October 192:00am July 29, 2024 1:45pm FreeTextSi tablet Orally Once a day; Note: Source Status: Refill; Provider: Olimpia Moreno EStart: 27-71-7827clwn 1 tablet by mouth every twenty-four hoursToprol XL 25 MG 1 tablet Orally Once a day for 30 day(s) May, Activetake 1 tablet by mouth every twenty-four hoursMetoprolol Succinate ER 50 MG 1 tablet Orally Once a day for 90 days ActivePsyllium (6 sources)Metamucil Activerosuvastatin calcium 20 mg oral tablet (20 sources)HMG-CoA Reductase InhibitorStart: 37-59-9207ahsi 1 tablet by mouth every other dayRosuvastatin 20 mg tablet Active 20 MG PO .QOD October 16, 2024 9:29am Complies with drug therapyStart: 07-29-2024 End: 85-15-4012Acqqzhutethw 20 mg tablet Discontinued 0 .ROUTE .COMPLEX July 29, 2024 1:44pm October 16, 2024 9:31am TAKE 1 TABLET DAILYStart: 05-01-2024 End: 66-73-7397kzwb 2 tablets by mouth every other dayRosuvastatin 20 mg tablet Discontinued 40 MG PO .qod May 01, 2024 10:43am July 29, 2024 1:45pmStart: 10-25-2023 End: 79-84-3146npnd 2 tablets by mouth once dailyRosuvastatin 20 mg tablet Discontinued 40 MG PO Daily October 25, 2023 10:33am May 01, 2024 10:46am Start: 15-65-2299vtfu 40 mg by mouth once dailyRosuvastatin Active 40 MG PO Daily October 25, 2023 9:33amStart: 07-27-2023 End: 07-26-8049adxu 1 tablet by mouth once dailyRosuvastatin 20 mg tablet Discontinued 20 MG PO Daily July 27, 2023 10:14am October 240:33am take 1 tablet by mouth every other dayRosuvastatin Calcium 20 MG 1 tablet Orally every other day for 90 days ActiveVitamin D3 (13 sources)Vitamin D3 Active Completed/Discontinued Medications MedicationDrug Class(es)DatesSig (Normalized)Sig (Original)amLODIPine 5 mg oral tablet (20 sources)Dihydropyridine Calcium Channel BlockerStart: 05-01-2024 End: 10-73-2373Fwargbokdq 5 mg tablet Discontinued 5 MG PO .prn May 01, 2024 1:00am February 18, 2025 2:04pmStart: 12-19-2023 End: 34-72-1017wahe 1 tablet by mouth once dailyAmlodipine 5 mg tablet Discontinued 5 MG PO Daily December 19, 2023 11:36am January 22, 2024 11:24am busPIRone hydrochloride 15 mg oral tablet (11 sources)Start: 06-13-2024 End: 52-33-4204aqex 1 tablet by mouth twice dailyBuspirone 15 mg tablet Discontinued 15 MG PO Twice daily 60 July 10, 2024 9:17am October 16, 2024 9:28amcholecalciferol 0.025 mg oral capsule (11 sources)Vitamin DStart: 10-20-2023 End: 58-05-8962zabe 1 capsule by mouth once dailyCholecalciferol (Vitamin D3) 25 mcg (1,000 unit) capsule Discontinued 25 MCG PO Daily October 20, 2023 12:00am October 16, 2024 9:28amStart: 77-00-5828jrtm 1 capsule by mouth once daily cholecalciferol, vitamin D3, (VITAMIN D-3) 400 unit cap Take 1 capsule by mouth once daily. 0 11/12/2013 ActiveComment on above:Take 1 capsule by mouth once daily.diazePAM 2 mg oral tablet (20 sources)BenzodiazepineStart: 10-20-2023 End: 35-32-3158akuq 0.5 tablet by mouth once daily as neededDiazepam 2 mg tablet Discontinued MG PO October 20, 2023 12:00am May 01, 2024 1:34pm FreeTextSi /2 tab Orally Once a day, prn; Note: Source Status: Refill; Refills: 0; Provider: Olimpia Moreno EStart: 48-32-6954vkqz 0.5 tablet by mouth once daily as neededdiazePAM 2 MG 1/2 tab Orally Once a day, prn for 90 days May, ActiveStart: 46-39-0188meox 0.5 tablet by mouth once daily as neededdiazePAM 2 MG 1/2 tab Orally Once a day, prn for 30 days Mar, ActiveStart: 12-56-9986vgmz 1 tablet by mouth twice dailydiazepam (VALIUM) 5 mg tablet Take 1 tablet by mouth twice daily. 0 11/12/2013 ActivediazePAM 2 MG 1/2 tab prn ActiveComment on above:Take 1 tablet by mouth twice daily.fluticasone furoate 0.0275 mg/actuat metered dose nasal spray (11 sources)CorticosteroidStart: 10-20-2023 End: 36-59-0077uzhw 2 spray(s) nasal route once daily, then take 1 spray(s) nasal route once dailyFluticasone Furoate 27.5 mcg/actuation spray,suspension Discontinued 2 SPRAY INTRANASAL Daily October 20, 2023 12:00am January 22, 2024 11:16am FreeTextSi sprays (1 spray in each nostril) Nasally Once a day; Note: Source Status: Taking; Provider: Olimpia Moreno ( )Start: 93-29-5999znknarpednj (FLONASE) 50 mcg/actuation nasal spray 2 Sprays once daily as needed. 0 11/12/2013 ActiveComment on above:2 Sprays once daily as needed. hydroCHLOROthiazide 12.5 mg / lisinopril 10 mg oral tablet (1 source)Thiazide Diuretic, Angiotensin Converting Enzyme InhibitorStart: 02-99-5638gkcu 1 tablet by mouth once dailylisinopril-hydrochlorothiazide 10- 12.5 mg per tablet Take 1 tablet by mouth once daily. 0 11/12/2013 ActiveComment on above:Take 1 tablet by mouth once daily.hydrOXYzine hydrochloride 10 mg oral tablet (20 sources)AntihistamineStart: 01-23-2024 End: 51-96-4425weqb 1 tablet by mouth three times daily as needed for anxiety Hydroxyzine Hcl 10 mg tablet Discontinued 10 MG PO Three times daily as needed for anxiety 30 May 01, 2024 1:35pm May 14, 2024 4:13pm Q-Sqbedcn-A9 Rznf-Plwfbn-H90 (FOLTANX) 3-35-2 mg tab or Capsule (2 sources)Start: 08-67-8110wevk 1 tablet by mouth once kgdtwP-Bezthit-X3 Ckpy-Zawaxc-P80 (FOLTANX) 3-35-2 mg tab or Capsule Take 1 tablet by mouth once daily. 30 capsule 11 11/12/2013 ActiveComment on above:Take 1 tablet by mouth once daily.meclizine hydrochloride 25 mg oral tablet (1 source)AntiemeticStart: 18-94-9221swkp 0.5 tablet by mouth once daily as needed for dizzinessmeclizine 25 mg tab Take 0.5 tablets by mouth once daily as needed (for dizziness.). 0 11/12/2013 ActiveComment on above:Take 0.5 tablets by mouth once daily as needed (for dizziness.).Mecobal-Levomefolat Ca-B6 Phos (Foltanx) 3-35-2 mg tablet (10 sources)Start: 10-20-2023 End: 74-10-0760wsqq 1 tablet by mouth twice dailyMecobal-Levomefolat Ca-B6 Phos (Foltanx) 3-35-2 mg tablet Discontinued 1 TAB PO Twice daily October 20, 2023 12:00am July 01, 2024 5:15pmStart: 65-64-3221qfjn 1 tablet by mouth twice dailyMecobal-Levomefolat Ca-B6 Phos (Foltanx) 3-35-2 mg tablet Active 1 TAB PO Twice daily October 19, 2023 11:00pmStart: 65-30-2018twqj 1 tablet by mouth twice dailyMecobal-Levomefolat Ca-B6 Phos (Foltanx) 3-35-2 mg tablet Active 1 TAB PO Twice daily October 20, 2023 12:00amolmesartan medoxomil 40 mg oral tablet (20 sources)Angiotensin 2 Receptor BlockerStart: 10-16-2023 End: 96-99-8242Ezccldwlqy 40 mg tablet Discontinued 0 .ROUTE .COMPLEX 90 October 16, 2023 12:38pm May 01, 2024 10:43am TAKE 1 TABLET DAILYStart: 07-26-2023 End: 14-05-9228dlua 1 tablet by mouth once dailyOlmesartan 40 mg tablet Discontinued 40 MG PO Daily August 02, 2023 2:42pm October 16, 2023 12:39pm take 1 tablet by mouth once dailyOlmesartan Medoxomil 40 MG 1 tab Orally daily for 30 days Activetake 1 tablet by mouth once dailyOlmesartan Medoxomil 20 MG 1 tab Orally daily Activepromethazine hydrochloride 25 mg oral tablet (7 sources)PhenothiazineStart: 60-44-2630vvwk 0.5 tablet by mouth once daily as needed for nauseapromethazine 25 mg tablet Take 0.5 tablets by mouth once daily as needed for Nausea/Vomiting. 0 11/12/2013 ActivePromethazine HCl 25 MG 1 tablet as needed prn ActiveComment on above:Take 0.5 tablets by mouth once daily as needed for Nausea/Vomiting.tiZANidine 4 mg oral tablet (20 sources)Central alpha-2 Adrenergic AgonistStart: 10-20-2023 End: 92-47-5365jtsu 1 tablet by mouth three times daily [...] acetonide 40 mg/ml injectable suspension (13 sources)CorticosteroidStart: 08-93-2422Sqmlwqb-40 October, 40 mg Problems Active Problems Problem ClassificationProblemDateDocumented DateEpisodic/ChronicAcute cerebrovascular disease (1 source)Cerebral infarction; Translations: [Cerebral infarction, unspecified] ChronicAdjustment disorders (14 sources)Stress; Translations: [Reaction to severe stress, unspecified] 53-11-5446XaqlfxpQqwikug disorders (15 sources)Generalized anxiety disorder; Translations: [Generalized anxiety disorder]ChronicCardiac dysrhythmias (1 source)Cardiac arrhythmia; Translations: [Cardiac arrhythmia, unspecified] ChronicCardiac dysrhythmias (1 source)Palpitations; Translations: [Palpitations]93-77-9042MfxandgxIwfxjtkpr of lipid metabolism (20 sources)Hyperlipidemia; Translations: [Hyperlipidemia, unspecified]Chronic Essential hypertension (20 sources)Essential hypertension; Translations: [Essential (primary) hypertension]Onset: 54-07-8808XrrepixAqucogss; including migraine (1 source)Episodic tension-type headache; Translations: [Episodic tension type headache]Onset: 33-19-7482BiidhuuGvaijaoaesarx and screening for infectious disease (8 sources)Vaccination given; Translations: [Encounter for immunization] 32-43-7800FbzskymsDptergw and fatigue (7 sources)Fatigue; Translations: [Other fatigue]41-93-3645CtxgirhwHzkibo and vomiting (1 source)Nausea; Translations: [Nausea]EpisodicNonspecific chest pain (1 source)Chest pain, unspecified; Translations: [Chest pain, unspecified]Onset: 88-49-8203VriaooxhUlpdijfwobp deficiencies (14 sources)Vitamin D deficiency; Translations: [Vitamin D deficiency, unspecified]ChronicNutritional deficiencies (3 sources)Deficiency of other specified B group vitaminsEpisodicOsteoarthritis (1 source)Osteoarthritis; Translations: [Unspecified osteoarthritis, unspecified site]ChronicOsteoporosis (1 source)Primary osteoporosis; Translations: [Age-related osteoporosis without current pathological fracture]Onset: 93-08-5430CbcxfuiVjxvz and unspecified benign neoplasm (3 sources)Benign neoplasm of cranial nerve; Translations: [Benign neoplasm of cranial nerves]Onset: 012135-89-8841HuuhhciVmbmq and unspecified benign neoplasm (3 sources)Benign neoplasm of cranial nerves; Translations: [BENIGN NEOPLASM OF CRANIAL NERVES]Onset: 05-82-9730JrytoqlWstym circulatory disease (1 source)Elevated blood-pressure reading without diagnosis of hypertension; Translations: [Elevated blood-pressure reading, without diagnosis of hypertension]EpisodicOther circulatory disease (1 source)Personal history of transient ischemic attack (TIA), and cerebral infarction without residual deficitsEpisodicOther connective tissue disease (2 sources)Spasm; Translations: [Spasm of muscle]Onset: 70-98-0639WcspokhfAizjp gastrointestinal disorders (12 sources)Abnormal feces; Translations: [Other fecal abnormalities]Episodic Other gastrointestinal disorders (1 source)Other fecal abnormalities; Translations: [Positive colorectal cancer screening using Cologuard test]EpisodicOther lower respiratory disease (1 source)Other forms of dyspneaEpisodicOther lower respiratory disease (2 sources)Shortness of breath; Translations: [Shortness of breath]Onset: 35-30-6217GtmtrhfrOzdds non-traumatic joint disorders (1 source)Pain in right hip joint; Translations: [Pain in right hip]Episodic Other screening for suspected conditions (not mental disorders or infectious disease) (9 sources)Encounter for screening mammogram for malignant neoplasm of breast; Translations: [Electrocardiogram abnormal]Onset: 89-84-9048DlwvczmvDadut upper respiratory disease (20 sources)Seasonal allergic rhinitis; Translations: [Other seasonal allergic rhinitis]50-39-9742RmofvgyXgwoijkhey and visceral atherosclerosis (5 sources)Peripheral vascular disease, unspecified; Translations: [Peripheral vascular disease]Onset: 17-39-0298NcxkxvpSgxzmbog codes; unclassified (8 sources)Restlessness and agitation; Translations: [Restlessness and agitation]80-39-6574FjudtnhDoneyzcy codes; unclassified (2 sources)Restlessness and agitation; Translations: [Other and unspecified special symptoms or syndromes, notelsewhere classified]88-84-3343FtgyvloMxvzzugh codes; unclassified (1 source)Family history of malignant [...] without myelopathy; Translations: [Lumbosacral spondylosis without myelopathy]Onset: 29-68-5902NzjnheeKfvabcssc cerebral ischemia (1 source)Transient cerebral ischemia; Translations: [Transient cerebral ischemic attack, unspecified]ChronicUnclassified (1 source)R94.31 - Abnormal electrocardiogram [ECG] [EKG],R53.83 - Other fatigue Past or Other Problems Problem ClassificationProblemDateDocumented DateEpisodic/ChronicAllergic reactions (1 source)Contact dermatitis; Translations: [Contact dermatitis and other eczema, due to unspecified cause]Onset: 91-14-4577OkdcuxqtNhszbu of ovary (1 source)History of malignant neoplasm of ovary; Translations: [Personal history of malignant neoplasm of ovary]Onset: 68-00-3734XyedylnsKuszpyepem associated with dizziness or vertigo (2 sources)Benign paroxysmal positional vertigo; Translations: [Benign paroxysmal positional vertigo]Onset: 92-64-1177HmmqdmuwDuhhd connective tissue disease (1 source)Pain in left lower limb; Translations: [Pain in left leg]Onset: 98-73-2101KukpxccxLgjkv non-traumatic joint disorders (4 sources)Pain in right hip; Translations: [PAIN IN RIGHT HIP]Onset: 07-14-2021 EpisodicOther non-traumatic joint disorders (1 source)Shoulder joint pain; Translations: [Pain in left shoulder]Onset: 37-92-3655YdsfauznNqfgy non-traumatic joint disorders (1 source)Arthralgia of the lower leg; Translations: [Pain in joint, lower leg] Onset: 30-06-9268DgbqkypkHftvk upper respiratory infections (1 source)Acute maxillary sinusitis; Translations: [Acute recurrent maxillary sinusitis]Onset: 41-95-8374WlltvgoeRkqjuyxoo; thrombophlebitis and thromboembolism (1 source)Embolism from thrombosis of vein of distal lower extremity; Translations: [Acute venous embolism and thrombosis of unspecified deep vessels of lower extremity]Onset: 39-42-8556VctyrvhwOmzzjqrc codes; unclassified (1 source)Family history of malignant neoplasm of breast; Translations: [FAMILY HX MALIG NEOPLASM OF BREAST]Onset: 75-77-8835YyfoesosHwbjatvb codes; unclassified (1 source)Family history of malignant neoplasm of digestive organs; Translations: [FAM HX MALIG NEOPLASM DIGESTIV ORGN]Onset: 61-28-0666Qysfbnmn Screening and history of mental health and substance abuse codes (1 source)History of tobacco use; Translations: [Personal history of tobacco use, presenting hazards to health]Onset: 11-57-0379FsiurybyTvsm and subcutaneous tissue infections (1 source)Cellulitis and abscess of lower leg; Translations: [Cellulitis and abscess of leg, except foot]Onset: 54-81-6303SmoyjxjgCajqviuoirob (1 source)Need for prophylactic vaccination with tetanus toxoid alone; Translations: [Need for prophylactic vaccination with tetanus toxoid alone] Onset: 05-01-2013 Results Test NameValueInterpretationReference RangeFacilityOrders Onlyon 04-07-2025 Orders [id number] Shabnam Garsia 1940 F Date Provider Department Center 04/07/2025 [id number], HISTORICAL JUVENCIO Rubio Family History Problem Relation Age of Onset Accidental Mother Heart failure Father Deep vein thrombosis Father COPD Brother Heart disease Brother Heart failure Brother Suicidality Son Family Status - Relation Status Age at Mother Father Sister Alive Brother Brother Son Son AliveNoBlanchard Valley [facility]36on 25-87-863460Tce Dr Arias pt is to increase Losartan to 50 mg BID pt informed and she states she has plenty of medication and will call us when she needs refill of increased doseNormalUFlower HospitalOrders Onlyon 68-33-1175Ngktli Only [id number] Shabnam Garsia 1940 Date Provider Department Center 04/03/2025 DRE HARTMAN JUVENCIO Duong Marta Family History Problem Relation Age of Onset Accidental Mother Heart failure Father Deep vein thrombosis Father COPD Brother Heart disease Brother Heart failure Brother Suicidality Son Family Status - Relation Status Age at Mother Father Sister Alive Brother Brother Son Son AliveNormBarberton Citizens HospitalOffice Visiton 03-26-2025 Follow-up [id number] Shabnam Garsia 1940 F Date Provider Department Center 03/26/2025 DRE HARTMAN JUVENCIO Rubio Family History Problem Relation Age of Onset Accidental Mother Heart failure Father Deep vein thrombosis Father COPD Brother Heart disease Brother Heart failure Brother Suicidality Son Family Status - Relation Status Age at Mother Father Sister Alive Brother Brother Son Son Alive Level of Service:41713 AR OFFICE/OUTPATIENT NEW MODERATE MDM 45 MINUTES Reason for Visit and Comments: New Patient [632] - Patient is here today to establish care with cardiology. Patient recently had and abnormal EKG.Patient denies chest pain, racing heart/palpitations, leg swelling, dizziness/lightheaded. Fatigue [46] - Increased fatigue Shortness of Breath [323910] - SOB/VEGA occasional with getting out of chair and walking Hypertension [474348] Hyperlipidemia [182] Abnormal ECG [293]NormalFirelands Regional Medical CenterOrders Onlyon 54-44-1868Wtlyld [id number] Shabnam Garsia 1940 F Date Provider Department Center 03/24/2025 [id number], HISTORICAL CARD Keila Hos Family History Problem Relation Age of Onset Accidental Mother Heart failure Father Deep vein thrombosis Father COPD Brother Heart disease Brother Heart failure Brother Suicidality Son Family Status - Relation Status Age at Mother Father Sister Alive Brother Brother Son Son AliveNormalUniversity [facility], BeachwoodFPG ECG *PCP OFFICE ONLY*on 13-43-6053YNT ECG *PCP OFFICE ONLY*[facility] [place] [address] [place] [address] Electrocardiograph Report Signed Patient: Shabnam Garsia MR#: [id number] 90 : 1940 Acct:[id number] Age/Sex: 84 / F ADM Date: 02/18/25 [facility] [facility] Room: Type: [facility] Attending Dr: Tiffanie Doan MD Ordering Provider: [...] undetermined Abnormal ECG Confirmed by Edyta Guzman ([id number]) on 02/18/2025 4:11:45 PM Referred By: Electronically Signed By: Edyta Guzman Transcribed By: MUS Signed By Edyta Guzman MD [address] [place] [address] Physician GroupLaboratory - Chemistry and Chemistry - challengeOrdered By: Tiffanie Doan on 80-05-8550Wglt T4 [Mass/Vol]0.97 ng/dL 0.76-1.46[facility] Qn2.002 m[IU]/L0.358-3.740 [facility] Chemistry - challengeon 07-82-9138Uqev T4 [Mass/Vol]0.95 ng/dL0.76-1.46[facility] Qn2.528 m[IU]/L0.358-3.740[facility] Basophils Auto (Bld) [#/Vol]on 41-24-0091Izshmvrlh (Bld) [#/Vol]0.0 10 3/uL 0.0-0.1FVan Wert County HospitalBasophils/100 WBC Auto (Bld)on 41-13-1463Mzwehetrx/100 WBC (Bld)0.5 %0.2-2.0[facility] Eosinophils/100 WBC Auto (Bld)on 58-36-7704Jzjxhbiaqad/100 WBC (Bld)1.9 %0.9-7.0 [facility] HospitalErythrocyte distribution width Auto (RBC) [Ratio]on 80-10-6545Kzazzwfcdww distribution width (RBC) [Ratio]13.8 %11.0-15.0 [facility] HospitalEstimated glomerular filtration rate (GFR) non- Americanon 66-65-6784DWA/1.73 sq M.predicted among non-blacks MDRD (S/P/Bld) [Vol rate/Area]50 mL/min/{1.73_m2}Low>=60[facility] HospitalGlobulin Calc (S) [Mass/Vol]on 87-60-7122Jiumrwvc (S) [Mass/Vol]3.4 g/dL [facility] HospitalHematocrit Auto (Bld) [Volume fraction]on 85-49-0864Zpyqxyorly (Bld) [Volume fraction]40.7 %36.0-48.0[facility] HospitalHemoglobin [Mass/volume] in Bloodon 54-24-9979Gtjmxemxde (Bld) [Mass/Vol]13.0 g/dL12.0-16.0[facility] HospitalLaboratory - Chemistry and Chemistry - challengeon 05-10-7501Jhjjulc [Mass/Vol]3.3 g/dLLow 3.4-5.0[facility] HospitalALP [Catalytic activity/Vol]63 U/L46-116 [facility] HospitalALT [Catalytic activity/Vol]20 U/L14-59 [facility] HospitalAST [Catalytic activity/Vol]19 U/L15-37 [facility] HospitalBilirubin [Mass/Vol]1.2 mg/dLHigh0.2-1.0 [facility] HospitalCalcium [Mass/Vol]8.4 mg/dLLow8.5-10.1FVan Wert County HospitalChloride [Moles/Vol]104 mmol/H80-815LrjgyefalKeenan Private HospitalCO2 [Moles/Vol]28.4 mmol/L21.0-32.0[facility] HospitalCreatinine [Mass/Vol]1.05 mg/dLHigh0.55-1.02[facility] HospitalGFR/1.73 sq M.predicted MDRD (S/P/Bld) [Vol rate/Area]mL/min/{1.73_m2}>=60 [facility] HospitalGlucose [Mass/Vol]104 mg/nM09-795JbdcsgwhwKeenan Private HospitalPotassium [Moles/Vol]3.8 mmol/L3.5-5.1FVan Wert County HospitalProtein [Mass/Vol]6.7 g/dL6.4-8.2FVan Wert County Hospital Sodium [Moles/Vol]140 mmol/R489-957ItwiuczmvKeenan Private HospitalUrea nitrogen [Mass/Vol]17.0 mg/dL7.0-18.0[facility] HospitalUrea nitrogen/Creatinine [Mass ratio]16.2 mg/mgKeenan Private Hospital Laboratory - Hematology and Cell countson 21-50-7593Tsihvaqt granulocytes/100 WBC (Bld)0.3 %0.0-0.5FVan Wert County HospitalLeukocytes [#/volume] corrected for nucleated erythrocytes in Blood by Automated counon 00-57-4954IJM corrected for nucl RBC Auto (Bld) [#/Vol]6.2 10 3/uL4.0-11.0[facility] HospitalLymphocytes Auto (Bld) [#/Vol]on 48-92-2376Ovlqxvybpov (Bld) [#/Vol]1.4 10 3/uL1.2-3.8[facility] HospitalLymphocytes/100 WBC Auto (Bld)on 56-53-3307Ifsgxxutoox/100 WBC (Bld)22.4 %20.5-60.0[facility] Auto (RBC) [Entitic mass]on 13-19-1855DOZ (RBC) [Entitic mass]32.3 pg26.7-34.0[facility] HospitalMCHC Auto (RBC) [Mass/Vol]on 67-00-4374NYKN (RBC) [Mass/Vol]31.9 g/dL29.9-35.2FVan Wert County HospitalMCV Auto (RBC) [Entitic vol]on 81-03-6901WXK (RBC) [Entitic vol] 101.0 yYRgxs39.0-99.0[facility] HospitalMonocytes Auto (Bld) [#/Vol]on 86-50-2893Sajnnnagm (Bld) [#/Vol]0.5 10 3/uL0.3-0.8[facility] HospitalMonocytes/100 WBC Auto (Bld)on 27-57-2579Caqfrgdcb/100 WBC (Bld) 7.4 %1.7-12.0[facility] HospitalNeutrophils Auto (Bld) [#/Vol]on 11-70-1155Wuqcofntytg (Bld) [#/Vol]4.2 10 3/uL1.4-6.5FVan Wert County HospitalNeutrophils/100 WBC Auto (Bld)on 23-10-1903Sfafehrkhsp/100 WBC (Bld)67.5 % 43.0-75.0[facility] HospitalNo Panel Informationon 12-10-2023 Eosinophils # (Auto)0.1 10 3/uL0.0-0.7FVan Wert County HospitalImmature Granulocyte # (Auto)0.02 10 3/uL0.00-0.03[facility] Troponin I High Sensitivity7.0 pg/mL4.0-51.3FVan Wert County Hospital Comment on above:CUT-OFF POINTS HAVE BEEN [...] INFORMATION.Platelet mean volume Auto (Bld) [Entitic vol]on 33-81-2621Bfzbuoxx mean volume (Bld) [Entitic vol] 10.7 fL9.5-13.5FVan Wert County HospitalPlatelets Auto (Bld) [#/Vol]on 37-55-2544Srvxfhjtb (Bld) [#/Vol]172 10 3/kV867-603SayauvrppKeenan Private HospitalRBC Auto (Bld) [#/Vol]on 75-24-5106AFQ (Bld) [#/Vol]4.03 10 6/uLLow 4.20-5.40[facility] Hospitalerum or plasma albumin/globulin mass ratioon 58-00-1807Dyckyts/Globulin [Mass ratio]1.0 {ratio}[facility] Hospitalerum or plasma anion gap determinationon 69-35-3681Hzayv gap [Moles/Vol]11.4 mmol/LFVan Wert County HospitalCBC AUTO DIFFon 98-58-7720ESGX #0.0 103/ulNormal0.0-0.1[facility] Memorial HospitalComment on above: Performed By: #### DATCBC #### [facility] [address] [address] [address] Kin Childsophils/100 WBC (Bld)0.7 %Normal0.2-2.0The [facility] Comment on above:Performed By: #### DATCBC #### [facility] [address] [place] [address] Dr. Kin Yeh #0.1 103/ulNormal0.0-0.7The [facility] CenterComment on above: Performed By: #### DATCBC #### [facility] [address] [place] [address] Dr. Kin Tanosinophils/100 WBC (Bld)1.6 %Normal0.9-7.0The [facility] Comment on above:Performed By: #### DATCBC #### [facility] [address] [place] [address] Dr. Kin Tanrythrocyte distribution width (RBC) [Ratio]13.3 %Bavloo52.0-15.0 The [facility] CenterComment on above:Performed By: #### DATCBC #### [facility] [address] [place] [address] Dr. Kin AcunaHematocrit (Bld) [Volume fraction]41.4 %Kjvyov84.0-48.0The [facility] CenterComment on above:Performed By: #### DATCBC #### [facility] [address] [place] [address] Dr. Kin AcunaHemoglobin (Bld) [Mass/Vol]13.0 g/dTRzyhkr74.0-16.0The [facility] CenterComment on above:Performed By: #### DATCBC #### [facility] [address] [place] [address] Dr. Kin Grady #0.01 10e3/ulNormal0.00-0.03The [facility] CenterComment on above:Performed By: #### DATCBC #### [facility] [address] [place] [address] Dr. Kin Grady %0.2 %Normal0.0-0.5The [facility] CenterComment on above: Performed By: #### DATCBC #### [facility] [address] [place] [address] Dr. Kin Bhat #1.8 103/ulNormal1.2-3.8The [facility] CenterComment on above:Performed By: #### DATCBC #### [facility] [address] [place] [address] Dr. Kin Morenomphocytes/100 WBC (Bld)32.8 %Sgnpqz37.5-60.0The [facility] HospitalComment on above:Performed By: #### DATCBC #### [facility] [address] [place] [address] Dr. Kin Gillis (RBC) [Entitic mass]31.4 xkOmvtif26.7-34.0The [facility] CenterComment on above:Performed By: #### DATCBC #### [facility] [address] [place] [address] Dr. Kin Gillis (RBC) [Mass/Vol]31.4 g/wNNwbpbi04.9-35.2The [facility] CenterComment on above:Performed By: #### DATCBC #### [facility] [address] [place] [address] Dr. Kin Gillis (RBC) [Entitic vol]100.0 fLCritically high81.0-99.0The [facility] CenterComment on above:Performed By: #### DATCBC #### [facility] [address] [place] [address] Dr. Kin Yin #0.5 103/ulNormal0.3-0.8The [facility] CenterComment on above:Performed By: #### DATCBC #### [facility] [address] [place] [address] Dr. Kin Villavicencioocytes/100 WBC (Bld)8.3 %Normal1.7-12.0The [facility] Comment on above:Performed By: #### DATCBC #### [facility] [address] [place] [address] Dr. Kin Kan #3.1 103/ulNormal1.4-6.5The [facility] CenterComment on above:Performed By: #### DATCBC #### [facility] [address] [place] [address] Dr. Kin AcunaNeutrophils/100 WBC (Bld)56.4 %Tjntka76.0-75.0The [facility] CenterComment on above:Performed By: #### DATCBC #### [facility] [address] [place] [address] Dr. Kin AcunaPlatelet mean volume (Bld) [Entitic vol]10.7 fLNormal9.5-13.5The [facility] CenterComment on above:Performed By: #### DATCBC #### [facility] [address] [place] [address] Dr. Kin AcunaPLT171 103/pkLarlcc040-311Smv [facility] CenterComment on above: Performed By: #### DATCBC #### [facility] [address] [place] [address] Dr. Kin AcunaRBC4.14 106/ulCritically low4.20-5.40The [facility] CenterComment on above:Performed By: #### DATCBC #### [facility] [address] [place] [address] Dr. Kin AcunaWBC5.6 103/ulNormal4.0-11.0The [facility] CenterComment on above: Performed By: #### DATCBC #### [facility] [address] [place] [address] Dr. Kin Becerra- BMP WITH LIPIDon 30-39-8123Vjnqd gap [Moles/Vol]9.2 mmol/L NormalThe [facility] CenterComment on above:Performed By: #### DATBMP #### [facility] [address] [place] [address] Dr. Kin AcunaCalcium [Mass/Vol]8.8 mg/dLNormal8.5-10.1The [facility] Comment on above:Performed By: #### DATBMP #### [facility] [address] [address] [address] Kin AcunaChloride [Moles/Vol]106 mmol/DVycvzl78-459Ghh [facility] Comment on above:Performed By: #### DATBMP #### [facility] [address] [address] [address] Kin AcunaCholesterol [Mass/Vol]152 mg/dLNormal<=200The [facility] Comment on above:Performed By: #### DATBMP #### [facility] [address] [address] [address] Kin AcunaCholesterol in HDL [Mass/Vol]90 mg/dLCritically kuro18-17Ayb [facility] CenterComment on above:Performed By: #### DATBMP #### [facility] [address] [address] [address] Kin AcunaCholesterol in LDL [Mass/Vol]57.8 mg/dLNormalThe [facility] CenterComment on above:Performed By: #### DATBMP #### [facility] [address] [address] [address] Kin AcunaCO2 [Moles/Vol]29.0 mmol/TYnbwhe33.0-32.0The [facility] Comment on above:Performed By: #### DATBMP #### [facility] [address] [address] [address] Kin AcunaCreatinine [Mass/Vol]1.04 mg/dLCritically high0.55-1.02The [facility] CenterComment on above:Performed By: #### DATBMP #### [facility] [address] [address] [address] Sanderson ChangEGFR-AF PORTUGUESE>60Normal>=60The [facility] CenterComment on above:Performed By: #### DATBMP #### [facility] [address] [address] [address] Sanderson ChangEGFR-NON AF PXBANGSG48 mL/min/1.80i3Kkcdskcjil low>=60The [facility] CenterComment on above:Performed By: #### DATBMP #### [facility] [address] [address] [address] Kin AcunaGlucose [Mass/Vol]97 mg/yHVfypqz13-493IbwMccullough-Hyde Memorial Hospital Comment on above:Performed By: #### DATBMP #### [facility] [address] [address] [address] Kin Spear NORMAL> or = 60 mg/dl - LOW CARDIOVASCULAR RISK <40 mg/dl - HIGH CARDIOVASCULAR RISKDelaware County HospitalComment on above:Performed By: #### DATBMP #### [facility] [address] [address] [address] Kin AcunaLDL CALC NORMALSEE BELOWDelaware County HospitalComment on above:Result Comment: <100 mg/dl OPTIMAL 100 - 129 mg/dl NEAR OR ABOVE OPTIMAL 130 - 159 mg/dl BORDERLINE HIGH 160 - 189 mg/dl HIGH >190 mg/dl VERY HIGH Performed By: #### DATBMP #### [facility] [address] [address] [address] Kin AcunaPotassium [Moles/Vol]4.2 mmol/LNormal3.5-5.1[facility] Comment on above:Performed By: #### DATBMP #### [facility] [address] [place] [address] Dr. Kin AcunaSodium [Moles/Vol]140 mmol/AYovyii350-177JtfMccullough-Hyde Memorial Hospital Comment on above:Performed By: #### DATBMP #### [facility] [address] [address] [address] Kin AcunaTriglyceride [Mass/Vol]21 mg/dLNormal<=150The [facility] Comment on above:Performed By: #### DATBMP #### [facility] [address] [place] [address] Dr. Kin AcunaUrea nitrogen [Mass/Vol]16.0 mg/dLNormal7.0-18.0The [facility] CenterComment on above:Performed By: #### DATBMP #### [facility] [address] [place] [address] Dr. Kin AcunaUrea nitrogen/Creatinine [Mass ratio]15.4 mg/mgNoCrystal Clinic Orthopedic CenterComment on above:Performed By: #### DATBMP #### [facility] [address] [address] [address] Kin AcunaVLDL CALC4.2 mg/dLNoCrystal Clinic Orthopedic CenterComment on above: Performed By: #### DATBMP #### [facility] [address] [address] [address] Kin AcunaMG MAMM SCREEN 3D BRANDON CADon 13-53-8226MF MAMM SCREEN 3D BRANDON CAD Patient: SHABNAM GARSIA Exam Date: 11/19/2021 : 1940 Gender:F Ordering : DR TIFFANIE DOAN M.D. Admission #: [id number] Family : Order #: [id number] CLICK HERE TO VIEW EXAM RADIOLOGY REPORT [...] colon cancer at age 78. LOCATION: The [facility] BREAST COMPOSITION: Heterogeneously dense,which may [...] by: Lamberto Alejandro M.D. on 11/19/2021 at 14:56[facility] Vital Signs Date TimeVital SignValuePerforming HjkteclhzXzzgtxem70-59-7731 13:17-0400 Diastolic blood mm[Hg]Tiffanie Doan MD Work Phone: [phone]10-07-2025 13:17-0400 Heart rate72 /Korey Doan MD Work Phone: [phone])[address] [place], [place] [address]862010-07-2025 13:17-0400 Systolic blood hbydsgvx999 mm[Hg]Tiffanie Doan MD Work Phone: [phone] [place], [place] [address]862010-07-2025 13:02-0400 Body kbybjf949.4 cmTiffanie Doan MD Work Phone: [phone])[address] [place], [place] [address]862010-07-2025 13:02-0400 Body mass index (BMI) [Ratio]27.3 kg/y3MochziTiffanie Doan MD Work Phone: [phone] [place], [place] [address]862010-07-2025 13:02-0400 Body vdfcqo87.5 kgTiffanie Doan MD Work Phone: [phone] [place], [place] [address]862009-16-2025 13:36-0400 Diastolic blood muepaskl75 mm[Hg]Tiffanie Doan MD Work Phone: [phone])[address] [place], [place] [address]862009-16-2025 13:36-0400 Systolic blood mm[Hg]Tiffanie Doan MD Work Phone: [phone])[address] [place], [place] 9862009-16-2025 13:25-0400 Body cdahhm758.4 cmTiffanie Doan MD Work Phone: [phone] [place], [place] [address]862009-16-2025 13:25-0400 Body mass index (BMI) [Ratio]27 kg/d1GkesqkTiffanie Doan MD Work Phone: [phone])[address] [place], [place] [address]862009-16-2025 13:25-0400 Body huaheb24.82 kgTiffanie Doan MD Work Phone: [phone])[address] [place], [place] [address]862009-16-2025 13:25-0400 Heart rate79 /Korey Doan MD Work Phone: [phone])[address] [place], [place] [address]862005-14-2025 09:23-0400 Body kgkdwe603.4 cmKe[facility]05-14-2025 09:23-0400Body mass index (BMI) [Ratio]28.1 kg/j1HmdsoqanzKeenan Private Hospital05-14-2025 09:23-0400Body .31 [facility]05-14-2025 09:23-0400Diastolic blood kiewuacs82 mm[Hg][facility] 10-16-2024 09:23-0400Heart rate62 /[facility] 10-16-2024 09:23-0400Systolic blood nciytpyr941 mm[Hg][facility]01-09-2025 13:35-0500Body zgovhd435.4 cmKeenan Private Hospital 06-13-2024 13:35-0500Body mass index (BMI) [Ratio]28.2 kg/y2JnrdyebeoKeenan Private Hospital01-09-2025 13:35-0500Body .54 [facility]01-09-2025 13:35-0500Diastolic blood obhngxxh73 mm[Hg][facility]01-09-2025 13:35-0500Heart rate77 /[facility]01-09-2025 13:35-0500Systolic blood ouabnwgl092 mm[Hg][facility]11-27-2024 09:35-0500Body ngkiyk834.4 cmKeenan Private Hospital11-27-2024 09:35-0500Body mass index (BMI) [Ratio]28.1 kg/j7VogjwzqwuKeenan Private Hospital11-27-2024 09:35-0500Body .31 [facility]11-27-2024 09:35-0500Diastolic blood mm[Hg] [facility]11-27-2024 09:35-0500Heart rate63 /[facility]11-27-2024 09:35-0500Systolic blood bkoypgwn011 mm[Hg] [facility]2024 11:12-0400Body znktuw629.4 cm [facility]2024 11:12-0400Body mass index (BMI) [Ratio]27.3 kg/f9YzrrgclzgKeenan Private Hospital2024 11:12-0400Body qarekt16.67 [facility]2024 11:12-0400Diastolic blood zptotxay54 mm[Hg][facility]2024 11:12-0400 Heart rate91 /[facility]2024 11:12-0400Systolic blood farzdmvz483 mm[Hg][facility]07-16-2024 11:12-0400 Body jchoms203.4 cmKeenan Private Hospital07-16-2024 11:12-0400Body mass index (BMI) [Ratio]28.1 kg/a7ExvihrmrxKeenan Private Hospital07-16-2024 11:12-0400Body lysznm83.31 [facility]07-16-2024 11:12-0400Diastolic blood fdzptajq19 mm[Hg][facility] 12-19-2023 11:12-0400Heart rate80 /[facility] 12-19-2023 11:12-0400Systolic blood vazxqnuf173 mm[Hg][facility]05-22-2024 10:20-0400Body .4 cmKeenan Private Hospital 10-25-2023 10:20-0400Body mass index (BMI) [Ratio]28.3 kg/n1PbwdrmftjKeenan Private Hospital05-22-2024 10:20-0400Body .77 kgKeenan Private Hospital05-22-2024 10:20-0400Diastolic blood zauyjiom54 mm[Hg][facility]05-22-2024 10:20-0400Heart rate67 /[facility]05-22-2024 10:20-0400Systolic blood hlynpfxp399 mm[Hg][facility]12-19-2023 09:00-0500Body lykedp629.4 cmTiffanie Doan Other [facility] Other [id number] 09:00-0500Body mass index (BMI) [Ratio] 28.55 kg/b8Srpsiu Olimpia Other [employer] Other 12-19-2023 09:00-0500Body hwqoue77.32 kgTiffanie Olimpia Other [employer] Other 12-19-2023 09:00-0500Diastolic blood mm[Hg]Tiffanie Doan Other [employer] Other 12-19-2023 09:00-0500Systolic blood xudkbjcr804 mm[Hg] Tiffanie Doan Other [employer] Other 11-22-2023 10:00-0500Body .4 cmCherryfernando Doan Other [employer] Other 11-22-2023 10:00-0500Body mass index (BMI) [Ratio] 27.92 kg/c9Phmoxp Braun Other [employer] Other 11-22-2023 10:00-0500Body fhydqq55.86 kgAmayaolga lidia Doan Other [employer] Other 11-22-2023 10:00-0500Diastolic blood veqsegam33 mm[Hg] Tiffanie Doan Other [employer] Other 11-22-2023 10:00-0500Systolic blood mm[Hg] Tiffanie Doan Other [employer] Other 05-24-2023 10:00-0400Body kivqbw491.4 cmTiffanie Doan Other [employer] Other 05-24-2023 10:00-0400Body mass index (BMI) [Ratio] 28.71 kg/k3YkkmijTiffanie Doan Other [employer] Other 05-24-2023 10:00-0400Body smoann93.68 kgTiffanie Doan Other [employer] Other 05-24-2023 10:00-0400Diastolic blood lhsrmalz28 mm[Hg] Tiffanie Olimpia Other [employer] Other 05-24-2023 10:00-0400Systolic blood nelkfsca205 mm[Hg] Tiffanieisabela Doan Other [employer] Other Encounters Encounter DateEncounter TypeCare ProviderFacilityStart: 03-26-2025 End: 97-51-3303lqymapiimbJHACEBDWOWC [facility] Start: 03-11-2025 End: 46-93-1589xjbbklxdmkDcrjfg E Braun MD Work Phone: [facility] Work Phone: Start: 03-11-2025 End: 59-17-9588Dvlxkjz encounter procedureTiffanie Doan MD-[facility] Work Phone: Start: [phone]-patient / Non-visitLinda Megan [facility] Work Phone: Start: 02-18-2025 End: 10-78-6574kvhtwxxtawIltgms E Braun MD Work Phone: [facility] Work Phone: Start: 02-18-2025 End: 51-33-2774Ipxfojx encounter procedureTiffanie Doan MD-[facility] Work Phone: Start: 01-09-2025 End: 31-80-0366gmyeotcgnsJjalqk E Braun MD Work Phone: [facility] Work Phone: Start: 01-09-2025 End: 68-82-9586Fsyltfo encounter procedureBendarlene Noman DO-[facility] Work Phone: Start: 10-16-2024 End: 28-25-5939eumktxqsapJhixsutymPremier Health [facility] Work Phone: Start: 10-16-2024 End: 09-06-6418Gxlcsdd encounter procedureFirelands Physician Group-[facility] Work Phone: Start: 35-49-6867Mek-patient / Non-visitFirelands Physician Group-[facility] Work Phone: Start: 06-13-2024 End: 64-43-5622ejxynsvfivRwiseitypPremier Health [facility] Work Phone: Start: 06-13-2024 End: 71-09-4534Giqiszz encounter procedureFirelands Physician Group-[facility] Work Phone: Start: 05-01-2024 End: 64-60-3175Djtuqdz encounter procedureFirelands Physician Group-[facility] Work Phone: Start: 21-93-0791Lgt-patient / Non-visitFirelands Physician Group-[facility] Work Phone: Start: 04-09-2024 End: 24-84-6575irlyxcrpjjAjriodgauPremier Health [facility] Work Phone: Start: 04-09-2024 End: 64-04-9718Grqjijg encounter procedureFirelands Physician Group-[facility] Work Phone: Start: 01-22-2024 End: 98-54-6204kpkcrjbxgbXeafjtoqePremier Health [facility] Work Phone: Start: 01-22-2024 End: 86-63-7940Zbyfjta encounter procedureFirelands Physician Group-[facility] Work Phone: Start: 12-19-2023 End: 14-50-0632xjfnkoszyqDyihmcrunPremier Health [facility] Center Work Phone: Start: 12-19-2023 End: 95-88-8836Pxeqmom encounter procedureFirocoees Physician Group-[facility] Work Phone: Start: 37-82-6716Vtg-patient / Non-visitFirocoees Physician Group-[facility] Work Phone: Start: 10-25-2023 End: 52-84-9961jjnluhyxrqXbueuvjztPremier Health [facility] Work Phone: Start: 10-25-2023 End: 72-77-1220Wzbfznw encounter procedureFirocoees Physician Group-[facility] Work Phone: Start: 09-29-2023 End: 77-32-8665cldfbopekfGlrhexkxpPremier Health [facility] Work Phone: Start: 09-29-2023 End: 02-77-9201Fwhqopx encounter procedureLake Norman [facility] Work Phone: Start: 94-60-0602Wvk-patient / Non-visitFirelands [facility] Work Phone: Start: 72-78-9184Pwq-patient / Non-visitFirocoees Physician Group-[facility] Work Phone: Start: 07-14-2023 End: 46-06-9728zfugleocnvWxwoxa Olimpia Other [employer] Other Start: 82-91-8050Kllhfjcla encounterMarcia [facility] Centertart: 06-27-2023 End: 50-86-3479didxxituhnMtitpz Olimpia Other [employer] Other Start: 54-86-9741Ebuxjahlp encounterMarcia BraunHenry County Hospitaltart: 06-09-2023 End: 69-20-5812iwjbvqehclYtjflu Doan Other [employer] Other Start: 82-55-8060Zpfnhttyu encounterMarcia Angi [facility] ClinicStart: 05-23-2023 End: 97-84-5397evcsnnsarsGfcgxt Doan Other [employer] Other Start: 05-86-8160Gthtrv outpatient visit 15 minutes Tiffanie [facility] ClinicStart: 36-15-9947Quejfhoph encounterMarcia Angi [facility] ClinicStart: 04-26-2023 End: 67-29-8672quxgqyxsmhDzekxz Doan Other [employer] Other Start: 80-12-3846Viydwj outpatient visit 15 minutes [facility]iff[facility] ClinicStart: 04-25-2023 End: 08-31-7238fshnequcagShiqsa Doan Other [employer] Other Start: 99-34-4115Ryivxukti encounterMarcia Angi [facility] ClinicStart: 03-15-2023 End: 66-40-9557ftdqxvpkubRtmszm Doan Other [employer] Other Start: 98-36-9123Goimqfwsm encounterMarcia Angi [facility] ClinicStart: 12-19-2022 End: 17-84-0767hkwtscrtqkLlnnna Doan Other [employer] Other Start: 65-48-1021Pexacjslg encounterMarcia Angi [facility] ClinicStart: 11-25-2022 End: 27-02-1441hoefimkcbpYwnnrj Doan Other [employer] Other start: 42-68-3705Hqulbkpnk encounterTiffanie Whitley [facility] ClinicStart: 11-01-2022 End: 65-33-3156ibtwogxcgxXdjktp Braun Other [employer] Other Start: 74-91-5312Dlwpeefym encounterTiffanie Whitley [facility] Hospitaltart: 10-26-2022 End: 89-44-6008qpjimkxwlbFidkcq Braun Other [employer] Other Start: 88-35-6546Yucpng outpatient visit 15 minutes Tiffanie DoanSelect Medical [facility] ClinicStart: 05-13-2022 End: 70-68-6475cotxyhavpgTE TIFFANIE Valdivia OLIMPIAFacility:V1Lkjfk: 26-20-6416Yhrmf health examinationTiffanie Doan Other [employer] Other Start: 05-04-2022 End: 88-56-9843kjhmhbfzavRV JAROD LONGORIAFacility:N5Honyy: 01-05-2022 End: 57-71-6560myqqyybxxpSU LAMBERTO Breaux ZIEBERFacility:L9Cpglv: 11-19-2021 End: 48-67-8301hvpqwyawwnTJ LAMBERTO Breaux ZIEBERFacility:C7Ajrnj: 07-14-2021 End: 83-52-0082gknddcidqwNF LAMBERTO Breaux ZIEBERFacility:L5Nzesx: 07-23-2020 End: 10-80-3219Pibarip encounter procedureNONE LISTED REQUESTFacility:M2Mtkix: 06-22-2020 End: 74-18-7185Vzzdxft encounter procedureNONE LISTED REQUESTFacility:Y5Rhsfn: 11-15-2013 End: 25-10-6959Ssjkjqkrb encounterEusebia Jimenes Work Phone: Neurology Procedures DateProcedureProcedure DetailPerforming ClinicianStart: 38-40-1616Yalszhp examination of patientTiffanie Doan Other Start: 37-12-8263Epkkgttjr mammographyMarcia Olimpia Other Screening for malignant neoplasm of breastCherrycia Doan Other Screening for malignant neoplasm of colonMarcia Doan Other Plan of Treatment DateCare ActivityDetailAuthorStart: 05-91-7670Jeckoel [facility] Work Phone: Start: 67-28-2107JckegnvnoKe[facility]an [facility] Hospital Start: 46-19-4462Htnrycuoa vaccinationINFLUENZA (Season Ended)[facility] Start: 48-00-8667ALCRQJV DIRECTIVE DISCUSSIONADVANCE DIRECTIVE DISCUSSION [facility] Ohiotart: 98-74-4432KAPE DENSITYBONE DENSITYKing's Daughters Medical Center Ohiotart: 58-69-6674GIMAKZOZF AGE 65 AND OVER WITH 5YR LOOKBACK (#1)PNEUMOVAX AGE 65 AND OVER WITH 5YR LOOKBACK (#1)[facility]art: 27-77-7000DFZPXORF VACCINE (1 of 2)SHINGRIX VACCINE (1 of 2)[facility]: 52-03-4420DYLEQTSL SCREEN DIABETES SCREENKing's Daughters Medical Center Ohiotart: 99-96-4176Fofka microalbumin profile DTAP,TDAP,TD (1 - Tdap)[facility] Work Phone: [facility] Immunizations Immunization DateImmunizationNotesCare MxwyizkwVusygzrp91-41-8639efvnyczfd, high dose seasonal, preservative-freeTiffanie Doan MD Work Phone: [facility]11-05-2024influenza, high dose seasonal, preservative-freeKeenan Private Hospital09-28-2022 influenza virus vaccine, split virus (incl. purified surface antigen)Tiffanie Doan Other [place] AppointmentCity Other 09082262-89-0488kavizpgms virus vaccine, unspecified formulationKeenan Private Hospital09-22-2021influenza virus vaccine, split virus (incl. purified surface antigen)Tiffanie Doan Other [employer] Other 09-582214-16-7385bzsjjcyxe virus vaccine, unspecified formulationKeenan Private Hospital09-08-2020influenza virus vaccine, split virus (incl. purified surface antigen)Tiffanie Doan Other [employer] Other [id number] virus vaccine, unspecified formulationKeenan Private Hospital04-03-2018pneumococcal conjugate vaccine, 13 valentTiffaine Doan Other [facility]04-03-2018 pneumococcal Conjugate, unspecified formulation; Translations: [Need for prophylactic vaccination against Streptococcus pneumoniae (pneumococcus)]Tiffanie Doan Other [employer] Other 10-914290-85-3506ikphltorh virus vaccine, split virus (incl. purified surface antigen)Tiffanie Doan Other [employer] Other 10-329956-60-9572qknwxcmbe virus vaccine, unspecified formulationKeenan Private Hospital11-06-2014influenza virus vaccine, split virus (incl. purified surface antigen)Tiffanie Doan Other [employer] Other 11-581496-46-8996iraaagcfx virus vaccine, unspecified formulationKeenan Private Hospital11-27-2013diphtheria, tetanus toxoids and acellular pertussis vaccine, unspecified formulationTiffanie Doan Other [facility]11-07-2013tetanus and diphtheria toxoids, adsorbed, preservative free, for adult use (5 Lf of tetanus toxoid and 2 Lf of diphtheria toxoid)Tiffanie Doan Other [facility] Payers DatePayer CategoryPayerPolicy ID2004MedicareMEDICARE MEDICARE B [id number] 2003-Present [place] [id number] ANTHEM BCBS [facility] PPO [id number] 1996-Present [id number] [id number] 1962 [id number] [id number] 2.840.1.578894.3.57[id number] 2.840.1.415280.3.57[id number] 2..840.1.263056.3.579.2.593[facility] westMedire[facility] Outpatient [id number] [id number] [id number] 2.16840.1.1[id number] 2.16.840.1.0[id number] 2.16840.1.470070.3.579.2.593Unknown Rg BC/[id number] 2.16840.1.106260.3.579.2.531 Social History DateTypeDetailFacilityStart: 74-11-1400Dknnycw smoking status NHISFormer smoker [facility] End: 78-54-4449Belthpl of tobacco useCurrent smokerKing's Daughters Medical Center Ohiotart: 26-27-1512Gcohpdt intakeCurrent non-drinker of alcohol (finding)[facility] Start: 81-45-6354Ayd Assigned At BirthNot on fileKing's Daughters Medical Center Ohioex Assigned At [facility] Assigned At [facility] AppointmentCity Other Start: 91-76-9845Das Assigned At [facility] Medical CenterTobacc smoking status NHISUnknown if ever smoked [facility] Work Phone: Start: 06-13-2024 End: 08-17-4866NvhZxzvgi (finding)[facility] Clinical Notes 04-18-2005 to 03-26-2025 Note Date & XsemAjhxSqhtkund03-73-6280 NoteSubjective Patient ID: Shabnam Garsia is a [...] Follow up in about 4 weeks (around 04/23/2025).[facility]09-16-2025 Evaluation note* Diagnosis Onset Date Resolution Status Admit Date Fatigue acuteSeptember 2024 1:24pm [facility] Work Phone: 1(297) 240-169109-16-2025 Evaluation note* Diagnosis Onset Date Resolution Status Admit Date Abnormal EKG acuteSeptember 2024 1:24pmFatigueacuteSeptember 2024 1:24pm [facility] Work Phone: 1(842) 556-275005-14-2025 Evaluation note* Diagnosis Onset Date Resolution Status Admit Date Anxiety acuteMay 2024 9:22amEssential (primary) hypertensionacuteMay 2024 9:22amSituational stressacuteMay 2024 9:22am [facility] Work Phone: 1(254) 408-418611-05-2024 Evaluation note* Diagnosis Onset Date Resolution Status Admit Date Encounter for immunization acuteNovember 2023 10:50amAnxietyacuteNovember 2023 9:24amEssential (primary) hypertensionacuteNovember 2023 9:24amSituational stressacute November 2023 9:24am [facility] Work Phone: 1(129) 272-990302-09-2024 Evaluation note* Encounter Date Diagnosis Assessment Notes Treatment Notes Treatment Clinical Notes Jul, Vitamin B12 deficiency (ICD-10 - E53.8) [employer] Other 01-23-2024 Evaluation note* Encounter Date Diagnosis Assessment Notes Treatment Notes Treatment Clinical Notes Jun, Essential (primary) hypertension (ICD-10 - I10) [employer] Other 01-05-2024 Evaluation note* Encounter Date Diagnosis Assessment Notes Treatment Notes Treatment Clinical Notes Jun, Essential (primary) hypertension (ICD-10 - I10) [employer] Other 12-19-2023 Evaluation note* Encounter Date Diagnosis Assessment Notes Treatment Notes Treatment Clinical Notes May, Essential (primary) hypertension (ICD-10 - I10) added toprol, continue olmesartan. 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 May,nxiety, generalized (ICD-10 - F41.1)Pt takes med spariningly, reviewed OARRS report. [employer] Other 11-22-2023 Evaluation note* Encounter Date Diagnosis [...] - Z86.73)Pt requests refill for chronic issue. [employer] Other 11-21-2023 Evaluation note* Encounter Date Diagnosis Assessment Notes Treatment Notes Treatment Clinical Notes Apr, Vitamin B12 deficiency (ICD-10 - E53.8) [employer] Other 05-24-2023 Evaluation note* Encounter Date Diagnosis [...] white coat - will recheck at home. [employer] Other 08-03-2022 NotePROCEDURE: MRI BRAIN WO CON [...] Electronically authenticated by: LAMBERTO ALEJANDRO Date: 2022-01-05 15:55[facility]02-09-2022 NotePROCEDURE: XR HIP RT 2 [...] Electronically authenticated by: LAMBERTO ALEJANDRO Date: 2021-07-14 14:31[facility]06-13-2014 Miscellaneous Notes* Telephone Encounter - [...] speak with Dr. Jimenes. documented in this encounterThe [facility]11-14-2005 History of Past illness Narrative* ProblemNoted DateResolved DateCENTRAL ORIGIN RJULELC1904/18/2005 01/17/2014Peripheral vertigo, jozzvuruebn64documented as of this encounter (statuses as of 09/30/2020) [facility] SystemEvaluation noteNo InformationNortThe Children's Hospital Foundation [employer] Other Evaluation noteNo assessment information available [facility] Work Phone: Evaluation note* Diagnosis Onset Date Resolution Status Essential (primary) hypertension acuteHyperlipidemiaacuteSituational stressacute [facility] Work Phone: Evaluation note* Diagnosis Onset Date Resolution Status Essential (primary) hypertension acuteHyperlipidemiaacuteSituational stressacuteEssential (primary) hypertension acuteSituational stressacuteAgitationacute [facility] Work Phone: Evaluation note* Diagnosis Onset Date Resolution Status Agitation acute [facility] Work Phone: Evaluation note* Diagnosis Onset Date Resolution Status Admit Date Fatigue acuteSeptember 2024 1:24pm [facility] Work Phone: History general Narrative - Reported* Type Description Date Medical History OVARIAN CANCER Surgical HistoryhysterectomySurgical HistoryappendectomyHospitalization History SEE ABOVE [facility] [employer] Other Reason for referral (narrative)No reason for referral information availableCleveland Clinic [facility] Work Phone: Summary Purpose Family History No [...] Situational stress Chief Complaint 6 month [facility] follow up bp issues , [...] and content) DATE CREATED AUTHOR 07/28/2020 [facility] DATE CREATED AUTHOR AUTHOR'S ORGANIZ ATION 05/26/2022 [facility] DATE CREATED AUTHOR AUTHOR'S ORGANIZ ATION 03/15/2025 [facility] DATE CREATED AUTHOR AUTHOR'S ORGANIZ ATION 04/11/2025 [facility] Source Comments (unrecognize d section and content) In the event this informatio n is protected by the Federal Confidentiality of Alcohol and Drug Abuse Patient Records regulations: The Federal rules restrict any use of the information to criminally investigate or prosecute any alcohol or drug abuse patient.[facility] REASON FOR VISIT (unrecogniz ed section and content) refill6 MONTH FOLLOW UP ACre filllabsrefillrefill6 month Follow upstress testblood pressure issuesNew RXBPsmessagerefills Care Teams (unrecognized sec tion and content) Team Status: Active Member Role Status Suzan Doan MD Primary Care Provider Active Team Status: Inactive Member Role Status Suzan [...] Active Start: December 10, 2023 Sarah Elizondo MDAttending ProviderActiveStart: December 10, 2023 Team [...] Tiffanie Doan MDOther ProviderActiveStart: February 18, 2025 Edyta Megan Pito ProviderActiveStart: February 18, 2025 Team Status: Inactive [...] BE BASED ON THE PRIMARY CLINICAL RECORDS. [facility] Cover [facility]. provides no warranty or guarantee of the accuracy or completeness of information in this document.
[2025-04-30 13:11] LABS: Anion Gap 10.1; Blood Urea Nitrogen 27.0 mg/dL (7.0-18.0); Calcium 9.0 mg/dL (8.5-10.1); Carbon Dioxide 31.2 mmol/L (21.0-32.0); Chloride 102 mmol/L (98-107); Estimated GFR (African America 58 (>=60 mL/min/1.73m^2); Estimated GFR (Non-African Ame 48 (>=60 mL/min/1.73m^2); Glucose 100 mg/dL (74-106); Potassium 4.3 mmol/L (3.5-5.1); Sodium 139 mmol/L (136-145)
== END 2025-04-30 11:54 | disposition home or self-care (01) ==
LOC: LAB 11:55
PROVIDERS: PCP Family Medicine; Visit Provider Internal Medicine Cardiovascular Disease
DX: R94.31 Abnormal electrocardiogram [ECG] [EKG] (principal)
CPT/HCPCS: 36415; 80048